=== PATIENT | male | born 1965 | race Caucasian/White ===

== ENCOUNTER 2017-02-16 05:41 | Day surgery (SDC) | payer MEDICAID ==
[2017-02-16] MEDS ORDERED: Lactated Ringers 1,000 ML IV SCH (07:00)
[2017-02-16] MEDS ORDERED: DIPRIVAN 200 MG/20 ML IV ONE (08:00)
--- NOTE | 2017-02-16 08:06 | OP ---
SURGERY DATE/TIME: 02/16/201723 PREOPERATIVE DIAGNOSIS: Rectal bleeding. POSTOPERATIVE DIAGNOSIS: Fecal impaction. PROCEDURE: Digital disimpaction under anesthesia. SURGEON: Dr. Rawls. ANESTHESIA: MAC. Medications given by anesthesia department. HISTORY: The patient is a 52 year-old white male patient with multiple medical problems. Apparently he has been having problems with rectal bleeding on evaluation prior to doing a colonoscopy which is planned. The patient is having dark stools, liquid, even after tap water enemas. DESCRIPTION OF PROCEDURE: On digital rectal examination the patient was found to be fecally impacted as far up as I could feel. We did a digital disimpaction for the patient under anesthesia. We were obviously unable to do a colonoscopy at this time. The patient would have to reprep and we will attempt to do a colonoscopy in the future at agreement of the patient and family if he should so desire.
[2017-02-16 08:27] VITALS: O2SAT 99
[2017-02-16 09:10] VITALS: BP 130/72
[2017-02-16 09:14] VITALS: PULSE 88
== END 2017-02-16 09:05 | disposition home or self-care (01) ==
LOC: SDC 05:41
PROVIDERS: ATTEND Family Medicine
PROC: 0DCP7ZZ Extirpation of Matter from Rectum, Via Natural or Artificial Opening (ICD-10-PCS; principal; 2017-02-16)
DX: K56.41 Fecal impaction (principal)
CPT/HCPCS: 00902; J1642; J2704

== ENCOUNTER 2017-02-16 09:06 | Emergency (ER) | payer MEDICAID ==
--- NOTE | 2017-02-16 09:34 | ERPHSYRPT ---
- History of Present Illness Time Seen by Provider: 02/16/17 09:27 Patient Subjective Stated Complaint: lt knee/ankle pain post incident Triage Nursing Assessment: states at 0530, pt got lt leg 'twisted while getting from wheelchair to vehicle to come in for procedure' pt was manually disimpacted under anethesia at this hopsital prior to ER visit. pt states pain to lt knee and lt ankle and increased swelling to lt lower extrem. no bruising noted. pulses present bilat. slight bilat lower extrem swelling equal to lower extrem. Physician History: Transferring from wheelchair to [employer] this AM and twisted L leg injuring L knee and ankle. States sharp pain initially to areas indicated. Pt. does not ambulate due to stroke(2013) and ALS(2015). No obvious signs of trauma to L leg /ankle area. Denies any paresthesias to area distally. Denies any other trauma or injuries. Pt. had a procedure at 6AM and went to procedure first prior to coming to ED. Method of Injury: twisted Occurred: this morning (5:30AM) Quality: intermittent Severity of Pain-Max: moderate Severity of Pain-Current: moderate Lower Extremities Pain: knee: left, ankle: left Modifying Factors: Improves With: movement (worsens) Associated Symptoms: none Allergies/Adverse Reactions: erythromycin lactobionate [From Erythrocin] Allergy (Verified 02/16/17 09:25) methocarbamol Allergy (Verified 02/16/17 09:25) Penicillins Allergy (Verified 02/16/17 09:25) egg Adverse Reaction (Verified 02/16/17 09:25) Home Medications: Docusate Sodium [Colace] 0 mg PO DAILY 05/17/16 [History] Quetiapine Fumarate [Seroquel] 300 mg PO HS 05/17/16 [History] Amlodipine Besylate 5 mg [Norvasc 5 mg] 5 mg PO DAILY 02/13/17 [History] Ferrous Sulfate 325 mg [Feosol 325 mg] 325 mg PO DAILY 02/13/17 [History] Gabapentin [Neurontin] 600 mg PO TID 02/13/17 [History] Insulin Glargine [Lantus Insulin] 30 unit SQ DAILY 02/13/17 [History] Hx Tetanus, Diphtheria Vaccination/Date Given: Yes Hx Influenza Vaccination/Date Given: No Hx Pneumococcal Vaccination/Date Given: No Immunizations Up to Date: Yes - Review of Systems Constitutional: No Fever, No Chills Eyes: No Symptoms Ears, Nose, & Throat: No Symptoms Respiratory: No Cough, No Dyspnea Cardiac: No Chest Pain, No Edema, No Syncope Abdominal/Gastrointestinal: No Abdominal Pain, No Nausea, No Vomiting, No Diarrhea Genitourinary Symptoms: No Dysuria Musculoskeletal: Injury, No Back Pain, No Neck Pain, No Joint Redness, No Joint Pain, No Joint Swelling Skin: No Rash Neurological: No Dizziness, No Focal Weakness, No Sensory Changes Psychological: No Symptoms Endocrine: No Symptoms All Other Systems: Reviewed and Negative - Past Medical History Pertinent Past Medical History: Yes Neurological History: Migraines, Stroke ENT History: Cataracts Cardiac History: Coronary Artery Disease, Hypertension Respiratory History: Pneumonia Endocrine Medical History: Diabetes Type II Musculoskeletal History: Fractures, Other GI Medical History: No Pertinent History History: No Pertinent History Psycho-Social History: Anxiety, Panic Disorder Male Reproductive Disorders: Testicular Cancer Other Medical History: testicular cancer - Past Surgical History Past Surgical History: Yes Neuro Surgical History: Other Cardiac: Cardiac Stent Respiratory: No Pertinent History Musculoskeletal: Orthopedic Surgery Male Surgical History: Testicular Surgery Other Surgical History: oral surgery,states brain surgery after stroke,rods to tibia right leg,left leg muscle repair,juanita. orchectomy - Social History Smoking Status: Never smoker Exposure to second hand smoke: No Drug Use: none Patient Lives Alone: No - Nursing Vital Signs Nursing Vital Signs: Initial Vital Signs Temperature 97.2 F Temperature Source Oral Pulse Rate 80 Respiratory Rate 16 Blood Pressure [Right Arm] 136/72 Pain Intensity 10 - Physical Exam General Appearance: alert Eyes, Ears, Nose, Throat Exam: moist mucous membranes Neck Exam: non-tender, supple Cardiovascular/Respiratory Exam: chest non-tender, normal breath sounds, regular rate/rhythm, no respiratory distress Gastrointestinal/Abdominal Exam: non-tender, guarding Back Exam: normal inspection, No vertebral tenderness Knees Exam: left knee: bone tenderness (Lat.knee/tibia area), soft tissue tenderness (same above) Ankle Exam: left ankle: soft tissue tenderness (L lat malleolar), swelling, bilateral ankle: no evidence of injury, limited range of motion Foot Exam: bilateral foot: non-tender DTR - Lower Extremities Exam: knee (R): 2+, knee (L): 2+ Neuro/Tendon Exam: normal sensation, motor deficit (Decrease strength with leg elevation 3/5, similar to baseline motor function) Mental Status Exam: alert, oriented x 3, cooperative Skin Exam: normal color, warm, dry SpO2: 100 Oxygen Delivery: Room Air - Course Nursing assessment & vital signs reviewed: Yes - Radiology Exams Left Knee X-ray Interpretation: Teleradiologist Report, No Fracture Left Ankle X-ray Interpretation: Teleradiologist Report, Negative, No Fracture Ordered Tests: Active Orders 24 hr Category Date Time Status ANKLE (3 VIEWS) Stat Exams 02/16/17 09:40 Ordered KNEE (3 VIEWS) Stat Exams 02/16/17 09:39 Ordered Medication Summary Discontinued Medications Generic Name Dose Route Start Last Admin Trade Name Freq PRN Reason Stop Dose Admin Acetaminophen/Hydrocodone Bitart 1 tab 02/16/17 09:41 02/16/17 09:44 [place] 5/325 Mg PO 02/16/17 09:42 1 tab STAT ONE Administration Acetaminophen/Hydrocodone Bitart Confirm 02/16/17 09:44 [place] 5/325 Mg Administered 02/16/17 09:45 Dose 1 tab .ROUTE .STK-MED ONE - Progress Progress: improved Progress Note: 02/16/17 10:39 Pt. given [place] with some relief. Counseled pt/family regarding: diagnosis, rad results - Departure Time of Disposition: 10:39 Departure Disposition: Home Clinical Impression: Strain of knee and leg, left Condition: Stable Critical Care Time: No Instructions: Knee Sprain Additional Instructions: Ice to any sore areas, elevate and decrease weight bearing. Motrin 800mg every 8hrs with food for pain. Return for worse pain, swelling or any problems.
[2017-02-16] MEDS ORDERED: NORCO 5/325 MG PO ONE (09:41)
[2017-02-16] MEDS ORDERED: NORCO 5/325 MG ONE (09:44)
--- NOTE | 2017-02-16 10:40 | XRAY ---
Indication: Pain and swelling following fall. Comparison: None 3 projections of the left knee demonstrates osteopenia and small nonspecific suprapatellar effusion. No other bony, articular, or soft tissue abnormalities. CT may yield further information if there remains further clinical concern.
--- NOTE | 2017-02-16 10:40 | XRAY ---
Indication: Pain following fall. Comparison: None 3 views of the left ankle demonstrates diffuse soft tissue swelling, osteopenia, and tiny well-circumscribed ossification adjacent to the tip of the medial malleolus, either degenerative versus old injury. No other bony, articular, or soft tissue abnormalities.
[2017-02-16 10:55] VITALS: BP 115/67; PULSE 78; O2SAT 97
== END 2017-02-16 10:55 | disposition home or self-care (01) ==
LOC: ED 09:06
DX: S83.92XA Sprain of unspecified site of left knee, initial encounter (principal); X50.0XXA Overexertion from strenuous movement or load, initial encounter
CPT/HCPCS: 73562; 73610; 99283; A9270-GY

== ENCOUNTER 2017-02-28 02:08 | Inpatient (IN) | payer MEDICAID ==
[2017-02-28] MEDS ORDERED: Sodium Chloride 0.9% 1000 ML 1,000 ML IV SCH (02:45)
--- NOTE | 2017-02-28 02:47 | ERPHSYRPT ---
- History of Present Illness Time Seen by Provider: 02/28/17 02:32 Source: patient Exam Limitations: no limitations Patient Subjective Stated Complaint: STATES THAT HE NOTED BLOODY DIARRHEA AT 1930 TONIGHT WITH MULTIPLE EPISODES WITH 8 DIAPER CHANGES, THAT BEGAN TO RESOLVE AT 2300 TONIGHT - STATES THAT HE HAS SOME ABD CRAMPING - ALSO REPORTS A HEADACHE AND HIGH BLOOD SUGAR THAT IS NORMAL FOR HIM Triage Nursing Assessment: LIFTED TO CART PER EMS PERSONNEL - MOVES ALL EXTREMITIES WITH EQUAL STRENGTH. ALERT/ORIENTED - PLEASANT/COOPERATIVE AFFECT. SKIN PALE/DRY - NO RASH/INJURY. RESPS EASY - NON-LABORED Physician History: This is a 52-year-old white male who is brought by medics patient states that he started having bloody diarrhea beginning at 1930 p.m. he states he had multiple episodes he states that he has had dark stools he states that he has had some lower abdominal pain he states he had some a headache he was noted to have a high blood sugar prior to arrival Medics state that the patient's blood sugar was rated as a high high high patient arrives with an elevated blood pressure as well Patient is not having any vomiting has no fevers Past medical history includes cataracts, migraines, CVA, coronary artery disease , high blood pressure, diabetes, fractures, anxiety, panic disorder, testicular cancer Past surgical history includes cardiac stent, testicular surgery, brain surgery after a stroke, bilateral orchiectomy, patient with rods to his tibia Timing/Duration: yesterday (patient states GI bleed lasted from 7:30 20 11:15 PM last night) Severity: moderate Modifying Factors: Improves With: nothing Associated Symptoms: abdominal pain, headaches, No nausea, No vomiting, No shortness of breath, No heartburn, No diaphoresis, No cough, No chills, No chest pain, No fever, No loss of appetite, No malaise, No rash, No syncope, No seizure, No weakness Allergies/Adverse Reactions: bee venom protein (honey bee) Allergy (Verified 02/28/17 02:28) erythromycin lactobionate [From Erythrocin] Allergy (Verified 02/16/17 09:25) ketorolac [From Toradol] Allergy (Verified 02/28/17 02:28) methocarbamol Allergy (Verified 02/16/17 09:25) Penicillins Allergy (Verified 02/16/17 09:25) egg Adverse Reaction (Verified 02/16/17 09:25) Home Medications: Quetiapine Fumarate [Seroquel] 300 mg PO HS 05/17/16 [History] Gabapentin [Neurontin] 600 mg PO TID 02/13/17 [History] Insulin Glargine [Lantus Insulin] 30 unit SQ DAILY 02/13/17 [History] Hx Tetanus, Diphtheria Vaccination/Date Given: Yes Hx Influenza Vaccination/Date Given: No Hx Pneumococcal Vaccination/Date Given: No Immunizations Up to Date: Yes - Review of Systems Constitutional: No Fever, No Chills Eyes: No Symptoms Ears, Nose, & Throat: No Symptoms, No Ear Pain, No Ear Discharge, No Hearing Changes, No Tinnitus, No Nose Pain, No Nose Congestion, No Nose Discharge, No Sinus Drainage, No Epistaxis, No Mouth Pain, No Mouth Swelling, No Loose Teeth, No Throat Pain, No Throat Swelling, No Hoarse, No Painful Swallowing, No Snoring , No Stridor Respiratory: No Cough, No Dyspnea Cardiac: No Chest Pain, No Edema, No Syncope Abdominal/Gastrointestinal: Abdominal Pain, Diarrhea, Hematochezia, Melena, No Nausea, No Vomiting, No Constipation, No Hematemesis, No Dysphagia, No Appetite Changes Genitourinary Symptoms: No Dysuria Musculoskeletal: No Back Pain, No Neck Pain Skin: No Rash Neurological: Headache Psychological: No Symptoms Endocrine: No Symptoms All Other Systems: Reviewed and Negative - Past Medical History Pertinent Past Medical History: Yes Neurological History: Migraines, Stroke ENT History: Cataracts Cardiac History: Coronary Artery Disease, High Cholesterol, Hypertension Respiratory History: Pneumonia Endocrine Medical History: Diabetes Type II Musculoskeletal History: Fractures, Other GI Medical History: No Pertinent History History: No Pertinent History Psycho-Social History: Anxiety, Panic Disorder Male Reproductive Disorders: Testicular Cancer Other Medical History: testicular cancer - Past Surgical History Past Surgical History: Yes Neuro Surgical History: Other Cardiac: Cardiac Catheterization, Cardiac Stent Respiratory: No Pertinent History Musculoskeletal: Orthopedic Surgery Male Surgical History: Testicular Surgery Other Surgical History: oral surgery,states brain surgery after stroke,rods to tibia right leg,left leg muscle repair,juanita. orchectomy - Social History Smoking Status: Never smoker Exposure to second hand smoke: No Drug Use: none Patient Lives Alone: Yes - Nursing Vital Signs Nursing Vital Signs: Initial Vital Signs Temperature 98.7 F Temperature Source Oral Pulse Rate 68 Respiratory Rate 20 Blood Pressure [] 147/94 Pain Intensity 8 - Physical Exam General Appearance: mild distress Eye Exam: PERRL/EOMI, eyes nml inspection Ears, Nose, Throat Exam: normal ENT inspection, TMs normal, pharynx normal, moist mucous membranes Neck Exam: normal inspection, non-tender, supple, full range of motion Respiratory Exam: normal breath sounds, lungs clear, No respiratory distress Cardiovascular Exam: regular rate/rhythm, normal heart sounds, normal peripheral pulses Gastrointestinal/Abdomen Exam: soft, normal bowel sounds, No tenderness, No mass Rectal Exam: other (rectal moderate amount of dark brown stool no obvious bleeding) Back Exam: normal inspection, normal range of motion, No CVA tenderness, No vertebral tenderness Extremity Exam: normal inspection, normal range of motion, pelvis stable Neurologic Exam: alert, oriented x 3, cooperative, normal mood/affect, nml cerebellar function, nml station & gait, sensation nml, No motor deficits Skin Exam: normal color, warm, dry, No rash Lymphatic Exam: No adenopathy SpO2 Interpretation: normal (98%) SpO2: 98 Oxygen Delivery: Room Air - Course Nursing assessment & vital signs reviewed: Yes EKG Interpreted by Me: RATE (90 bpm), Sinus Rhythm, NORMAL AXIS, Other (EKG: Sinus rhythm 90 bpm normal axis no acute ST or T wave changes, essentially normal ekg) - CT Exams Head CT Interpretation: Tele-radiologist Report (head CT: No acute intracranial process seen) Ordered Tests: Active Orders 24 hr Category Date Time Status Accucheck STAT Care 02/28/17 02:40 Active EKG-ER Only STAT Care 02/28/17 02:39 Active IV Insertion STAT Care 02/28/17 02:39 Active HEAD WITHOUT CONTRAST [CT] Stat Exams 02/28/17 02:50 Taken AMYLASE Stat Lab 02/28/17 02:40 Completed CBC W DIFF Stat Lab 02/28/17 02:40 Completed CMP Stat Lab 02/28/17 02:40 Completed Glucose,Critical Care Urgent Lab 02/28/17 02:50 Completed LIPASE Stat Lab 02/28/17 02:40 Completed Occult Blood,Stool Other Stat Lab 02/28/17 02:50 Completed PROTIME WITH INR Stat Lab 02/28/17 02:40 Completed PTT Stat Lab 02/28/17 02:40 Completed UA W/ MICROSCOPIC Stat Lab 02/28/17 02:55 Completed VENOUS BLOOD GAS Urgent Lab 02/28/17 02:50 Completed Medication Summary Generic Name Dose Route Start Last Admin Trade Name Maddie PRN Reason Stop Dose Admin Sodium Chloride 1,000 mls @ 100 mls/hr 02/28/17 02:45 02/28/17 03:27 Sodium Chloride 0.9% 1000 Ml IV 03/30/17 02:44 100 mls/hr .Q10H DIONISIO Administration Insulin Human Regular 100 101 mls @ 9.09 mls/hr 02/28/17 03:15 02/28/17 03:46 units/ Sodium Chloride IV 03/30/17 03:14 9.09 mls/hr .[id number] DIONISIO Administration 9 UNITS/HR Discontinued Medications Generic Name Dose Route Start Last Admin Trade Name Maddie PRN Reason Stop Dose Admin Sodium Chloride Confirm 02/28/17 03:34 Sodium Chloride 0.9% 100 Ml Ivpb Administered 02/28/17 03:35 Dose 100 mls @ ud IV .STK-MED ONE Insulin Human Regular 10 unit 02/28/17 02:58 02/28/17 03:07 Novolin R IV 02/28/17 02:59 Not Given STAT ONE Insulin Human Regular Confirm 02/28/17 03:34 Novolin R Administered 02/28/17 03:35 Dose 100 unit .ROUTE .STK-MED ONE Labetalol HCl 10 mg 02/28/17 03:32 02/28/17 03:46 Trandate 20 Mg/5 Ml Syringe IV 02/28/17 03:33 10 mg STAT ONE Administration Labetalol HCl Confirm 02/28/17 03:37 Trandate 20 Mg/5 Ml Syringe Administered 02/28/17 03:38 Dose 20 mg IV .STK-MED ONE Morphine Sulfate 4 mg 02/28/17 02:50 02/28/17 03:12 Morphine Sulfate 4 Mg Inj IV 02/28/17 02:51 4 mg STAT ONE Administration Morphine Sulfate Confirm 02/28/17 03:08 Morphine Sulfate 4 Mg Inj Administered 02/28/17 03:09 Dose 4 mg .ROUTE .STK-MED ONE Morphine Sulfate 4 mg 02/28/17 04:02 02/28/17 04:09 Morphine Sulfate 4 Mg Inj IV 02/28/17 04:03 4 mg STAT ONE Administration Morphine Sulfate Confirm 02/28/17 04:05 Morphine Sulfate 4 Mg Inj Administered 02/28/17 04:06 Dose 4 mg .ROUTE .STK-MED ONE Ondansetron HCl 4 mg 02/28/17 02:50 02/28/17 03:12 Zofran 4 Mg/2 Ml Vial IV 02/28/17 02:51 4 mg STAT ONE Administration Ondansetron HCl Confirm 02/28/17 03:08 Zofran 4 Mg/2 Ml Vial Administered 02/28/17 03:09 Dose 4 mg .ROUTE .STK-MED ONE Lab/Rad Data: Laboratory Result Diagrams 02/28/17 02:40 02/28/17 02:40 Laboratory Results 02/28/17 02/28/17 02/28/17 Range/Units 02:55 02:50 02:50 WBC (4.0-10.5) K/mm3 RBC (4.1-5.6) M/mm3 Hgb (12.5-18.0) gm/dl Hct (42-50) % MCV (78-100) fl MCH (26-32) pg MCHC (32-36) g/dl RDW (11.5-14.0) % Plt Count (150-450) K/mm3 MPV (6-9.5) fl Gran % (36.0-66.0) % Lymphocytes % (24.0-44.0) % Monocytes % (0.0-12.0) % Eosinophils % (0.00-5.0) % Basophils % (0.0-0.4) % Basophils # (0-0.4) INR (0.8-3.0) APTT (24.1-36.1) SECONDS VBG pH 7.36 (7.32-7.42) VBG pCO2 at Pat Temp 43 (42-55) mm/Hg VBG pO2 at Pat Temp 38 (25-40) mm/Hg VBG HCO3 24.3 (22-28) meq/L VBG O2 Sat (Mariusz) 82.8 L (95-100) VBG Base Excess -1.2 (-2.0-2.0) VBG Hemoglobin 11.1 VBG Carboxyhemoglobin 3.7 (0.0-6.9) % T HGB POC Potassium 4.8 (3.5-5.1) Sodium (136-145) mEq/L Potassium (3.5-5.1) mEq/L Chloride (98-107) mEq/L Carbon Dioxide (21-32) mEq/L Anion Gap (5-15) MEQ/L BUN (9-20) mg/dL Creatinine (0.55-1.30) mg/dl Estimated GFR ML/MIN Glucose 644 H* (70-110) MG/DL Calcium (8.5-10.1) mg/dL Total Bilirubin (0.2-1.0) mg/dL AST (15-37) U/L ALT (12-78) U/L Alkaline Phosphatase (46-116) U/L Serum Total Protein (6.4-8.2) gm/dL Albumin (3.4-5.0) g/dL Amylase (25-115) U/L Lipase (73-393) U/L Ur Collection Type CLEAN CATCH Urine Color YELLOW (YELLOW) Urine Appearance CLOUDY (CLEAR) Urine pH 5.5 (5-6) Ur Specific Jewett 1.010 (1.005-1.025) Urine Protein >=300 (Negative) Urine Glucose (UA) 500 (NEGATIVE) mg/dL Urine Ketones NEGATIVE (NEGATIVE) Urine Nitrite NEGATIVE (NEGATIVE) Urine Bilirubin NEGATIVE (NEGATIVE) Urine Urobilinogen 0.2 (0-1) mg/dL Urine WBC (Auto) NEGATIVE (NEGATIVE) Urine RBC (Auto) MODERATE (0-5) Syed/ul Urine Microscopic RBC 15-25 (0-2) /HPF Ur Epithelial Cells FEW (FEW) /HPF Urine Bacteria FEW (NEGATIVE) /HPF Urine Mucus MANY (NEGATIVE) /HPF Stool Occult Blood (Negative) Specimen Received 02/28/17:0255 ABO Group Rh Factor Antibody Screen (NEGATIVE) 02/28/17 02/28/17 02/28/17 Range/Units 02:50 02:40 02:40 WBC (4.0-10.5) K/mm3 RBC (4.1-5.6) M/mm3 Hgb (12.5-18.0) gm/dl Hct (42-50) % MCV (78-100) fl MCH (26-32) pg MCHC (32-36) g/dl RDW (11.5-14.0) % Plt Count (150-450) K/mm3 MPV (6-9.5) fl Gran % (36.0-66.0) % Lymphocytes % (24.0-44.0) % Monocytes % (0.0-12.0) % Eosinophils % (0.00-5.0) % Basophils % (0.0-0.4) % Basophils # (0-0.4) INR 0.93 (0.8-3.0) APTT 34.0 (24.1-36.1) SECONDS VBG pH (7.32-7.42) VBG pCO2 at Pat Temp (42-55) mm/Hg VBG pO2 at Pat Temp (25-40) mm/Hg VBG HCO3 (22-28) meq/L VBG O2 Sat (Mariusz) (95-100) VBG Base Excess (-2.0-2.0) VBG Hemoglobin VBG Carboxyhemoglobin (0.0-6.9) % T HGB POC Potassium (3.5-5.1) Sodium (136-145) mEq/L Potassium (3.5-5.1) mEq/L Chloride (98-107) mEq/L Carbon Dioxide (21-32) mEq/L Anion Gap (5-15) MEQ/L BUN (9-20) mg/dL Creatinine (0.55-1.30) mg/dl Estimated GFR ML/MIN Glucose (70-110) MG/DL Calcium (8.5-10.1) mg/dL Total Bilirubin (0.2-1.0) mg/dL AST (15-37) U/L ALT (12-78) U/L Alkaline Phosphatase (46-116) U/L Serum Total Protein (6.4-8.2) gm/dL Albumin (3.4-5.0) g/dL Amylase (25-115) U/L Lipase (73-393) U/L Ur Collection Type Urine Color (YELLOW) Urine Appearance (CLEAR) Urine pH (5-6) Ur Specific Jewett (1.005-1.025) Urine Protein (Negative) Urine Glucose (UA) (NEGATIVE) mg/dL Urine Ketones (NEGATIVE) Urine Nitrite (NEGATIVE) Urine Bilirubin (NEGATIVE) Urine Urobilinogen (0-1) mg/dL Urine WBC (Auto) (NEGATIVE) Urine RBC (Auto) (0-5) Syed/ul Urine Microscopic RBC (0-2) /HPF Ur Epithelial Cells (FEW) /HPF Urine Bacteria (NEGATIVE) /HPF Urine Mucus (NEGATIVE) /HPF Stool Occult Blood NEGATIVE (Negative) Specimen Received ABO Group A Rh Factor POSITIVE Antibody Screen NEGATIVE (NEGATIVE) 02/28/17 02/28/17 Range/Units 02:40 02:40 WBC 6.7 (4.0-10.5) K/mm3 RBC 3.79 L (4.1-5.6) M/mm3 Hgb 11.0 L (12.5-18.0) gm/dl Hct 33.6 L (42-50) % MCV 88.7 (78-100) fl MCH 29.0 (26-32) pg MCHC 32.7 (32-36) g/dl RDW 13.5 (11.5-14.0) % Plt Count 230 (150-450) K/mm3 MPV 11.1 H (6-9.5) fl Gran % 65.4 (36.0-66.0) % Lymphocytes % 20.8 L (24.0-44.0) % Monocytes % 5.8 (0.0-12.0) % Eosinophils % 6.4 H (0.00-5.0) % Basophils % 1.6 (0.0-0.4) % Basophils # 0.11 (0-0.4) INR (0.8-3.0) APTT (24.1-36.1) SECONDS VBG pH (7.32-7.42) VBG pCO2 at Pat Temp (42-55) mm/Hg VBG pO2 at Pat Temp (25-40) mm/Hg VBG HCO3 (22-28) meq/L VBG O2 Sat (Mariusz) (95-100) VBG Base Excess (-2.0-2.0) VBG Hemoglobin VBG Carboxyhemoglobin (0.0-6.9) % T HGB POC Potassium (3.5-5.1) Sodium 131 L (136-145) mEq/L Potassium 4.8 (3.5-5.1) mEq/L Chloride 101 (98-107) mEq/L Carbon Dioxide 24.1 (21-32) mEq/L Anion Gap 10.7 (5-15) MEQ/L BUN 30 H (9-20) mg/dL Creatinine 1.26 (0.55-1.30) mg/dl Estimated GFR > 60 ML/MIN Glucose 664 H* (70-110) MG/DL Calcium 9.4 (8.5-10.1) mg/dL Total Bilirubin 0.3 (0.2-1.0) mg/dL AST 17 (15-37) U/L ALT 13 (12-78) U/L Alkaline Phosphatase 230 H (46-116) U/L Serum Total Protein 7.2 (6.4-8.2) gm/dL Albumin 2.8 L (3.4-5.0) g/dL Amylase 28 (25-115) U/L Lipase 188 (73-393) U/L Ur Collection Type Urine Color (YELLOW) Urine Appearance (CLEAR) Urine pH (5-6) Ur Specific Jewett (1.005-1.025) Urine Protein (Negative) Urine Glucose (UA) (NEGATIVE) mg/dL Urine Ketones (NEGATIVE) Urine Nitrite (NEGATIVE) Urine Bilirubin (NEGATIVE) Urine Urobilinogen (0-1) mg/dL Urine WBC (Auto) (NEGATIVE) Urine RBC (Auto) (0-5) Syed/ul Urine Microscopic RBC (0-2) /HPF Ur Epithelial Cells (FEW) /HPF Urine Bacteria (NEGATIVE) /HPF Urine Mucus (NEGATIVE) /HPF Stool Occult Blood (Negative) Specimen Received ABO Group Rh Factor Antibody Screen (NEGATIVE) - Progress Progress: improved Progress Note: 02/28/17 04:31 This is a 52-year-old white male with history of cataracts migraines CVA coronary artery disease high blood pressure type 2 diabetes anxiety panic disorder testicular cancer He arrives with complaint of multiple loose stools which she thought were dark and thought he had a GI bleed which began at 7:30 and lasted until 11:30 On arrival of the medics patient was noted to have a markedly elevated blood pressure of 200/120 patient had a blood sugar which was not able to be reread by the medics with their Accu-Chek on arrival here the nurses had high high high blood glucose was 664 Patient did have a blood pressure on arrival to this hospital of 198/118 he stated that he had a frontal headache he was having a lower suprapubic abdominal pain. Patient was started on an insulin drip he was not given a large bolus of fluids secondary to his elevated blood pressure he was given morphine 4 mg IV 2 Zofran and given labetalol 10 mg IV. Patient's blood pressure is now 147/90 blood glucose is 550 after a short of an hour of insulin drip at 9 units per hour. Patient does have a headache however he appears to be improved and blood pressure is markedly improved. Patient's urine shows a specific gravity 1.010 pH of 5.5 urine glucose is 500 ketones are negative Patient had a head CT which shows no acute changes EKG shows sinus rhythm 90 bpm normal axis there are no acute ST or T wave changes noted Patient's chemistry shows sodium of 131 potassium 4.8 chloride 101 bicarbonate 24.1 BUN 30 creatinine 1.26 and glucose 664 Patient's occult stool is negative for blood Patient's CBC shows white count 6.7 hemoglobin 11.0 hematocrit 33.6 Patient appears to be improved condition his blood pressure is improving. Case is discussed with Dr. Bob will place patient on ICU continue IV insulin drip to continue normal saline at [address] Will place patient on telemetry will monitor his pressures for now they appear to be downtrending. . - Departure Time of Disposition: 04:35 Departure Disposition: Observation Clinical Impression: Hypertensive urgency, Hyperglycemia Headache Qualifiers: Headache type: unspecified Headache chronicity pattern: acute headache Intractability: not intractable Qualified Code(s): R51 - Headache Abdominal pain Qualifiers: Abdominal location: unspecified location Qualified Code(s): R10.9 - Unspecified abdominal pain Diarrhea Qualifiers: Diarrhea type: unspecified type Qualified Code(s): R19.7 - Diarrhea, unspecified Condition: Fair Critical Care Time: No Referrals: LISHA KRAMER [Primary Care Provider] -
[2017-02-28] MEDS ORDERED: Zofran 4 MG/2 ML VIAL IV ONE (02:50)
[2017-02-28] MEDS ORDERED: MORPHINE SULFATE 4 MG INJ IV ONE ×2 (02:50→04:02)
[2017-02-28 02:57] LABS: VBG BASE EXCESS -1.2 (-2.0-2.0); VBG CARBOXYHEMOGLOBIN 3.7 % T HGB (0.0-6.9); VBG HCO3- 24.3 meq/L (22-28); VBG HEMOGLOBIN 11.1; VBG O2 SATURATION 82.8 (95-100); VBG POTASSIUM 4.8 (3.5-5.1); VBG pH 7.36 (7.32-7.42)
[2017-02-28] MEDS ORDERED: NovoLIN R IV ONE (02:58)
[2017-02-28 03:07] LABS: BASOPHIL % 1.6 % (0.0-0.4); Eosinophil % 6.4 % (0.00-5.0); Granulocytes % 65.4 % (36.0-66.0); Lymphocytes % 20.8 % (24.0-44.0); Mean Cell Volume 88.7 fl (78-100); Mean Platelet Volume 11.1 fl (6-9.5); Monocytes % 5.8 % (0.0-12.0); Platelet Count 230 K/mm3 (150-450); Red Blood Count 3.79 M/mm3 (4.1-5.6); Red Cell Distribution Width 13.5 % (11.5-14.0); White Blood Count 6.7 K/mm3 (4.0-10.5)
[2017-02-28] MEDS ORDERED: Zofran 4 MG/2 ML VIAL ONE (03:08)
[2017-02-28] MEDS ORDERED: Sodium Chloride 0.9% 1000 ML 1,000 ML ONE (03:08)
[2017-02-28] MEDS ORDERED: MORPHINE SULFATE 4 MG INJ ONE ×2 (03:08→04:05)
[2017-02-28] MEDS ORDERED: NOVOLIN R INSULIN (FOR DRIPS)** 100 UNITS in Sodium Chloride 0.9% 100 ML IVPB 100 ML IV SCH (03:15)
[2017-02-28 03:21] LABS: COMPLETE URINE MICROSCOPIC? YES; Collection Type CLEAN CATCH; Ph 5.5 (5-6)
[2017-02-28 03:22] LABS: Bacteria FEW /HPF (NEGATIVE); Epithelial Cells FEW /HPF (FEW); Mucus MANY /HPF (NEGATIVE)
[2017-02-28 03:24] LABS: INR 0.93 (0.8-3.0); PROTIME 10.4 SECONDS (8.83-12.87)
[2017-02-28 03:28] LABS: ALBUMIN 2.8 g/dL (3.4-5.0); ALKALINE PHOSPHATASE 230 U/L (46-116); ANION GAP 10.7 MEQ/L (5-15); BILIRUBIN,TOTAL 0.3 mg/dL (0.2-1.0); BLOOD UREA NITROGEN 30 mg/dL (9-20); CHLORIDE 101 mEq/L (98-107); Carbon Dioxide 24.1 mEq/L (21-32); LIPASE 188 U/L (73-393); Potassium 4.8 mEq/L (3.5-5.1); SGOT/AST 17 U/L (15-37); SGPT/ALT 13 U/L (12-78); SODIUM 131 mEq/L (136-145); Total Protein 7.2 gm/dL (6.4-8.2)
[2017-02-28] MEDS ORDERED: TRANDATE 20 MG/5 ML SYRINGE IV ONE ×2 (03:32→03:37)
[2017-02-28] MEDS ORDERED: NovoLIN R ONE (03:34)
[2017-02-28] MEDS ORDERED: Sodium Chloride 0.9% 100 ML IVPB 100 ML IV ONE (03:34)
[2017-02-28 03:43] LABS: Glucose 664 MG/DL (70-110)
[2017-02-28] MEDS ORDERED: NOVOLIN R INSULIN (FOR DRIPS)** 100 UNITS in Sodium Chloride 0.9% 100 ML IVPB 100 ML IV PRN (05:18)
[2017-02-28] MEDS ORDERED: MORPHINE SULFATE 4 MG INJ IV PRN (05:18)
[2017-02-28] MEDS ORDERED: Zofran 4 MG/2 ML VIAL IV PRN (05:18)
[2017-02-28] MEDS ORDERED: TYLENOL EXTRA STRENGTH 500 MG PO PRN (08:30)
--- NOTE | 2017-02-28 08:32 | PCM.HP ---
History of Present Illness - Chief Complaint Chief Complaint: Headache, hyperglycemia, HTN Date: 02/28/17 History of Present Illness: is a 52 year old male. with a chronic history of noncompliance with medical treatment for his diabetes and his multiple other co morbid conditions including his chronic neurogenic bladder, presented after reportedly not taking his insulin just for yesterday due to reporting dark stools X 10 for 4 hours that then turned moore prior to presentation however at presentation the heme test of stool was negative. He [facility] living [facility] a [facility] but left voluntarily to move back in with his friend who helps take care of him who is in his 80's. He was gone when he started having the change in stools so [place] called the EMS who brought him here. On arrival he had elevated blood pressure and was also having a headache. He is still reporting a severe headache and asking if he can have fentanyl patch for it as he was on that in the [facility] in the past. He also now is having right lower quadrant abdominal pain. He has not had any vomiting or stools since arrival. He reports being hungry now. He is complaining of progressively worsening diffuse weakness bilaterally but no new weakness since the headache started. - Review of Systems Constitutional: Chills, Fatigue, Lethargy, Malaise, No Fever Eyes: No Eye Redness, No Itchy Ears, Nose, & Throat: Nose Congestion, Sinus Drainage, Hoarse, No Epistaxis, No Painful Swallowing Respiratory: Cough, No Orthopnea, No Short Of Breath Cardiac: Edema, No Chest Pain, No Palpitations Abdominal/Gastrointestinal: Abdominal Pain, Nausea, Diarrhea, No Vomiting Genitourinary Symptoms: Incontinence, No Dysuria Musculoskeletal: Arthralgias Neurological: Focal Weakness, Headache, No Seizure, No Speech Changes Medications & Allergies Home Medications: Home Medication List Quetiapine Fumarate [Seroquel] 300 mg PO HS 05/17/16 [History Confirmed 02/28/17 ] Gabapentin [Neurontin] 600 mg PO TID 02/13/17 [History Confirmed 02/28/17] Insulin Glargine [Lantus Insulin] 30 unit SQ DAILY 02/13/17 [History Confirmed 02/28/17] Allergies/Adverse Reactions: Allergies Allergy/AdvReac Type Severity Reaction Status Date / Time bee venom protein (honey bee) Allergy Verified 02/28/17 02:28 erythromycin lactobionate Allergy Verified 02/16/17 09:25 [From Erythrocin] ketorolac [From Toradol] Allergy Verified 02/28/17 02:28 methocarbamol Allergy Verified 02/16/17 09:25 Penicillins Allergy Verified 02/16/17 09:25 egg AdvReac Verified 02/16/17 09:25 - Past Medical History Past Medical History: Yes Neurological History: Migraines, Stroke ENT History: Cataracts Cardiac History: Coronary Artery Disease, High Cholesterol, Hypertension Respiratory History: Pneumonia Endocrine Medical History: Diabetes Type II Musculoskelatal History: Fractures, Other GI Medical History: No Pertinent History History: No Pertinent History Pyscho-Social History: Anxiety, Panic Disorder Male Reproductive Disorders: Testicular Cancer Comment: testicular cancer - Past Surgical History Past Surgical History: Yes Neuro Surgical History: Other Cardiac History: Cardiac Catheterization, Cardiac Stent Respiratory Surgery: No Pertinent History Musculskeletal Surgical Hx: Orthopedic Surgery Male Surgical History: Testicular Surgery Other Surgical History: oral surgery,states brain surgery after stroke,rods to tibia right leg,left leg muscle repair,juanita. orchectomy - Social History Smoking Status: Never smoker Exposure to second hand smoke: No Alcohol: None Drug Use: none - Physical Exam Vital Signs: Vital Signs - 24 hr Temp Pulse Resp BP Pulse Ox 02/28/17 08:00 97.4 F 71 12 127/71 100 02/28/17 07:52 68 02/28/17 05:40 98.4 F 70 19 145/87 100 02/28/17 04:39 98 02/28/17 04:38 70 18 152/103 100 02/28/17 04:25 68 20 147/94 99 02/28/17 04:17 69 14 170/98 99 02/28/17 04:09 68 196/106 02/28/17 04:01 70 18 200/100 99 02/28/17 03:52 70 16 187/111 99 02/28/17 03:47 68 14 182/108 98 02/28/17 02:21 98.7 F 88 18 198/118 98 General Appearance: no apparent distress Neurologic Exam: alert, oriented x 3, cooperative, depressed mood/affect, motor weakness (symmetrical bilateral chronic in lower extremities worsening 4/5 throughout bilateral upper extremities.), No confusion, No slurred speech Ears, Nose, Throat Exam: moist mucous membranes Neck Exam: normal inspection, non-tender, supple Respiratory Exam: normal breath sounds, lungs clear, No respiratory distress Cardiovascular Exam: regular rate/rhythm, normal heart sounds Gastrointestinal/Abdomen Exam: soft, tenderness (right upper and lower quadrants ), No distention, No guarding, No rebound, No hepatomegaly, No bruit Extremity Exam: pedal edema, other (cool feet with biltaral edema and a pressure ulcer on the heal) Skin Exam: warm, dry, pale Results - Labs Lab/Micro Results: Accuchecks Date 02/28/17 Date 02/28/17 Date 02/28/17 Time 08:25 Time 07:00 Time 06:05 Accucheck Value: 124 Accucheck Value: 260 Accucheck Value: 348 Accuchecks Date 02/28/17 Date 02/28/17 Date 02/28/17 Time 08:25 Time 07:00 Time 06:05 Accucheck Value: 124 Accucheck Value: 260 Accucheck Value: 348 - Radiology Impressions Radiology Exams & Impressions: Radiology Procedures Category Date Time Status ABDOMEN AND PELVIS W CONTRAST [CT] Routine Exams 02/28/17 08:29 Ordered Assessment/Plan (1) Type 1 diabetes mellitus, uncontrolled Current Visit: Yes Status: Acute Assessment & Plan: Hyperglycemia secondary to him not taking his insulin the day of presentation glucose at 100 this am stop drip start his lantus will just do sliding coverage for today in addition with his CT and abdominal pain and add on with meal dosing when po improves. Code(s): E10.65 - TYPE 1 DIABETES MELLITUS WITH HYPERGLYCEMIA (2) Hypertensive urgency Current Visit: Yes Status: Acute Assessment & Plan: he does have a remote hx of a hemorrhagic pontine stroke but previous neurology evaluation did not find deficits assocaited with that and instead was being treated for a persistent weakness following an episode of [place] in the past and was following with neurology in [place] but has been noncompliant with the follow up there. Code(s): I16.0 - HYPERTENSIVE URGENCY (3) Headache Current Visit: Yes Status: Acute Qualifiers: Headache type: unspecified Headache chronicity pattern: acute headache Intractability: not intractable Qualified Code(s): R51 - Headache Code(s): R51 - HEADACHE (4) Abdominal pain Current Visit: Yes Status: Acute Qualifiers: Abdominal location: unspecified location Qualified Code(s): R10.9 - Unspecified abdominal pain Code(s): R10.9 - UNSPECIFIED ABDOMINAL PAIN (5) GI bleed Current Visit: Yes Status: Acute Assessment & Plan: this is not confirmed based on patient history which is unreliable. first occult testing is negative will repeat X2 use protonix with abdominal pain get CT if ok will plan for outpatient endoscopy / colonoscopy f/u if stable Code(s): K92.2 - GASTROINTESTINAL HEMORRHAGE, UNSPECIFIED (6) Anemia Current Visit: Yes Status: Chronic Code(s): D64.9 - ANEMIA, UNSPECIFIED (7) Coronary artery disease Current Visit: Yes Status: Chronic Code(s): I25.10 - ATHSCL HEART DISEASE OF [place] CORONARY ARTERY W/O ANG PCTRS (8) Neurogenic bladder Current Visit: Yes Status: Chronic Code(s): N31.9 - NEUROMUSCULAR DYSFUNCTION OF [place], UNSPECIFIED (9) Depression Current Visit: Yes Status: Chronic Assessment & Plan: long history was following with [facility] for mixed mood disorder continue seroquel for now Code(s): F32.9 - MAJOR DEPRESSIVE DISORDER, SINGLE EPISODE, UNSPECIFIED (10) Diabetic neuropathy associated with type 1 diabetes mellitus Current Visit: Yes Status: Chronic Code(s): E10.40 - TYPE 1 DIABETES MELLITUS WITH DIABETIC NEUROPATHY, UNSP
[2017-02-28 08:42] LABS: Mean Platelet Volume 10.6 fl (6-9.5); Platelet Count 237 K/mm3 (150-450); Red Blood Count 3.63 M/mm3 (4.1-5.6); Red Cell Distribution Width 13.6 % (11.5-14.0); White Blood Count 7.9 K/mm3 (4.0-10.5)
[2017-02-28 08:48] LABS: Mean Corpuscular Hemoglobin 28.6 pg (26-32)
[2017-02-28 09:22] LABS: BLOOD UREA NITROGEN 28 mg/dL (9-20); CHLORIDE 107 mEq/L (98-107); Carbon Dioxide 27.4 mEq/L (21-32); Glucose 95 MG/DL (70-110); Potassium 3.4 mEq/L (3.5-5.1); SODIUM 139 mEq/L (136-145)
--- NOTE | 2017-02-28 09:35 | XRAY ---
Indication: Headache. High blood pressure. Multiple contiguous axial images obtained through the head without contrast. Comparison: September 04, 2015 Stable age-appropriate global atrophy and left occipital craniotomy with underlying encephalomalacia. Again there is tiny pontine hyperdensity/calcification unchanged favored to be benign given stability. No acute intracranial hemorrhage, hydrocephalus, or mass effect. Bony calvarium intact. Visualized paranasal sinuses and mastoid air cells are pneumatized and clear. Impression: Stable nonacute CT head without contrast exam again with chronic features as detailed. Comment: Preliminary interpretation was made by [facility]. No discrepancy. CTDI 66.12
[2017-02-28] MEDS: Lantus Insulin SQ SCH (09:46)
[2017-02-28] MEDS: PROTONIX 40 MG IV IV SCH (09:46)
[2017-02-28] MEDS ORDERED: NON-FORMULARY ITEM (Gabapentin [Neurontin] 600 MG) PO SCH (10:00)
[2017-02-28] MEDS: NEURONTIN 300 MG PO SCH ×3 (10:36→23:18)
--- NOTE | 2017-02-28 14:35 | XRAY ---
Indication: Right lower quadrant pain. Multiple contiguous axial images obtained through the abdomen and pelvis using 80 cc Isovue 370 contrast only. Comparison: Noncontrast exam May 17, 2016. Lung bases again demonstrates right base atelectasis/scarring. No infiltrate, consolidation, or effusion. Heart is not enlarged. Stomach is distended with food/fluid. Noncontrasted bowel loops appear nonobstructed. There remains moderate scattered colonic fecal debris throughout. Appendix not seen. No free fluid/air. 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 Increasing tiny gallstones in the neck of the gallbladder with now borderline gallbladder wall thickening/enhancement concerning for cholecystitis. Both kidneys enhance and excrete without suspicious renal mass, hydronephrosis, perinephric fluid, or hydroureter. Urinary bladder remains abnormally distended with circumferential wall thickening either chronic neurogenic bladder, chronic outlet obstruction, or cystitis. No suspicious bladder mass or calcification on this noncontrast exam. Remaining liver, pancreas, spleen, and adrenal glands appear unremarkable. Again minimal calcifications of the aortoiliac vessels without AAA. No pathologic retroperitoneal lymphadenopathy. Osseous structures intact with moderate degenerative changes at the lumbosacral junction. New healing nondisplaced right anterior 8th rib fracture. Impression: 1. Increasing gallstones with now borderline wall thickening and enhancement. Rule out cholecystitis. 2. Again fecal stasis without obstruction. Colonic hepatic flexure now interposed between the abdominal wall and liver as seen in Chilaiditi's syndrome. 3. Again abnormally distended urinary bladder with circumferential wall thickening either chronic neurogenic bladder versus chronic outlet obstruction versus cystitis. 4. New healing right 8th rib fracture. CTDI 21.38
[2017-02-28] MEDS: Sodium Chloride 0.9% 1000 ML 1,000 ML IV SCH (17:11)
[2017-02-28] MEDS: NovoLOG Insulin SQ PRN ×2 (17:11→23:18)
[2017-02-28] MEDS: Seroquel 100 MG PO SCH (23:19)
[2017-03-01] MEDS: Sodium Chloride 0.9% 1000 ML 1,000 ML IV SCH (02:24)
[2017-03-01 05:48] LABS: BASOPHIL % 1.3 % (0.0-0.4); Eosinophil % 7.7 % (0.00-5.0); Granulocytes % 45.8 % (36.0-66.0); Lymphocytes % 38.5 % (24.0-44.0); Mean Cell Volume 91.8 fl (78-100); Mean Corpuscular Hemoglobin 28.7 pg (26-32); Mean Platelet Volume 10.6 fl (6-9.5); Monocytes % 6.7 % (0.0-12.0); Platelet Count 168 K/mm3 (150-450); Red Blood Count 2.82 M/mm3 (4.1-5.6); Red Cell Distribution Width 14.1 % (11.5-14.0); White Blood Count 5.2 K/mm3 (4.0-10.5)
[2017-03-01 06:17] LABS: ALBUMIN 1.9 g/dL (3.4-5.0); ALKALINE PHOSPHATASE 153 U/L (46-116); ANION GAP 10.9 MEQ/L (5-15); BILIRUBIN,TOTAL 0.1 mg/dL (0.2-1.0); BLOOD UREA NITROGEN 30 mg/dL (9-20); CHLORIDE 111 mEq/L (98-107); Carbon Dioxide 24.5 mEq/L (21-32); Glucose 174 MG/DL (70-110); Potassium 4.3 mEq/L (3.5-5.1); SGOT/AST 12 U/L (15-37); SGPT/ALT 10 U/L (12-78); SODIUM 142 mEq/L (136-145)
[2017-03-01] MEDS: NEURONTIN 300 MG PO SCH ×3 (08:03→22:12)
[2017-03-01] MEDS: PROTONIX 40 MG IV IV SCH (08:04)
[2017-03-01] MEDS: NovoLOG Insulin SQ PRN (08:04)
[2017-03-01] MEDS: Lantus Insulin SQ SCH (08:06)
[2017-03-01] MEDS ORDERED: Sodium Chloride 0.9% 10 ML FLUSH Syringe IV PRN (08:06)
--- NOTE | 2017-03-01 08:07 | PCM.NOTE ---
Date and Time: 03/01/17806 Subjective Assessment: very fatigued this morning he took morphine last night after he kept complaining of different pains in his back, legs, abdomen, and head and was given tylenol but reported no help now he is sleepy and drowsy but awakens. States still having some headaches and abdomen pains and back and leg pain no vomiting he has not had any more reported stools and has order for further heme testing. no additional noted bleeding. Objective Exam General Appearance: no apparent distress, thin Neurologic Exam: motor weakness (chronic symmetrical bilateral worse in the lower extremities), No confusion Eye Exam: pale conjunctivae, No scleral icterus Ears, Nose, Throat Exam: moist mucous membranes Neck Exam: normal inspection, non-tender, supple Respiratory Exam: normal breath sounds, lungs clear Cardiovascular Exam: regular rate/rhythm, normal heart sounds, edema (trace juanita LE) Gastrointestinal/Abdomen Exam: soft, normal bowel sounds, No tenderness, No distention, No mass, No guarding Extremity Exam: normal inspection, pedal edema, No calf tenderness OBJECTIVE DATA Vital Signs: Vital Signs - 24 hr Temp Pulse Resp BP Pulse Ox 03/01/17 05:00 97.5 F 67 17 108/64 99 03/01/17 04:00 68 03/01/17 01:26 105/70 03/01/17 00:01 68 03/01/17 00:00 70 12 158/98 98 02/28/17 20:00 97.8 F 68 16 137/70 99 02/28/17 16:00 97.8 F 69 14 117/72 97 02/28/17 12:00 70 02/28/17 11:26 97.6 F 70 17 118/75 97 Pain Assessment - Last Documented Pain Intensity 10 Pain Scale Used 0-10 Pain Scale Intake and Output: Intake & Output 02/26/17 02/27/17 02/28/17 03/01/17 11:59 11:59 11:59 11:59 Intake Total 133 2889 Output Total 750 Balance 133 2139 Weight 81.828 kg Lab Results: Accuchecks Date 03/01/17 Date 02/28/17 Date 02/28/17 Date 02/28/17 Time 23:00 Time 16:30 Time 11:30 Time 08:25 Accucheck Value: 436 Accucheck Value: 402 Accucheck Value: 241 Accucheck Value: 124 Lab Results-Last 24 Hours 02/28/17 02/28/17 03/01/17 Range/Units 08:39 08:39 05:28 WBC 7.9 5.2 (4.0-10.5) K/mm3 RBC 3.63 L 2.82 L (4.1-5.6) M/mm3 Hgb 10.4 L 8.1 L (12.5-18.0) gm/dl Hct 32.3 L 25.9 L (42-50) % MCV 89.0 91.8 (78-100) fl MCH 28.6 28.7 (26-32) pg MCHC 32.2 31.3 L (32-36) g/dl RDW 13.6 14.1 H (11.5-14.0) % Plt Count 237 168 (150-450) K/mm3 MPV 10.6 H 10.6 H (6-9.5) fl Gran % 45.8 (36.0-66.0) % Lymphocytes % 38.5 (24.0-44.0) % Monocytes % 6.7 (0.0-12.0) % Eosinophils % 7.7 H (0.00-5.0) % Basophils % 1.3 (0.0-0.4) % Basophils # 0.07 (0-0.4) Sodium 139 (136-145) mEq/L Potassium 3.4 L (3.5-5.1) mEq/L Chloride 107 (98-107) mEq/L Carbon Dioxide 27.4 (21-32) mEq/L Anion Gap 8.0 (5-15) MEQ/L BUN 28 H (9-20) mg/dL Creatinine 1.05 (0.55-1.30) mg/dl Estimated GFR > 60 ML/MIN Glucose 95 (70-110) MG/DL Calcium 9.0 (8.5-10.1) mg/dL Total Bilirubin (0.2-1.0) mg/dL AST (15-37) U/L ALT (12-78) U/L Alkaline Phosphatase (46-116) U/L Serum Total Protein (6.4-8.2) gm/dL Albumin (3.4-5.0) g/dL 03/01/17 Range/Units 05:28 WBC (4.0-10.5) K/mm3 RBC (4.1-5.6) M/mm3 Hgb (12.5-18.0) gm/dl Hct (42-50) % MCV (78-100) fl MCH (26-32) pg MCHC (32-36) g/dl RDW (11.5-14.0) % Plt Count (150-450) K/mm3 MPV (6-9.5) fl Gran % (36.0-66.0) % Lymphocytes % (24.0-44.0) % Monocytes % (0.0-12.0) % Eosinophils % (0.00-5.0) % Basophils % (0.0-0.4) % Basophils # (0-0.4) Sodium 142 (136-145) mEq/L Potassium 4.3 (3.5-5.1) mEq/L Chloride 111 H (98-107) mEq/L Carbon Dioxide 24.5 (21-32) mEq/L Anion Gap 10.9 (5-15) MEQ/L BUN 30 H (9-20) mg/dL Creatinine 1.15 (0.55-1.30) mg/dl Estimated GFR > 60 ML/MIN Glucose 174 H (70-110) MG/DL Calcium 8.0 L (8.5-10.1) mg/dL Total Bilirubin 0.1 L (0.2-1.0) mg/dL AST 12 L (15-37) U/L ALT 10 L (12-78) U/L Alkaline Phosphatase 153 H (46-116) U/L Serum Total Protein 5.0 L (6.4-8.2) gm/dL Albumin 1.9 L (3.4-5.0) g/dL Radiology Exams: Radiology Procedures Category Date Time Status ABDOMEN AND PELVIS W CONTRAST [CT] Routine Exams 02/28/17 08:29 Completed Assessment/Plan (1) Type 1 diabetes mellitus, uncontrolled Current Visit: Yes Status: Acute Assessment & Plan: add novolog 5 Units ac + SSI continue lantus 30 units daily Code(s): E10.65 - TYPE 1 DIABETES MELLITUS WITH HYPERGLYCEMIA (2) Hypertensive urgency Current Visit: Yes Status: Resolved Assessment & Plan: resolved stable bp he has the headache still however his history is very vague and a very poor historian Code(s): I16.0 - HYPERTENSIVE URGENCY (3) Headache Current Visit: Yes Status: Acute Qualifiers: Headache type: unspecified Headache chronicity pattern: acute headache Intractability: not intractable Qualified Code(s): R51 - Headache Code(s): R51 - HEADACHE (4) Abdominal pain Current Visit: Yes Status: Acute Qualifiers: Abdominal location: unspecified location Qualified Code(s): R10.9 - Unspecified abdominal pain Code(s): R10.9 - UNSPECIFIED ABDOMINAL PAIN (5) GI bleed Current Visit: Yes Status: Acute Assessment & Plan: suspected upper gi bleed given 3 pt drop in hgb since admission and the increased BUN his heme test however was negative of the stool which is strange, The hgb drop and the bun increase could also be attributed to obstructive symptoms of his chronic neurogenic bladder for which he refuses a Khan as he has had one in the past for this. Dr. Guillory is consulted and patient will be prepped for likely diagnostic EGD and Colonoscopy tomorrow. Code(s): K92.2 - GASTROINTESTINAL HEMORRHAGE, UNSPECIFIED (6) Anemia Current Visit: Yes Status: Chronic Code(s): D64.9 - ANEMIA, UNSPECIFIED (7) Coronary artery disease Current Visit: Yes Status: Chronic Code(s): I25.10 - ATHSCL HEART DISEASE OF [place] CORONARY ARTERY W/O ANG PCTRS (8) Neurogenic bladder Current Visit: Yes Status: Chronic Code(s): N31.9 - NEUROMUSCULAR DYSFUNCTION OF [place], UNSPECIFIED (9) Depression Current Visit: Yes Status: Chronic Code(s): F32.9 - MAJOR DEPRESSIVE DISORDER, SINGLE EPISODE, UNSPECIFIED (10) Diabetic neuropathy associated with type 1 diabetes mellitus Current Visit: Yes Status: Chronic Code(s): E10.40 - TYPE 1 DIABETES MELLITUS WITH DIABETIC NEUROPATHY, UNSP
[2017-03-01] MEDS: NovoLOG Insulin SQ SCH ×2 (11:58→16:33)
[2017-03-01] MEDS ORDERED: Golytely Solution 4000 ML PO ONE (14:00)
[2017-03-01] MEDS: Sodium Chloride 0.9% 10 ML FLUSH Syringe IV SCH ×2 (14:27→22:41)
[2017-03-01] MEDS: MORPHINE SULFATE 2 MG INJ IV PRN ×2 (16:24→20:40)
[2017-03-01] MEDS: Seroquel 100 MG PO SCH (22:17)
[2017-03-02] MEDS: Sodium Chloride 0.9% 1000 ML 1,000 ML IV SCH (01:25)
[2017-03-02] MEDS ORDERED: Sodium Chloride 0.9% 1000 ML 1,000 ML ONE (04:13)
[2017-03-02] MEDS ORDERED: D50W 50 ml Abboject IV ONE (04:45)
[2017-03-02] MEDS ORDERED: Dextrose 5% -0.45 NaCl 1000 ML 1,000 ML IV SCH (04:45)
[2017-03-02 04:48] LABS: Mean Cell Volume 90.7 fl (78-100); Mean Platelet Volume 10.9 fl (6-9.5); Platelet Count 196 K/mm3 (150-450); Red Blood Count 3.12 M/mm3 (4.1-5.6); Red Cell Distribution Width 14.4 % (11.5-14.0); White Blood Count 4.7 K/mm3 (4.0-10.5)
[2017-03-02 04:50] LABS: Mean Corpuscular Hemoglobin 29.1 pg (26-32)
[2017-03-02 05:03] LABS: ANION GAP 11.3 MEQ/L (5-15); BLOOD UREA NITROGEN 22 mg/dL (9-20); CHLORIDE 115 mEq/L (98-107); Glucose 51 MG/DL (70-110); Potassium 3.4 mEq/L (3.5-5.1); SODIUM 149 mEq/L (136-145)
[2017-03-02] MEDS: Sodium Chloride 0.9% 10 ML FLUSH Syringe IV SCH ×3 (05:03→22:08)
[2017-03-02] MEDS: MORPHINE SULFATE 2 MG INJ IV PRN ×5 (06:30→23:28)
[2017-03-02] MEDS ORDERED: Amidate 20 MG/10 ML IV ONE (08:00)
[2017-03-02] MEDS ORDERED: Versed 2 MG/2 ML Injection IV ONE (08:00)
[2017-03-02] MEDS ORDERED: SUBLIMAZE 100 MCG/2 ML IV ONE (08:00)
--- NOTE | 2017-03-02 09:07 | OP ---
SURGERY DATE: 03/02/17 SURGERY TIME: 739 PREOPERATIVE DIAGNOSIS: 1. RECTAL BLEEDING. POSTOPERATIVE DIAGNOSIS: 1. NORMAL EGD. 2. POOR BOWEL PREP. 3. NORMAL COLON. PROCEDURE: 1. EGD. 2. Colonoscopy. SPECIMENS: None. ESTIMATED BLOOD LOSS: None. SURGEON: Dr. Jaxson Guillory. ANESTHESIA: MAC. DESCRIPTION OF PROCEDURE: After informed written consent was obtained, the patient was taken to the endoscopy suite. He underwent monitored anesthesia and a bite block was inserted. The endoscope was inserted in the posterior oropharynx and under direct visualization, the esophagus was traversed. The esophageal mucosa, gastroesophageal junction, and gastric mucosa all had a normal appearance free of any lesions or defects. The pylorus was traversed and the 1st and 2nd portions of the duodenum were within normal limits. There was no evidence of any bleeding or ulceration on any mucosal surfaces examined during the procedure. Upon withdrawal, careful mucosal inspection again was within normal limits. Showed no evidence of old or active bleeding or ulcerations. The scope was removed and then the scopes were switched. Digital rectal exam showed normal sphincter tone with liquid stool seepage present immediately. The scope was inserted in the rectum and sequentially the entire colonic mucosa was traversed. There was liquid stool throughout the entire length of the colon, but no solid stool. The presence of liquid stool throughout the entire length certainly limited the examination. The ileocecal valve was verified with direct visualization to confirm reaching the cecum. Upon withdrawal, careful mucosal inspection revealed no obvious gross focal mucosal abnormalities throughout the length of the colon. Prior to withdrawal, retroflexion was performed and showed no internal lesions. The scope was removed and the patient was transferred to the recovery room in excellent condition.
[2017-03-02] MEDS ORDERED: Sodium Chloride 0.9% 1000 ML 1,000 ML IV SCH (09:30)
[2017-03-02] MEDS: PROTONIX 40 MG IV IV SCH (10:37)
[2017-03-02] MEDS: Lantus Insulin SQ SCH (10:37)
[2017-03-02] MEDS: NEURONTIN 300 MG PO SCH ×3 (10:38→22:07)
[2017-03-02] MEDS: NovoLOG Insulin SQ SCH ×3 (10:39→16:59)
[2017-03-02] MEDS ORDERED: Valium 5 MG PO ONE (13:00)
[2017-03-02 16:11] LABS: Bacteria MODERATE /HPF (NEGATIVE); COMPLETE URINE MICROSCOPIC? YES; Collection Type CATH; WBC >100 /HPF (0-5)
[2017-03-02 16:12] LABS: ADD URINE CULTURE? YES (NO)
[2017-03-02] MEDS: NovoLOG Insulin SQ PRN (16:59)
[2017-03-02] MEDS: Seroquel 100 MG PO SCH (22:08)
[2017-03-03] MEDS: MORPHINE SULFATE 4 MG INJ IV PRN ×3 (03:42→13:29)
[2017-03-03] MEDS: Sodium Chloride 0.9% 10 ML FLUSH Syringe IV SCH (06:08)
[2017-03-03] MEDS: NovoLOG Insulin SQ SCH ×2 (07:57→11:42)
[2017-03-03] MEDS: Lantus Insulin SQ SCH (07:58)
[2017-03-03] MEDS: NEURONTIN 300 MG PO SCH (09:24)
[2017-03-03] MEDS: PROTONIX 40 MG IV IV SCH (09:24)
--- NOTE | 2017-03-03 10:55 | XRAY ---
Indication: Abdominal pain. Two-dimensional right upper quadrant abdominal sonogram performed. Comparison: None Gallbladder normally distended with tiny gallstones in the dependent portion as well as neck of the gallbladder. There is gallbladder wall thickening measuring 3.4 mm in thickness. No pericholecystic fluid. Common bile duct measures 4.7 mm. No intrahepatic biliary distention. Pancreas not well visualized due to overlying bowel gas. Remaining visualized portions of the liver and right kidney appear sonographically unremarkable. Right kidney measures 12.6 cm in length. No ascites. Impression: Gallstones with wall thickening favoring cholecystitis, probably chronic. No abnormal biliary distention or free fluid.
[2017-03-03 11:33] VITALS: BP 158/72; PULSE 73; O2SAT 94
--- NOTE | 2017-03-03 12:18 | PCM.DCORD ---
- Discharge Discharge Date: 03/03/17 Disposition: Home, Self-Care Condition: Fair Prescriptions: New Atorvastatin Calcium 20 mg PO DAILY #30 tablet Hydrocodone/Acetaminophen [Hydrocodon-Acetaminophen 5-325] 1 tab PO Q4H PRN # 18 tablet PRN Reason: Moderate To Severe Pain Continue Insulin Glargine [Lantus Insulin] 30 unit SQ DAILY Gabapentin [Neurontin] 600 mg PO TID #90 tablet Quetiapine Fumarate [Seroquel] 300 mg PO HS #30 tablet Follow up with: LISHA KRAMER [Primary Care Provider] - Forms: Patient Portal Information
--- NOTE | 2017-03-03 19:00 | PCM.DS ---
Discharge Summary Date of Admission: 03/01/17 08:55 Date of Discharge: 03/03/17 Admitting Physician: LISHA KRAMER Consults: Consults on Case 03/01/17 11:43 Consult Physician Primary Care Provider: LISHA KRAMER Allergies Allergies bee venom protein (honey bee) Allergy (Verified 02/28/17 02:28) erythromycin lactobionate [From Erythrocin] Allergy (Verified 02/16/17 09:25) ketorolac [From Toradol] Allergy (Verified 02/28/17 02:28) methocarbamol Allergy (Verified 02/16/17 09:25) Penicillins Allergy (Verified 02/16/17 09:25) egg Adverse Reaction (Verified 02/16/17 09:25) Hospital Summary - Hospital Course Hospital Course: Mr. Esparza has a very complicated past medical history with many admissions for nonspecific problems to [facility], and [facility] in the past that is further complicated by his medication noncompliance. He lives at home with a friend who is 80 years old and helps him care for himself after a stroke in 2013 that was hemorrhagic in nature as well as a previous episode of guillain barre syndrome. He was at home and did not take his insulin as he usually does in the am. He reports then starting to have abdominal pain and had more then 10 stools that he stated were dark tarry but resolved on presentation to the ED but he had developed a headache and an elevated blood pressure. Inital Heme test of stool was negative but there was a large drop in the hgb and an elevation in the BUN subsequent stools on colon prep were also negative and in retrospect this elevation in BUN and drop of hgb may have been related to his chronic obstructive renal disease as he has history of neurogenic bladder and had a suprapubic cathter for some time but due to infections of the site he had it removed and refused any Khan. He was prepped for colonoscopy which was a poor prep but no lesions identified and an EGD that was normal. For his headache a CT of the brain was done and he was given 1 dose of labetelol in ED and his bp was improved and even had low bp when he was given pain medicine but it would spike when he was agitated or in discomfort. Also after admission he was complaining of right lower quadrant pain and thus CT abd/pelvis was done, after it was done he began complaining of right upper and diffuse abdominal pains not associated with nausea or eating he has no history of abdominal pain or nausea or vomiting with eating but gallbladder thickening was seen. A Khan was placed finally to see if this helped his symptoms by removing the obstruction about 800 cc was relieved on Khan insertion, but he was complaining of worsening pain suprapubic the day after the Khan and refused to continue it on discharge. RUQ ultrasound confirmed likely chronic cholecystitis and this was discussed with him and he will be referred to general surgery for outpatient evaluation for gallbladder removal. He had labile glucose control as well after initial correction and his A1c was 8.1 which is much better then his previous readings and his presentation with sugar of 600's. He has frequent low with fast acting insulin at home in the past and despite multiple education attempts on when to use and correct diet for use he has done better on just the lantus and will d/c on this alone. WIll add statin therapy and continue short coarse of pain medication for his abdominal pain but noted he is not a candidate for long-term narcotic control of his pain. 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 - Vitals & Intake/Output Vital Signs: Vital Signs Temperature 98.1 F 03/03/17 11:32 Pulse Rate 73 03/03/17 11:32 Respiratory Rate 18 03/03/17 11:32 Blood Pressure 158/72 03/03/17 11:32 O2 Sat by Pulse Oximetry 94 L 03/03/17 11:32 Intake & Output: Intake & Output 03/01/17 03/02/17 03/03/17 03/04/17 11:59 11:59 11:59 11:59 Intake Total 100 3460 1820 Output Total 500 1900 2750 1250 Balance -400 1560 -930 -1250 Weight 81.828 kg - Lab Result Diagrams: 03/02/17 00:40 03/02/17 00:40 Lab Results-Last 24 Hrs: Accuchecks Date 03/03/17 Date 03/03/17 Time 11:30 Time 07:30 Accucheck Value: 154 Accucheck Value: 55 Accucheck Value: 182 Micro Results-Entire Visit: Microbiology 03/02/17 15:30 - Preliminary Urine, Catheterized NO GROWTH TO DATE Accuchecks Date 03/03/17 Date 03/03/17 Time 11:30 Time 07:30 Accucheck Value: 154 Accucheck Value: 55 Accucheck Value: 182 - Radiology Exams Ordered Rad Exams-Entire Visit: Radiology Procedures Category Date Time Status GALLBLADDER [US] Routine Exams 03/03/17 12:53 Completed Discharge Exam General Appearance: no apparent distress Neurologic Exam: alert, oriented x 3, cooperative Skin Exam: warm, dry, pale Eye Exam: pale conjunctivae, No scleral icterus Ears, Nose, Throat Exam: moist mucous membranes Neck Exam: non-tender, supple Respiratory Exam: normal breath sounds, lungs clear, No respiratory distress Cardiovascular Exam: regular rate/rhythm, normal heart sounds, normal peripheral pulses, edema Gastrointestinal/Abdomen Exam: soft, normal bowel sounds, tenderness (diffuse), No distention, No guarding, No ecchymosis Extremity Exam: normal inspection, pedal edema Final Diagnosis/Problem List - Final Discharge Diagnosis/Problem (1) Type 1 diabetes mellitus, uncontrolled Status: Acute (2) Chronic cholecystitis with calculus Status: Acute (3) Hypertensive urgency Status: Resolved (4) Headache Status: Acute (5) Abdominal pain Status: Acute (6) GI bleed Status: Ruled-out Assessment & Plan: GI bleed was ruled out (7) Anemia Status: Chronic (8) Coronary artery disease Status: Chronic (9) Neurogenic bladder Status: Chronic (10) Depression Status: Chronic (11) Diabetic neuropathy associated with type 1 diabetes mellitus Status: Chronic - Discharge Disposition: Home, Self-Care Condition: Fair Prescriptions: New Atorvastatin Calcium 20 mg PO DAILY #30 tablet Hydrocodone/Acetaminophen [Hydrocodon-Acetaminophen 5-325] 1 tab PO Q4H PRN # 18 tablet PRN Reason: Moderate To Severe Pain Continue Insulin Glargine [Lantus Insulin] 30 unit SQ DAILY Gabapentin [Neurontin] 600 mg PO TID #90 tablet Quetiapine Fumarate [Seroquel] 300 mg PO HS #30 tablet Instructions: Gastrointestinal Bleeding Follow up with: LISHA KRAMER [Primary Care Provider] - Forms: Patient Portal Information
--- NOTE | 2017-03-03 19:10 | PCM.NOTE ---
Date and Time: 03/02/17 1306 Subjective Assessment: late entry note was seen 03/02/2017 at 12:40 pm He has arrived back from EGD and colonoscopy still having pain in the right side of the abdomen. He is tolerating po well he has not had any vomiting. No bleeding the prep was done without much difficulty and no blood in stool and heme test negative. He has been persistently asking for the pain medicine at exact time it is due. He continues to have the headache that is diffuse with no other deficits. He urinates small amounts. Objective Exam General Appearance: no apparent distress Neurologic Exam: alert, oriented x 3, No slurred speech Skin Exam: pale Eye Exam: No scleral icterus Ears, Nose, Throat Exam: moist mucous membranes Neck Exam: non-tender, supple Respiratory Exam: normal breath sounds, lungs clear Cardiovascular Exam: regular rate/rhythm, normal heart sounds Gastrointestinal/Abdomen Exam: soft, normal bowel sounds, tenderness (diffuse to light touch everywhere), No guarding Extremity Exam: normal inspection, pedal edema, No calf tenderness OBJECTIVE DATA Vital Signs: Vital Signs - 24 hr Temp Pulse Resp BP Pulse Ox 03/03/17 11:32 98.1 F 73 18 158/72 94 L 03/03/17 07:24 98.2 F 71 18 139/82 97 03/03/17 04:05 98.6 F 75 14 111/69 94 L 03/03/17 00:00 98.3 F 85 15 188/92 94 L 03/02/17 20:00 98.4 F 84 16 170/80 95 Pain Assessment - Last Documented Pain Intensity 8 Pain Scale Used 0-10 Pain Scale Intake and Output: Intake & Output 03/01/17 03/02/17 03/03/17 03/04/17 11:59 11:59 11:59 11:59 Intake Total 100 3460 1820 Output Total 500 1900 2750 1250 Balance -400 1560 -930 -1250 Weight 81.828 kg Lab Results: Accuchecks Date 03/03/17 Date 03/03/17 Time 11:30 Time 07:30 Accucheck Value: 154 Accucheck Value: 55 Accucheck Value: 182 Radiology Exams: Radiology Procedures Category Date Time Status GALLBLADDER [US] Routine Exams 03/03/17 12:53 Completed Assessment/Plan (1) Type 1 diabetes mellitus, uncontrolled Status: Acute Assessment & Plan: with hypoglycemia this am monitor closely likely improve with better diet today had clear yesterday continue the decreased lantus Code(s): E10.65 - TYPE 1 DIABETES MELLITUS WITH HYPERGLYCEMIA (2) Chronic cholecystitis with calculus Status: Acute Assessment & Plan: gallbladder ultrasound to confirm Code(s): K80.10 - CALCULUS OF GALLBLADDER W CHRONIC CHOLECYST W/O OBSTRUCTION (3) Hypertensive urgency Status: Resolved Code(s): I16.0 - HYPERTENSIVE URGENCY (4) Headache Status: Acute Qualifiers: Headache type: unspecified Headache chronicity pattern: acute headache Intractability: not intractable Qualified Code(s): R51 - Headache Code(s): R51 - HEADACHE (5) Abdominal pain Status: Acute Qualifiers: Abdominal location: unspecified location Qualified Code(s): R10.9 - Unspecified abdominal pain Assessment & Plan: try anchor a escalante to see if this relieves pain as cause could be secondary to the bladder distension, neurogenic bladder Code(s): R10.9 - UNSPECIFIED ABDOMINAL PAIN (6) GI bleed Status: Ruled-out Code(s): K92.2 - GASTROINTESTINAL HEMORRHAGE, UNSPECIFIED (7) Anemia Status: Chronic Code(s): D64.9 - ANEMIA, UNSPECIFIED (8) Coronary artery disease Status: Chronic Code(s): I25.10 - ATHSCL HEART DISEASE OF [place] CORONARY ARTERY W/O ANG PCTRS (9) Neurogenic bladder Status: Chronic Code(s): N31.9 - NEUROMUSCULAR DYSFUNCTION OF BLADDER, UNSPECIFIED (10) Depression Status: Chronic Code(s): F32.9 - MAJOR DEPRESSIVE DISORDER, SINGLE EPISODE, UNSPECIFIED (11) Diabetic neuropathy associated with type 1 diabetes mellitus Status: Chronic Code(s): E10.40 - TYPE 1 DIABETES MELLITUS WITH DIABETIC NEUROPATHY, UNSP
== END 2017-03-03 14:47 | disposition home or self-care (01) | DRG 638 ==
LOC: ED 02:08 → ICU 05:06 → ED 03-01 02:08 → ICU 03-01 05:06 → OBSVTOIN 03-01 08:55 → INTOOBSV 03-01 09:00 → MED SURG 03-01 09:00 → ICU 03-01 09:00 → OBSVTOIN 03-01 09:00 → MED SURG 03-01 11:10
PROVIDERS: ADMIT Family Medicine; ATTEND Family Medicine
PROC: 0DJ08ZZ Inspection of Upper Intestinal Tract, Via Natural or Artificial Opening Endoscopic (ICD-10-PCS; principal; 2017-03-02)
PROC: 0DJD8ZZ Inspection of Lower Intestinal Tract, Via Natural or Artificial Opening Endoscopic (ICD-10-PCS; 2017-03-02)
DX: E10.65 Type 1 diabetes mellitus with hyperglycemia (principal); K80.10 Calculus of gallbladder with chronic cholecystitis without obstruction; K92.2 Gastrointestinal hemorrhage, unspecified; I16.0 Hypertensive urgency; R51 Headache; R10.9 Unspecified abdominal pain; D64.9 Anemia, unspecified; I25.10 Atherosclerotic heart disease of native coronary artery without angina pectoris; N31.9 Neuromuscular dysfunction of bladder, unspecified; F32.9 Major depressive disorder, single episode, unspecified; E10.40 Type 1 diabetes mellitus with diabetic neuropathy, unspecified; F41.9 Anxiety disorder, unspecified; Z86.73 Personal history of transient ischemic attack (TIA), and cerebral infarction without residual deficits; Z85.47 Personal history of malignant neoplasm of testis; I10 Essential (primary) hypertension
CPT/HCPCS: 00740; 00810; 36000; 36415; 70450; 74177; 76705; 80048; 80053; 81000; 82150; 82272; 82805; 82947; 82962; 83036; 83690; 85025; 85027; 85610; 85730; 86850; 86900; 86901; 87040; 87086; 93005; 96360; 96361; 96365; 96366; 96374; 96375; 96376; 99285; 99291; G0378; J1642; J1815; J2250; J2270; J2405; J3010; A9270-GY

== ENCOUNTER 2017-03-21 10:53 | Emergency (ER) | payer MEDICAID ==
--- NOTE | 2017-03-21 11:43 | ERPHSYRPT ---
- History of Present Illness Time Seen by Provider: 03/21/17 11:25 Source: patient Exam Limitations: no limitations Patient Subjective Stated Complaint: PT STATES HE BEGAN HAVING A NOSEBLEED LAST PM. Triage Nursing Assessment: PT PALE, COOL, DRY. NO BLEEDING AT THIS TIME. Timing/Duration: abrupt onset, yesterday Severity: mild ENT Location: nose Modifying Factors: Improves With: nothing Associated Symptoms: denies symptoms Allergies/Adverse Reactions: bee venom protein (honey bee) Allergy (Verified 03/21/17 11:07) erythromycin lactobionate [From Erythrocin] Allergy (Verified 03/21/17 11:07) ketorolac [From Toradol] Allergy (Verified 03/21/17 11:07) methocarbamol Allergy (Verified 03/21/17 11:07) Penicillins Allergy (Verified 03/21/17 11:07) egg Adverse Reaction (Verified 03/21/17 11:07) Home Medications: Insulin Glargine [Lantus Insulin] 30 unit SQ DAILY 02/13/17 [History] Hx Tetanus, Diphtheria Vaccination/Date Given: Yes (UP TO DATE) Hx Influenza Vaccination/Date Given: No Hx Pneumococcal Vaccination/Date Given: No Immunizations Up to Date: Yes - Review of Systems Constitutional: No Symptoms Eyes: No Symptoms Ears, Nose, & Throat: Epistaxis Respiratory: No Symptoms Cardiac: No Symptoms Abdominal/Gastrointestinal: No Symptoms Musculoskeletal: No Symptoms Skin: No Symptoms Neurological: No Symptoms Psychological: No Symptoms Endocrine: No Symptoms Hematologic/Lymphatic: Other (H/O testicular cancer with prior chemo) Immunological/Allergic: No Symptoms - Past Medical History Pertinent Past Medical History: Yes Neurological History: Migraines, Stroke ENT History: Cataracts Cardiac History: Coronary Artery Disease, High Cholesterol, Hypertension Respiratory History: Pneumonia Endocrine Medical History: Diabetes Type II Musculoskeletal History: Fractures, Other GI Medical History: No Pertinent History, Gallbladder Disease History: No Pertinent History Psycho-Social History: Anxiety, Panic Disorder Male Reproductive Disorders: Testicular Cancer Other Medical History: testicular cancer - Past Surgical History Past Surgical History: Yes Neuro Surgical History: Other Cardiac: Cardiac Catheterization, Cardiac Stent Respiratory: No Pertinent History Musculoskeletal: Orthopedic Surgery Male Surgical History: Testicular Surgery Other Surgical History: oral surgery,states brain surgery after stroke,rods to tibia right leg,left leg muscle repair,juanita. orchectomy - Social History Smoking Status: Never smoker Exposure to second hand smoke: No Drug Use: none Patient Lives Alone: No - Nursing Vital Signs Nursing Vital Signs: Initial Vital Signs Temperature 98.3 F Temperature Source Oral Pulse Rate 80 Respiratory Rate 18 Blood Pressure [Right Arm] 169/113 Pain Intensity 0 - Physical Exam General Appearance: mild distress Eye Exam: bilateral eye: normal inspection, PERRL, EOMI Ear Exam: bilateral ear: auricle normal, canal normal Nasal Exam: dried blood (both nares.), No active bleeding Throat Exam: normal Neck Exam: normal inspection, non-tender, supple, full range of motion Cardiovascular/Respiratory Exam: chest non-tender, normal breath sounds, heart sounds normal Abdominal Exam: non-tender, soft Neurologic Exam: alert, oriented x 3, cooperative SpO2 Interpretation: normal SpO2: 100 Oxygen Delivery: Room Air - Course Nursing assessment & vital signs reviewed: Yes Ordered Tests: Active Orders 24 hr Category Date Time Status Clean Catch Urine Specimen STAT Care 03/21/17 12:35 Active IV Insertion STAT Care 03/21/17 11:08 Active 1800 Calorie ADA Diet 03/21/17 Dinner Active ARTERIAL BLOOD GASES Stat Lab 03/21/17 12:40 Completed CBC W DIFF Stat Lab 03/21/17 11:06 Completed CMP Stat Lab 03/21/17 11:06 Completed CULTURE,URINE Stat Lab 03/21/17 12:40 Received PROTIME WITH INR Stat Lab 03/21/17 11:06 Completed PTT Stat Lab 03/21/17 11:06 Completed UA W/ MICROSCOPIC Stat Lab 03/21/17 12:40 Completed Medication Summary Discontinued Medications Generic Name Dose Route Start Last Admin Trade Name Maddie PRN Reason Stop Dose Admin Clonidine 0.1 mg 03/21/17 12:59 03/21/17 13:07 Catapres 0.1 Mg PO 03/21/17 13:00 0.1 mg STAT ONE Administration Clonidine Confirm 03/21/17 13:03 Catapres 0.1 Mg Administered 03/21/17 13:04 Dose 0.1 mg .ROUTE .STK-MED ONE Insulin Human Regular 10 unit 03/21/17 12:58 03/21/17 13:07 Novolin R SQ 03/21/17 12:59 10 unit STAT ONE Administration Insulin Human Regular Confirm 03/21/17 13:06 Novolin R Administered 03/21/17 13:07 Dose 10 unit .ROUTE .STK-MED ONE Lab/Rad Data: Laboratory Result Diagrams 03/21/17 11:06 03/21/17 11:06 Laboratory Results 03/21/17 03/21/17 03/21/17 Range/Units 12:40 12:40 11:06 WBC (4.0-10.5) K/mm3 RBC (4.1-5.6) M/mm3 Hgb (12.5-18.0) gm/dl Hct (42-50) % MCV (78-100) fl MCH (26-32) pg MCHC (32-36) g/dl RDW (11.5-14.0) % Plt Count (150-450) K/mm3 MPV (6-9.5) fl Gran % (36.0-66.0) % Lymphocytes % (24.0-44.0) % Monocytes % (0.0-12.0) % Eosinophils % (0.00-5.0) % Basophils % (0.0-0.4) % Basophils # (0-0.4) INR 0.94 (0.8-3.0) APTT 44.0 H (24.1-36.1) SECONDS Puncture Site LEFT RADIAL pCO2 48 H (35-45) mmHg pO2 78 (75-100) mmHg Base Excess 2.6 H (-2.0-2.0) O2 Saturation 96.0 (94-100) g/dF ABG pH 7.38 (7.35-7.45) ABG HCO3 28.4 H (22-28) ABG O2 Sat (Measured) 98.4 (95-100) % Stanislav Test YES A-a Gradient 12 a/A Ratio 0.87 Hemoglobin 11.3 Carboxyhemoglobin 1.9 (0.0-6.9) % THgb Methemoglobin 0.6 L (1.4-1.5) % Temperature 37.0 C POC O2 Flow Rate 21 % Sodium (136-145) mEq/L Potassium 4.6 (3.5-5.1) mEq/L Chloride (98-107) mEq/L Carbon Dioxide (21-32) mEq/L Anion Gap (5-15) MEQ/L BUN (9-20) mg/dL Creatinine (0.55-1.30) mg/dl Estimated GFR ML/MIN Glucose (70-110) MG/DL Calcium (8.5-10.1) mg/dL Total Bilirubin (0.2-1.0) mg/dL AST (15-37) U/L ALT (12-78) U/L Alkaline Phosphatase (46-116) U/L Serum Total Protein (6.4-8.2) gm/dL Albumin (3.4-5.0) g/dL Ur Collection Type VOID Urine Color YELLOW (YELLOW) Urine Appearance CLOUDY (CLEAR) Urine pH 5.5 (5-6) Ur Specific [place] 1.020 (1.005-1.025) Urine Protein >=300 (Negative) Urine Glucose (UA) 500 (NEGATIVE) mg/dL Urine Ketones NEGATIVE (NEGATIVE) Urine Nitrite NEGATIVE (NEGATIVE) Urine Bilirubin NEGATIVE (NEGATIVE) Urine Urobilinogen 0.2 (0-1) mg/dL Urine WBC (Auto) TRACE (NEGATIVE) Urine RBC (Auto) MODERATE (0-5) Syed/ul Urine Microscopic RBC 0-2 (0-2) /HPF Urine Microscopic WBC 50-100 (0-5) /HPF Urine Bacteria MANY (NEGATIVE) /HPF Specimen Received 03/21/17 1240 03/21/17 03/21/17 Range/Units 11:06 11:06 WBC 5.5 (4.0-10.5) K/mm3 RBC 3.70 L (4.1-5.6) M/mm3 Hgb 10.8 L (12.5-18.0) gm/dl Hct 33.1 L (42-50) % MCV 89.5 (78-100) fl MCH 29.1 (26-32) pg MCHC 32.6 (32-36) g/dl RDW 13.3 (11.5-14.0) % Plt Count 174 (150-450) K/mm3 MPV 12.0 H (6-9.5) fl Gran % 62.3 (36.0-66.0) % Lymphocytes % 24.1 (24.0-44.0) % Monocytes % 5.6 (0.0-12.0) % Eosinophils % 6.5 H (0.00-5.0) % Basophils % 1.5 (0.0-0.4) % Basophils # 0.08 (0-0.4) INR (0.8-3.0) APTT (24.1-36.1) SECONDS Puncture Site pCO2 (35-45) mmHg pO2 (75-100) mmHg Base Excess (-2.0-2.0) O2 Saturation (94-100) g/dF ABG pH (7.35-7.45) ABG HCO3 (22-28) ABG O2 Sat (Measured) (95-100) % Stanislav Test A-a Gradient a/A Ratio Hemoglobin Carboxyhemoglobin (0.0-6.9) % THgb Methemoglobin (1.4-1.5) % Temperature C POC O2 Flow Rate % Sodium 139 (136-145) mEq/L Potassium 4.6 (3.5-5.1) mEq/L Chloride 103 (98-107) mEq/L Carbon Dioxide 27.5 (21-32) mEq/L Anion Gap 12.6 (5-15) MEQ/L BUN 23 H (9-20) mg/dL Creatinine 1.27 (0.55-1.30) mg/dl Estimated GFR > 60 ML/MIN Glucose 550 H* (70-110) MG/DL Calcium 8.9 (8.5-10.1) mg/dL Total Bilirubin 0.20 (0.2-1.0) mg/dL AST 14 L (15-37) U/L ALT 16 (12-78) U/L Alkaline Phosphatase 177 H (46-116) U/L Serum Total Protein 6.4 (6.4-8.2) gm/dL Albumin 2.4 L (3.4-5.0) g/dL Ur Collection Type Urine Color (YELLOW) Urine Appearance (CLEAR) Urine pH (5-6) Ur Specific [place] (1.005-1.025) Urine Protein (Negative) Urine Glucose (UA) (NEGATIVE) mg/dL Urine Ketones (NEGATIVE) Urine Nitrite (NEGATIVE) Urine Bilirubin (NEGATIVE) Urine Urobilinogen (0-1) mg/dL Urine WBC (Auto) (NEGATIVE) Urine RBC (Auto) (0-5) Syed/ul Urine Microscopic RBC (0-2) /HPF Urine Microscopic WBC (0-5) /HPF Urine Bacteria (NEGATIVE) /HPF Specimen Received - Progress Progress: improved Will see patient in: office, other (PCP 1 week) Counseled pt/family regarding: lab results, diagnosis, need for follow-up, rad results - Departure Time of Disposition: 14:00 Departure Disposition: Home Clinical Impression: Hyperglycemia, Epistaxis Hypertension Qualifiers: Hypertension type: unspecified secondary hypertension Qualified Code(s): I15.9 - Secondary hypertension, unspecified; I15 - Secondary hypertension Condition: Stable Critical Care Time: No Instructions: Nosebleed Additional Instructions: Take your medicines as prescribed.
[2017-03-21 11:56] LABS: BASOPHIL % 1.5 % (0.0-0.4); Eosinophil % 6.5 % (0.00-5.0); Granulocytes % 62.3 % (36.0-66.0); INR 0.94 (0.8-3.0); Lymphocytes % 24.1 % (24.0-44.0); Mean Cell Volume 89.5 fl (78-100); Mean Corpuscular Hemoglobin 29.1 pg (26-32); Monocytes % 5.6 % (0.0-12.0); PROTIME 10.5 SECONDS (8.83-12.87); Platelet Count 174 K/mm3 (150-450); Red Cell Distribution Width 13.3 % (11.5-14.0); White Blood Count 5.5 K/mm3 (4.0-10.5)
[2017-03-21 12:04] LABS: ALBUMIN 2.4 g/dL (3.4-5.0); ALKALINE PHOSPHATASE 177 U/L (46-116); ANION GAP 12.6 MEQ/L (5-15); BLOOD UREA NITROGEN 23 mg/dL (9-20); CHLORIDE 103 mEq/L (98-107); Carbon Dioxide 27.5 mEq/L (21-32); Potassium 4.6 mEq/L (3.5-5.1); SGOT/AST 14 U/L (15-37); SGPT/ALT 16 U/L (12-78); SODIUM 139 mEq/L (136-145); Total Protein 6.4 gm/dL (6.4-8.2)
[2017-03-21 12:27] LABS: Glucose 550 MG/DL (70-110)
[2017-03-21 12:44] LABS: A-aADO2 12; ALLEN TEST OK? YES; ARTERIAL BLD GAS O2 SATURATION 98.4 % (95-100); ARTERIAL BLOOD GAS BASE EXCESS 2.6 (-2.0-2.0); ARTERIAL BLOOD GAS FIO2 21 %; ARTERIAL BLOOD GAS PO2 78 mmHg (75-100); ARTERIAL BLOOD GAS pH 7.38 (7.35-7.45)
[2017-03-21] MEDS ORDERED: NovoLIN R SQ ONE (12:58)
[2017-03-21] MEDS ORDERED: Catapres 0.1 MG PO ONE (12:59)
[2017-03-21] MEDS ORDERED: Catapres 0.1 MG ONE (13:03)
[2017-03-21] MEDS ORDERED: NovoLIN R ONE (13:06)
[2017-03-21 13:10] LABS: Collection Type VOID
[2017-03-21 13:11] LABS: Bacteria MANY /HPF (NEGATIVE); COMPLETE URINE MICROSCOPIC? YES; Ph 5.5 (5-6); WBC 50-100 /HPF (0-5)
[2017-03-21 13:12] LABS: ADD URINE CULTURE? YES (NO)
[2017-03-21 14:01] VITALS: O2SAT 100
[2017-03-21 14:14] VITALS: BP 180/90; PULSE 88
== END 2017-03-21 14:10 | disposition home or self-care (01) ==
LOC: ED 10:53
DX: I15.9 Secondary hypertension, unspecified (principal); R73.9 Hyperglycemia, unspecified; R04.0 Epistaxis; Z79.4 Long term (current) use of insulin; E11.9 Type 2 diabetes mellitus without complications; I25.10 Atherosclerotic heart disease of native coronary artery without angina pectoris; E78.00 Pure hypercholesterolemia, unspecified; I10 Essential (primary) hypertension
CPT/HCPCS: 36000; 36415; 36591; 36600; 80053; 81000; 82375; 82803; 85025; 85610; 85730; 87086; 96372; 99284; J1642; A9270-GY

== ENCOUNTER 2017-03-27 16:03 | Observation (INO) | payer MEDICAID ==
--- NOTE | 2017-03-27 16:40 | ERPHSYRPT ---
- History of Present Illness Time Seen by Provider: 03/27/17 16:39 Source: patient Exam Limitations: no limitations Patient Subjective Stated Complaint: PT COUGHING/SPITTING UP BLOOD SINCE 11AM TODAY (03/27/2017) Triage Nursing Assessment: PT ALERT X 3. RESPIRATIONS EVEN AND UNLABORED. SKIN PALE, WARM, AND DRY. NO ACTIVE BLEEDING AT THIS TIME. PT STATES THAT "I WAS HERE LAST WEEK FOR THE SAME THING. I GOT BLOOD HERE IN THE ER 2UNITS THEN DISCHARGED." Physician History: The patient is a 52-year-old male who is a poor historian complains that he has been "spitting up blood" since 11 AM. When questioned, he could not tell me if he was spitting it up, coughing it up, or having a nosebleed. He states that it was a lot of blood until about 2:00. He called his family doctor who wasn't in, he was then told by the nurse to come to the ER. He says the bleeding is now stopped. After some hesitation, he told me he was coughing it up. He also told me that his last ER visit he was anemic and was given a transfusion of 2 units of blood. I looked up his last visit and he had a nosebleed and was not transfused. His hemoglobin at the last visit was 10.8. He was seen in the ER on 02/28 stating that he was bleeding rectally. He was guaiac negative at that visit. He tells me that maybe the blood today was not blood at all but was strawberries. He has been eating strawberries today. His past medical history significant for hypertension, diabetes, and depression. Timing/Duration: today Severity: mild Modifying Factors: Improves With: nothing Associated Symptoms: cough, No nausea, No vomiting Allergies/Adverse Reactions: bee venom protein (honey bee) Allergy (Verified 03/21/17 11:07) erythromycin lactobionate [From Erythrocin] Allergy (Verified 03/21/17 11:07) ketorolac [From Toradol] Allergy (Verified 03/21/17 11:07) methocarbamol Allergy (Verified 03/21/17 11:07) Penicillins Allergy (Verified 03/21/17 11:07) egg Adverse Reaction (Verified 03/21/17 11:07) Home Medications: Insulin Glargine [Lantus Insulin] 30 unit SQ HS 02/13/17 [History] Hx Tetanus, Diphtheria Vaccination/Date Given: No Hx Influenza Vaccination/Date Given: No Hx Pneumococcal Vaccination/Date Given: No Immunizations Up to Date: Yes - Review of Systems Constitutional: No Fever, No Chills Eyes: No Symptoms Ears, Nose, & Throat: No Symptoms Respiratory: Cough, Other (hemoptisis), No Dyspnea Cardiac: No Chest Pain, No Edema, No Syncope Abdominal/Gastrointestinal: No Abdominal Pain, No Nausea, No Vomiting, No Diarrhea Genitourinary Symptoms: No Dysuria Musculoskeletal: No Back Pain, No Neck Pain Skin: No Rash Neurological: No Dizziness, No Focal Weakness, No Sensory Changes Psychological: No Symptoms Endocrine: No Symptoms Hematologic/Lymphatic: No Symptoms Immunological/Allergic: No Symptoms All Other Systems: Reviewed and Negative - Past Medical History Pertinent Past Medical History: Yes Neurological History: Migraines, Stroke ENT History: Cataracts Cardiac History: Coronary Artery Disease, High Cholesterol Respiratory History: Pneumonia Endocrine Medical History: Diabetes Type I Musculoskeletal History: Fractures, Other GI Medical History: Gallbladder Disease History: No Pertinent History Psycho-Social History: Anxiety Male Reproductive Disorders: Testicular Cancer Other Medical History: testicular cancer (1999) - Past Surgical History Past Surgical History: Yes Neuro Surgical History: Other Cardiac: Cardiac Catheterization, Cardiac Stent Respiratory: No Pertinent History Musculoskeletal: Orthopedic Surgery Male Surgical History: Testicular Surgery Other Surgical History: oral surgery,states brain surgery/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 orchectomy. PORT PLACED IN 2012. CARDIAC STENT IN 2011 - Social History Smoking Status: Never smoker Exposure to second hand smoke: No Drug Use: none Patient Lives Alone: No - Nursing Vital Signs Nursing Vital Signs: Initial Vital Signs Pulse Rate 76 Respiratory Rate 16 Blood Pressure [Left Arm] 212/111 Pain Intensity 9 - Physical Exam General Appearance: no apparent distress, alert Eye Exam: PERRL/EOMI, eyes nml inspection Ears, Nose, Throat Exam: TMs normal, pharynx normal, moist mucous membranes, other (Examination of the lips and oral cavity reveal a red stain over his lips and particularly red stain on his teeth as well. His tongue is coated with something red. The red stain and coding with flecks of red on his teeth does not look like strawberries nor does it appear as blood. It almost looks as if he had eaten red pain.) Neck Exam: normal inspection, non-tender, supple, full range of motion Respiratory Exam: normal breath sounds, lungs clear, No respiratory distress Cardiovascular Exam: regular rate/rhythm, normal heart sounds, normal peripheral pulses Gastrointestinal/Abdomen Exam: soft, normal bowel sounds, No tenderness, No mass Rectal Exam: not done Back Exam: normal inspection, normal range of motion, No CVA tenderness, No vertebral tenderness Extremity Exam: normal inspection, normal range of motion, pelvis stable Neurologic Exam: alert, oriented x 3, cooperative, normal mood/affect, nml cerebellar function, nml station & gait, sensation nml, No motor deficits Skin Exam: normal color, warm, dry, No rash Lymphatic Exam: No adenopathy SpO2 Interpretation: normal SpO2: 97 Oxygen Delivery: Room Air Ordered Tests: Active Orders 24 hr Category Date Time Status CHEST 1 VIEW (PORTABLE) Stat Exams 03/27/17 17:00 Taken ARTERIAL BLOOD GASES Urgent Lab 03/27/17 17:55 Completed CBC W DIFF Stat Lab 03/27/17 17:00 Completed CMP Stat Lab 03/27/17 17:00 Completed Lactic Acid Urgent Lab 03/27/17 17:55 Completed Medication Summary Generic Name Dose Route Start Last Admin Trade Name Freq PRN Reason Stop Dose Admin Sodium Chloride 1,000 mls @ 999 mls/hr 03/27/17 17:47 03/27/17 17:55 Sodium Chloride 0.9% 1000 Ml IV 03/27/17 18:47 999 mls/hr .Q1H1M STA Administration Discontinued Medications Generic Name Dose Route Start Last Admin Trade Name Freq PRN Reason Stop Dose Admin Sodium Chloride Confirm 03/27/17 17:53 Sodium Chloride 0.9% 1000 Ml Administered 03/27/17 17:54 Dose 1,000 mls @ ud .ROUTE .STK-MED ONE Metoprolol Tartrate 5 mg 03/27/17 18:07 03/27/17 18:11 Lopressor 5 Mg/5 Ml Injection IV 03/27/17 18:08 5 mg STAT ONE Administration Metoprolol Tartrate Confirm 03/27/17 18:10 Lopressor 5 Mg/5 Ml Injection Administered 03/27/17 18:11 Dose 5 mg IV .STK-MED ONE Lab/Rad Data: Laboratory Result Diagrams 03/27/17 17:00 03/27/17 17:00 Laboratory Results 03/27/17 03/27/17 03/27/17 Range/Units 17:55 17:00 17:00 WBC 4.6 (4.0-10.5) K/mm3 RBC 3.72 L (4.1-5.6) M/mm3 Hgb 10.8 L (12.5-18.0) gm/dl Hct 33.3 L (42-50) % MCV 89.5 (78-100) fl MCH 29.0 (26-32) pg MCHC 32.4 (32-36) g/dl RDW 13.1 (11.5-14.0) % Plt Count 173 (150-450) K/mm3 MPV 12.3 H (6-9.5) fl Gran % 62.2 (36.0-66.0) % Lymphocytes % 26.5 (24.0-44.0) % Monocytes % 5.6 (0.0-12.0) % Eosinophils % 4.6 (0.00-5.0) % Basophils % 1.1 (0.0-0.4) % Basophils # 0.05 (0-0.4) Puncture Site RIGHT RADIAL pCO2 44 (35-45) mmHg pO2 88 (75-100) mmHg Base Excess 2.8 H (-2.0-2.0) O2 Saturation 96.5 (94-100) g/dF ABG pH 7.41 (7.35-7.45) ABG HCO3 27.9 (22-28) ABG O2 Sat (Measured) 98.9 (95-100) % Stanislav Test YES A-a Gradient 7 a/A Ratio 0.93 Hemoglobin 11.3 Carboxyhemoglobin 1.5 (0.0-6.9) % THgb Methemoglobin 1.0 L (1.4-1.5) % Temperature 37.0 C POC O2 Flow Rate 21 % Sodium 136 (136-145) mEq/L Potassium 4.9 4.8 (3.5-5.1) mEq/L Chloride 102 (98-107) mEq/L Carbon Dioxide 26.9 (21-32) mEq/L Anion Gap 11.7 (5-15) MEQ/L BUN 26 H (9-20) mg/dL Creatinine 1.14 (0.55-1.30) mg/dl Estimated GFR > 60 ML/MIN Glucose 616 H* (70-110) MG/DL Lactic Acid 0.8 (0.4-2.0) Calcium 9.0 (8.5-10.1) mg/dL Total Bilirubin 0.10 L (0.2-1.0) mg/dL AST 11 L (15-37) U/L ALT 15 (12-78) U/L Alkaline Phosphatase 192 H (46-116) U/L Serum Total Protein 6.7 (6.4-8.2) gm/dL Albumin 2.4 L (3.4-5.0) g/dL - Progress Progress: improved Discussed with : Devin Will see patient in: hospital (observation) Counseled pt/family regarding: lab results, diagnosis, rad results - Departure Time of Disposition: 18:17 Departure Disposition: Observation (per Dr Beltran) Clinical Impression: Hyperglycemia without ketosis, Hypertension Condition: Stable Critical Care Time: No
[2017-03-27 17:13] LABS: BASOPHIL % 1.1 % (0.0-0.4); Eosinophil % 4.6 % (0.00-5.0); Granulocytes % 62.2 % (36.0-66.0); Lymphocytes % 26.5 % (24.0-44.0); Mean Cell Volume 89.5 fl (78-100); Mean Platelet Volume 12.3 fl (6-9.5); Monocytes % 5.6 % (0.0-12.0); Platelet Count 173 K/mm3 (150-450); Red Blood Count 3.72 M/mm3 (4.1-5.6); Red Cell Distribution Width 13.1 % (11.5-14.0); White Blood Count 4.6 K/mm3 (4.0-10.5)
[2017-03-27 17:25] LABS: ALBUMIN 2.4 g/dL (3.4-5.0); ALKALINE PHOSPHATASE 192 U/L (46-116); ANION GAP 11.7 MEQ/L (5-15); BLOOD UREA NITROGEN 26 mg/dL (9-20); CHLORIDE 102 mEq/L (98-107); Carbon Dioxide 26.9 mEq/L (21-32); Potassium 4.8 mEq/L (3.5-5.1); SGOT/AST 11 U/L (15-37); SGPT/ALT 15 U/L (12-78); SODIUM 136 mEq/L (136-145); Total Protein 6.7 gm/dL (6.4-8.2)
[2017-03-27 17:40] LABS: Glucose 616 MG/DL (70-110)
[2017-03-27] MEDS ORDERED: Sodium Chloride 0.9% 1000 ML 1,000 ML IV STA (17:47)
[2017-03-27] MEDS ORDERED: Sodium Chloride 0.9% 1000 ML 1,000 ML ONE (17:53)
[2017-03-27 17:58] LABS: A-aADO2 7; ALLEN TEST OK? YES; ARTERIAL BLD GAS O2 SATURATION 98.9 % (95-100); ARTERIAL BLOOD GAS BASE EXCESS 2.8 (-2.0-2.0); ARTERIAL BLOOD GAS FIO2 21 %; ARTERIAL BLOOD GAS PO2 88 mmHg (75-100); ARTERIAL BLOOD GAS pH 7.41 (7.35-7.45); Lactic Acid 0.8 (0.4-2.0)
[2017-03-27] MEDS ORDERED: LOPRESSOR 5 MG/5 ML INJECTION IV ONE ×2 (18:07→18:10)
[2017-03-27] MEDS ORDERED: NovoLIN R SQ ONE (18:15)
[2017-03-27] MEDS ORDERED: NovoLIN R ONE (18:21)
[2017-03-27] MEDS ORDERED: TYLENOL 325 MG PO PRN (19:00)
[2017-03-27] MEDS ORDERED: APRESOLINE 20 MG/ML INJ IV ONE (21:41)
[2017-03-27] MEDS ORDERED: MORPHINE SULFATE 10 MG/ML IV PRN (21:42)
[2017-03-27] MEDS ORDERED: Zofran 4 MG/2 ML VIAL IV PRN (21:44)
[2017-03-27 22:17] LABS: ANION GAP 7.8 MEQ/L (5-15); BLOOD UREA NITROGEN 23 mg/dL (9-20); CHLORIDE 107 mEq/L (98-107); Carbon Dioxide 28.6 mEq/L (21-32); Glucose 368 MG/DL (70-110); Potassium 4.3 mEq/L (3.5-5.1); SODIUM 139 mEq/L (136-145)
[2017-03-27] MEDS: Seroquel 100 MG PO SCH (22:36)
[2017-03-27] MEDS: NEURONTIN 300 MG PO SCH (22:37)
[2017-03-27] MEDS: Lantus Insulin SQ SCH (22:41)
[2017-03-28] MEDS: Sodium Chloride 0.9% 1000 ML 1,000 ML IV SCH ×4 (00:11→06:18)
[2017-03-28] MEDS ORDERED: Sodium Chloride 0.9% 1000 ML 1,000 ML IV STA (00:29)
[2017-03-28 00:53] LABS: Mean Cell Volume 89.6 fl (78-100); Mean Corpuscular Hemoglobin 29.4 pg (26-32); Mean Platelet Volume 11.5 fl (6-9.5); Platelet Count 144 K/mm3 (150-450); Red Blood Count 3.26 M/mm3 (4.1-5.6); Red Cell Distribution Width 13.2 % (11.5-14.0); White Blood Count 5.2 K/mm3 (4.0-10.5)
--- NOTE | 2017-03-28 01:03 | PCM.HP ---
History of Present Illness - Chief Complaint Chief Complaint: hyperglycemia History of Present Illness: is a 52 year old male pt of Dr. Efrain Meraz who came to ER [facility] and was found to have systolic BP in the 200s and blood sugar over 600. He was admitted for blood pressure and blood sugar control. He had been c/o spitting up or coughing up blood. Pt is a very poor historian and the nature of the blood was not clear; after close questioning in ER he stated the red around his mouth was from eating strawberries. Blood sugar decreased to 400s with 10 units of novolin. Pt refused another dose of novolin but received his pm lantus dose; afterward BS in 300s. After admission he started c/o 10/10 abdominal pain; he has known cholecystitis per pt and is scheduled to have cholecystectomy with Dr. Barbosa (pt has stated this multiple times). He does in fact have a CT abd/pelvis from 02/28/17 and an U/S gallbladder from 03/03/17 that show cholelithiasis and cholecystitis. He was given morphine 5mg IV. After this his BP was 130 systolic, then it was 80s systolic. The nurse noted he was not as awake as he was previously. At that point I came in to evaluate the patient. He tells me his abd pain is like what he has been having and is 5/10. He states that it radiates to the back of his head and the head pain is worse right now, 9/10. Current BP is 112 systolic. When nurse asked him how he felt just before I came to evaluate pt, he stated he felt, "like a cookie." He told me the nurse didn't chart it but he had "a touch of the bubonic plague." - Review of Systems Abdominal/Gastrointestinal: Abdominal Pain, Diarrhea Neurological: Headache All Other Systems: Reviewed and Negative Medications & Allergies Home Medications: Home Medication List Insulin Glargine [Lantus Insulin] 30 unit SQ HS 02/13/17 [History Confirmed 03/27/17] Atorvastatin Calcium 20 mg PO DAILY #30 tablet 03/03/17 [Rx Confirmed 03/27/17] Gabapentin [Neurontin] 600 mg PO TID #90 tablet 03/03/17 [Rx Confirmed 03/27/17] Quetiapine Fumarate [Seroquel] 300 mg PO HS #30 tablet 03/03/17 [Rx Confirmed ] Allergies/Adverse Reactions: Allergies Allergy/AdvReac Type Severity Reaction Status Date / Time bee venom protein (honey bee) Allergy Verified 03/21/17 11:07 erythromycin lactobionate Allergy Verified 03/21/17 11:07 [From Erythrocin] ketorolac [From Toradol] Allergy Verified 03/21/17 11:07 methocarbamol Allergy Verified 03/21/17 11:07 Penicillins Allergy Verified 03/21/17 11:07 egg AdvReac Verified 03/21/17 11:07 - Past Medical History Past Medical History: Yes Neurological History: Migraines, Stroke ENT History: Cataracts Cardiac History: Coronary Artery Disease, High Cholesterol Respiratory History: Pneumonia Endocrine Medical History: Diabetes Type I Musculoskelatal History: Fractures, Other GI Medical History: Gallbladder Disease History: No Pertinent History Pyscho-Social History: Anxiety Male Reproductive Disorders: Testicular Cancer Comment: testicular cancer (1999), trauma from accident pt states only "5 vertebrae left" - Past Surgical History Past Surgical History: Yes Neuro Surgical History: Other Cardiac History: Cardiac Catheterization, Cardiac Stent Respiratory Surgery: No Pertinent History Musculskeletal Surgical Hx: Orthopedic Surgery Male Surgical History: Testicular Surgery Other Surgical History: oral surgery,states brain surgery/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 orchectomy. PORT PLACED IN 2012. CARDIAC STENT IN 2011 - Social History Smoking Status: Never smoker Exposure to second hand smoke: No Alcohol: None Drug Use: none - Physical Exam Vital Signs: Vital Signs - 24 hr Temp Pulse Resp BP Pulse Ox 03/27/17 23:45 14 138/70 03/27/17 20:00 98.0 F 65 20 200/118 96 03/27/17 19:49 98.0 F 65 20 212/111 96 03/27/17 18:22 97 03/27/17 18:01 76 16 212/111 99 03/27/17 17:03 78 16 185/98 96 03/27/17 16:13 20 97 03/27/17 16:03 83 20 180/94 98 General Appearance: no apparent distress (lying in bed, appears comfortable. jokes and talks) Neurologic Exam: alert, oriented x 3, cooperative Eye Exam: eyes nml inspection Neck Exam: normal inspection Respiratory Exam: normal breath sounds, lungs clear, No crackles/rales, No rhonchi, No wheezing Cardiovascular Exam: regular rate/rhythm, normal heart sounds, No murmur Gastrointestinal/Abdomen Exam: soft, normal bowel sounds, tenderness (RUQ, RLQ) , No distention, No mass, No guarding, No rebound Extremity Exam: pedal edema (1+ bilat) Results - Labs Lab/Micro Results: Accuchecks Date 03/27/17 Date 03/27/17 Time 23:47 Time 19:00 Accucheck Value: 291 Accucheck Value: 476 Lab Results-Last 24 Hours 03/27/17 Range/Units 21:50 Sodium 139 (136-145) mEq/L Potassium 4.3 (3.5-5.1) mEq/L Chloride 107 (98-107) mEq/L Carbon Dioxide 28.6 (21-32) mEq/L Anion Gap 7.8 (5-15) MEQ/L BUN 23 H (9-20) mg/dL Creatinine 1.04 (0.55-1.30) mg/dl Estimated GFR > 60 ML/MIN Glucose 368 H (70-110) MG/DL Calcium 8.6 (8.5-10.1) mg/dL Accuchecks Date 03/27/17 Date 03/27/17 Time 23:47 Time 19:00 Accucheck Value: 291 Accucheck Value: 476 - Radiology Impressions Radiology Exams & Impressions: Radiology Procedures Category Date Time Status KUB Stat Exams 03/28/17 00:27 Ordered Assessment/Plan (1) Abdominal pain Current Visit: No Status: Acute Qualifiers: Abdominal location: unspecified location Qualified Code(s): R10.9 - Unspecified abdominal pain Assessment & Plan: On closer questioning appears likely to be his chronic abdominal pain; however paired with hypotension this evening, I am doing a KUB, CBC, CMP, and lactate stat. Will change IV pain meds to po if those are normal. Code(s): R10.9 - UNSPECIFIED ABDOMINAL PAIN (2) Hyperglycemia without ketosis Current Visit: Yes Status: Acute Assessment & Plan: Blood sugar decreasing well with IV fluids and one 10 unit dose of novolin; pt did get pm dose of lantus. ER doctor suspected pt may not have been taking his home diabetes medications. Code(s): R73.9 - HYPERGLYCEMIA, UNSPECIFIED (3) Hypertension Current Visit: Yes Status: Acute Assessment & Plan: He received IV labetalol and IV hydralazine for systolic BP > 200s; after IV hydralazine he received 5mg IV morphine and his BP decreased drastically. Code(s): I10 - ESSENTIAL (PRIMARY) HYPERTENSION (4) Hypotension Current Visit: Yes Status: Acute Assessment & Plan: Responding well to bolus, last BP 112 systolic. I think likely cumulative medication reaction to hydralazine with morphine. Will stop IV morphine. Code(s): I95.9 - HYPOTENSION, UNSPECIFIED (5) Coronary artery disease Current Visit: No Status: Chronic Qualifiers: Coronary Disease-Associated Artery/Lesion type: unspecified vessel or lesion type Associated angina: angina presence unspecified Assessment & Plan: Place pt on telemetry. Code(s): I25.10 - ATHSCL HEART DISEASE OF [place] CORONARY ARTERY W/O ANG PCTRS
[2017-03-28 01:09] LABS: ALKALINE PHOSPHATASE 150 U/L (46-116); ANION GAP 7.3 MEQ/L (5-15); BLOOD UREA NITROGEN 23 mg/dL (9-20); CHLORIDE 110 mEq/L (98-107); Carbon Dioxide 28.1 mEq/L (21-32); Glucose 273 MG/DL (70-110); SGOT/AST 10 U/L (15-37); SODIUM 141 mEq/L (136-145); Total Protein 5.3 gm/dL (6.4-8.2)
[2017-03-28 01:25] LABS: SGPT/ALT 11 U/L (12-78)
[2017-03-28 05:27] LABS: Mean Platelet Volume 11.5 fl (6-9.5); Platelet Count 137 K/mm3 (150-450); Red Blood Count 3.11 M/mm3 (4.1-5.6); Red Cell Distribution Width 13.3 % (11.5-14.0); White Blood Count 5.5 K/mm3 (4.0-10.5)
[2017-03-28 05:38] LABS: Mean Corpuscular Hemoglobin 29.2 pg (26-32)
[2017-03-28 06:22] LABS: ANION GAP 7.5 MEQ/L (5-15); BLOOD UREA NITROGEN 23 mg/dL (9-20); CHLORIDE 111 mEq/L (98-107); Carbon Dioxide 27.2 mEq/L (21-32); Glucose 228 MG/DL (70-110); Potassium 4.2 mEq/L (3.5-5.1); SODIUM 142 mEq/L (136-145)
[2017-03-28] MEDS: NovoLOG Insulin SQ PRN ×2 (07:42→15:58)
[2017-03-28] MEDS: NEURONTIN 300 MG PO SCH ×3 (08:15→21:13)
--- NOTE | 2017-03-28 08:46 | XRAY ---
Indication: Right flank pain. Known gallbladder disease. Comparison: None KUB demonstrates marked diffuse scattered colonic fecal debris throughout including the rectum. No free air. Solid organs and osseous structures unremarkable. A few bilateral pelvic phleboliths. Impression: Fecal stasis without obstruction. Comment: Preliminary interpretation was made by [facility]. No discrepancy.
--- NOTE | 2017-03-28 08:46 | XRAY ---
Indication: Hemoptysis. Comparison: None Portable chest demonstrates minimal bibasilar infiltrates/atelectasis without consolidation or large effusion. Upper lungs clear. Heart is not enlarged. Vascularity normal. Left sided Port-A-Cath. Bony thorax intact. Impression: Bibasilar infiltrates/atelectasis. Correlate clinically.
[2017-03-28] MEDS ORDERED: NON-FORMULARY ITEM (Atorvastatin Calcium [Atorvastatin Calcium] 20 MG) PO SCH (10:00)
[2017-03-28] MEDS ORDERED: ZOCOR 20MG PO SCH (10:00)
[2017-03-28] MEDS ORDERED: NORCO 5/325 MG PO PRN (11:32)
[2017-03-28] MEDS ORDERED: Lopressor 25MG Tab PO ONE (11:33)
[2017-03-28] MEDS ORDERED: Cyclobenzaprine 10 MG PO ONE (17:47)
[2017-03-28] MEDS ORDERED: Catapres 0.1 MG PO PRN (17:48)
[2017-03-28] MEDS: Seroquel 100 MG PO SCH (21:13)
[2017-03-28] MEDS: Lantus Insulin SQ SCH (22:24)
[2017-03-29 04:31] VITALS: O2SAT 96
[2017-03-29] MEDS: NovoLOG Insulin SQ PRN (07:59)
[2017-03-29 08:04] VITALS: BP 125/73; PULSE 52
--- NOTE | 2017-03-29 08:15 | PCM.DCORD ---
- Discharge Discharge Date: 03/29/17 Disposition: Home, Self-Care Condition: Stable Prescriptions: New Amlodipine Besylate [Norvasc] 2.5 mg PO DAILY #30 tablet Continue Insulin Glargine [Lantus Insulin] 30 unit SQ HS Atorvastatin Calcium 20 mg PO DAILY #30 tablet Gabapentin [Neurontin] 600 mg PO TID #90 tablet Quetiapine Fumarate [Seroquel] 300 mg PO HS #30 tablet Instructions: Diabetes Type 2, Hypertension Additional Instructions: [facility] WILL CALL YOU TO ARRANGE YOUR FIRST VISIT. YOU MAY REACH THEM AT ext [phone] FOR ANY NEEDS. Follow up with: LISHA KRAMER [Primary Care Provider] - Forms: Discharge Instructions
--- NOTE | 2017-04-02 07:17 | PCM.DS ---
Discharge Summary Date of Admission: 03/27/17 18:50 Date of Discharge: 03/29/17 Admitting Physician: ASA HAWTHORNE Primary Care Provider: LISHA KRAMER Allergies Allergies bee venom protein (honey bee) Allergy (Verified 03/21/17 11:07) erythromycin lactobionate [From Erythrocin] Allergy (Verified 03/21/17 11:07) ketorolac [From Toradol] Allergy (Verified 03/21/17 11:07) methocarbamol Allergy (Verified 03/21/17 11:07) Penicillins Allergy (Verified 03/21/17 11:07) egg Adverse Reaction (Verified 03/21/17 11:07) Hospital Summary - Hospital Course Hospital Course: Mr. Esparza is an uncontrolled diabetic with history of medication noncompliance who presented for hemoptysis but after further questioning revealed he may have never had hemoptysis he did have some nose bleeding earlier in the day and was eating red strawberries later making his saliva red. he had some abnormal behaviors throughout his stay describing himself as "a cookie" at one time. He denied any drug use or abuse but did at one time refer to not getting enough pain medicine that he would have someone bring it in for him. His blood pressure was very labile throughout the stay with very wide range of bp. There was concern for possible withdraw from an undescribed medication but he denied this. His bp stabilized and he remained with no hemoptysis and no new symptoms. He continues to have the neurogenic bladder that he refuses treatment for and has the symptmatic gallstones that he has scheduled upcoming general surgery for. - Vitals & Intake/Output Vital Signs: Vital Signs Temperature 98.1 F 03/29/17 07:58 Pulse Rate 52 L 03/29/17 07:58 Respiratory Rate 14 03/29/17 07:58 Blood Pressure 125/73 03/29/17 07:58 O2 Sat by Pulse Oximetry 96 03/29/17 07:58 - Lab Result Diagrams: 03/28/17 05:15 03/28/17 05:15 - Procedures and Test Procedures and Tests throughout Hospitalization: Therapy Orders & Screens 03/27/17 20:49 OT Screen per Nursing Assess Comment: Protocol Order Physician Instructions: Greater than 3 points order OT Admission Screening Reason For Exam: Triggered on Admission Diagnosis: hyperglycemia Open Wound/Cellutlitis/Pressure Ulcers: Yes Acute Fx/ORIF/Change in wt bearing status: No Severe MUSCULOSKELETAL pain: No ADL Dysfunction: Yes Acute CVA w/Hemiparesis/Hemiplegia: No Decreased Functional Mobility/Strength: Yes Sprain/Strain: No Acute Post-op Mobility Dysfunction: No Total Points: 9 PT Screen per Nursing Assess Comment: Protocol Order Physician Instructions: Greater than 3 points order PT Admission Screenin Reason For Exam: Triggered on Admission Diagnosis: hyperglycemia Open Wound/Cellutlitis/Pressure Ulcers: Yes Acute Fx/ORIF/Change in wt bearing status: No Severe MUSCULOSKELETAL pain: No ADL Dysfunction: Yes Acute CVA w/Hemiparesis/Hemiplegia: No Decreased Functional Mobility/Strength: Yes Sprain/Strain: No Acute Post-op Mobility Dysfunction: No Total Points: 9 Discharge Exam General Appearance: no apparent distress, alert Neurologic Exam: alert, oriented x 3, cooperative, normal mood/affect, nml cerebellar function Skin Exam: normal color, warm, dry, pale Eye Exam: PERRL, EOMI, eyes nml inspection, pale conjunctivae Ears, Nose, Throat Exam: normal ENT inspection, pharynx normal, moist mucous membranes Neck Exam: normal inspection, non-tender, supple, full range of motion Respiratory Exam: normal breath sounds, lungs clear, No respiratory distress Cardiovascular Exam: regular rate/rhythm, normal heart sounds Gastrointestinal/Abdomen Exam: soft, tenderness, No mass, No guarding, No rebound Extremity Exam: normal inspection, normal range of motion, pedal edema Back Exam: normal inspection, normal range of motion, No CVA tenderness, No vertebral tenderness Male Genitalia Exam: deferred Rectal Exam: deferred Final Diagnosis/Problem List - Final Discharge Diagnosis/Problem (1) Type 1 diabetes mellitus, uncontrolled Status: Acute (2) Hypertensive urgency Status: Resolved (3) Abdominal pain Status: Acute (4) Chronic cholecystitis with calculus Status: Acute (5) Anemia Status: Chronic - Discharge Disposition: [facility] @ [facility] Condition: Stable Prescriptions: New Amlodipine Besylate [Norvasc] 2.5 mg PO DAILY #30 tablet Continue Insulin Glargine [Lantus Insulin] 30 unit SQ HS Atorvastatin Calcium 20 mg PO DAILY #30 tablet Gabapentin [Neurontin] 600 mg PO TID #90 tablet Quetiapine Fumarate [Seroquel] 300 mg PO HS #30 tablet Instructions: Diabetes Type 2, Hypertension Additional Instructions: [facility] WILL CALL YOU TO ARRANGE YOUR FIRST VISIT. YOU MAY REACH THEM AT ext [phone] FOR ANY NEEDS. Follow up with: LISHA KRAMER [Primary Care Provider] - 04/05/17 1:15 pm Forms: Discharge Instructions
== END 2017-03-29 09:40 | disposition home health service (06) ==
LOC: ED 16:03 → MED SURG 18:50
PROVIDERS: ADMIT Family Medicine; ATTEND Family Medicine
DX: E10.65 Type 1 diabetes mellitus with hyperglycemia (principal); Z79.4 Long term (current) use of insulin; I16.0 Hypertensive urgency; R10.9 Unspecified abdominal pain; K80.10 Calculus of gallbladder with chronic cholecystitis without obstruction; D64.9 Anemia, unspecified; I25.10 Atherosclerotic heart disease of native coronary artery without angina pectoris; F41.9 Anxiety disorder, unspecified; I95.9 Hypotension, unspecified; Z86.73 Personal history of transient ischemic attack (TIA), and cerebral infarction without residual deficits; Z85.47 Personal history of malignant neoplasm of testis
CPT/HCPCS: 36415; 36600; 71010; 74000; 80048; 80053; 82375; 82803; 82962; 83605; 84134; 85025; 85027; 96360; 96372; 96374; 96375; 99285; G0378; J0360; J2270; J2405; A9270-GY

== ENCOUNTER 2017-04-06 07:53 | Observation (INO) | payer MEDICAID ==
[2017-04-06] MEDS ORDERED: BABY ASPIRIN 81 MG CHEW PO ONE (08:07)
[2017-04-06] MEDS ORDERED: MORPHINE SULFATE 4 MG INJ IV ONE ×2 (08:39→10:29)
[2017-04-06] MEDS ORDERED: Sodium Chloride 0.9% 1000 ML 1,000 ML IV STA ×3 (08:39→23:22)
[2017-04-06] MEDS ORDERED: Zofran 4 MG/2 ML VIAL IV ONE (08:39)
--- NOTE | 2017-04-06 08:51 | ERPHSYRPT ---
- History of Present Illness Time Seen by Provider: 04/06/17 08:28 Source: patient Exam Limitations: no limitations Patient Subjective Stated Complaint: pt states last 6 hours headache rated at 10 , vomitx6 and loose stoolsx5. also complains of sore throat and sneezing. pt has multiple scabs from what he says is bites on the lower right leg. Triage Nursing Assessment: alert and oriented. pink warm and dry. afebrile. mucos membranes dry. headache loacated right behind eyes and into the neck. no vision problems. 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 abdomen is soft however very tender right quad pain but is scheduled to have gall bladder out in april for low ejection fraction. scabs with some open wounds in the right lower leg. able to transfer from wheel chair to bed with mild weakness. Physician History: 52-year-old white male with history of migraines, stroke, cataracts, coronary artery disease, hyperlipidemia, pneumonia, diabetes, fractures, gallbladder disease, anxiety, Patient arrives with complaint of 6 hours of diarrhea of persistent vomiting 5 headache Patient denies any fevers denies chest pain denies shortness of breath states she has pain in the right upper quadrant. Denies melena denies hematochezia. Patient is not having any problems moving extremities or speaking he has no focal deficits He does state that he has a scratchy throat. Past medical history includes migraines, stroke, cataracts, coronary artery disease, hyperlipidemia, pneumonia, diabetes, fractures, gallbladder disease, anxiety, personality disorder, testicular cancer area with trauma from an accident Past surgical history includes cardiac catheter, cardiac stent,, testicular surgery, orthopedic surgery, brain surgery of his resection of cerebral cortex secondary stroke right leg surgery bilateral orchiectomy, port, left leg muscle surgery Timing/Duration: today (symptoms for 6 hours) Severity: moderate Modifying Factors: Improves With: nothing Associated Symptoms: nausea, vomiting, abdominal pain (right upper quadrant abdominal pain), headaches, malaise, other (diarrhea), No shortness of breath, No heartburn, No diaphoresis, No cough, No chills, No chest pain, No fever, No loss of appetite, No rash, No syncope, No seizure, No weakness Allergies/Adverse Reactions: bee venom protein (honey bee) Allergy (Verified 04/06/17 08:18) erythromycin lactobionate [From Erythrocin] Allergy (Verified 04/06/17 08:18) ketorolac [From Toradol] Allergy (Verified 04/06/17 08:18) methocarbamol Allergy (Verified 04/06/17 08:18) Penicillins Allergy (Verified 04/06/17 08:18) egg Adverse Reaction (Verified 04/06/17 08:18) Home Medications: Insulin Glargine [Lantus Insulin] 30 unit SQ HS 02/13/17 [History] Hx Tetanus, Diphtheria Vaccination/Date Given: Yes Hx Influenza Vaccination/Date Given: No Hx Pneumococcal Vaccination/Date Given: No Immunizations Up to Date: Yes - Review of Systems Constitutional: Malaise, No Fever, No Chills, No Fatigue, No Lethargy, No Night Sweats, No Weakness, No Weight Loss Eyes: No Symptoms Ears, Nose, & Throat: No Symptoms, Throat Pain (throat scratchy), No Ear Pain, No Ear Discharge, No Hearing Changes, No Tinnitus, No Nose Pain, No Nose Congestion, No Nose Discharge, No Sinus Drainage, No Epistaxis, No Mouth Pain, No Mouth Swelling, No Loose Teeth, No Throat Swelling, No Hoarse, No Painful Swallowing, No Snoring, No Stridor Respiratory: No Cough, No Dyspnea Cardiac: No Chest Pain, No Edema, No Syncope Abdominal/Gastrointestinal: Abdominal Pain (right upper quadrant abdominal pain) , Nausea, Vomiting, Diarrhea, No Constipation, No Hematemesis, No Hematochezia, No Melena, No Dysphagia, No Appetite Changes Genitourinary Symptoms: No Dysuria Musculoskeletal: No Back Pain, No Neck Pain Skin: No Rash Neurological: Headache, No Dizziness, No Focal Weakness, No Gait Changes, No Irritability, No Lethargy, No Paralysis, No Parasthesia, No Seizure, No Sensory Changes, No Speech Changes, No Tics, No Tremors, No Vertigo Psychological: No Symptoms Endocrine: No Symptoms All Other Systems: Reviewed and Negative - Past Medical History Pertinent Past Medical History: Yes Neurological History: Migraines, Stroke ENT History: Cataracts Cardiac History: Coronary Artery Disease, High Cholesterol Respiratory History: Pneumonia Endocrine Medical History: Diabetes Type I Musculoskeletal History: Fractures, Other GI Medical History: Gallbladder Disease History: No Pertinent History Psycho-Social History: Anxiety Male Reproductive Disorders: Testicular Cancer Other Medical History: testicular cancer (1999), trauma from accident pt states only "5 vertebrae left" - Past Surgical History Past Surgical History: Yes Neuro Surgical History: Other Cardiac: Cardiac Catheterization, Cardiac Stent Respiratory: No Pertinent History Musculoskeletal: Orthopedic Surgery Male Surgical History: Testicular Surgery Other Surgical History: oral surgery,states brain surgery/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 orchectomy. PORT PLACED IN 2013. CARDIAC STENT IN 2011 - Social History Smoking Status: Never smoker Exposure to second hand smoke: No Drug Use: none Patient Lives Alone: Yes - Nursing Vital Signs Nursing Vital Signs: Initial Vital Signs Temperature 99.1 F Temperature Source Oral Pulse Rate 79 Respiratory Rate 18 Blood Pressure [] 197/110 Pain Intensity 10 - Physical Exam General Appearance: mild distress, other (well-developed well-nourished [place] pale in appearance) Eye Exam: PERRL/EOMI, eyes nml inspection Ears, Nose, Throat Exam: normal ENT inspection, TMs normal, pharynx normal, moist mucous membranes Neck Exam: normal inspection, non-tender, supple, full range of motion Respiratory Exam: normal breath sounds, lungs clear, No respiratory distress Cardiovascular Exam: regular rate/rhythm, normal heart sounds, normal peripheral pulses Gastrointestinal/Abdomen Exam: soft, normal bowel sounds, tenderness (right upper quadrant tenderness), No distention, No mass, No guarding, No ecchymosis, No pulsatile mass, No rebound, No hernia, No hepatomegaly, No organomegaly, No splenomegaly, No bruit Back Exam: normal inspection, normal range of motion, No CVA tenderness, No vertebral tenderness Extremity Exam: normal inspection, normal range of motion, pelvis stable Neurologic Exam: alert, oriented x 3, cooperative, normal mood/affect, nml cerebellar function, nml station & gait, sensation nml, other (patient is alert , oriented 3, cranial nerves II through XI< DTRs symmetrical 2 over 4 fountain pen turner are equal and symmetrical 5 /5, finger to nose within normal limits, no pronator drift, speech normal, sensation intact to all extremities,no facial droop. No deviation of the tongue), No motor deficits Skin Exam: warm, dry, pale, No rash Lymphatic Exam: No adenopathy SpO2 Interpretation: normal (97%) SpO2: 97 Oxygen Delivery: Room Air - Course Nursing assessment & vital signs reviewed: Yes - Radiology Exams Chest X-ray Interpretation: Discussed w/ radiologist, Other (chest x-ray: Impression: 1. Thin transverse linear strand of plate atelectasis at lateral right lung base. Otherwise, though lung appears clear. No acute cardiopulmonary process is seen. 2. Left sided portacatheter is seen in unchanged position.) - CT Exams Head CT Interpretation: Discussed w/radiologist (head CT without contrast: Impression : 1. No acute intracranial bleed or other acute intracranial process is seen. To the remainder of the findings appear stable consisting of mild diffuse cortical atrophy, evidence of prior left occipital craniotomy with stable focal encephalomalacia. 3. Abundant cerumenis seen within both external auditory canals), Tele-radiologist Report Ordered Tests: Active Orders 24 hr Category Date Time Status ACCUCHECK [Accucheck] STAT Care 04/06/17 09:05 Active Accucheck STAT Care 04/06/17 10:11 Active EKG-ER Only STAT Care 04/06/17 08:07 Inactive EKG-ER Only STAT Care 04/06/17 08:39 Active IV Insertion STAT Care 04/06/17 08:07 Inactive IV Insertion STAT Care 04/06/17 08:39 Active Pulse Oximetry (ED) STAT Care 04/06/17 08:07 Inactive CHEST 1 VIEW (PORTABLE) Stat Exams 04/06/17 08:41 Completed HEAD WITHOUT CONTRAST [CT] Stat Exams 04/06/17 08:43 Completed AMYLASE Stat Lab 04/06/17 09:04 Completed BLOOD CULTURE Stat Lab 04/06/17 09:40 Received CBC W DIFF Stat Lab 04/06/17 09:04 Completed CMP Stat Lab 04/06/17 09:04 Completed CULTURE,URINE Stat Lab 04/06/17 10:20 Received LIPASE Stat Lab 04/06/17 09:04 Completed Lactic Acid Stat Lab 04/06/17 08:58 Completed Lactic Acid Stat Lab 04/06/17 09:00 Stop Req Occult Blood,Stool Other Stat Lab 04/06/17 09:04 Completed STREP SCREEN-BETA A Stat Lab 04/06/17 09:04 Completed TROPONIN Stat Lab 04/06/17 09:04 Completed UA W/ MICROSCOPIC Stat Lab 04/06/17 10:20 Completed VENOUS BLOOD GAS Urgent Lab 04/06/17 08:42 Completed Medication Summary Generic Name Dose Route Start Last Admin Trade Name Freq PRN Reason Stop Dose Admin Amlodipine Besylate 2.5 mg 04/07/17 10:00 Norvasc 5 Mg PO 04/07/17 10:01 STAT ONE Sodium Chloride 1,000 mls @ 999 mls/hr 04/06/17 09:51 04/06/17 10:15 Sodium Chloride 0.9% 1000 Ml IV 04/06/17 10:51 999 mls/hr .Q1H1M STA Administration Discontinued Medications Generic Name Dose Route Start Last Admin Trade Name Maddie PRN Reason Stop Dose Admin Aspirin 243 mg 04/06/17 08:07 04/06/17 08:11 Baby Aspirin 81 Mg Chew PO 04/06/17 08:08 Not Given STAT ONE Sodium Chloride 1,000 mls @ 999 mls/hr 04/06/17 08:39 04/06/17 09:17 Sodium Chloride 0.9% 1000 Ml IV 04/06/17 09:39 999 mls/hr .Q1H1M STA Administration Sodium Chloride Confirm 04/06/17 09:08 Sodium Chloride 0.9% 1000 Ml Administered 04/06/17 09:09 Dose 1,000 mls @ ud .ROUTE .STK-MED ONE Ceftriaxone Sodium/Dextrose 1 g in 50 mls @ 100 mls/hr 04/06/17 10:00 10:17 Rocephin 1 Gm-D5w 50 Ml Bag IV 04/06/17 10:29 100 mls/hr STAT STA Administration Sodium Chloride Confirm 04/06/17 10:00 Sodium Chloride 0.9% 1000 Ml Administered 04/06/17 10:01 Dose 1,000 mls @ ud .ROUTE .STK-MED ONE Ceftriaxone Sodium/Dextrose Confirm 04/06/17 10:01 Rocephin 1 Gm-D5w 50 Ml Bag Administered 04/06/17 10:02 Dose 1 g in 50 mls @ ud IV .STK-MED ONE Insulin Aspart 7 unit 04/06/17 10:16 04/06/17 10:25 Novolog Insulin SQ 04/06/17 10:17 7 unit STAT ONE Administration Insulin Aspart Confirm 04/06/17 10:24 Novolog Insulin Administered 04/06/17 10:25 Dose 7 unit .ROUTE .STK-MED ONE Morphine Sulfate 4 mg 04/06/17 08:39 04/06/17 09:17 Morphine Sulfate 4 Mg Inj IV 04/06/17 08:40 4 mg STAT ONE Administration Morphine Sulfate Confirm 04/06/17 09:08 Morphine Sulfate 4 Mg Inj Administered 04/06/17 09:09 Dose 4 mg .ROUTE .STK-MED ONE Morphine Sulfate 4 mg 04/06/17 10:29 04/06/17 10:36 Morphine Sulfate 4 Mg Inj IV 04/06/17 10:30 4 mg STAT ONE Administration Morphine Sulfate Confirm 04/06/17 10:34 Morphine Sulfate 4 Mg Inj Administered 04/06/17 10:35 Dose 4 mg .ROUTE .STK-MED ONE Ondansetron HCl 4 mg 04/06/17 08:39 04/06/17 09:18 Zofran 4 Mg/2 Ml Vial IV 04/06/17 08:40 4 mg STAT ONE Administration Ondansetron HCl Confirm 04/06/17 09:08 Zofran 4 Mg/2 Ml Vial Administered 04/06/17 09:09 Dose 4 mg .ROUTE .STK-MED ONE Lab/Rad Data: Laboratory Result Diagrams 04/06/17 09:04 04/06/17 09:04 Laboratory Results 04/06/17 04/06/17 04/06/17 Range/Units 10:20 09:04 09:04 WBC (4.0-10.5) K/mm3 RBC (4.1-5.6) M/mm3 Hgb (12.5-18.0) gm/dl Hct (42-50) % MCV (78-100) fl MCH (26-32) pg MCHC (32-36) g/dl RDW (11.5-14.0) % Plt Count (150-450) K/mm3 MPV (6-9.5) fl Gran % (36.0-66.0) % Lymphocytes % (24.0-44.0) % Monocytes % (0.0-12.0) % Eosinophils % (0.00-5.0) % Basophils % (0.0-0.4) % Basophils # (0-0.4) VBG pH (7.32-7.42) VBG pCO2 at Pat Temp (42-55) mm/Hg VBG pO2 at Pat Temp (25-40) mm/Hg VBG HCO3 (22-28) meq/L VBG O2 Sat (Mariusz) (95-100) VBG Base Excess (-2.0-2.0) VBG Hemoglobin VBG Carboxyhemoglobin (0.0-6.9) % T HGB POC Potassium (3.5-5.1) Sodium 139 (136-145) mEq/L Potassium 4.2 (3.5-5.1) mEq/L Chloride 105 (98-107) mEq/L Carbon Dioxide 25.5 (21-32) mEq/L Anion Gap 12.7 (5-15) MEQ/L BUN 18 (9-20) mg/dL Creatinine 1.02 (0.55-1.30) mg/dl Estimated GFR > 60 ML/MIN Glucose 467 H (70-110) MG/DL Lactic Acid (0.4-2.0) Calcium 8.7 (8.5-10.1) mg/dL Total Bilirubin 0.40 (0.2-1.0) mg/dL AST 15 (15-37) U/L ALT 12 (12-78) U/L Alkaline Phosphatase 168 H (46-116) U/L Troponin I < 0.017 (0.000-0.056) ng/ml Serum Total Protein 6.4 (6.4-8.2) gm/dL Albumin 2.4 L (3.4-5.0) g/dL Amylase 53 (25-115) U/L Lipase 357 (73-393) U/L Ur Collection Type VOID Urine Color YELLOW (YELLOW) Urine Appearance CLOUDY (CLEAR) Urine pH 5.0 (5-6) Ur Specific Kirk 1.015 (1.005-1.025) Urine Protein 3+ (Negative) Urine Ketones NEGATIVE (NEGATIVE) Urine Blood 250 (0-5) Syed/ul Urine Nitrite NEGATIVE (NEGATIVE) Urine Bilirubin NEGATIVE (NEGATIVE) Urine Urobilinogen NORMAL (0-1) mg/dL Ur Leukocyte Esterase 1+ (NEGATIVE) Urine Microscopic RBC 0-2 (0-2) /HPF Urine Microscopic WBC 25-50 (0-5) /HPF Ur Epithelial Cells FEW (FEW) /HPF Urine Bacteria MANY (NEGATIVE) /HPF Urine Glucose 100 (NEGATIVE) mg/dL Stool Occult Blood NEGATIVE (Negative) Influenza Type A Ag (NEGATIVE) Influenza Type B Ag (NEGATIVE) RSV (PCR) (Negative) Streptococcus Screen POSITIVE (Negative) Specimen Received 04/06/17 1020 04/06/17 04/06/17 04/06/17 Range/Units 09:04 08:58 08:45 WBC 6.3 (4.0-10.5) K/mm3 RBC 3.82 L (4.1-5.6) M/mm3 Hgb 11.1 L (12.5-18.0) gm/dl Hct 33.4 L (42-50) % MCV 87.4 (78-100) fl MCH 29.0 (26-32) pg MCHC 33.2 (32-36) g/dl RDW 12.8 (11.5-14.0) % Plt Count 190 (150-450) K/mm3 MPV 11.3 H (6-9.5) fl Gran % 66.8 H (36.0-66.0) % Lymphocytes % 23.3 L (24.0-44.0) % Monocytes % 5.1 (0.0-12.0) % Eosinophils % 3.2 (0.00-5.0) % Basophils % 1.6 (0.0-0.4) % Basophils # 0.10 (0-0.4) VBG pH (7.32-7.42) VBG pCO2 at Pat Temp (42-55) mm/Hg VBG pO2 at Pat Temp (25-40) mm/Hg VBG HCO3 (22-28) meq/L VBG O2 Sat (Mariusz) (95-100) VBG Base Excess (-2.0-2.0) VBG Hemoglobin VBG Carboxyhemoglobin (0.0-6.9) % T HGB POC Potassium (3.5-5.1) Sodium (136-145) mEq/L Potassium (3.5-5.1) mEq/L Chloride (98-107) mEq/L Carbon Dioxide (21-32) mEq/L Anion Gap (5-15) MEQ/L BUN (9-20) mg/dL Creatinine (0.55-1.30) mg/dl Estimated GFR ML/MIN Glucose (70-110) MG/DL Lactic Acid 1.2 (0.4-2.0) Calcium (8.5-10.1) mg/dL Total Bilirubin (0.2-1.0) mg/dL AST (15-37) U/L ALT (12-78) U/L Alkaline Phosphatase (46-116) U/L Troponin I (0.000-0.056) ng/ml Serum Total Protein (6.4-8.2) gm/dL Albumin (3.4-5.0) g/dL Amylase (25-115) U/L Lipase (73-393) U/L Ur Collection Type Urine Color (YELLOW) Urine Appearance (CLEAR) Urine pH (5-6) Ur Specific Kirk (1.005-1.025) Urine Protein (Negative) Urine Ketones (NEGATIVE) Urine Blood (0-5) Syed/ul Urine Nitrite (NEGATIVE) Urine Bilirubin (NEGATIVE) Urine Urobilinogen (0-1) mg/dL Ur Leukocyte Esterase (NEGATIVE) Urine Microscopic RBC (0-2) /HPF Urine Microscopic WBC (0-5) /HPF Ur Epithelial Cells (FEW) /HPF Urine Bacteria (NEGATIVE) /HPF Urine Glucose (NEGATIVE) mg/dL Stool Occult Blood (Negative) Influenza Type A Ag NEGATIVE (NEGATIVE) Influenza Type B Ag NEGATIVE (NEGATIVE) RSV (PCR) NEGATIVE (Negative) Streptococcus Screen (Negative) Specimen Received 04/06/17 Range/Units 08:42 WBC (4.0-10.5) K/mm3 RBC (4.1-5.6) M/mm3 Hgb (12.5-18.0) gm/dl Hct (42-50) % MCV (78-100) fl MCH (26-32) pg MCHC (32-36) g/dl RDW (11.5-14.0) % Plt Count (150-450) K/mm3 MPV (6-9.5) fl Gran % (36.0-66.0) % Lymphocytes % (24.0-44.0) % Monocytes % (0.0-12.0) % Eosinophils % (0.00-5.0) % Basophils % (0.0-0.4) % Basophils # (0-0.4) VBG pH 7.37 (7.32-7.42) VBG pCO2 at Pat Temp 51 (42-55) mm/Hg VBG pO2 at Pat Temp 32 (25-40) mm/Hg VBG HCO3 29.5 H* (22-28) meq/L VBG O2 Sat (Mariusz) 73.8 L (95-100) VBG Base Excess 3.4 H (-2.0-2.0) VBG Hemoglobin 11.2 VBG Carboxyhemoglobin 3.2 (0.0-6.9) % T HGB POC Potassium 4.2 (3.5-5.1) Sodium (136-145) mEq/L Potassium (3.5-5.1) mEq/L Chloride (98-107) mEq/L Carbon Dioxide (21-32) mEq/L Anion Gap (5-15) MEQ/L BUN (9-20) mg/dL Creatinine (0.55-1.30) mg/dl Estimated GFR ML/MIN Glucose (70-110) MG/DL Lactic Acid (0.4-2.0) Calcium (8.5-10.1) mg/dL Total Bilirubin (0.2-1.0) mg/dL AST (15-37) U/L ALT (12-78) U/L Alkaline Phosphatase (46-116) U/L Troponin I (0.000-0.056) ng/ml Serum Total Protein (6.4-8.2) gm/dL Albumin (3.4-5.0) g/dL Amylase (25-115) U/L Lipase (73-393) U/L Ur Collection Type Urine Color (YELLOW) Urine Appearance (CLEAR) Urine pH (5-6) Ur Specific Kirk (1.005-1.025) Urine Protein (Negative) Urine Ketones (NEGATIVE) Urine Blood (0-5) Syed/ul Urine Nitrite (NEGATIVE) Urine Bilirubin (NEGATIVE) Urine Urobilinogen (0-1) mg/dL Ur Leukocyte Esterase (NEGATIVE) Urine Microscopic RBC (0-2) /HPF Urine Microscopic WBC (0-5) /HPF Ur Epithelial Cells (FEW) /HPF Urine Bacteria (NEGATIVE) /HPF Urine Glucose (NEGATIVE) mg/dL Stool Occult Blood (Negative) Influenza Type A Ag (NEGATIVE) Influenza Type B Ag (NEGATIVE) RSV (PCR) (Negative) Streptococcus Screen (Negative) Specimen Received - Progress Progress: improved Progress Note: 04/06/17 08:55 Is a 52-year-old white male with history of migraines, strokes, cataracts, coronary artery disease, hyperlipidemia, pneumonia, diabetes , He arrives with complaint of altered full loose stools vomiting multiple times headache, scratchy throat symptoms since 6 hours. He arrives he is pale in appearance. He has a normal neurologic examinat He does have an elevated Accu-Chek of over 400. He asked to use the bedside commode on arrival there is no obvious blood in his stools stools are formed. He does have some right upper quadrant tenderness. Will go ahead and begin IV normal saline obtain head CT EKG chest x-ray CBC amylase lipase urinalysis blood cultures strep test influenza test. patient will be given morphine and Zofran 04/06/17 08:57 04/06/17 10:[address] no acute changes. Patient's Accu-Chek to 369 after 1 L of fluids given NovoLog 7 units subcutaneously. Patient's blood pressure has been creeping up. I've discussed this with Dr. Afshin Costa will give patient Norvasc 2.5 mg orally. Patient does have a urinary tract infection as well as strep he has received Rocephin 1 g IV cultures are pending. Will place patient on observation. Diagnoses headache. Vomiting. Strep pharyngitis. UTI. Have discussed patient's condition with Dr. Costa. - Departure Time of Disposition: 10:41 Departure Disposition: Observation Clinical Impression: Strep pharyngitis Headache Qualifiers: Headache type: unspecified Headache chronicity pattern: acute headache Intractability: not intractable Qualified Code(s): R51 - Headache Vomiting Qualifiers: Vomiting type: unspecified Vomiting Intractability: non-intractable Nausea presence: with nausea Qualified Code(s): R11.2 - Nausea with vomiting, unspecified UTI (urinary tract infection) Qualifiers: Urinary tract infection type: site unspecified Hematuria presence: without hematuria Qualified Code(s): N39.0 - Urinary tract infection, site not specified Condition: Fair Critical Care Time: No Referrals: LISHA KRAMER [Primary Care Provider] -
[2017-04-06 08:56] LABS: VBG BASE EXCESS 3.4 (-2.0-2.0); VBG CARBOXYHEMOGLOBIN 3.2 % T HGB (0.0-6.9); VBG HCO3- 29.5 meq/L (22-28); VBG HEMOGLOBIN 11.2; VBG O2 SATURATION 73.8 (95-100); VBG POTASSIUM 4.2 (3.5-5.1); VBG pH 7.37 (7.32-7.42)
[2017-04-06] MEDS ORDERED: Sodium Chloride 0.9% 1000 ML 1,000 ML ONE ×2 (09:08→10:00)
[2017-04-06] MEDS ORDERED: MORPHINE SULFATE 4 MG INJ ONE ×2 (09:08→10:34)
[2017-04-06] MEDS ORDERED: Zofran 4 MG/2 ML VIAL ONE (09:08)
[2017-04-06 09:12] LABS: BASOPHIL % 1.6 % (0.0-0.4); Eosinophil % 3.2 % (0.00-5.0); Granulocytes % 66.8 % (36.0-66.0); Lymphocytes % 23.3 % (24.0-44.0); Mean Cell Volume 87.4 fl (78-100); Mean Platelet Volume 11.3 fl (6-9.5); Monocytes % 5.1 % (0.0-12.0); Platelet Count 190 K/mm3 (150-450); Red Blood Count 3.82 M/mm3 (4.1-5.6); Red Cell Distribution Width 12.8 % (11.5-14.0); White Blood Count 6.3 K/mm3 (4.0-10.5)
--- NOTE | 2017-04-06 09:36 | XRAY ---
Exam: CT of the head without IV contrast from 04/06/2017. CTDI: 69.52 Comparison: CT of the head without IV contrast from 02/28/2017. Indication: Headache, history of prior craniotomy, history of stroke 2 years ago. Technique: Non-IV contrast axial images were obtained through the brain. Reconstructed coronal and sagittal images were created and reviewed. Findings: I again see evidence of posterior left occipital craniotomy with some underlying focal encephalomalacia. This is stable. The ventricles are mildly prominent representing no change. There is some mild asymmetric enlargement of the atrium of the left lateral ventricle due to the underlying encephalomalacia in the left occipital region. This also is stable. No new focal mass effect or midline shift is seen. No acute intracranial bleed or abnormal extra-axial fluid collection is seen. No new low attenuation stroke is seen. The gabriel matter-white matter interfaces appear unremarkable. Incidentally, I again see a punctate high attenuation density within the central corazon which remains unchanged and may relate to a calcification or other benign entity. There is mild prominence of the cortical sulci in a diffuse manner representing no change. Other than the evidence of prior left occipital craniotomy with some fastener devices, the calvarium of the skull appears unremarkable. The visualized paranasal sinuses are clear. The mastoid air cells are well aerated and appear normal. Cerumen is seen within both external auditory canals, left greater than right. The middle ear bones and cavities appear unremarkable. There is some mild atherosclerotic vascular calcification within the carotid siphons. Impression: 1. No acute intracranial bleed or other acute intracranial process is seen. 2. The remainder the findings appear stable consisting of mild diffuse cortical atrophy, evidence of prior left occipital craniotomy with underlying stable focal encephalomalacia. 3. Abundant cerumen is seen within both external auditory canals.
--- NOTE | 2017-04-06 09:42 | XRAY ---
Exam: AP portable chest film from 0911 hours on 04/06/2017. Comparison: AP upright portable chest film from 03/27/2017. Indication: Posterior headache 7 hours, history of stroke 2 years ago. Findings: The transverse heart size appears normal. I again see a left-sided yun catheter with the tip pointing inferiorly near the caval-atrial junction. No pulmonary vascular congestion is seen. Lung volumes appear slightly decreased representing no change. The remainder of the dax and mediastinal structures is remarkable only for mild ectasia of the thoracic aorta. A thin transverse strand of plate atelectasis is seen at the lateral right lung base. Otherwise, the peripheral lungs appear clear. No pneumothorax or pleural fluid is seen. No acute osseous process is seen. Impression: 1. Thin transverse linear strand of plate atelectasis at lateral right lung base. Otherwise, the lung jain appear clear. No acute cardiopulmonary process is seen. 2. Left-sided yun catheter is seen in unchanged position.
[2017-04-06] MEDS ORDERED: ROCEPHIN 1 Gm-D5w 50 ml Bag** 1 G/50 ML IVPB IV STA (10:00)
[2017-04-06] MEDS ORDERED: ROCEPHIN 1 Gm-D5w 50 ml Bag** 1 G/50 ML IVPB IV ONE (10:01)
[2017-04-06 10:02] LABS: ALBUMIN 2.4 g/dL (3.4-5.0); ALKALINE PHOSPHATASE 168 U/L (46-116); ANION GAP 12.7 MEQ/L (5-15); BLOOD UREA NITROGEN 18 mg/dL (9-20); CHLORIDE 105 mEq/L (98-107); Carbon Dioxide 25.5 mEq/L (21-32); Glucose 467 MG/DL (70-110); LIPASE 357 U/L (73-393); Potassium 4.2 mEq/L (3.5-5.1); SGOT/AST 15 U/L (15-37); SGPT/ALT 12 U/L (12-78); SODIUM 139 mEq/L (136-145); TROPONIN < 0.017 ng/ml (0.000-0.056); Total Protein 6.4 gm/dL (6.4-8.2)
[2017-04-06] MEDS ORDERED: NovoLOG Insulin SQ ONE (10:16)
[2017-04-06] MEDS ORDERED: NovoLOG Insulin ONE (10:24)
[2017-04-06 10:30] LABS: Collection Type VOID; Glucose 100 mg/dL (NEGATIVE); Leukocyte Esterase 1+ (NEGATIVE)
[2017-04-06 10:31] LABS: ADD URINE CULTURE? YES (NO); Bacteria MANY /HPF (NEGATIVE); Bilirubin NEGATIVE (NEGATIVE); Blood 250 Ery/ul (0-5); COMPLETE URINE MICROSCOPIC? YES; Epithelial Cells FEW /HPF (FEW); WBC 25-50 /HPF (0-5)
[2017-04-06] MEDS ORDERED: NORVASC 5 MG PO ONE (10:48)
[2017-04-06] MEDS ORDERED: NORVASC 5 MG ONE (10:50)
[2017-04-06] MEDS ORDERED: Sodium Chloride 0.9% 1000 ML 1,000 ML IV SCH (11:13)
[2017-04-06] MEDS ORDERED: Catapres 0.1 MG PO ONE (11:28)
[2017-04-06] MEDS: NovoLIN R SQ PRN (11:40)
[2017-04-06] MEDS ORDERED: Phenergan 25 MG INJ IV PRN (12:11)
--- NOTE | 2017-04-06 12:17 | PCM.HP ---
History of Present Illness - Chief Complaint Chief Complaint: headache Date: 04/06/17 History of Present Illness: is a 52 year old male. who was discharged last week after he had concern of hemoptysis however turned out not to be blood. He was having labile blood pressure and started on norvasc but did not take it at home. He has not been taking his insulin on a regular basis. His roommate has been sick and their friend sick with sore throat and nausea and he developed last night with sore throat headache nausea and vomiting with loose stools. He came to ED found to have elevated blood pressure and sugar and positive for strep throat. His bp continued to increase and with the headache was admitted for observation. He was given a fluid bolus and does have the neurogenic bladder chronically that does not drain and he refuses treatment wtih Khan or Suprapubic that he has had in the past with this. He often spikes bp when he gets fluid bolus for a few days. - Review of Systems Constitutional: Chills, Fatigue, Lethargy, No Fever Eyes: No Symptoms Ears, Nose, & Throat: No Symptoms Respiratory: No Cough, No Short Of Breath Cardiac: Edema, No Chest Pain, No Syncope Abdominal/Gastrointestinal: Abdominal Pain, Nausea, Vomiting, No Diarrhea Genitourinary Symptoms: Incontinence, Urinary Retention, No Dysuria Musculoskeletal: Arthralgias, Back Pain, No Neck Pain Skin: No Rash Neurological: No Dizziness, No Focal Weakness, No Sensory Changes Psychological: No Symptoms Endocrine: No Symptoms Hematologic/Lymphatic: No Symptoms Immunological/Allergic: No Symptoms Medications & Allergies Home Medications: Home Medication List Insulin Glargine [Lantus Insulin] 30 unit SQ HS 02/13/17 [History Confirmed 04/06/17] Gabapentin [Neurontin] 600 mg PO TID #90 tablet 03/03/17 [Rx Confirmed 04/06/17] Quetiapine Fumarate [Seroquel] 300 mg PO HS #30 tablet 03/03/17 [Rx Confirmed ] Amlodipine Besylate 5 mg [Norvasc 5 mg] 2.5 mg PO DAILY 04/06/17 [History Confirmed 04/06/17] Atorvastatin Calcium 20 mg PO DAILY 04/06/17 [History Confirmed 04/06/17] Ferrous Sulfate 325 mg [Feosol 325 mg] 325 mg PO DAILY 04/06/17 [History Confirmed 04/06/17] Tamsulosin HCl 0.4 mg [Flomax 0.4 MG] 0.4 mg PO HS 04/06/17 [History Confirmed 04/06/17] Allergies/Adverse Reactions: Allergies Allergy/AdvReac Type Severity Reaction Status Date / Time bee venom protein (honey bee) Allergy Verified 04/06/17 08:18 erythromycin lactobionate Allergy Verified 04/06/17 08:18 [From Erythrocin] ketorolac [From Toradol] Allergy Verified 04/06/17 08:18 methocarbamol Allergy Verified 04/06/17 08:18 Penicillins Allergy Verified 04/06/17 08:18 egg AdvReac Verified 04/06/17 08:18 - Past Medical History Past Medical History: Yes Neurological History: Migraines, Stroke ENT History: Cataracts Cardiac History: Coronary Artery Disease, High Cholesterol Respiratory History: Pneumonia Endocrine Medical History: Diabetes Type I Musculoskelatal History: Fractures, Other GI Medical History: Gallbladder Disease History: No Pertinent History Pyscho-Social History: Anxiety Male Reproductive Disorders: Testicular Cancer Comment: testicular cancer (1999), trauma from accident pt states only "5 vertebrae left" - Past Surgical History Past Surgical History: Yes Neuro Surgical History: Other Cardiac History: Cardiac Catheterization, Cardiac Stent Respiratory Surgery: No Pertinent History Musculskeletal Surgical Hx: Orthopedic Surgery Male Surgical History: Testicular Surgery Other Surgical History: oral surgery,states brain surgery/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 orchectomy. PORT PLACED IN 2012. 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, nml cerebellar function, sensation nml, motor deficits (chronic bilateral lower extremitye weakness symmetrical unchanged), depressed mood/affect, No facial droop Eye Exam: PERRL/EOMI, eyes nml inspection, pale conjunctivae, No scleral icterus Ears, Nose, Throat Exam: moist mucous membranes, pharyngeal erythema, No TMs normal (cerumen impaction bilateral) Neck Exam: normal inspection, non-tender, supple, full range of motion Respiratory Exam: normal breath sounds, lungs clear, No respiratory distress Cardiovascular Exam: regular rate/rhythm, normal heart sounds, normal peripheral pulses, edema (1+ juanita LE) Gastrointestinal/Abdomen Exam: soft, normal bowel sounds, No tenderness, No mass Back Exam: normal inspection, normal range of motion, No CVA tenderness, No vertebral tenderness Extremity Exam: normal inspection, normal range of motion, pelvis stable Skin Exam: normal color, warm, dry, rash (excoriated lesions on lower legs and forarms bilateral consistent with possible insect bites) Lymphatic Exam: No adenopathy Results - Labs Lab/Micro Results: Accuchecks Date 04/06/17 Time 11:37 Accucheck Value: 315 Accuchecks Date 04/06/17 Time 11:37 Accucheck Value: 315 Assessment/Plan (1) Hypertensive urgency Current Visit: Yes Status: Acute Assessment & Plan: with the hypertension and headache was admitted for observation and titration of bp meds. he has often labile pressures and last visit when he slept the pressure was down to the 80's after bp medications. He is very sensitive to iv hydration with his neurogenic bladder d/c iv fluids spiked bp after his bolus start amlodpine low dose titrate as tolerated use clonidine as needed bp >180/110 control pain while inpatient however has history of misuse of narcotic medications in the past and had neighbors taking his medications in the past as well. treat the strep pharyngitis with the vomiting will continue rocephin until it improves. restart his insulin as has not taken in several days he had referral for home health last week but he states only came for a few minutes once. Asked again about going back to [facility] at discharge as he was doing well at [facility] but he refuses after he left there AMA. he has cholecystectomy scheduled for 04/16 Code(s): I16.0 - HYPERTENSIVE URGENCY (2) Strep pharyngitis Current Visit: Yes Status: Acute Code(s): J02.0 - STREPTOCOCCAL PHARYNGITIS (3) Headache Current Visit: Yes Status: Acute Code(s): R51 - HEADACHE (4) Type 1 diabetes mellitus, uncontrolled Current Visit: Yes Status: Acute Code(s): E10.65 - TYPE 1 DIABETES MELLITUS WITH HYPERGLYCEMIA (5) Anemia Current Visit: Yes Status: Chronic Code(s): D64.9 - ANEMIA, UNSPECIFIED (6) Coronary artery disease Current Visit: Yes Status: Chronic Qualifiers: Coronary Disease-Associated Artery/Lesion type: unspecified vessel or lesion type Associated angina: angina presence unspecified Code(s): I25.10 - ATHSCL HEART DISEASE OF [place] CORONARY ARTERY W/O ANG PCTRS (7) Neurogenic bladder Current Visit: Yes Status: Chronic Code(s): N31.9 - NEUROMUSCULAR DYSFUNCTION OF BLADDER, UNSPECIFIED (8) Depression Current Visit: Yes Status: Chronic Code(s): F32.9 - MAJOR DEPRESSIVE DISORDER, SINGLE EPISODE, UNSPECIFIED (9) Chronic cholecystitis with calculus Current Visit: No Status: Acute Code(s): K80.10 - CALCULUS OF GALLBLADDER W CHRONIC CHOLECYST W/O OBSTRUCTION
[2017-04-06] MEDS: Zofran 4 MG/2 ML VIAL IV PRN ×2 (13:04→17:29)
[2017-04-06] MEDS: FEOSOL 325 MG PO SCH (13:05)
[2017-04-06] MEDS: ZOCOR 20MG PO SCH (13:05)
[2017-04-06] MEDS: NEURONTIN 300 MG PO SCH ×2 (13:05→21:54)
[2017-04-06] MEDS: MORPHINE SULFATE 4 MG INJ IV PRN ×3 (14:28→22:48)
[2017-04-06] MEDS ORDERED: NON-FORMULARY ITEM (Gabapentin [Neurontin] 600 MG) PO SCH (15:00)
[2017-04-06] MEDS ORDERED: Zofran 4 MG/2 ML VIAL IV PRN (17:30)
[2017-04-06] MEDS: Seroquel 100 MG PO SCH (21:54)
[2017-04-06] MEDS: Flomax 0.4 MG PO SCH (21:56)
[2017-04-06] MEDS: Lantus Insulin SQ SCH (21:57)
[2017-04-07 05:27] LABS: Mean Cell Volume 91.2 fl (78-100); Mean Platelet Volume 11.2 fl (6-9.5); Platelet Count 152 K/mm3 (150-450); Red Blood Count 2.94 M/mm3 (4.1-5.6); Red Cell Distribution Width 13.3 % (11.5-14.0); White Blood Count 4.6 K/mm3 (4.0-10.5)
[2017-04-07 05:40] LABS: Mean Corpuscular Hemoglobin 29.2 pg (26-32)
[2017-04-07 07:10] LABS: ALKALINE PHOSPHATASE 115 U/L (46-116); ANION GAP 12.1 MEQ/L (5-15); BLOOD UREA NITROGEN 19 mg/dL (9-20); CHLORIDE 109 mEq/L (98-107); Carbon Dioxide 23.4 mEq/L (21-32); Glucose 162 MG/DL (70-110); Potassium 4.2 mEq/L (3.5-5.1); SGOT/AST 14 U/L (15-37); SGPT/ALT 9 U/L (12-78); SODIUM 140 mEq/L (136-145); Total Protein 5.2 gm/dL (6.4-8.2)
[2017-04-07] MEDS: ROCEPHIN 1 Gm-D5w 50 ml Bag** 1 G/50 ML IVPB IV SCH (09:24)
[2017-04-07] MEDS: FEOSOL 325 MG PO SCH ×2 (09:24→09:26)
[2017-04-07] MEDS: NORVASC 5 MG PO SCH (09:25)
[2017-04-07] MEDS: NEURONTIN 300 MG PO SCH ×3 (09:25→21:39)
[2017-04-07] MEDS: ZOCOR 20MG PO SCH (09:25)
--- NOTE | 2017-04-07 09:46 | PCM.NOTE ---
Date and Time: 04/07/17 0941 Subjective Assessment: patient admitted for hypertensive urgency but has been hypotensive overnight and required a fluid bolus. IV morphine has been discontinued and amlodipine is on hold Objective Exam General Appearance: no apparent distress Neurologic Exam: alert Skin Exam: pale Respiratory Exam: normal breath sounds, lungs clear, No respiratory distress Cardiovascular Exam: regular rate/rhythm, normal heart sounds Gastrointestinal/Abdomen Exam: soft, No tenderness, No mass OBJECTIVE DATA Vital Signs: Vital Signs - 24 hr Temp Pulse Resp BP BP Pulse Ox 04/07/17 07:26 97.7 F 64 20 97/52 96 04/07/17 04:00 97.8 F 52 L 14 81/47 96 04/07/17 00:00 82/46 04/06/17 23:46 97.4 F 56 L 16 75/42 95 04/06/17 23:24 70/35 04/06/17 20:08 97.6 F 58 L 15 144/79 96 04/06/17 16:00 97.7 F 56 L 17 116/64 98 04/06/17 11:52 98.5 F 78 19 220/110 98 04/06/17 10:44 97 04/06/17 10:26 79 18 197/110 100 Pain Assessment - Last Documented Pain Intensity 9 [facility] Intake and Output: Intake & Output 04/04/17 04/05/17 04/06/17 04/07/17 11:59 11:59 11:59 11:59 Intake Total 2323 Output Total 300 Balance 2022 Weight 84.958 kg 85.275 kg Lab Results: Accuchecks Date 04/06/1704/06/17 Date 04/06/17 Time 22:02 Time 16:48 Time 11:37 Accucheck Value: 94 Accucheck Value: 148 Accucheck Value: 315 Lab Results-Last 24 Hours 04/07/17 04/07/17 Range/Units 05:07 05:07 WBC 4.6 (4.0-10.5) K/mm3 RBC 2.94 L (4.1-5.6) M/mm3 Hgb 8.6 L (12.5-18.0) gm/dl Hct 26.8 L (42-50) % MCV 91.2 (78-100) fl MCH 29.2 (26-32) pg MCHC 32.1 (32-36) g/dl RDW 13.3 (11.5-14.0) % Plt Count 152 (150-450) K/mm3 MPV 11.2 H (6-9.5) fl Sodium 140 (136-145) mEq/L Potassium 4.2 (3.5-5.1) mEq/L Chloride 109 H (98-107) mEq/L Carbon Dioxide 23.4 (21-32) mEq/L Anion Gap 12.1 (5-15) MEQ/L BUN 19 (9-20) mg/dL Creatinine 1.07 (0.55-1.30) mg/dl Estimated GFR > 60 ML/MIN Glucose 162 H (70-110) MG/DL Calcium 7.9 L (8.5-10.1) mg/dL Total Bilirubin 0.10 L (0.2-1.0) mg/dL AST 14 L (15-37) U/L ALT 9 L (12-78) U/L Alkaline Phosphatase 115 (46-116) U/L Serum Total Protein 5.2 L (6.4-8.2) gm/dL Albumin 2.0 L (3.4-5.0) g/dL Assessment/Plan (1) Hypertensive urgency Current Visit: Yes Status: Acute Assessment & Plan: will hold bp med and IV narcotics at this time Code(s): I16.0 - HYPERTENSIVE URGENCY (2) Strep pharyngitis Current Visit: Yes Status: Acute Assessment & Plan: adequately treated with rocephin Code(s): J02.0 - STREPTOCOCCAL PHARYNGITIS (3) Type 1 diabetes mellitus, uncontrolled Current Visit: Yes Status: Acute Code(s): E10.65 - TYPE 1 DIABETES MELLITUS WITH HYPERGLYCEMIA (4) UTI (urinary tract infection) Current Visit: Yes Status: Acute Qualifiers: Urinary tract infection type: site unspecified Hematuria presence: without hematuria Qualified Code(s): N39.0 - Urinary tract infection, site not specified Assessment & Plan: urine culture pending, blood culture from port showing gram pos eugene, patient will be monitored closely. currently no fever Code(s): N39.0 - URINARY TRACT INFECTION, SITE NOT SPECIFIED (5) Anemia Current Visit: Yes Status: Chronic Assessment & Plan: had neg OB in stool on arrival, will repeat screen due to drop in hgb. he has received IV fluids but drop is more than I anticipate with hydration Code(s): D64.9 - ANEMIA, UNSPECIFIED
[2017-04-07] MEDS ORDERED: NORVASC 5 MG PO ONE (10:00)
[2017-04-07] MEDS ORDERED: NON-FORMULARY ITEM (Atorvastatin Calcium [Atorvastatin Calcium] 20 MG) PO SCH (10:00)
[2017-04-07] MEDS: PROTONIX 40 MG IV IV SCH (10:09)
[2017-04-07] MEDS: SODIUM CHLORIDE 0.45% W/ 20 mEq KCL 1,000 ML IV SCH (10:09)
[2017-04-07] MEDS ORDERED: ULTRAM 50 MG PO PRN (16:08)
[2017-04-07] MEDS: Flomax 0.4 MG PO SCH (21:39)
[2017-04-07] MEDS: Seroquel 100 MG PO SCH (21:39)
[2017-04-07] MEDS: Lantus Insulin SQ SCH (21:40)
[2017-04-08] MEDS: SODIUM CHLORIDE 0.45% W/ 20 mEq KCL 1,000 ML IV SCH (06:08)
--- NOTE | 2017-04-08 08:22 | PCM.NOTE ---
Date and Time: 04/08/17 0820 Subjective Assessment: patient has been fairly normotensive, has not been receiving his amlodipine due to hypotension yesterday. no obvious signs/symptoms of bleeding etc. Objective Exam General Appearance: no apparent distress Skin Exam: pale Respiratory Exam: normal breath sounds, lungs clear, No respiratory distress Cardiovascular Exam: regular rate/rhythm, normal heart sounds Gastrointestinal/Abdomen Exam: soft, No tenderness, No mass OBJECTIVE DATA Vital Signs: Vital Signs - 24 hr Temp Pulse Resp BP Pulse Ox 04/08/17 07:06 97.6 F 68 20 134/70 95 04/08/17 04:00 97.8 F 63 20 106/56 98 04/07/17 23:36 97.7 F 82 17 157/77 97 04/07/17 19:50 97.8 F 68 16 133/79 100 04/07/17 15:54 97.7 F 74 18 141/70 95 04/07/17 12:26 97.8 F 70 20 90/54 94 L Pain Assessment - Last Documented Pain Intensity 5 Pain Scale Used 0-10 Pain Scale Intake and Output: Intake & Output 04/05/17 04/06/17 04/07/17 04/08/17 11:59 11:59 11:59 11:59 Intake Total 2323 2798 Output Total 300 525 Balance 2022 2272 Weight 84.958 kg 85.275 kg 84.912 kg Lab Results: Accuchecks Date 04/08/17 Date 04/07/17 Date 04/07/17 Time 07:30 Time 16:30 Time 10:52 Accucheck Value: 120 Accucheck Value: 193 Accucheck Value: 190 Accucheck Value: 178 Assessment/Plan (1) Hypertensive urgency Current Visit: Yes Status: Acute Code(s): I16.0 - HYPERTENSIVE URGENCY (2) Strep pharyngitis Current Visit: Yes Status: Acute Assessment & Plan: continue rocephin Code(s): J02.0 - STREPTOCOCCAL PHARYNGITIS (3) Type 1 diabetes mellitus, uncontrolled Current Visit: Yes Status: Acute Code(s): E10.65 - TYPE 1 DIABETES MELLITUS WITH HYPERGLYCEMIA (4) UTI (urinary tract infection) Current Visit: Yes Status: Acute Qualifiers: Urinary tract infection type: site unspecified Hematuria presence: without hematuria Qualified Code(s): N39.0 - Urinary tract infection, site not specified Assessment & Plan: continue rocephin, c and s pending Code(s): N39.0 - URINARY TRACT INFECTION, SITE NOT SPECIFIED (5) Anemia Current Visit: Yes Status: Chronic Assessment & Plan: check stools for occult blood, will monitor h/h Code(s): D64.9 - ANEMIA, UNSPECIFIED
[2017-04-08 08:24] LABS: Mean Cell Volume 90.8 fl (78-100); Mean Platelet Volume 10.7 fl (6-9.5); Platelet Count 127 K/mm3 (150-450); Red Blood Count 2.82 M/mm3 (4.1-5.6); Red Cell Distribution Width 13.5 % (11.5-14.0); White Blood Count 4.3 K/mm3 (4.0-10.5)
[2017-04-08] MEDS: NORVASC 5 MG PO SCH (10:02)
[2017-04-08] MEDS: NEURONTIN 300 MG PO SCH ×3 (10:03→22:19)
[2017-04-08] MEDS: PROTONIX 40 MG IV IV SCH (10:04)
[2017-04-08] MEDS: ROCEPHIN 1 Gm-D5w 50 ml Bag** 1 G/50 ML IVPB IV SCH (10:08)
[2017-04-08] MEDS: ZOCOR 20MG PO SCH (10:11)
[2017-04-08] MEDS: FEOSOL 325 MG PO SCH (10:13)
[2017-04-08] MEDS: Cyclobenzaprine 10 MG PO PRN ×2 (15:06→23:36)
[2017-04-08] MEDS: Catapres 0.1 MG PO PRN (16:36)
[2017-04-08] MEDS: Seroquel 100 MG PO SCH (22:18)
[2017-04-08] MEDS: Flomax 0.4 MG PO SCH (22:18)
[2017-04-08] MEDS: Lantus Insulin SQ SCH (22:19)
[2017-04-08] MEDS: NovoLIN R SQ PRN (22:19)
[2017-04-09] MEDS: Catapres 0.1 MG PO PRN (00:11)
[2017-04-09 04:57] VITALS: O2SAT 96
[2017-04-09 06:00] LABS: BASOPHIL % 0.8 % (0.0-0.4); Eosinophil % 3.4 % (0.00-5.0); Granulocytes % 50.2 % (36.0-66.0); Lymphocytes % 39.2 % (24.0-44.0); Mean Cell Volume 93.2 fl (78-100); Mean Platelet Volume 11.6 fl (6-9.5); Monocytes % 6.4 % (0.0-12.0); Platelet Count 131 K/mm3 (150-450); Red Cell Distribution Width 13.7 % (11.5-14.0); White Blood Count 3.9 K/mm3 (4.0-10.5)
[2017-04-09 06:05] LABS: Mean Corpuscular Hemoglobin 29.2 pg (26-32)
[2017-04-09 06:23] LABS: ALBUMIN 1.7 g/dL (3.4-5.0); ALKALINE PHOSPHATASE 105 U/L (46-116); BLOOD UREA NITROGEN 20 mg/dL (9-20); CHLORIDE 116 mEq/L (98-107); Carbon Dioxide 25.7 mEq/L (21-32); Glucose 125 MG/DL (70-110); SGOT/AST 18 U/L (15-37); SGPT/ALT 11 U/L (12-78); SODIUM 148 mEq/L (136-145); Total Protein 4.9 gm/dL (6.4-8.2)
[2017-04-09 07:09] VITALS: BP 132/65; PULSE 80
[2017-04-09] MEDS: NORVASC 5 MG PO SCH (08:22)
[2017-04-09] MEDS: NEURONTIN 300 MG PO SCH (08:22)
[2017-04-09] MEDS: ZOCOR 20MG PO SCH (08:23)
[2017-04-09] MEDS: FEOSOL 325 MG PO SCH (08:23)
[2017-04-09] MEDS: PROTONIX 40 MG IV IV SCH (08:23)
--- NOTE | 2017-04-09 08:44 | PCM.DCORD ---
- Discharge Discharge Date: 04/09/17 Disposition: Home, Self-Care Condition: Fair Prescriptions: New Cephalexin Mh 500 mg [Keflex 500 mg] 500 mg PO TID #18 capsule Continue Insulin Glargine [Lantus Insulin] 30 unit SQ HS Gabapentin [Neurontin] 600 mg PO TID #90 tablet Quetiapine Fumarate [Seroquel] 300 mg PO HS #30 tablet Atorvastatin Calcium 20 mg PO DAILY Tamsulosin HCl 0.4 mg [Flomax 0.4 MG] 0.4 mg PO HS Ferrous Sulfate 325 mg [Feosol 325 mg] 325 mg PO DAILY Amlodipine Besylate 5 mg [Norvasc 5 mg] 2.5 mg PO DAILY Follow up with: LISHA KRAMER [Primary Care Provider] -
[2017-04-09] MEDS: Cyclobenzaprine 10 MG PO PRN (09:04)
[2017-04-09] MEDS: ROCEPHIN 1 Gm-D5w 50 ml Bag** 1 G/50 ML IVPB IV SCH (09:40)
--- NOTE | 2017-04-09 18:34 | PCM.DS ---
Discharge Summary Date of Admission: 04/06/17 11:10 Date of Discharge: 04/09/17 Admitting Physician: LISHA KRAMER Primary Care Provider: LISHA KRAMER Allergies Allergies bee venom protein (honey bee) Allergy (Verified 04/06/17 08:18) erythromycin lactobionate [From Erythrocin] Allergy (Verified 04/06/17 08:18) ketorolac [From Toradol] Allergy (Verified 04/06/17 08:18) methocarbamol Allergy (Verified 04/06/17 08:18) Penicillins Allergy (Verified 04/06/17 08:18) egg Adverse Reaction (Verified 04/06/17 08:18) Hospital Summary - Hospital Course Hospital Course: He was admitted with 1 day of sore throat and vomiting and headache. He had worsening hypertension in ED and hyperglycemia from not taking his insulin. He initially said he was not taking blood pressure medicine then later said he was taking his blood pressure medications. He said no one came to his home for home health then he said a lady came and asked 3 questions then just left. He reports 2 sick contacts with similar symptoms. He continues to have the neck and head pain chronically. His bp dropped very low after the morphine and clonidine on the initial day and no further antihypertensives were given. 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 He had dilutional anemia again as he did with previous fluid bolus at last hospitalization his glucose was well controlled when his home lantus was restarted. he states he has the insulin and the needles and knows how to give the medicine and changes his story often between why he doesn't take it on a regular basis. He is very sensitive to light touch everywhere. he was positive for strep he was treated with Rocephin to cover potential UTI as well culture returned with mixed radha only and he was placed on keflex to finish treatment for strep at time of discharge he had forgotten he initially had a sore throat and he has not had any vomiting since presentation. - Vitals & Intake/Output Vital Signs: Vital Signs Temperature 97.8 F 04/09/17 07:08 Pulse Rate 80 04/09/17 07:08 Respiratory Rate 18 04/09/17 07:08 Blood Pressure 132/65 04/09/17 07:08 O2 Sat by Pulse Oximetry 96 04/09/17 07:08 Intake & Output: Intake & Output 04/07/17 04/08/17 04/09/17 04/10/17 11:59 11:59 11:59 11:59 Intake Total 2321 3218 2080 Output Total 300 775 670 Balance 2022 2443 1410 Weight 85.275 kg 84.912 kg 85.139 kg - Lab Result Diagrams: 04/09/17 05:20 04/09/17 05:20 Lab Results-Last 24 Hrs: Accuchecks Date 04/09/17 Time 07:30 Accucheck Value: 89 Accucheck Value: 277 Lab Results-Last 24 Hours 04/09/17 04/09/17 Range/Units 05:20 05:20 WBC 3.9 L (4.0-10.5) K/mm3 RBC 2.80 L (4.1-5.6) M/mm3 Hgb 8.2 L (12.5-18.0) gm/dl Hct 26.1 L (42-50) % MCV 93.2 (78-100) fl MCH 29.2 (26-32) pg MCHC 31.4 L (32-36) g/dl RDW 13.7 (11.5-14.0) % Plt Count 131 L (150-450) K/mm3 MPV 11.6 H (6-9.5) fl Gran % 50.2 (36.0-66.0) % Lymphocytes % 39.2 (24.0-44.0) % Monocytes % 6.4 (0.0-12.0) % Eosinophils % 3.4 (0.00-5.0) % Basophils % 0.8 (0.0-0.4) % Basophils # 0.03 (0-0.4) Sodium 148 H (136-145) mEq/L Potassium 4.0 (3.5-5.1) mEq/L Chloride 116 H (98-107) mEq/L Carbon Dioxide 25.7 (21-32) mEq/L Anion Gap 10.0 (5-15) MEQ/L BUN 20 (9-20) mg/dL Creatinine 1.16 (0.55-1.30) mg/dl Estimated GFR > 60 ML/MIN Glucose 125 H (70-110) MG/DL Calcium 8.0 L (8.5-10.1) mg/dL Total Bilirubin 0.10 L (0.2-1.0) mg/dL AST 18 (15-37) U/L ALT 11 L (12-78) U/L Alkaline Phosphatase 105 (46-116) U/L Serum Total Protein 4.9 L (6.4-8.2) gm/dL Albumin 1.7 L (3.4-5.0) g/dL Micro Results-Entire Visit: Accuchecks Date 04/09/17 Time 07:30 Accucheck Value: 89 Accucheck Value: 277 Discharge Exam General Appearance: no apparent distress, anxiety, other (light touch anywhere causes him to screem violently) Neurologic Exam: alert, oriented x 3 Skin Exam: warm, dry, pale Eye Exam: pale conjunctivae Ears, Nose, Throat Exam: moist mucous membranes Neck Exam: non-tender, supple Respiratory Exam: No crackles/rales Cardiovascular Exam: regular rate/rhythm, normal heart sounds, edema (1+ juanita LE) Gastrointestinal/Abdomen Exam: soft, normal bowel sounds, No tenderness Extremity Exam: normal inspection, pedal edema, No calf tenderness Final Diagnosis/Problem List - Final Discharge Diagnosis/Problem (1) Hypertensive urgency Status: Acute (2) Strep pharyngitis Status: Acute (3) Headache Status: Acute (4) Type 1 diabetes mellitus, uncontrolled Status: Acute (5) Anemia Status: Chronic (6) Coronary artery disease Status: Chronic (7) Neurogenic bladder Status: Chronic (8) Depression Status: Chronic (9) Chronic cholecystitis with calculus Status: Acute - Discharge Discharge Date: 04/09/17 Disposition: Home, Self-Care Condition: Fair Prescriptions: New Cephalexin Mh 500 mg [Keflex 500 mg] 500 mg PO TID #18 capsule Continue Insulin Glargine [Lantus Insulin] 30 unit SQ HS Gabapentin [Neurontin] 600 mg PO TID #90 tablet Quetiapine Fumarate [Seroquel] 300 mg PO HS #30 tablet Atorvastatin Calcium 20 mg PO DAILY Tamsulosin HCl 0.4 mg [Flomax 0.4 MG] 0.4 mg PO HS Ferrous Sulfate 325 mg [Feosol 325 mg] 325 mg PO DAILY Amlodipine Besylate 5 mg [Norvasc 5 mg] 2.5 mg PO DAILY Instructions: Urinary Tract Infection (UTI) Follow up with: LISHA KRAMER [Primary Care Provider] - 04/16/17 10:15 am Forms: Discharge Instructions
== END 2017-04-09 10:15 | disposition home or self-care (01) ==
LOC: ED 07:53 → MED SURG 11:10
PROVIDERS: ADMIT Family Medicine; ATTEND Family Medicine
DX: I16.0 Hypertensive urgency (principal); J02.0 Streptococcal pharyngitis; R51 Headache; E10.65 Type 1 diabetes mellitus with hyperglycemia; D64.9 Anemia, unspecified; I25.10 Atherosclerotic heart disease of native coronary artery without angina pectoris; N31.9 Neuromuscular dysfunction of bladder, unspecified; F32.9 Major depressive disorder, single episode, unspecified; K80.10 Calculus of gallbladder with chronic cholecystitis without obstruction; N39.0 Urinary tract infection, site not specified; Z79.899 Other long term (current) drug therapy
CPT/HCPCS: 36000; 36415; 36591; 70450; 71010; 80053; 81000; 82150; 82272; 82805; 82962; 83605; 83690; 84484; 85025; 85027; 87040; 87077; 87086; 87430; 87631; 93005; 93268; 96360; 96361; 96365; 96372; 96374; 96375; 96376; 99285; G0378; J0696; J1642; J2270; J2405; A9270-GY

== ENCOUNTER 2017-04-19 16:38 | Observation (INO) | payer MEDICAID ==
[2017-04-19] MEDS ORDERED: Phenergan 25 MG INJ IV ONE (17:33)
[2017-04-19] MEDS ORDERED: Hydromorphone 1 mg/ml Ampule IV ONE (17:33)
[2017-04-19] MEDS ORDERED: TRANDATE 20 MG/5 ML SYRINGE IV ONE (17:35)
[2017-04-19] MEDS ORDERED: TRANDATE 100 MG/20 ML MDV FOR DRIP*** 200 MG in Sodium Chloride 0.9% 150 ML 150 ML IV PRN (17:41)
[2017-04-19] MEDS ORDERED: Phenergan 25 MG INJ ONE (17:42)
[2017-04-19] MEDS ORDERED: TRANDATE 100 MG/20 ML MDV FOR DRIP IV ONE (17:43)
[2017-04-19] MEDS ORDERED: Hydromorphone 1 mg/ml Ampule ONE ×2 (17:43→18:57)
[2017-04-19] MEDS ORDERED: Sodium Chloride 0.9% 1000 ML 1,000 ML ONE (17:43)
[2017-04-19] MEDS ORDERED: Sodium Chloride 0.9% 1000 ML 1,000 ML IV SCH (17:45)
[2017-04-19 17:46] LABS: BASOPHIL % 1.1 % (0.0-0.4); Eosinophil % 5.1 % (0.00-5.0); Granulocytes % 63.5 % (36.0-66.0); Lymphocytes % 25.4 % (24.0-44.0); Mean Cell Volume 91.4 fl (78-100); Mean Platelet Volume 11.5 fl (6-9.5); Monocytes % 4.9 % (0.0-12.0); Platelet Count 151 K/mm3 (150-450); Red Blood Count 3.36 M/mm3 (4.1-5.6); Red Cell Distribution Width 12.9 % (11.5-14.0); White Blood Count 4.7 K/mm3 (4.0-10.5)
[2017-04-19 17:49] LABS: Mean Corpuscular Hemoglobin 29.4 pg (26-32)
[2017-04-19 17:58] LABS: ALBUMIN 2.1 g/dL (3.4-5.0); ALKALINE PHOSPHATASE 160 U/L (46-116); ANION GAP 11.2 MEQ/L (5-15); BLOOD UREA NITROGEN 16 mg/dL (9-20); CHLORIDE 105 mEq/L (98-107); Carbon Dioxide 26.4 mEq/L (21-32); LIPASE 481 U/L (73-393); Potassium 4.2 mEq/L (3.5-5.1); SGOT/AST 14 U/L (15-37); SGPT/ALT 13 U/L (12-78); SODIUM 138 mEq/L (136-145); Total Protein 5.8 gm/dL (6.4-8.2)
[2017-04-19 18:10] LABS: Glucose 599 MG/DL (70-110)
[2017-04-19] MEDS ORDERED: NovoLIN R SQ ONE (18:17)
[2017-04-19] MEDS ORDERED: NovoLIN R ONE (18:20)
--- NOTE | 2017-04-19 18:25 | ERPHSYRPT ---
- History of Present Illness Time Seen by Provider: 04/19/17 16:54 Historian: patient, old records Exam Limitations: no limitations Patient Subjective Stated Complaint: pt here for nausea and vomiting, pt has gallbadder disease and waiting on date for surgey, pt is able to eat a drink some, urinating freguently, co headache Triage Nursing Assessment: pt alert, resp easy, arrived via w[place], pt weak but states is normal for him ,skin w/d chest clear, abd soft with bs, edema to lower legs Physician History: patient presents with hx of bad GB with; N&V for 2-3 days and some diarrhea today- not bloody; also some abdominal pain and a retrobulbar EMYER; no trauma; no fever; ran out of [facility] meds 2 weeks ago; no travel; no exposures Timing/Duration: today (HAHA and diarrhea), yesterday (abd pain with N&V), gradual onset, worse Activities at Onset: rest Quality: cramping (abdomen pain), pressure (MEYER) Abdominal Pain Onset Location: generalized abdomen Pain Radiation: no radiation Severity of Pain-Max: moderate Severity of Pain-Current: mild Modifying Factors: Improves With: eating (aggravate) Associated Symptoms: diarrhea, headache, loss of appetite, nausea, vomiting Previous symptoms: same symptoms as today Allergies/Adverse Reactions: bee venom protein (honey bee) Allergy (Verified 04/19/17 17:03) erythromycin lactobionate [From Erythrocin] Allergy (Verified 04/19/17 17:03) ketorolac [From Toradol] Allergy (Verified 04/19/17 17:03) methocarbamol Allergy (Verified 04/19/17 17:03) Penicillins Allergy (Verified 04/19/17 17:03) egg Adverse Reaction (Verified 04/19/17 17:03) morphine Adverse Reaction (Verified 04/19/17 17:03) Home Medications: Insulin Glargine [Lantus Insulin] 30 unit SQ HS 02/13/17 [History] Amlodipine Besylate 5 mg [Norvasc 5 mg] 2.5 mg PO DAILY 04/06/17 [History] Atorvastatin Calcium 20 mg PO DAILY 04/06/17 [History] Tamsulosin HCl 0.4 mg [Flomax 0.4 MG] 0.4 mg PO HS 04/06/17 [History] Hx Tetanus, Diphtheria Vaccination/Date Given: Yes Hx Influenza Vaccination/Date Given: No Hx Pneumococcal Vaccination/Date Given: Yes Immunizations Up to Date: Yes - Review of Systems Constitutional: No Symptoms Eyes: No Symptoms, No Photophobia Ears, Nose, & Throat: No Symptoms Respiratory: No Cough, No Dyspnea, No Wheezing Cardiac: No Chest Pain, No Palpitations, No Syncope Abdominal/Gastrointestinal: Abdominal Pain, Nausea, Vomiting, Diarrhea, No Constipation, No Hematemesis, No Hematochezia, No Melena Genitourinary Symptoms: No Symptoms Musculoskeletal: No Symptoms Skin: No Symptoms Neurological: Headache, No Dizziness, No Paralysis, No Seizure, No Speech Changes, No Vertigo Psychological: No Symptoms Endocrine: Polyuria, Polydipsia Hematologic/Lymphatic: No Symptoms Immunological/Allergic: No Symptoms - Past Medical History Pertinent Past Medical History: Yes Neurological History: Migraines, Stroke ENT History: Cataracts Cardiac History: Coronary Artery Disease, High Cholesterol Respiratory History: Pneumonia Endocrine Medical History: Diabetes Type I Musculoskeletal History: Fractures, Other GI Medical History: Gallbladder Disease History: No Pertinent History Psycho-Social History: Anxiety Male Reproductive Disorders: Testicular Cancer Other Medical History: testicular cancer (1999), trauma from accident pt states only "5 vertebrae left" - Past Surgical History Past Surgical History: Yes Neuro Surgical History: Other Cardiac: Cardiac Catheterization, Cardiac Stent Respiratory: No Pertinent History Musculoskeletal: Orthopedic Surgery Male Surgical History: Testicular Surgery Other Surgical History: oral surgery,states brain surgery/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 orchectomy. PORT PLACED IN 2012. CARDIAC STENT IN 2011 - Social History Smoking Status: Never smoker Exposure to second hand smoke: No Alcohol Use: None Drug Use: none Patient Lives Alone: No - Nursing Vital Signs Nursing Vital Signs: Initial Vital Signs Temperature 98.1 F Temperature Source Oral Pulse Rate 65 Respiratory Rate 16 Blood Pressure [Right Arm] 230/87 Pain Intensity 10 - Physical Exam General Appearance: moderate distress, alert, thin Eye Exam: PERRL/EOMI, eyes nml inspection, other (fundi benign; no papiledema), No photophobia Ears, Nose, Throat Exam: normal ENT inspection, TMs normal, pharynx normal, dry mucous membranes Neck Exam: normal inspection, non-tender, supple, full range of motion, No meningismus, No Brudzinski, No Kernig's, No carotid bruit, No JVD Respiratory Exam: normal breath sounds, lungs clear, airway intact, No chest tenderness, No respiratory distress Cardiovascular Exam: regular rate/rhythm, normal heart sounds, normal peripheral pulses, capillary refill <2 sec, No murmur Gastrointestinal/Abdomen Exam: soft, normal bowel sounds, tenderness (mild RUQ) , No distention, No guarding, No rebound, No organomegaly Rectal Exam: deferred Back Exam: normal inspection, normal range of motion, No CVA tenderness, No vertebral tenderness, No rash Extremity Exam: normal inspection, normal range of motion, No demetria's sign, No pedal edema Neurologic Exam: alert, oriented x 3, cooperative, spotlight operator II-XII nml as tested, normal mood/affect, nml cerebellar function, nml station & gait Skin Exam: normal color, warm, dry, No rash, No petechiae, No jaundice SpO2 Interpretation: normal SpO2: 98 Oxygen Delivery: Room Air - Course Nursing assessment & vital signs reviewed: Yes Ordered Tests: Active Orders 24 hr Category Date Time Status Bedrest with BRP/BSC ROUTINE Activity 04/19/17 19:20 Ordered Accucheck ACHS Care 04/19/17 19:18 Ordered Admission/Status Order ROUTINE Care 04/19/17 19:18 Ordered Code Status Order ROUTINE Care 04/19/17 19:18 Ordered IV Care Q6H Care 04/19/17 19:18 Ordered IV Insertion STAT Care 04/19/17 17:33 Active Re-Check Vital Signs STAT Care 04/19/17 17:33 Completed Elvin Cheatham ROUTINE Care 04/19/17 19:18 Ordered Weight,Daily 0600 Care 04/19/17 19:18 Ordered 1800 Calorie ADA Diet 04/19/17 Dinner Ordered AMYLASE Stat Lab 04/19/17 17:42 Completed CBC W DIFF Stat Lab 04/19/17 17:42 Completed CMP Stat Lab 04/19/17 17:42 Completed LIPASE Stat Lab 04/19/17 17:42 Completed Transfer Order Routine Transfer 04/19/17 19:15 Ordered Medication Summary Generic Name Dose Route Start Last Admin Trade Name Freq PRN Reason Stop Dose Admin Sodium Chloride 1,000 mls @ 50 mls/hr 04/19/17 17:45 04/19/17 17:46 Sodium Chloride 0.9% 1000 Ml IV 05/19/17 17:44 50 mls/hr .Q20H DIONISIO Administration Labetalol HCl 200 mg/ Sodium 190 mls @ 28.5 mls/hr 04/19/17 17:41 Chloride IV 05/19/17 17:40 .Q6H40M PRN hypertension 30 MG/HR Discontinued Medications Generic Name Dose Route Start Last Admin Trade Name Maddie PRN Reason Stop Dose Admin Amlodipine Besylate 5 mg 04/19/17 18:50 04/19/17 18:58 Norvasc 5 Mg PO 04/19/17 18:51 5 mg STAT ONE Administration Amlodipine Besylate Confirm 04/19/17 18:57 Norvasc 5 Mg Administered 04/19/17 18:58 Dose 5 mg .ROUTE .STK-MED ONE Hydromorphone HCl 0.5 mg 04/19/17 17:33 04/19/17 17:46 Hydromorphone 1 Mg/Ml Ampule IV 04/19/17 17:34 0.5 mg STAT ONE Administration Hydromorphone HCl Confirm 04/19/17 17:43 Hydromorphone 1 Mg/Ml Ampule Administered 04/19/17 17:44 Dose 1 mg .ROUTE .STK-MED ONE Hydromorphone HCl 0.5 mg 04/19/17 18:49 04/19/17 18:58 Dilaudid 2 Mg Injection IV 04/19/17 18:50 0.5 mg STAT ONE Administration Hydromorphone HCl Confirm 04/19/17 18:57 Hydromorphone 1 Mg/Ml Ampule Administered 04/19/17 18:58 Dose 1 mg .ROUTE .STK-MED ONE Insulin Human Regular 10 unit 04/19/17 18:17 04/19/17 18:24 Novolin R SQ 04/19/17 18:18 10 unit STAT ONE Administration Insulin Human Regular Confirm 04/19/17 18:20 Novolin R Administered 04/19/17 18:21 Dose 10 unit .ROUTE .STK-MED ONE Labetalol HCl 20 mg 04/19/17 17:35 04/19/17 17:47 Trandate 20 Mg/5 Ml Syringe IV 04/19/17 17:36 20 mg STAT ONE Administration Labetalol HCl Confirm 04/19/17 17:43 Trandate 100 Mg/20 Ml Mdv For Drip Administered 04/19/17 17:44 Dose 100 mg IV .STK-MED ONE Promethazine HCl 12.5 mg 04/19/17 17:33 04/19/17 17:46 Phenergan 25 Mg Inj IV 04/19/17 17:34 12.5 mg STAT ONE Administration Promethazine HCl Confirm 04/19/17 17:42 Phenergan 25 Mg Inj Administered 04/19/17 17:43 Dose 25 mg .ROUTE .STK-MED ONE Lab/Rad Data: Laboratory Result Diagrams 04/19/17 17:42 04/19/17 17:42 Laboratory Results 04/19/17 04/19/17 Range/Units 17:42 17:42 WBC 4.7 (4.0-10.5) K/mm3 RBC 3.36 L (4.1-5.6) M/mm3 Hgb 9.9 L (12.5-18.0) gm/dl Hct 30.7 L (42-50) % MCV 91.4 (78-100) fl MCH 29.4 (26-32) pg MCHC 32.2 (32-36) g/dl RDW 12.9 (11.5-14.0) % Plt Count 151 (150-450) K/mm3 MPV 11.5 H (6-9.5) fl Gran % 63.5 (36.0-66.0) % Lymphocytes % 25.4 (24.0-44.0) % Monocytes % 4.9 (0.0-12.0) % Eosinophils % 5.1 H (0.00-5.0) % Basophils % 1.1 (0.0-0.4) % Basophils # 0.05 (0-0.4) Sodium 138 (136-145) mEq/L Potassium 4.2 (3.5-5.1) mEq/L Chloride 105 (98-107) mEq/L Carbon Dioxide 26.4 (21-32) mEq/L Anion Gap 11.2 (5-15) MEQ/L BUN 16 (9-20) mg/dL Creatinine 1.11 (0.55-1.30) mg/dl Estimated GFR > 60 ML/MIN Glucose 599 H* (70-110) MG/DL Calcium 8.6 (8.5-10.1) mg/dL Total Bilirubin 0.20 (0.2-1.0) mg/dL AST 14 L (15-37) U/L ALT 13 (12-78) U/L Alkaline Phosphatase 160 H (46-116) U/L Serum Total Protein 5.8 L (6.4-8.2) gm/dL Albumin 2.1 L (3.4-5.0) g/dL Amylase 37 (25-115) U/L Lipase 481 H (73-393) U/L reviewed - Progress Progress: improved, re-examined (after meds) Progress Note: 04/19/17 18:26 IV started; fluids given; will medicate for pain and N&V; will start on Labatalol for hi BP and monitor and recheck; BS elevated >500; will give IV fluids and insulin and recheck accucheck; good releif of abd pain, N&V with meds ; BP still elevated adn still with MEYER; will continue with Labatalol and recheck 04/19/17 18:50 recheck and BP improving; still has MEYER; has had 500 cc fluids; rechecking BS now ; 04/19/17 19:14 Dr Caitlin Kramer consulted and will admit to obs Discussed with Dr.: Aliza (consulted and will admit to obs) Will see patient in: hospital (observation) Counseled pt/family regarding: lab results, diagnosis, need for follow-up, rad results - Departure Time of Disposition: 19:14 Departure Disposition: Observation Clinical Impression: Headache, Neurogenic bladder, Diabetic neuropathy associated with type 1 diabetes mellitus, Hyperglycemia, Hypertension, Abdominal pain, Type 1 diabetes mellitus, uncontrolled Condition: Fair Critical Care Time: Yes Critical Care Time(excluding separately billable procedures): 30-74 minutes Referrals: LISHA KRAMER [Primary Care Provider] -
[2017-04-19] MEDS ORDERED: DILAUDID 2 MG INJECTION IV ONE (18:49)
[2017-04-19] MEDS ORDERED: NORVASC 5 MG PO ONE (18:50)
[2017-04-19] MEDS ORDERED: NORVASC 5 MG ONE (18:57)
[2017-04-19] MEDS ORDERED: ZOCOR 20MG PO SCH (22:00)
[2017-04-19] MEDS ORDERED: Lantus Insulin SQ SCH (22:00)
[2017-04-19] MEDS ORDERED: Seroquel 100 MG PO ONE (22:00)
[2017-04-19] MEDS ORDERED: Flomax 0.4 MG PO SCH (22:00)
[2017-04-19] MEDS ORDERED: Lantus Insulin SQ ONE (22:00)
[2017-04-19] MEDS ORDERED: Seroquel 100 MG ONE (22:18)
[2017-04-19] MEDS: Seroquel 100 MG PO SCH ×2 (22:33→22:53)
[2017-04-19] MEDS: NovoLOG Insulin SQ PRN (22:38)
[2017-04-19] MEDS: NEURONTIN 300 MG PO SCH (22:49)
[2017-04-19] MEDS ORDERED: Catapres 0.1 MG PO PRN (23:36)
[2017-04-20] MEDS: Cyclobenzaprine 10 MG PO SCH ×3 (06:03→08:09)
[2017-04-20] MEDS: NovoLOG Insulin SQ PRN ×2 (08:00→11:55)
[2017-04-20] MEDS ORDERED: TYLENOL EXTRA STRENGTH 500 MG PO PRN (08:02)
--- NOTE | 2017-04-20 08:05 | PCM.HP ---
History of Present Illness - Chief Complaint Chief Complaint: diabetes poor control Date: 04/20/17 History of Present Illness: is a 52 year old male. He is unsure what happened to his blood pressure medication that was started states his 80 year old roommate takes care of his medicine. He has not been taking his insulin and is unsure of when the last time he took it was. He states he has the insulin, needles and testing supplies at home. He says the home health only came once and asked questions but never came back. He said he fell a few days prior to coming to the hospital and was having a headache so was told to go to the ER by a nurse on the phone. He presented with a headache sugar of 599 and elevated blood pressure. He was restarted on his home medications last night and given sliding scale insulin and one dose of clonidine 0.1 mg and his blood pressure is improved this am and is actually low and his blood sugar is improving as well. he had no DKA. He had mild elevated lipase that his improved. He still has headache now states it is in the back again around his neck where it is chronically he has pain suprapubic area from his distended bladder but refuses catheter now. He was complaining of diarrhea and vomiting for several days prior to presentation but has not had any vomiting or any bowel movement since arrival and has tolerated food. - Review of Systems Constitutional: Fatigue, Lethargy, No Fever, No Chills Eyes: No Symptoms, Vision Changes Ears, Nose, & Throat: No Symptoms, Nose Congestion Respiratory: Cough, No Short Of Breath Cardiac: No Chest Pain, No Edema, No Syncope Abdominal/Gastrointestinal: Abdominal Pain, Nausea, Vomiting, Diarrhea, Constipation Genitourinary Symptoms: Frequency, Hesitancy, Incontinence, Urgency, Urinary Retention, No Dysuria Musculoskeletal: Back Pain, Neck Pain, Fall, Joint Pain Skin: Pruritis, Dryness, No Rash Neurological: Dizziness, Gait Changes, Headache, Irritability, Parasthesia, No Focal Weakness Psychological: Depression, Emotional Lability Endocrine: Polydipsia Hematologic/Lymphatic: Anemia, Easy Bleeding, Easy Bruising Immunological/Allergic: No Symptoms Medications & Allergies Home Medications: Home Medication List Insulin Glargine [Lantus Insulin] 30 unit SQ BREAKFAST 02/13/17 [History Confirmed 04/19/17] Gabapentin [Neurontin] 600 mg PO TID #90 tablet 03/03/17 [Rx Confirmed 04/19/17] Quetiapine Fumarate [Seroquel] 300 mg PO HS #30 tablet 03/03/17 [Rx Confirmed ] Amlodipine Besylate 5 mg [Norvasc 5 mg] 2.5 mg PO HS 04/06/17 [History Confirmed 04/19/17] Atorvastatin Calcium 20 mg PO HS 04/06/17 [History Confirmed 04/19/17] Tamsulosin HCl 0.4 mg [Flomax 0.4 MG] 0.4 mg PO HS 04/06/17 [History Confirmed 04/19/17] Allergies/Adverse Reactions: Allergies Allergy/AdvReac Type Severity Reaction Status Date / Time bee venom protein (honey bee) Allergy Verified 04/19/17 17:03 erythromycin lactobionate Allergy Verified 04/19/17 17:03 [From Erythrocin] ketorolac [From Toradol] Allergy Verified 04/19/17 17:03 methocarbamol Allergy Verified 04/19/17 17:03 Penicillins Allergy Verified 04/19/17 17:03 egg AdvReac Verified 04/19/17 17:03 morphine AdvReac Verified 04/19/17 17:03 - Past Medical History Past Medical History: Yes Neurological History: Stroke ENT History: Cataracts Cardiac History: High Cholesterol, Hypertension Respiratory History: No Pertinent History Endocrine Medical History: Diabetes Type I Musculoskelatal History: Fractures, Other GI Medical History: No Pertinent History History: No Pertinent History Pyscho-Social History: Anxiety Male Reproductive Disorders: Testicular Cancer Comment: testicular cancer (1999), trauma from accident pt states only "5 vertebrae left" - Past Surgical History Past Surgical History: Yes Neuro Surgical History: Other Cardiac History: Cardiac Catheterization, Cardiac Stent Respiratory Surgery: No Pertinent History GI Surgical History: No Pertinent History Genitourinary Surgical Hx: No Pertinent History Musculskeletal Surgical Hx: Orthopedic Surgery Male Surgical History: Testicular Surgery Other Surgical History: oral surgery,states brain surgery/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 orchectomy. PORT PLACED IN 2012. CARDIAC STENT IN 2011 - Social History Smoking Status: Never smoker Exposure to second hand smoke: No Alcohol: None Drug Use: none - Physical Exam Vital Signs: Vital Signs - 24 hr Temp Pulse Resp BP BP Pulse Ox 04/20/17 07:18 97.7 F 58 L 20 103/57 98 04/20/17 03:52 98.0 F 58 L 16 100/56 97 04/20/17 01:00 118/68 04/20/17 00:04 97.9 F 74 17 215/109 98 04/19/17 23:53 97.9 F 74 17 215/109 98 04/19/17 23:10 208/120 04/19/17 21:00 210/138 04/19/17 20:14 97.8 F 68 18 210/138 04/19/17 20:04 97.8 F 68 18 240/132 241/127 97 04/19/17 19:22 98 04/19/17 18:20 65 16 230/87 96 04/19/17 18:10 69 16 240/105 96 04/19/17 17:53 78 14 234/116 78 L 04/19/17 16:56 98.1 F 81 16 226/109 98 General Appearance: no apparent distress, alert Neurologic Exam: alert, oriented x 3, cooperative, normal mood/affect, nml cerebellar function Eye Exam: PERRL/EOMI, pale conjunctivae Ears, Nose, Throat Exam: pharynx normal, moist mucous membranes Neck Exam: normal inspection, non-tender, supple, full range of motion Respiratory Exam: normal breath sounds, lungs clear, No respiratory distress Cardiovascular Exam: regular rate/rhythm, normal heart sounds, normal peripheral pulses Gastrointestinal/Abdomen Exam: soft, normal bowel sounds, tenderness (distended bladder tender), No mass Back Exam: normal inspection, normal range of motion, No CVA tenderness, No vertebral tenderness Extremity Exam: normal inspection, normal range of motion, pelvis stable Skin Exam: normal color, warm, dry, No rash Lymphatic Exam: No adenopathy Results - Labs Lab/Micro Results: Accuchecks Date 04/20/17 Date 04/20/17 Date 04/19/17 Date 04/19/17 Time 07:00 Time 00:45 Time 22:00 Time 20:50 Accucheck Value: 287 Accucheck Value: 369 Accucheck Value: 309 Accucheck Value: 511 Accuchecks Date 04/20/17 Date 04/20/17 Date 04/19/1704/19/17 Time 07:00 Time 00:45 Time 22:00 Time 20:50 Accucheck Value: 287 Accucheck Value: 369 Accucheck Value: 309 Accucheck Value: 511 Assessment/Plan (1) Headache Status: Acute Qualifiers: Code(s): R51 - HEADACHE (2) Type 1 diabetes mellitus, uncontrolled Status: Acute Assessment & Plan: He continues to be noncompliant with his home insulin in the hospital it is well controlled on the doses we give him he states he has the supplies we set up home health but that does not appear to be working will consult [facility] to see if [facility] can help with compliance and prevention of the readmissions discussed with [place] if he isn't taking the medications the headaches will not improved and he will also not be able to get the surgery for the gallbladder if he continues to not take his medications. he expressed understanding. He improved back on home meds and will discharge back to home. Code(s): E10.65 - TYPE 1 DIABETES MELLITUS WITH HYPERGLYCEMIA (3) Hypertension Status: Acute Assessment & Plan: improved back to normal after his home meds were restarted and he went to sleep. He is not taking his meds at home. He also has the neurogenic bladder and refuses catheter and is sensitive to fluids Code(s): I10 - ESSENTIAL (PRIMARY) HYPERTENSION (4) Anemia Status: Chronic Code(s): D64.9 - ANEMIA, UNSPECIFIED (5) Coronary artery disease Status: Chronic Qualifiers: Coronary Disease-Associated Artery/Lesion type: unspecified vessel or lesion type Associated angina: angina presence unspecified Code(s): I25.10 - ATHSCL HEART DISEASE OF [place] CORONARY ARTERY W/O ANG PCTRS (6) Depression Status: Chronic Code(s): F32.9 - MAJOR DEPRESSIVE DISORDER, SINGLE EPISODE, UNSPECIFIED (7) Diabetic neuropathy associated with type 1 diabetes mellitus Status: Chronic Code(s): E10.40 - TYPE 1 DIABETES MELLITUS WITH DIABETIC NEUROPATHY, UNSP (8) Neurogenic bladder Status: Chronic Code(s): N31.9 - NEUROMUSCULAR DYSFUNCTION OF BLADDER, UNSPECIFIED (9) Chronic cholecystitis with calculus Status: Acute Code(s): K80.10 - CALCULUS OF GALLBLADDER W CHRONIC CHOLECYST W/ O OBSTRUCTION (10) Noncompliance with medication regimen Status: Acute Code(s): Z91.14 - PATIENT'S OTHER NONCOMPLIANCE WITH MEDICATION REGIMEN
[2017-04-20 09:49] LABS: ALBUMIN 1.8 g/dL (3.4-5.0); ANION GAP 9.9 MEQ/L (5-15); BILIRUBIN,TOTAL 0.2 mg/dL (0.2-1.0); Carbon Dioxide 27.6 mEq/L (21-32); Total Protein 4.9 gm/dL (6.4-8.2)
[2017-04-20] MEDS: NEURONTIN 300 MG PO SCH (09:55)
[2017-04-20] MEDS ORDERED: NORVASC 5 MG PO SCH (10:00)
[2017-04-20 11:47] VITALS: BP 102/57; PULSE 60; O2SAT 97
--- NOTE | 2017-04-20 12:06 | PCM.DCORD ---
- Discharge Discharge Date: 04/20/17 Disposition: Home, Self-Care Condition: Fair Prescriptions: Continue Insulin Glargine [Lantus Insulin] 30 unit SQ BREAKFAST Gabapentin [Neurontin] 600 mg PO TID #90 tablet Quetiapine Fumarate [Seroquel] 300 mg PO HS #30 tablet Atorvastatin Calcium 20 mg PO HS Tamsulosin HCl 0.4 mg [Flomax 0.4 MG] 0.4 mg PO HS Amlodipine Besylate 5 mg [Norvasc 5 mg] 2.5 mg PO HS Additional Instructions: resume home health orders from previous discharge I consulted [facility]ozia Morrison for healthcare analyst as well to work on improving medication compliance Follow up with: LISHA KRAMER [Primary Care Provider] -
[2017-04-20] MEDS ORDERED: Lantus Insulin SQ SCH (22:00)
== END 2017-04-20 14:00 | disposition home or self-care (01) ==
LOC: ED 16:38 → MED SURG 19:57
PROVIDERS: ADMIT Family Medicine; ATTEND Family Medicine
DX: R51 Headache (principal); I10 Essential (primary) hypertension; D64.9 Anemia, unspecified; I25.10 Atherosclerotic heart disease of native coronary artery without angina pectoris; E10.40 Type 1 diabetes mellitus with diabetic neuropathy, unspecified; N31.9 Neuromuscular dysfunction of bladder, unspecified; K80.10 Calculus of gallbladder with chronic cholecystitis without obstruction; Z91.14 Patient's other noncompliance with medication regimen
CPT/HCPCS: 36000; 36415; 80053; 82150; 82962; 83690; 85025; 96360; 99285; G0378; J1170; J1642; J2550; A9270-GY

== ENCOUNTER 2017-04-24 18:04 | Emergency (ER) | payer MEDICAID ==
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
[2017-04-24] MEDS ORDERED: APRESOLINE 20 MG/ML INJ IV ONE (18:30)
[2017-04-24] MEDS ORDERED: APRESOLINE 20 MG/ML INJ ONE (18:39)
[2017-04-24 18:53] LABS: BASOPHIL % 1.8 % (0.0-0.4); Eosinophil % 5.1 % (0.00-5.0); Granulocytes % 58.1 % (36.0-66.0); Lymphocytes % 29.9 % (24.0-44.0); Mean Cell Volume 90.7 fl (78-100); Mean Platelet Volume 11.1 fl (6-9.5); Monocytes % 5.1 % (0.0-12.0); Platelet Count 156 K/mm3 (150-450); Red Blood Count 3.44 M/mm3 (4.1-5.6); Red Cell Distribution Width 12.9 % (11.5-14.0)
[2017-04-24 18:54] LABS: Mean Corpuscular Hemoglobin 29.3 pg (26-32)
[2017-04-24 19:11] LABS: Bilirubin NEGATIVE (NEGATIVE); Blood 250 Ery/ul (0-5); COMPLETE URINE MICROSCOPIC? YES; Collection Type CCMS; Glucose 1000 mg/dL (NEGATIVE); Leukocyte Esterase 1+ (NEGATIVE); WBC >100 /HPF (0-5)
[2017-04-24 19:11] LABS: INR 0.87 (0.8-3.0); PROTIME 9.8 SECONDS (8.83-12.87)
[2017-04-24 19:12] LABS: ADD URINE CULTURE? YES (NO); Bacteria FEW /HPF (NEGATIVE)
[2017-04-24] MEDS ORDERED: TRANDATE 20 MG/5 ML SYRINGE IV ONE (19:15)
[2017-04-24 19:27] LABS: ALBUMIN 2.1 g/dL (3.4-5.0); ALKALINE PHOSPHATASE 154 U/L (46-116); ANION GAP 11.9 MEQ/L (5-15); BLOOD UREA NITROGEN 19 mg/dL (9-20); CHLORIDE 106 mEq/L (98-107); Carbon Dioxide 24.8 mEq/L (21-32); Glucose 452 MG/DL (70-110); Potassium 4.5 mEq/L (3.5-5.1); SGOT/AST 15 U/L (15-37); SODIUM 138 mEq/L (136-145); Total Protein 5.5 gm/dL (6.4-8.2)
[2017-04-24] MEDS ORDERED: TRANDATE 100 MG/20 ML MDV FOR DRIP IV ONE (19:33)
[2017-04-24] MEDS ORDERED: TRANDATE 100MG/20 ML MDV IV ONE (19:35)
[2017-04-24 19:36] LABS: SGPT/ALT 13 U/L (12-78)
[2017-04-24 19:38] LABS: TROPONIN < 0.017 ng/ml (0.000-0.056)
[2017-04-24] MEDS ORDERED: Ativan 2 MG/1 ML VIAL IV ONE (20:01)
[2017-04-24] MEDS ORDERED: Ativan 2 MG/1 ML VIAL ONE (20:04)
[2017-04-24 20:33] VITALS: O2SAT 99
[2017-04-24 21:01] VITALS: BP 201/98; PULSE 85
== END 2017-04-24 21:01 | disposition short-term general hospital (02) ==
LOC: ED 18:04
DX: I10 Essential (primary) hypertension (principal); N39.0 Urinary tract infection, site not specified; E11.9 Type 2 diabetes mellitus without complications; I25.10 Atherosclerotic heart disease of native coronary artery without angina pectoris; R51 Headache; Z79.4 Long term (current) use of insulin; E78.00 Pure hypercholesterolemia, unspecified; Z86.73 Personal history of transient ischemic attack (TIA), and cerebral infarction without residual deficits; E10.9 Type 1 diabetes mellitus without complications
CPT/HCPCS: 36000; 36415; 80053; 80307; 81000; 84484; 85025; 85610; 87086; 96374; 96375; 96376; 99285; J0360; J2060

== ENCOUNTER 2017-05-02 16:55 | Emergency (ER) | payer OTHER, MEDICAID ==
[2017-05-02] MEDS ORDERED: Zofran 4 MG/2 ML VIAL IV ONE (17:13)
[2017-05-02] MEDS ORDERED: Sodium Chloride 0.9% 1000 ML 1,000 ML IV SCH (17:15)
[2017-05-02] MEDS ORDERED: Zofran 4 MG/2 ML VIAL ONE (17:18)
[2017-05-02] MEDS ORDERED: Sodium Chloride 0.9% 1000 ML 1,000 ML ONE (17:18)
[2017-05-02 17:33] LABS: BASOPHIL % 1.5 % (0.0-0.4); Eosinophil % 5.1 % (0.00-5.0); Granulocytes % 63.5 % (36.0-66.0); Mean Corpuscular Hemoglobin 29.2 pg (26-32); Mean Platelet Volume 9.9 fl (6-9.5); Monocytes % 5.9 % (0.0-12.0); Platelet Count 226 K/mm3 (150-450); Red Blood Count 3.66 M/mm3 (4.1-5.6); Red Cell Distribution Width 12.9 % (11.5-14.0); White Blood Count 5.3 K/mm3 (4.0-10.5)
[2017-05-02 17:34] VITALS: O2SAT 96
[2017-05-02 18:05] LABS: ALBUMIN 2.1 g/dL (3.4-5.0); ALKALINE PHOSPHATASE 141 U/L (46-116); ANION GAP 13.7 MEQ/L (5-15); BLOOD UREA NITROGEN 15 mg/dL (9-20); CHLORIDE 108 mEq/L (98-107); Carbon Dioxide 24.2 mEq/L (21-32); Glucose 284 MG/DL (70-110); LIPASE 65 U/L (73-393); Potassium 4.2 mEq/L (3.5-5.1); SGOT/AST 20 U/L (15-37); SGPT/ALT 16 U/L (12-78); SODIUM 142 mEq/L (136-145); Total Protein 6.1 gm/dL (6.4-8.2)
[2017-05-02 18:13] VITALS: PULSE 88
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
[2017-05-02 18:53] VITALS: BP 222/118
--- NOTE | 2017-05-03 08:35 | XRAY ---
Indication: Malaise. Nausea and vomiting. Comparison: [facility] March 28, 2017 and chest x-ray April 06, 2017. 2 views of the abdomen again demonstrates mild/moderate diffuse scattered colonic fecal debris. No focal bowel dilatation, objection, or free air. New right upper quadrant surgical clips presumed cholecystectomy. Remaining solid organs and osseous structures unremarkable. Single PA chest underinflated crowding both lung bases. Remaining lungs clear. Heart is not enlarged. Stable left-sided Port-A-Cath. Bony thorax intact. Impression: 1. Again fecal stasis without obstruction with new right upper quadrant surgical clips. 2. Nonacute underinflated chest.
== END 2017-05-02 18:55 | disposition home or self-care (01) ==
LOC: ED 16:55
DX: R51 Headache (principal); D64.9 Anemia, unspecified; F32.9 Major depressive disorder, single episode, unspecified; I10 Essential (primary) hypertension; R10.9 Unspecified abdominal pain; R11.2 Nausea with vomiting, unspecified; Z98.890 Other specified postprocedural states; S00.93XA Contusion of unspecified part of head, initial encounter; Y04.0XXA Assault by unarmed brawl or fight, initial encounter
CPT/HCPCS: 36415; 74022; 80053; 82150; 83690; 85025; 96360; 96361; 96374; 96375; 99284; J1642; J2405

== ENCOUNTER 2017-05-16 22:23 | Observation (INO) | payer MEDICAID, OTHER ==
--- NOTE | 2017-05-16 22:55 | ERPHSYRPT ---
- History of Present Illness Time Seen by Provider: 05/16/17 22:40 Source: patient Exam Limitations: clinical condition Patient Subjective Stated Complaint: pt c/o rash to groin. c/o throbbing pain. Triage Nursing Assessment: pt awake and alert, answers questions approp. pt transfer from wheelchair to stretcher with assist of 2, unsteady. respirations nonlabored with lungs cta. pt wearing wet depend on arrival to er. urine cloudy with strong foul smell. red rash with white bumps and open areas to inner thighs around scrotal area noted Physician History: PATIENT WITH A HISTORY OF TYPE 2 DIABETES, BRAIN SURGERY, RECENT LAPAROSCOPIC CHOLECYSTECTOMY COMPLAINS OF RASH OVER HIS GENITALIA FOR WEEKS. STATES HE HAS NO RELIEF AFTER USING NYSTATIN POWDER. Timing/Duration: week(s), worse Quality: itchy Severity: moderate Location: genitalia Possible Causes: no cause identified Modifying Factors: Improves With: other Associated Symptoms: change in skin texture Allergies/Adverse Reactions: bee venom protein (honey bee) Allergy (Verified 05/16/17 22:50) erythromycin lactobionate [From Erythrocin] Allergy (Verified 05/16/17 22:50) ketorolac [From Toradol] Allergy (Verified 05/16/17 22:50) methocarbamol Allergy (Verified 05/16/17 22:50) Penicillins Allergy (Verified 05/16/17 22:50) egg Adverse Reaction (Verified 05/16/17 22:50) morphine Adverse Reaction (Verified 05/16/17 22:50) Home Medications: Insulin Glargine [Lantus Insulin] 30 unit SQ HS 02/13/17 [History] Atorvastatin Calcium 20 mg PO HS 04/06/17 [History] Tamsulosin HCl 0.4 mg [Flomax 0.4 MG] 0.4 mg PO HS 04/06/17 [History] Quetiapine Fumarate [Seroquel] 200 mg PO BID 05/16/17 [History] Hx Tetanus, Diphtheria Vaccination/Date Given: Yes Hx Influenza Vaccination/Date Given: No Hx Pneumococcal Vaccination/Date Given: Yes Immunizations Up to Date: Yes - Review of Systems Constitutional: No Fever, No Chills Eyes: No Symptoms Ears, Nose, & Throat: No Symptoms Respiratory: No Symptoms, No Cough, No Dyspnea Cardiac: No Symptoms, No Chest Pain, No Edema (LOWER EXTREMITIES), No Syncope Abdominal/Gastrointestinal: No Abdominal Pain, No Nausea, No Vomiting, No Diarrhea Genitourinary Symptoms: Other (GENITAL RASH), No Dysuria Musculoskeletal: No Back Pain, No Neck Pain Skin: No Rash Neurological: No Dizziness, No Focal Weakness, No Sensory Changes Psychological: No Symptoms Endocrine: No Symptoms All Other Systems: Reviewed and Negative - Past Medical History Pertinent Past Medical History: Yes Neurological History: Stroke ENT History: Cataracts Cardiac History: High Cholesterol, Hypertension Respiratory History: No Pertinent History Endocrine Medical History: Diabetes Type I Musculoskeletal History: Fractures, Other GI Medical History: No Pertinent History History: No Pertinent History Psycho-Social History: Anxiety Male Reproductive Disorders: Testicular Cancer Other Medical History: testicular cancer (1999), trauma from accident pt states only "5 vertebrae left" - Past Surgical History Past Surgical History: Yes Neuro Surgical History: Other Cardiac: Cardiac Catheterization, Cardiac Stent Respiratory: No Pertinent History Gastrointestinal: No Pertinent History, Cholecystectomy Genitourinary: No Pertinent History Musculoskeletal: Orthopedic Surgery Male Surgical History: Testicular Surgery Other Surgical History: oral surgery,states brain surgery/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 orchectomy. PORT PLACED IN 2012. CARDIAC STENT IN 2011; gallbladder - Social History Smoking Status: Never smoker Exposure to second hand smoke: No Alcohol Use: None Drug Use: none Patient Lives Alone: No Significant Family History: no pertinent family hx - Nursing Vital Signs Nursing Vital Signs: Initial Vital Signs Temperature 98.2 F 05/16/17 22:38 Pulse Rate 90 05/16/17 22:38 Respiratory Rate 18 05/16/17 22:38 Blood Pressure 153/73 05/16/17 22:38 O2 Sat by Pulse Oximetry 96 05/16/17 22:38 Pain Scale Pain Intensity 9 - Physical Exam General Appearance: no apparent distress, alert Eye Exam: PERRL/EOMI, eyes nml inspection Ears, Nose, Throat Exam: normal ENT inspection, pharynx normal, moist mucous membranes Neck Exam: normal inspection, non-tender, supple, full range of motion Respiratory Exam: normal breath sounds, lungs clear, No respiratory distress Cardiovascular Exam: regular rate/rhythm, normal heart sounds Gastrointestinal/Abdomen Exam: soft, mass, No tenderness Back Exam: normal inspection, normal range of motion, No CVA tenderness, No vertebral tenderness Extremity Exam: normal inspection, normal range of motion Neurologic Exam: alert, oriented x 3, cooperative, normal mood/affect, sensation nml, No motor deficits Skin Exam: normal color, warm, dry SpO2: 100 Oxygen Delivery: Room Air - Course EKG Interpreted by Me: RATE, Sinus Rhythm, NORMAL AXIS Ordered Tests: Active Orders 24 hr Category Date Time Status Up With Assistance ROUTINE Activity 05/17/17 01:23 Ordered Accucheck ACHS Care 05/17/17 01:23 Ordered Admission/Status Order ROUTINE Care 05/17/17 01:23 Ordered Call Admit Doctor for Orders ON ADMISSION Care 05/17/17 01:25 Ordered Clean Catch Urine Specimen STAT Care 05/16/17 22:42 Active Code Status Order ROUTINE Care 05/17/17 01:23 Ordered EKG-ER Only STAT Care 05/17/17 01:16 Active IV Care Q6H Care 05/17/17 01:23 Ordered IV Insertion STAT Care 05/16/17 23:38 Active Telemetry ROUTINE Care 05/17/17 01:23 Ordered Vital Signs Q4H Care 05/17/17 01:23 Ordered 1800 Calorie ADA Diet 05/17/17 Breakfast Ordered BMP Stat Lab 05/16/17 23:54 Completed CBC W DIFF Stat Lab 05/16/17 23:54 Completed CULTURE,URINE Stat Lab 05/16/17 22:45 Received MAGNESIUM Stat Lab 05/17/17 00:00 Completed UA W/ MICROSCOPIC Stat Lab 05/16/17 22:45 Completed Oxygen NASAL CANNULA 2 lpm RT 05/17/17 01:23 Ordered Transfer Order Routine Transfer 05/17/17 01:23 Ordered Medication Summary Generic Name Dose Route Start Last Admin Trade Name Freq PRN Reason Stop Dose Admin Acetaminophen 650 mg 05/17/17 01:23 Tylenol 325 Mg PO 06/16/17 01:22 Q4H PRN PRN PAIN AND/OR FEVER Amlodipine Besylate 5 mg 05/17/17 10:00 Norvasc 5 Mg PO 06/16/17 09:59 QAM DIONISIO Sodium Chloride 1,000 mls @ 200 mls/hr 05/17/17 00:45 05/17/17 01:05 Sodium Chloride 0.9% 1000 Ml IV 06/16/17 00:44 200 mls/hr .Q5H DIONISIO Administration Levofloxacin/Dextrose 500 mg in 100 mls @ 100 mls/hr 05/17/17 10:00 Levofloxacin 500mg/100ml D5w IV 06/16/17 09:59 Q24H10 DIONISIO Sodium Chloride 1,000 mls @ 20 mls/hr 05/17/17 01:30 Sodium Chloride 0.9% 1000 Ml IV 06/16/17 01:29 .Q24H DIONISIO Insulin Aspart 0 unit 05/17/17 01:23 Novolog Insulin SQ 06/16/17 01:22 UD PRN HYPERGLYCEMIA Insulin Glargine 30 unit 05/17/17 22:00 Lantus Insulin SQ 06/16/17 21:59 HS DIONISIO Discontinued Medications Generic Name Dose Route Start Last Admin Trade Name Freq PRN Reason Stop Dose Admin Clonidine 0.1 mg 05/17/17 00:23 05/17/17 00:28 Catapres 0.1 Mg PO 05/17/17 00:24 0.1 mg STAT ONE Administration Clonidine Confirm 05/17/17 00:25 Catapres 0.1 Mg Administered 05/17/17 00:26 Dose 0.1 mg .ROUTE .STK-MED ONE Levofloxacin/Dextrose 500 mg in 100 mls @ 100 mls/hr 05/16/17 23:38 05/16/17 23:55 Levofloxacin 500mg/100ml D5w IV 05/17/17 00:37 100 mls/hr STAT STA Administration Levofloxacin/Dextrose Confirm 05/16/17 23:47 Levofloxacin 500mg/100ml D5w Administered 05/16/17 23:48 Dose 500 mg in 100 mls @ ud IV .STK-MED ONE Insulin Human Regular 8 unit 05/17/17 00:45 05/17/17 01:05 Novolin R IV 05/17/17 00:46 8 unit STAT ONE Administration Insulin Human Regular Confirm 05/17/17 01:02 Novolin R Administered 05/17/17 01:03 Dose 8 unit .ROUTE .STK-MED ONE Labetalol HCl 20 mg 05/17/17 00:04 05/17/17 00:49 Trandate 20 Mg/5 Ml Syringe IV 05/17/17 00:05 20 mg STAT ONE Administration Labetalol HCl Confirm 05/17/17 00:48 Trandate 100 Mg/20 Ml Mdv For Drip Administered 05/17/17 00:49 Dose 100 mg IV .STK-MED ONE Lab/Rad Data: Laboratory Result Diagrams 05/16/17 23:54 05/16/17 23:54 Laboratory Results 05/17/17 05/16/17 05/16/17 Range/Units 00:00 23:54 23:54 WBC 5.8 (4.0-10.5) K/mm3 RBC 3.59 L (4.1-5.6) M/mm3 Hgb 10.4 L (12.5-18.0) gm/dl Hct 32.4 L (42-50) % MCV 90.3 (78-100) fl MCH 28.9 (26-32) pg MCHC 32.1 (32-36) g/dl RDW 12.5 (11.5-14.0) % Plt Count 207 (150-450) K/mm3 MPV 11.5 H (6-9.5) fl Gran % 67.2 H (36.0-66.0) % Lymphocytes % 19.2 L (24.0-44.0) % Monocytes % 8.3 (0.0-12.0) % Eosinophils % 4.3 (0.00-5.0) % Basophils % 1.0 (0.0-0.4) % Basophils # 0.06 (0-0.4) Sodium 134 L (136-145) mEq/L Potassium 5.3 H (3.5-5.1) mEq/L Chloride 100 (98-107) mEq/L Carbon Dioxide 27.1 (21-32) mEq/L Anion Gap 12.3 (5-15) MEQ/L BUN 23 H (9-20) mg/dL Creatinine 1.57 H (0.55-1.30) mg/dl Estimated GFR 49 ML/MIN Glucose 709 H* (70-110) MG/DL Calcium 8.7 (8.5-10.1) mg/dL Magnesium 2.1 (1.8-2.4) mg/dL Ur Collection Type Urine Color (YELLOW) Urine Appearance (CLEAR) Urine pH (5-6) Ur Specific [place] (1.005-1.025) Urine Protein (Negative) Urine Ketones (NEGATIVE) Urine Blood (0-5) Syed/ul Urine Nitrite (NEGATIVE) Urine Bilirubin (NEGATIVE) Urine Urobilinogen (0-1) mg/dL Ur Leukocyte Esterase (NEGATIVE) Urine Microscopic RBC (0-2) /HPF Urine Microscopic WBC (0-5) /HPF Ur Epithelial Cells (FEW) /HPF Urine Bacteria (NEGATIVE) /HPF Urine Glucose (NEGATIVE) mg/dL Specimen Received 05/16/17 Range/Units 22:45 WBC (4.0-10.5) K/mm3 RBC (4.1-5.6) M/mm3 Hgb (12.5-18.0) gm/dl Hct (42-50) % MCV (78-100) fl MCH (26-32) pg MCHC (32-36) g/dl RDW (11.5-14.0) % Plt Count (150-450) K/mm3 MPV (6-9.5) fl Gran % (36.0-66.0) % Lymphocytes % (24.0-44.0) % Monocytes % (0.0-12.0) % Eosinophils % (0.00-5.0) % Basophils % (0.0-0.4) % Basophils # (0-0.4) Sodium (136-145) mEq/L Potassium (3.5-5.1) mEq/L Chloride (98-107) mEq/L Carbon Dioxide (21-32) mEq/L Anion Gap (5-15) MEQ/L BUN (9-20) mg/dL Creatinine (0.55-1.30) mg/dl Estimated GFR ML/MIN Glucose (70-110) MG/DL Calcium (8.5-10.1) mg/dL Magnesium (1.8-2.4) mg/dL Ur Collection Type CLEAN CATCH Urine Color LT.YELLOW (YELLOW) Urine Appearance CLOUDY (CLEAR) Urine pH 7.0 (5-6) Ur Specific [place] 1.010 (1.005-1.025) Urine Protein 100 (Negative) Urine Ketones NEGATIVE (NEGATIVE) Urine Blood 50 (0-5) Syed/ul Urine Nitrite NEGATIVE (NEGATIVE) Urine Bilirubin NEGATIVE (NEGATIVE) Urine Urobilinogen NORMAL (0-1) mg/dL Ur Leukocyte Esterase 2+ (NEGATIVE) Urine Microscopic RBC 5-10 (0-2) /HPF Urine Microscopic WBC >100 (0-5) /HPF Ur Epithelial Cells RARE (FEW) /HPF Urine Bacteria MODERATE (NEGATIVE) /HPF Urine Glucose 1000 (NEGATIVE) mg/dL Specimen Received 05/16/17 2245 - Progress Progress Note: 05/17/17 01:18 PATIENT GIVEN IV NORMAL SALINE 100ML/HR, LEVAQUIN 500MG IVPB, LABETOLOL 20MG FOR BP 200/108, HUMULIN INSULIN 8 UNITS IV FOR GLUCOSE-[address]Je: Aliza (DISCUSSED WITH DR KRAMER AT 0110 FOR ADMISSION) - Departure Time of Disposition: 01:35 Departure Disposition: In-patient Admission Clinical Impression: HYPEROSMOLAR HYPERGLYCEMIA, HYPERTENSION, URINARY TRACT INFECTION Condition: Stable Critical Care Time: No Referrals: LISHA KRAMER [Primary Care Provider] -
[2017-05-16 23:25] LABS: Collection Type CLEAN CATCH
[2017-05-16 23:26] LABS: Bilirubin NEGATIVE (NEGATIVE); Blood 50 Ery/ul (0-5); COMPLETE URINE MICROSCOPIC? YES; Glucose 1000 mg/dL (NEGATIVE); Leukocyte Esterase 2+ (NEGATIVE); WBC >100 /HPF (0-5)
[2017-05-16 23:27] LABS: ADD URINE CULTURE? YES (NO); Bacteria MODERATE /HPF (NEGATIVE); Epithelial Cells RARE /HPF (FEW)
[2017-05-16] MEDS ORDERED: Levofloxacin 500MG/100ML D5W 500 MG/100 ML BAG IV STA (23:38)
[2017-05-16] MEDS ORDERED: Levofloxacin 500MG/100ML D5W 500 MG/100 ML BAG IV ONE (23:47)
[2017-05-17] LABS: Eosinophil % 4.3 % (0.00-5.0); Granulocytes % 67.2 % (36.0-66.0); Lymphocytes % 19.2 % (24.0-44.0); Mean Cell Volume 90.3 fl (78-100); Mean Corpuscular Hemoglobin 28.9 pg (26-32); Mean Platelet Volume 11.5 fl (6-9.5); Monocytes % 8.3 % (0.0-12.0); Platelet Count 207 K/mm3 (150-450); Red Blood Count 3.59 M/mm3 (4.1-5.6); Red Cell Distribution Width 12.5 % (11.5-14.0); White Blood Count 5.8 K/mm3 (4.0-10.5)
[2017-05-17] MEDS ORDERED: TRANDATE 20 MG/5 ML SYRINGE IV ONE (00:04)
[2017-05-17 00:18] LABS: ANION GAP 12.3 MEQ/L (5-15); Carbon Dioxide 27.1 mEq/L (21-32); Potassium 5.3 mEq/L (3.5-5.1)
[2017-05-17] MEDS ORDERED: Catapres 0.1 MG PO ONE (00:23)
[2017-05-17] MEDS ORDERED: Catapres 0.1 MG ONE (00:25)
[2017-05-17] MEDS ORDERED: NovoLIN R IV ONE (00:45)
[2017-05-17] MEDS ORDERED: Sodium Chloride 0.9% 1000 ML 1,000 ML IV SCH ×2 (00:45→01:30)
[2017-05-17] MEDS ORDERED: TRANDATE 100 MG/20 ML MDV FOR DRIP IV ONE (00:48)
[2017-05-17] MEDS ORDERED: NovoLIN R ONE (01:02)
[2017-05-17] MEDS ORDERED: TYLENOL 325 MG PO PRN (01:23)
[2017-05-17] MEDS: NovoLOG Insulin SQ PRN ×3 (05:08→21:53)
--- NOTE | 2017-05-17 08:39 | PCM.HP ---
History of Present Illness - Chief Complaint Chief Complaint: hyperosmolar hyperglycemia Date: 05/17/17 History of Present Illness: is a 52 year old male. He presents with pain and rash in the scrotum has not been taking his insulin the last several nights he has swelling in his legs he thinks he went to the hospital for but can't remember which no severe pain from his cervical radiculopathy as well he is having difficulty urinating and leaking urine - Review of Systems Constitutional: No Fever, No Chills Eyes: No Symptoms Ears, Nose, & Throat: No Symptoms Respiratory: No Cough, No Short Of Breath Cardiac: Edema, No Chest Pain, No Syncope Abdominal/Gastrointestinal: No Abdominal Pain, No Nausea, No Vomiting, No Diarrhea Genitourinary Symptoms: No Dysuria Musculoskeletal: Back Pain, Neck Pain Skin: No Rash Neurological: No Dizziness, No Focal Weakness, No Sensory Changes Psychological: No Symptoms Endocrine: No Symptoms Hematologic/Lymphatic: No Symptoms Immunological/Allergic: No Symptoms Medications & Allergies Home Medications: Home Medication List Insulin Glargine [Lantus Insulin] 30 unit SQ HS 02/13/17 [History Confirmed 05/16/17] Gabapentin [Neurontin] 600 mg PO TID #90 tablet 03/03/17 [Rx Confirmed 05/16/17] Atorvastatin Calcium 20 mg PO HS 04/06/17 [History Confirmed 05/16/17] Tamsulosin HCl 0.4 mg [Flomax 0.4 MG] 0.4 mg PO HS 04/06/17 [History Confirmed 05/16/17] Ondansetron [Zofran Odt] 4 mg PO Q8HPRN PRN #10 tab.rapdis 05/02/17 [Rx Confirmed 05/16/17] Quetiapine Fumarate [Seroquel] 200 mg PO BID 05/16/17 [History Confirmed ] Allergies/Adverse Reactions: Allergies Allergy/AdvReac Type Severity Reaction Status Date / Time bee venom protein (honey bee) Allergy Verified 05/16/17 22:50 erythromycin lactobionate Allergy Verified 05/16/17 22:50 [From Erythrocin] ketorolac [From Toradol] Allergy Verified 05/16/17 22:50 methocarbamol Allergy Verified 05/16/17 22:50 Penicillins Allergy Verified 05/16/17 22:50 egg AdvReac Verified 05/16/17 22:50 morphine AdvReac Verified 05/16/17 22:50 - Past Medical History Past Medical History: Yes Neurological History: Stroke ENT History: Cataracts Cardiac History: High Cholesterol, Hypertension Respiratory History: No Pertinent History Endocrine Medical History: Diabetes Type I Musculoskelatal History: Fractures, Other GI Medical History: No Pertinent History History: No Pertinent History Pyscho-Social History: Anxiety Male Reproductive Disorders: Testicular Cancer Comment: testicular cancer (1999), trauma from accident pt states only "5 vertebrae left" - Past Surgical History Past Surgical History: Yes Neuro Surgical History: Other Cardiac History: Cardiac Catheterization, Cardiac Stent Respiratory Surgery: No Pertinent History GI Surgical History: No Pertinent History, Cholecystectomy Genitourinary Surgical Hx: No Pertinent History Musculskeletal Surgical Hx: Orthopedic Surgery Male Surgical History: Testicular Surgery Other Surgical History: oral surgery,states brain surgery/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 orchectomy. PORT PLACED IN 2012. CARDIAC STENT IN 2011; gallbladder - Social History Smoking Status: Never smoker Exposure to second hand smoke: No Alcohol: None Drug Use: none Significant Family History: no pertinent family hx - Physical Exam Vital Signs: Vital Signs - 24 hr Temp Pulse Resp BP Pulse Ox 05/17/17 08:21 76 18 97 05/17/17 07:22 98.5 F 80 18 136/70 97 05/17/17 03:14 97 05/17/17 03:09 98.3 F 79 22 170/79 100 05/17/17 01:32 100 05/17/17 01:10 76 18 154/89 95 05/17/17 00:51 80 18 158/106 97 05/17/17 00:29 92 H 16 198/118 96 05/16/17 23:55 96 H 16 228/102 98 05/16/17 22:38 98.2 F 90 18 153/73 100 General Appearance: no apparent distress, alert Neurologic Exam: alert, oriented x 3, cooperative, normal mood/affect, nml cerebellar function, nml station & gait, sensation nml, No motor deficits Eye Exam: PERRL/EOMI, eyes nml inspection Ears, Nose, Throat Exam: normal ENT inspection, pharynx normal, moist mucous membranes Neck Exam: normal inspection, non-tender, supple, full range of motion Respiratory Exam: normal breath sounds, lungs clear, No respiratory distress Cardiovascular Exam: regular rate/rhythm, normal heart sounds, normal peripheral pulses, edema Gastrointestinal/Abdomen Exam: soft, normal bowel sounds, No tenderness, No mass Male Genitalia Exam: other (rash erythema satellite lesions penis scrotum and groin) Back Exam: normal inspection, normal range of motion, No CVA tenderness, No vertebral tenderness Extremity Exam: pedal edema Skin Exam: normal color, warm, dry, No rash Lymphatic Exam: No adenopathy Results - Labs Lab/Micro Results: Accuchecks Date 05/17/17 Time 07:30 Accucheck Value: 450 Accuchecks Date 05/17/17 Time 07:30 Accucheck Value: 450 - Other Procedures and Tests Respiratory Therapy 05/17/17 01:23 Oxygen NASAL CANNULA 2 lpm Assessment/Plan (1) Obstructive uropathy Current Visit: Yes Status: Acute Assessment & Plan: with acute kidney injury and perineal lesions with candidiasis of the groin severe will anchor escalante fentanyl for the pain currently iv continue levoquin pending urine culture restart home insulin and bp medication monitor renal function and I/O with the edema in the lower extremities worsened Code(s): N13.9 - OBSTRUCTIVE AND REFLUX UROPATHY, UNSPECIFIED (2) Acute kidney injury Current Visit: Yes Status: Acute Code(s): N17.9 - ACUTE KIDNEY FAILURE, UNSPECIFIED (3) Uncontrolled diabetes mellitus Current Visit: Yes Status: Acute Code(s): E11.65 - TYPE 2 DIABETES MELLITUS WITH HYPERGLYCEMIA (4) Uncontrolled hypertension Current Visit: Yes Status: Acute Code(s): I10 - ESSENTIAL (PRIMARY) HYPERTENSION (5) Type 1 diabetes mellitus, uncontrolled Current Visit: No Status: Acute Code(s): E10.65 - TYPE 1 DIABETES MELLITUS WITH HYPERGLYCEMIA (6) Anemia Current Visit: No Status: Chronic Code(s): D64.9 - ANEMIA, UNSPECIFIED (7) Coronary artery disease Current Visit: No Status: Chronic Code(s): I25.10 - ATHSCL HEART DISEASE OF [place] CORONARY ARTERY W/O ANG PCTRS (8) Depression Current Visit: No Status: Chronic Code(s): F32.9 - MAJOR DEPRESSIVE DISORDER , SINGLE EPISODE, UNSPECIFIED (9) Diabetic neuropathy associated with type 1 diabetes mellitus Current Visit: No Status: Chronic Code(s): E10.40 - TYPE 1 DIABETES MELLITUS WITH DIABETIC NEUROPATHY, UNSP (10) Noncompliance with medication regimen Current Visit: No Status: Acute Code(s): Z91.14 - PATIENT'S OTHER NONCOMPLIANCE WITH MEDICATION REGIMEN (11) UTI (urinary tract infection) Current Visit: No Status: Acute Code(s): N39.0 - URINARY TRACT INFECTION, SITE NOT SPECIFIED
[2017-05-17] MEDS ORDERED: Lantus Insulin SQ SCH ×2 (09:00→22:00)
[2017-05-17] MEDS: NORVASC 5 MG PO SCH (09:05)
[2017-05-17] MEDS: LOTRIMIN CREAM 30 GM TP SCH ×2 (09:05→21:53)
[2017-05-17] MEDS: SUBLIMAZE 100 MCG/2 ML IV PRN ×3 (09:52→23:54)
[2017-05-17] MEDS ORDERED: ZOFRAN ODT 4 MG PO PRN (10:18)
[2017-05-17] MEDS: Seroquel 100 MG PO SCH ×2 (10:33→21:53)
[2017-05-17] MEDS: NEURONTIN 300 MG PO SCH ×3 (10:33→21:52)
[2017-05-17] MEDS ORDERED: NON-FORMULARY ITEM (Gabapentin [Neurontin] 600 MG) PO SCH (15:00)
[2017-05-17 15:09] LABS: ADD URINE CULTURE? YES (NO); Bilirubin NEGATIVE (NEGATIVE); COMPLETE URINE MICROSCOPIC? YES; Collection Type CATH; Glucose 1000 mg/dL (NEGATIVE); Leukocyte Esterase 2+ (NEGATIVE)
[2017-05-17 15:10] LABS: Blood 50 Ery/ul (0-5)
[2017-05-17] MEDS: Levofloxacin 500MG/100ML D5W 500 MG/100 ML BAG IV SCH (21:52)
[2017-05-17] MEDS: ZOCOR 20MG PO SCH (21:53)
[2017-05-17] MEDS: Flomax 0.4 MG PO SCH (21:53)
[2017-05-17] MEDS ORDERED: NON-FORMULARY ITEM (Atorvastatin Calcium [Atorvastatin Calcium] 20 MG) PO SCH (22:00)
[2017-05-18 06:11] LABS: ANION GAP 10.5 MEQ/L (5-15); Carbon Dioxide 25.3 mEq/L (21-32); Potassium 4.3 mEq/L (3.5-5.1)
[2017-05-18] MEDS: Lantus Insulin SQ SCH (08:01)
[2017-05-18] MEDS: SUBLIMAZE 100 MCG/2 ML IV PRN ×4 (08:04→22:12)
[2017-05-18] MEDS ORDERED: Lasix 20 MG/2 ML IV ONE (08:25)
--- NOTE | 2017-05-18 08:25 | PCM.NOTE ---
Date and Time: 05/18/17824 Subjective Assessment: he is having pain in his shoulders today again and complaining of pain from the catheter placement and swelling in the legs He is very fatigued and weak. he still has the rash but less painful Objective Exam General Appearance: no apparent distress, alert Neurologic Exam: alert, oriented x 3, cooperative Skin Exam: pale Eye Exam: PERRL, pale conjunctivae Ears, Nose, Throat Exam: pharynx normal, moist mucous membranes Neck Exam: normal inspection, non-tender, supple, full range of motion Respiratory Exam: normal breath sounds, lungs clear, No respiratory distress Cardiovascular Exam: regular rate/rhythm, normal heart sounds Gastrointestinal/Abdomen Exam: soft, No tenderness, No mass Extremity Exam: normal inspection, normal range of motion Back Exam: normal inspection, normal range of motion, No CVA tenderness, No vertebral tenderness Male Genitalia Exam: deferred, other (scrotal and penile swelling and erythema with redness in the inguinal crease bilateral) Rectal Exam: deferred OBJECTIVE DATA Vital Signs: Vital Signs - 24 hr Temp Pulse Resp BP Pulse Ox 05/18/17 07:38 95 05/18/17 07:25 98 F 69 18 125/62 97 05/18/17 03:51 99.6 F 67 18 114/66 96 05/18/17 00:00 98.0 F 72 16 100/59 96 05/17/17 20:00 97.9 F 71 18 112/56 97 05/17/17 18:56 69 18 97 05/17/17 16:07 97.8 F 64 20 95/54 96 05/17/17 12:19 98 F 74 18 132/80 96 Pain Assessment - Last Documented Pain Intensity 8 Pain Scale Used 0-10 Pain Scale Intake and Output: Intake & Output 05/15/17 05/16/17 05/17/17 05/18/17 11:59 11:59 11:59 11:59 Intake Total 1320 1166 Output Total 800 1450 Balance 520 -284 Weight 86.908 kg Lab Results: Accuchecks Date 05/18/17 Date 05/17/17 Date 05/17/17 Date 05/17/17 Time 07:31 Time 20:30 Time 16:02 Time 10:58 Accucheck Value: 89 Accucheck Value: 257 Accucheck Value: 112 Accucheck Value: 270 Lab Results-Last 24 Hours 05/17/17 05/18/17 Range/Units 14:50 05:30 Sodium 144 (136-145) mEq/L Potassium 4.3 (3.5-5.1) mEq/L Chloride 112 H (98-107) mEq/L Carbon Dioxide 25.3 (21-32) mEq/L Anion Gap 10.5 (5-15) MEQ/L BUN 24 H (9-20) mg/dL Creatinine 1.56 H (0.55-1.30) mg/dl Estimated GFR 50 ML/MIN Glucose 89 (70-110) MG/DL Calcium 7.9 L (8.5-10.1) mg/dL Ur Collection Type CATH Urine Color YELLOW (YELLOW) Urine Appearance HAZY (CLEAR) Urine pH 7.0 (5-6) Ur Specific [place] 1.010 (1.005-1.025) Urine Protein 3+ (Negative) Urine Ketones NEGATIVE (NEGATIVE) Urine Blood 50 (0-5) Syed/ul Urine Nitrite NEGATIVE (NEGATIVE) Urine Bilirubin NEGATIVE (NEGATIVE) Urine Urobilinogen NORMAL (0-1) mg/dL Ur Leukocyte Esterase 2+ (NEGATIVE) Urine Glucose 1000 (NEGATIVE) mg/dL Specimen Received 05/17/17 1450 Assessment/Plan (1) Obstructive uropathy Current Visit: Yes Status: Acute Assessment & Plan: catheter in place now had about 600 mL residual on placement yesterday per nursing with pus like material draining and sent for culture Catheter remains in place now but he wants removed. he continues to have the edema in the lower extremities urine color imporved to dark yellow now. blood sugar improved overnight with 89 this am and asymptomatic his bp remained controlled throughout the day yesterday as well. will work on trying to improve renal function and functional status of patient bp and blood sugar control await urine culture hopeful for home tomorrow. Code(s): N13.9 - OBSTRUCTIVE AND REFLUX UROPATHY, UNSPECIFIED (2) Acute kidney injury Current Visit: Yes Status: Acute Code(s): N17.9 - ACUTE KIDNEY FAILURE, UNSPECIFIED (3) Uncontrolled diabetes mellitus Current Visit: Yes Status: Acute Code(s): E11.65 - TYPE 2 DIABETES MELLITUS WITH HYPERGLYCEMIA (4) Uncontrolled hypertension Current Visit: Yes Status: Acute Code(s): I10 - ESSENTIAL (PRIMARY) HYPERTENSION (5) Type 1 diabetes mellitus, uncontrolled Current Visit: No Status: Resolved Code(s): E10.65 - TYPE 1 DIABETES MELLITUS WITH HYPERGLYCEMIA (6) Anemia Current Visit: No Status: Chronic Code(s): D64.9 - ANEMIA, UNSPECIFIED (7) Coronary artery disease Current Visit: No Status: Chronic Code(s): I25.10 - ATHSCL HEART DISEASE OF [place] CORONARY ARTERY W/O ANG PCTRS (8) Depression Current Visit: No Status: Chronic Code(s): F32.9 - MAJOR DEPRESSIVE DISORDER , SINGLE EPISODE, UNSPECIFIED (9) Diabetic neuropathy associated with type 1 diabetes mellitus Current Visit: No Status: Chronic Code(s): E10.40 - TYPE 1 DIABETES MELLITUS WITH DIABETIC NEUROPATHY, UNSP (10) Noncompliance with medication regimen Current Visit: No Status: Resolved Code(s): Z91.14 - PATIENT'S OTHER NONCOMPLIANCE WITH MEDICATION REGIMEN (11) UTI (urinary tract infection) Current Visit: No Status: Resolved Code(s): N39.0 - URINARY TRACT INFECTION , SITE NOT SPECIFIED
[2017-05-18] MEDS: LOTRIMIN CREAM 30 GM TP SCH ×2 (10:06→22:12)
[2017-05-18] MEDS: NORVASC 5 MG PO SCH (10:06)
[2017-05-18] MEDS: Seroquel 100 MG PO SCH ×2 (10:06→22:11)
[2017-05-18] MEDS: NEURONTIN 300 MG PO SCH ×3 (10:06→22:11)
[2017-05-18] MEDS: NovoLOG Insulin SQ PRN ×2 (18:06→22:13)
[2017-05-18] MEDS: ZOCOR 20MG PO SCH (22:11)
[2017-05-18] MEDS: Flomax 0.4 MG PO SCH (22:11)
[2017-05-18] MEDS: Levofloxacin 500MG/100ML D5W 500 MG/100 ML BAG IV SCH (22:14)
[2017-05-19] MEDS: SUBLIMAZE 100 MCG/2 ML IV PRN ×6 (01:05→21:49)
[2017-05-19 05:59] LABS: Mean Cell Volume 93.3 fl (78-100); Mean Corpuscular Hemoglobin 28.7 pg (26-32); Mean Platelet Volume 11.7 fl (6-9.5); Platelet Count 179 K/mm3 (150-450); Red Blood Count 2.82 M/mm3 (4.1-5.6); Red Cell Distribution Width 12.8 % (11.5-14.0); White Blood Count 5.8 K/mm3 (4.0-10.5)
[2017-05-19] MEDS: Lantus Insulin SQ SCH (07:54)
[2017-05-19 09:01] LABS: ANION GAP 10.7 MEQ/L (5-15); Carbon Dioxide 23.9 mEq/L (21-32); Potassium 4.5 mEq/L (3.5-5.1)
[2017-05-19] MEDS ORDERED: DIFLUCAN PO ONE (09:44)
[2017-05-19] MEDS: NEURONTIN 300 MG PO SCH ×3 (10:21→21:47)
[2017-05-19] MEDS: Seroquel 100 MG PO SCH ×2 (10:21→21:47)
[2017-05-19] MEDS: NORVASC 5 MG PO SCH (10:21)
[2017-05-19] MEDS: LOTRIMIN CREAM 30 GM TP SCH ×2 (10:22→21:48)
--- NOTE | 2017-05-19 11:02 | PCM.NOTE ---
Date and Time: 05/19/17 1057 Subjective Assessment: he is still having the cervical radiculopathy pain no obvious bleeding noted he is having more pain in the groin and the rash is worse today compared to yesterday with excoriated skin and new satellite lesions. he states he is very weak and in pain and does not feel he can clean the area on his own at home. Objective Exam General Appearance: no apparent distress, alert Neurologic Exam: alert, oriented x 3, cooperative Skin Exam: pale Eye Exam: PERRL, EOMI, eyes nml inspection, pale conjunctivae, No scleral icterus Ears, Nose, Throat Exam: normal ENT inspection, pharynx normal, moist mucous membranes Neck Exam: normal inspection, non-tender, supple, full range of motion Respiratory Exam: normal breath sounds, lungs clear, No respiratory distress Cardiovascular Exam: regular rate/rhythm, normal heart sounds Gastrointestinal/Abdomen Exam: soft, No tenderness, No mass Extremity Exam: normal inspection, No pedal edema Back Exam: normal inspection, normal range of motion, No CVA tenderness, No vertebral tenderness Male Genitalia Exam: other (Khan in place there sloughing of skin in inguinal folds and erythema of scrotum with significant erythema and satellite blisters the swelling of the penis and scrotum have improved.) Rectal Exam: deferred OBJECTIVE DATA Vital Signs: Vital Signs - 24 hr Temp Pulse Resp BP Pulse Ox 05/19/17 07:48 99.3 F 73 18 108/59 92 L 05/19/17 04:00 98.3 F 93 H 16 117/70 97 05/18/17 23:31 98.6 F 77 18 184/83 97 05/18/17 20:01 98.8 F 79 18 174/80 96 05/18/17 15:56 98.4 F 66 12 188/65 20 L 05/18/17 12:00 98.6 F 72 139/70 20 L Pain Assessment - Last Documented Pain Intensity 8 Pain Scale Used 0-10 Pain Scale Intake and Output: Intake & Output 05/16/17 05/17/17 05/18/17 05/19/17 11:59 11:59 11:59 11:59 Intake Total 1320 1166 960 Output Total 800 6860 2550 Balance 520 284 -1590 Weight 86.908 kg 86.908 kg Lab Results: Accuchecks Date 05/19/17 Date 05/18/17 Date 05/18/17 Time 22:30 Accucheck Value: 162 Accucheck Value: 286 Accucheck Value: 165 Accucheck Value: 195 Lab Results-Last 24 Hours 05/19/17 05/19/17 Range/Units 05:03 05:03 WBC 5.8 (4.0-10.5) K/mm3 RBC 2.82 L (4.1-5.6) M/mm3 Hgb 8.1 L (12.5-18.0) gm/dl Hct 26.3 L (42-50) % MCV 93.3 (78-100) fl MCH 28.7 (26-32) pg MCHC 30.8 L (32-36) g/dl RDW 12.8 (11.5-14.0) % Plt Count 179 (150-450) K/mm3 MPV 11.7 H (6-9.5) fl Sodium 141 (136-145) mEq/L Potassium 4.5 (3.5-5.1) mEq/L Chloride 111 H (98-107) mEq/L Carbon Dioxide 23.9 (21-32) mEq/L Anion Gap 10.7 (5-15) MEQ/L BUN 26 H (9-20) mg/dL Creatinine 1.49 H (0.55-1.30) mg/dl Estimated GFR 52 ML/MIN Glucose 167 H (70-110) MG/DL Calcium 7.9 L (8.5-10.1) mg/dL Assessment/Plan (1) Obstructive uropathy Current Visit: Yes Status: Acute Assessment & Plan: continue Khan to gravity urine output is improved Code(s): N13.9 - OBSTRUCTIVE AND REFLUX UROPATHY, UNSPECIFIED (2) Acute kidney injury Current Visit: Yes Status: Acute Assessment & Plan: stable currently encourage po intake currently Code(s): N17.9 - ACUTE KIDNEY FAILURE, UNSPECIFIED (3) Uncontrolled diabetes mellitus Current Visit: Yes Status: Acute Assessment & Plan: improved on the lantus 25 units and sliding scale coverage now Code(s): E11.65 - TYPE 2 DIABETES MELLITUS WITH HYPERGLYCEMIA (4) Uncontrolled hypertension Current Visit: Yes Status: Acute Assessment & Plan: improving on amlodipine Code(s): I10 - ESSENTIAL (PRIMARY) HYPERTENSION (5) Type 1 diabetes mellitus, uncontrolled Current Visit: No Status: Resolved Code(s): E10.65 - TYPE 1 DIABETES MELLITUS WITH HYPERGLYCEMIA (6) Anemia Current Visit: Yes Status: Acute Assessment & Plan: acutely worsened with 2 pt drop in hgb unclear origin had recent upper and lower endoscopy for the same problem with no bleeding found no bleeding in stool check iron studies, folate and b12 repeat cbc in am Code(s): D64.9 - ANEMIA, UNSPECIFIED (7) Coronary artery disease Current Visit: Yes Status: Chronic Code(s): I25.10 - ATHSCL HEART DISEASE OF [place] CORONARY ARTERY W/O ANG PCTRS (8) Depression Current Visit: Yes Status: Chronic Code(s): F32.9 - MAJOR DEPRESSIVE DISORDER, SINGLE EPISODE, UNSPECIFIED (9) Diabetic neuropathy associated with type 1 diabetes mellitus Current Visit: No Status: Chronic Code(s): E10.40 - TYPE 1 DIABETES MELLITUS WITH DIABETIC NEUROPATHY, UNSP (10) Noncompliance with medication regimen Current Visit: No Status: Resolved Code(s): Z91.14 - PATIENT'S OTHER NONCOMPLIANCE WITH MEDICATION REGIMEN (11) UTI (urinary tract infection) Current Visit: No Status: Resolved Code(s): N39.0 - URINARY TRACT INFECTION , SITE NOT SPECIFIED
[2017-05-19] MEDS: NovoLOG Insulin SQ PRN (11:09)
[2017-05-19] MEDS: FOLATE 1 MG PO SCH (12:24)
[2017-05-19] MEDS: Flomax 0.4 MG PO SCH (21:47)
[2017-05-19] MEDS: ZOCOR 20MG PO SCH (21:48)
[2017-05-19] MEDS: Levofloxacin 500MG/100ML D5W 500 MG/100 ML BAG IV SCH (21:49)
[2017-05-20] MEDS: SUBLIMAZE 100 MCG/2 ML IV PRN ×3 (02:21→10:59)
[2017-05-20 04:37] VITALS: PULSE 76; O2SAT 96
[2017-05-20 05:42] LABS: Mean Cell Volume 92.3 fl (78-100); Mean Platelet Volume 10.9 fl (6-9.5); Platelet Count 189 K/mm3 (150-450); Red Blood Count 2.84 M/mm3 (4.1-5.6); Red Cell Distribution Width 12.6 % (11.5-14.0); White Blood Count 5.4 K/mm3 (4.0-10.5)
[2017-05-20 05:46] LABS: Mean Corpuscular Hemoglobin 28.8 pg (26-32)
[2017-05-20 06:31] LABS: ALBUMIN 1.5 g/dL (3.4-5.0); ALKALINE PHOSPHATASE 107 U/L (46-116); ANION GAP 9.6 MEQ/L (5-15); BLOOD UREA NITROGEN 27 mg/dL (9-20); CHLORIDE 112 mEq/L (98-107); Carbon Dioxide 26.2 mEq/L (21-32); Glucose 160 MG/DL (70-110); LDH-LACTATE DEHYDROGENASE 183 U/L (85-227); Potassium 4.3 mEq/L (3.5-5.1); SGOT/AST 13 U/L (15-37); SGPT/ALT 7 U/L (12-78); SODIUM 144 mEq/L (136-145); Total Protein 4.8 gm/dL (6.4-8.2)
[2017-05-20 06:50] LABS: BILIRUBIN,TOTAL < 0.10 mg/dL (0.2-1.0)
[2017-05-20 07:40] VITALS: BP 175/82
[2017-05-20] MEDS: Lantus Insulin SQ SCH (08:16)
[2017-05-20] MEDS: FOLATE 1 MG PO SCH (09:30)
[2017-05-20] MEDS: Seroquel 100 MG PO SCH (09:30)
[2017-05-20] MEDS: LOTRIMIN CREAM 30 GM TP SCH (09:30)
[2017-05-20] MEDS: NORVASC 5 MG PO SCH (09:30)
[2017-05-20] MEDS: NEURONTIN 300 MG PO SCH (09:30)
--- NOTE | 2017-05-20 09:42 | PCM.DCORD ---
- Discharge Discharge Date: 05/20/17 Disposition: HOME HEALTH SERVICE Condition: Stable Prescriptions: New Clotrimazole/Betamet Diprop [Lotrisone Cream] 1 applic TP DAILY #45 g Amlodipine Besylate 5 mg [Norvasc 5 mg] 5 mg PO QAM #0 tablet Continue Insulin Glargine [Lantus Insulin] 30 unit SQ HS Gabapentin [Neurontin] 600 mg PO TID #90 tablet Atorvastatin Calcium 20 mg PO HS Tamsulosin HCl 0.4 mg [Flomax 0.4 MG] 0.4 mg PO HS Ondansetron [Zofran Odt] 4 mg PO Q8HPRN PRN #10 tab.rapdis PRN Reason: Nausea Quetiapine Fumarate [Seroquel] 200 mg PO BID Additional Instructions: Ensure High Protein 8 ounces daily Rx sent electronically to [facility] as well as Rx for test strips and lancets to the pharmacy Home health aid and RN scheduled to start tomorrow. Follow up with: LISHA KRAMER [Primary Care Provider] - Forms: Patient Portal Information
--- NOTE | 2017-05-20 11:32 | PCM.DS ---
Discharge Summary Date of Admission: 05/17/17 02:06 Date of Discharge: 05/20/17 Admitting Physician: LISHA KRAMER Primary Care Provider: LISHA KRAMER Allergies Allergies bee venom protein (honey bee) Allergy (Verified 05/16/17 22:50) erythromycin lactobionate [From Erythrocin] Allergy (Verified 05/16/17 22:50) ketorolac [From Toradol] Allergy (Verified 05/16/17 22:50) methocarbamol Allergy (Verified 05/16/17 22:50) Penicillins Allergy (Verified 05/16/17 22:50) egg Adverse Reaction (Verified 05/16/17 22:50) morphine Adverse Reaction (Verified 05/16/17 22:50) Hospital Summary - Hospital Course Hospital Course: patient presented with rash to groin and pain found to have sugar reading over 700 and bp in the 200's systolic and very weak and pale. He was found to have acute kidney injury and his chronic obstructive uropathy and this improved with catheter placement and restarting his home medications. He was restarted on home insulin with sliding scale with good control of his sugar and restarted on home amlodipine with good control of his bp. His anemia appeared to worsen significantly again but stabilized at hgb of 8.1 and he does have evidence of low on folate and iron studies consistent with chronic disease. He had recent upper and lower scopes for this problem that were negative. his albumin and protein levels are very low and discussed his diet and likely not getting adequate nutrition in his current home situation. We discussed foods with high protein and to increase protein intake and recommend supplement with an ensure daily. His rash continues to be severe but is less painful. He has a home health aid that will be coming daily starting tomorrow. Discussed with his chronic worsening debilitated state he may require higher level detention care but he declined this at this time. It appears with his multiple re- admissions and functional decline he needs significant extra help and I recommended detention care but he wants to stay at home and try the home nursing aid daily with home nurse three times per week. His depressed mood seems somewhat better on the 400 mg of the seroquel. - Vitals & Intake/Output Vital Signs: Vital Signs Temperature 98.7 F 05/20/17 07:40 Pulse Rate 76 05/20/17 07:40 Respiratory Rate 18 05/20/17 07:40 Blood Pressure 175/82 05/20/17 07:40 O2 Sat by Pulse Oximetry 96 05/20/17 07:40 Intake & Output: Intake & Output 05/17/17 05/18/17 05/19/17 05/20/17 11:59 11:59 11:59 11:59 Intake Total 1320 1166 960 580 Output Total 800 1450 2650 2150 Balance 861 -465 -9162 -6316 Weight 86.908 kg 86.908 kg - Lab Result Diagrams: 05/20/17 05:34 05/20/17 05:34 Lab Results-Last 24 Hrs: Accuchecks Date 05/20/17 Date 05/19/17 Date 05/19/17 Date 05/19/17 Time 07:40 Time 21:00 Accucheck Value: 127 Accucheck Value: 146 Accucheck Value: 150 Accucheck Value: 220 Lab Results-Last 24 Hours 05/20/17 05/20/17 Range/Units 05:34 05:34 WBC 5.4 (4.0-10.5) K/mm3 RBC 2.84 L (4.1-5.6) M/mm3 Hgb 8.2 L (12.5-18.0) gm/dl Hct 26.2 L (42-50) % MCV 92.3 (78-100) fl MCH 28.8 (26-32) pg MCHC 31.3 L (32-36) g/dl RDW 12.6 (11.5-14.0) % Plt Count 189 (150-450) K/mm3 MPV 10.9 H (6-9.5) fl Sodium 144 (136-145) mEq/L Potassium 4.3 (3.5-5.1) mEq/L Chloride 112 H (98-107) mEq/L Carbon Dioxide 26.2 (21-32) mEq/L Anion Gap 9.6 (5-15) MEQ/L BUN 27 H (9-20) mg/dL Creatinine 1.34 H (0.55-1.30) mg/dl Estimated GFR 59 ML/MIN Glucose 160 H (70-110) MG/DL Calcium 8.2 L (8.5-10.1) mg/dL Total Bilirubin < 0.10 L (0.2-1.0) mg/dL AST 13 L (15-37) U/L ALT 7 L (12-78) U/L Alkaline Phosphatase 107 (46-116) U/L Lactate Dehydrogenase 183 (85-227) U/L Serum Total Protein 4.8 L (6.4-8.2) gm/dL Albumin 1.5 L (3.4-5.0) g/dL Micro Results-Entire Visit: Microbiology 05/17/17 10:00 Urine Culture - Final Urine, Indwelling Catheter NO GROWTH Accuchecks Date 05/20/17 Date 05/19/17 Date 05/19/17 Date 05/19/17 Time 07:40 Time 21:00 Accucheck Value: 127 Accucheck Value: 146 Accucheck Value: 150 Accucheck Value: 220 - Procedures and Test Procedures and Tests throughout Hospitalization: Therapy Orders & Screens 05/17/17 01:23 Oxygen NASAL CANNULA 2 lpm Comment: Discharge Exam General Appearance: no apparent distress, alert Neurologic Exam: alert, oriented x 3, cooperative, depressed mood/affect Skin Exam: warm, dry, rash, pale Eye Exam: PERRL, EOMI, eyes nml inspection Ears, Nose, Throat Exam: normal ENT inspection, pharynx normal, moist mucous membranes Neck Exam: normal inspection, non-tender, supple, full range of motion Respiratory Exam: normal breath sounds, lungs clear, No respiratory distress Cardiovascular Exam: regular rate/rhythm, normal heart sounds Gastrointestinal/Abdomen Exam: soft, No tenderness, No mass Extremity Exam: normal inspection, normal range of motion Back Exam: normal inspection, normal range of motion, No CVA tenderness, No vertebral tenderness Male Genitalia Exam: other (macerted erythematous inguinal folds with satellite lesions Khan in place with clear yellow urine) Rectal Exam: deferred Final Diagnosis/Problem List - Final Discharge Diagnosis/Problem (1) Obstructive uropathy Current Visit: Yes Status: Acute (2) Acute kidney injury Current Visit: Yes Status: Acute (3) Uncontrolled diabetes mellitus Current Visit: Yes Status: Acute (4) Uncontrolled hypertension Current Visit: Yes Status: Acute (5) Type 1 diabetes mellitus, uncontrolled Current Visit: No Status: Resolved (6) Anemia Current Visit: Yes Status: Acute (7) Coronary artery disease Current Visit: Yes Status: Chronic (8) Depression Current Visit: Yes Status: Chronic (9) Diabetic neuropathy associated with type 1 diabetes mellitus Current Visit: No Status: Chronic (10) Noncompliance with medication regimen Current Visit: No Status: Resolved (11) UTI (urinary tract infection) Current Visit: No Status: Resolved - Discharge Disposition: HOME HEALTH SERVICE Condition: Stable Prescriptions: New Clotrimazole/Betamet Diprop [Lotrisone Cream] 1 applic TP DAILY #45 g Amlodipine Besylate 5 mg [Norvasc 5 mg] 5 mg PO QAM #0 tablet Continue Insulin Glargine [Lantus Insulin] 30 unit SQ HS Gabapentin [Neurontin] 600 mg PO TID #90 tablet Atorvastatin Calcium 20 mg PO HS Tamsulosin HCl 0.4 mg [Flomax 0.4 MG] 0.4 mg PO HS Ondansetron [Zofran Odt] 4 mg PO Q8HPRN PRN #10 tab.rapdis PRN Reason: Nausea Quetiapine Fumarate [Seroquel] 200 mg PO BID Instructions: Hyperglycemia -- Adult Additional Instructions: Ensure High Protein 8 ounces daily Rx sent electronically to [facility] as well as Rx for test strips and lancets to the pharmacy Home health aid and RN scheduled to start tomorrow. Follow up with: LISHA KRAMER [Primary Care Provider] - Forms: Patient Portal Information
== END 2017-05-20 11:15 | disposition home health service (06) ==
LOC: ED 22:23 → MED SURG 05-17 02:06 → INTOOBSV 05-17 02:06
PROVIDERS: ADMIT Family Medicine; ATTEND Family Medicine
DX: N13.9 Obstructive and reflux uropathy, unspecified (principal); N17.9 Acute kidney failure, unspecified; E10.65 Type 1 diabetes mellitus with hyperglycemia; E10.40 Type 1 diabetes mellitus with diabetic neuropathy, unspecified; I10 Essential (primary) hypertension; D64.9 Anemia, unspecified; M54.12 Radiculopathy, cervical region; I25.10 Atherosclerotic heart disease of native coronary artery without angina pectoris; F32.9 Major depressive disorder, single episode, unspecified; Z91.14 Patient's other noncompliance with medication regimen; N39.0 Urinary tract infection, site not specified; Z86.73 Personal history of transient ischemic attack (TIA), and cerebral infarction without residual deficits; Z85.47 Personal history of malignant neoplasm of testis
CPT/HCPCS: 36000; 36415; 51702; 80048; 80053; 81000; 81002; 82607; 82728; 82746; 82962; 83036; 83540; 83550; 83615; 83735; 85025; 85027; 85045; 87086; 93005; 93268; 94760; 96360; 96365; 96374; 96375; 99285; G0378; J1642; J1940; J1956; J3010; A9270-GY

== ENCOUNTER 2017-05-20 19:38 | Emergency (ER) | payer OTHER ==
[2017-05-20] MEDS ORDERED: Nitrostat 0.4 MG (ED) SL ONE ×2 (19:47→20:02)
[2017-05-20] MEDS ORDERED: Sodium Chloride 0.9% 1000 ML 1,000 ML IV SCH (20:00)
[2017-05-20 20:01] LABS: Mean Cell Volume 92.2 fl (78-100); Mean Corpuscular Hemoglobin 28.8 pg (26-32); Mean Platelet Volume 10.9 fl (6-9.5); Platelet Count 198 K/mm3 (150-450); Red Blood Count 3.09 M/mm3 (4.1-5.6); Red Cell Distribution Width 12.6 % (11.5-14.0); White Blood Count 7.9 K/mm3 (4.0-10.5)
[2017-05-20] MEDS ORDERED: Sodium Chloride 0.9% 1000 ML 1,000 ML ONE (20:02)
--- NOTE | 2017-05-20 20:10 | ERPHSYRPT ---
- History of Present Illness Time Seen by Provider: 05/20/17 19:39 Source: patient, EMS Exam Limitations: no limitations Patient Subjective Stated Complaint: pt was just released from the hospital this after noon to home with help -this john he was being helped from his wheel chair to the bed when he slumped to the floor - according to ems he was lifted to the cot by rescue no co of pain no obvious injuries -enroute he would not respond to ems but on arr here he is awake and alert and talking Triage Nursing Assessment: pt is awake and aelrt and able to answer questions - his mouth is dry and his color is pale and skin is dry Physician History: ABOUT 2 HOURS AGO AT HOME PT WAS BEING TRANSFERRED TO HIS BED FROM HIS WHEELCHAIR AND PT SLOWLY FELL TO THE FLOOR AND BECAME UNRESPONSIVE. PT C/O LEFT ANTERIOR CHEST PAIN WITH PAIN RADIATING DOWN HIS LEFT ARM; DENIES ANY OTHER PAIN , COUGH, FEVER, NAUSEA, VOMITING. PT STATES HE HAD A HEMORRHAGIC STROKE IN DECEMBER 2013. PT STATES HE CANNOT WALK DUE TO INABILITY TO MOVE HIS LEGS. Allergies/Adverse Reactions: bee venom protein (honey bee) Allergy (Verified 05/16/17 22:50) erythromycin lactobionate [From Erythrocin] Allergy (Verified 05/16/17 22:50) ketorolac [From Toradol] Allergy (Verified 05/16/17 22:50) methocarbamol Allergy (Verified 05/16/17 22:50) Penicillins Allergy (Verified 05/16/17 22:50) egg Adverse Reaction (Verified 05/16/17 22:50) morphine Adverse Reaction (Verified 05/16/17 22:50) Home Medications: Insulin Glargine [Lantus Insulin] 30 unit SQ HS 02/13/17 [History] Atorvastatin Calcium 20 mg PO HS 04/06/17 [History] Tamsulosin HCl 0.4 mg [Flomax 0.4 MG] 0.4 mg PO HS 04/06/17 [History] Quetiapine Fumarate [Seroquel] 200 mg PO BID 05/16/17 [History] Hx Tetanus, Diphtheria Vaccination/Date Given: Yes Hx Influenza Vaccination/Date Given: No Hx Pneumococcal Vaccination/Date Given: Yes - Review of Systems Constitutional: No Fever Respiratory: No Cough, No Dyspnea Cardiac: Chest Pain (LEFT ANTERIOR CHEST PAIN WITH PAIN RADIATING DOWN LEFT ARM. ) Abdominal/Gastrointestinal: No Abdominal Pain, No Nausea, No Vomiting Neurological: Focal Weakness (BOTH LEGS(ONGOING)), Other (UNRESPONSIVENESS TODAY ) All Other Systems: Reviewed and Negative - Past Medical History Pertinent Past Medical History: Yes Neurological History: Stroke ENT History: Cataracts Cardiac History: High Cholesterol, Hypertension Respiratory History: No Pertinent History Endocrine Medical History: Diabetes Type I Musculoskeletal History: Fractures, Other GI Medical History: No Pertinent History History: No Pertinent History Psycho-Social History: Anxiety Male Reproductive Disorders: Testicular Cancer Other Medical History: testicular cancer (1999), trauma from accident pt states only "5 vertebrae left" - Past Surgical History Past Surgical History: Yes Neuro Surgical History: Other Cardiac: Cardiac Catheterization, Cardiac Stent Respiratory: No Pertinent History Gastrointestinal: No Pertinent History, Cholecystectomy Genitourinary: No Pertinent History Musculoskeletal: Orthopedic Surgery Male Surgical History: Testicular Surgery Other Surgical History: oral surgery,states brain surgery/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 orchectomy. PORT PLACED IN 2012. CARDIAC STENT IN 2011; gallbladder - Social History Smoking Status: Never smoker Exposure to second hand smoke: No Alcohol Use: None Drug Use: none Patient Lives Alone: No Significant Family History: no pertinent family hx - Nursing Vital Signs Nursing Vital Signs: Initial Vital Signs Temperature 98 F 05/20/17 19:55 Pulse Rate 80 05/20/17 19:55 Respiratory Rate 20 05/20/17 19:55 Blood Pressure 140/80 05/20/17 19:55 O2 Sat by Pulse Oximetry 96 05/20/17 19:55 Pain Scale Pain Intensity 0 - Physical Exam General Appearance: alert Eye Exam: other (PERRL) Ears, Nose, Throat Exam: dry mucous membranes Neck Exam: normal inspection Respiratory Exam: normal breath sounds, lungs clear Cardiovascular Exam: normal heart sounds Gastrointestinal/Abdomen Exam: soft, normal bowel sounds Back Exam: normal inspection, No vertebral tenderness Extremity Exam: other (NO ROM OF LEGS BUT LEFT LARGE TOE HAS ROM.) Neurologic Exam: alert, cooperative Skin Exam: warm, dry SpO2 Interpretation: normal SpO2: 96 Oxygen Delivery: Room Air - Course Nursing assessment & vital signs reviewed: Yes EKG Interpreted by Me: RATE (79), Sinus Rhythm, NORMAL AXIS, NORMAL INTERVALS - Radiology Exams Chest X-ray Interpretation: Interpreted by me, No Pneumonia - CT Exams Head CT Interpretation: Tele-radiologist Report (ACUTE NON-HEMORRHAGIC INFARCT LEFT BASAL GANGLIA AND SUBINSULAR WHITE MATTER MEASURING 2.5 X 1.5 CM. ATROPHY AND PRIOR LEFT OCCIPITAL INFARCT AND CHRONIC MICROANGIOPATHIC CHANGE IN SUPRATENTORIAL WHITE MATTER.) Ordered Tests: Active Orders 24 hr Category Date Time Status ACCUCHECK [Accucheck] STAT Care 05/20/17 20:35 Active Catheter-Eddy Khan STAT Care 05/20/17 19:47 Active EKG-ER Only STAT Care 05/20/17 19:47 Active IV Insertion STAT Care 05/20/17 19:47 Active Oxygen-ED Only NASAL CANNULA 2 lpm Care 05/20/17 19:47 Active Pulse Oximetry (ED) STAT Care 05/20/17 19:47 Active CHEST 1 VIEW (PORTABLE) Stat Exams 05/20/17 19:50 Taken HEAD WITHOUT CONTRAST [CT] Stat Exams 05/20/17 19:52 Taken AMYLASE Stat Lab 05/20/17 19:55 Completed CBC W DIFF Stat Lab 05/20/17 19:55 Completed CMP Stat Lab 05/20/17 19:55 Completed LIPASE Stat Lab 05/20/17 19:55 Completed MAGNESIUM Stat Lab 05/20/17 19:55 Completed Manual Differential NC Stat Lab 05/20/17 19:55 Completed NT PRO BNP Stat Lab 05/20/17 19:55 Completed PROTIME WITH INR Stat Lab 05/20/17 19:55 Completed PTT Stat Lab 05/20/17 19:55 Completed TROPONIN Q3H Lab 05/20/17 19:55 Completed TROPONIN Q3H Lab 05/20/17 23:00 Ordered TROPONIN Q3H Lab 05/21/17 02:00 Ordered TROPONIN Q3H Lab 05/21/17 05:00 Ordered TROPONIN Q3H Lab 05/21/17 08:00 Ordered UA W/RFX UR CULTURE Stat Lab 05/20/17 19:49 Ordered Medication Summary Generic Name Dose Route Start Last Admin Trade Name Freq PRN Reason Stop Dose Admin Sodium Chloride 1,000 mls @ 250 mls/hr 05/20/17 20:00 05/20/17 20:10 Sodium Chloride 0.9% 1000 Ml IV 06/19/17 19:59 250 mls/hr .Q4H DIONISIO Administration Discontinued Medications Generic Name Dose Route Start Last Admin Trade Name Freq PRN Reason Stop Dose Admin Nitroglycerin 0.4 mg 05/20/17 19:47 05/20/17 20:10 Nitrostat 0.4 Mg (Ed) SL 05/20/17 19:48 0.4 mg STAT ONE Administration Nitroglycerin Confirm 05/20/17 20:02 Nitrostat 0.4 Mg (Ed) Administered 05/20/17 20:03 Dose 0.4 mg SL .STK-MED ONE Lab/Rad Data: Laboratory Result Diagrams 05/20/17 19:55 05/20/17 19:55 Laboratory Results 05/20/17 05/20/17 05/20/17 Range/Units 19:55 19:55 19:55 WBC (4.0-10.5) K/mm3 RBC (4.1-5.6) M/mm3 Hgb (12.5-18.0) gm/dl Hct (42-50) % MCV (78-100) fl MCH (26-32) pg MCHC (32-36) g/dl RDW (11.5-14.0) % Plt Count (150-450) K/mm3 MPV (6-9.5) fl INR 0.88 (0.8-3.0) APTT 24.1 (24.1-36.1) SECONDS Sodium 141 (136-145) mEq/L Potassium 4.3 (3.5-5.1) mEq/L Chloride 110 H (98-107) mEq/L Carbon Dioxide 23.6 (21-32) mEq/L Anion Gap 11.7 (5-15) MEQ/L BUN 26 H (9-20) mg/dL Creatinine 1.46 H (0.55-1.30) mg/dl Estimated GFR 53 ML/MIN Glucose 220 H (70-110) MG/DL Calcium 8.3 L (8.5-10.1) mg/dL Magnesium 1.7 L (1.8-2.4) mg/dL Total Bilirubin < 0.10 L (0.2-1.0) mg/dL AST 15 (15-37) U/L ALT 8 L (12-78) U/L Alkaline Phosphatase 123 H (46-116) U/L Troponin I < 0.017 (0.000-0.056) ng/ml NT-Pro-B Natriuret Pep 458 H (0-125) pg/ml Serum Total Protein 5.4 L (6.4-8.2) gm/dL Albumin 1.8 L (3.4-5.0) g/dL Amylase 31 (25-115) U/L Lipase 127 (73-393) U/L 05/20/17 Range/Units 19:55 WBC 7.9 (4.0-10.5) K/mm3 RBC 3.09 L (4.1-5.6) M/mm3 Hgb 8.9 L (12.5-18.0) gm/dl Hct 28.5 L (42-50) % MCV 92.2 (78-100) fl MCH 28.8 (26-32) pg MCHC 31.2 L (32-36) g/dl RDW 12.6 (11.5-14.0) % Plt Count 198 (150-450) K/mm3 MPV 10.9 H (6-9.5) fl INR (0.8-3.0) APTT (24.1-36.1) SECONDS Sodium (136-145) mEq/L Potassium (3.5-5.1) mEq/L Chloride (98-107) mEq/L Carbon Dioxide (21-32) mEq/L Anion Gap (5-15) MEQ/L BUN (9-20) mg/dL Creatinine (0.55-1.30) mg/dl Estimated GFR ML/MIN Glucose (70-110) MG/DL Calcium (8.5-10.1) mg/dL Magnesium (1.8-2.4) mg/dL Total Bilirubin (0.2-1.0) mg/dL AST (15-37) U/L ALT (12-78) U/L Alkaline Phosphatase (46-116) U/L Troponin I (0.000-0.056) ng/ml NT-Pro-B Natriuret Pep (0-125) pg/ml Serum Total Protein (6.4-8.2) gm/dL Albumin (3.4-5.0) g/dL Amylase (25-115) U/L Lipase (73-393) U/L - Progress Discussed with DrJe: Other (SPOKE WITH DR GALAN([id number]) WHO ACCEPTED PT FOR TRANSFER TO [facility] A DIRECT ADMISSION.) - Departure Time of Disposition: 22:08 Departure Disposition: Transfer ([facility] [place]) Clinical Impression: CVA, CHEST PAIN, ANEMIA, HX HEMORRHAGIC STROKE Condition: Stable Critical Care Time: No Referrals: LISHA KRAMER [Primary Care Provider] -
[2017-05-20 20:38] LABS: ALBUMIN 1.8 g/dL (3.4-5.0); ALKALINE PHOSPHATASE 123 U/L (46-116); ANION GAP 11.7 MEQ/L (5-15); BLOOD UREA NITROGEN 26 mg/dL (9-20); CHLORIDE 110 mEq/L (98-107); Carbon Dioxide 23.6 mEq/L (21-32); Glucose 220 MG/DL (70-110); LIPASE 127 U/L (73-393); MAGNESIUM 1.7 mg/dL (1.8-2.4); Potassium 4.3 mEq/L (3.5-5.1); SGOT/AST 15 U/L (15-37); SGPT/ALT 8 U/L (12-78); SODIUM 141 mEq/L (136-145); Total Protein 5.4 gm/dL (6.4-8.2)
[2017-05-20 20:46] LABS: INR 0.88 (0.8-3.0); PROTIME 9.9 SECONDS (8.83-12.87)
[2017-05-20 20:48] LABS: PTT 24.1 SECONDS (24.1-36.1)
[2017-05-20 20:59] LABS: BILIRUBIN,TOTAL < 0.10 mg/dL (0.2-1.0)
[2017-05-20] MEDS ORDERED: SUBLIMAZE 100 MCG/2 ML IV ONE (23:07)
[2017-05-20] MEDS ORDERED: Phenergan 25 MG INJ IV ONE (23:07)
[2017-05-20] MEDS ORDERED: SUBLIMAZE 100 MCG/2 ML ONE (23:12)
[2017-05-20] MEDS ORDERED: Phenergan 25 MG INJ ONE (23:12)
[2017-05-20 23:36] LABS: ANISOCYTOSIS 1+; Eosinophil 4 % (0.00-3.0); Platelet Estimate NORMAL (NORMAL); Total Cells Counted 100
[2017-05-20 23:53] VITALS: BP 130/70; PULSE 70; O2SAT 100
[2017-05-21] MEDS ORDERED: SUBLIMAZE 100 MCG/2 ML IV ONE (00:27)
[2017-05-21] MEDS ORDERED: SUBLIMAZE 100 MCG/2 ML ONE (00:29)
--- NOTE | 2017-05-21 08:42 | XRAY ---
Indication: Pain. Comparison: May 02, 2017. Portable chest again slightly underinflated with now right base infiltrate versus atelectasis. Left lung clear. Heart is not enlarged with stable left Port-A-Cath. Comment: Right lung finding not reported by the interpreting ER clinician. I gave telephone report to Dr. Diaz in the ER at 0838 hrs. on May 21, 2017.
--- NOTE | 2017-05-21 08:48 | XRAY ---
Indication: Syncopal episode. Multiple contiguous axial images obtained through the head without contrast. Comparison: April 06, 2017. Study is slightly degraded by motion artifact. Stable age-appropriate global atrophy, mild periventricular degenerative micro-ischemia, and left occipital craniotomy with underlying encephalomalacia. New 1.5 x 2.5 cm hypodensity in the left basal ganglia minimally effacing the left lateral ventricle favoring cytotoxic edema consistent with acute ischemia. No acute intracranial hemorrhage or midline shifting. Fourth ventricle is midline without hydrocephalus. Stable corazon calcification. Bony calvarium intact. Visualized paranasal sinuses are clear. Impression: 1. Motion artifact. 2. New left basal ganglia nonhemorrhagic acute ischemia as detailed. 3. Stable atrophy, degenerative micro-ischemia, and left occipital craniotomy. Comment: Preliminary interpretation was made by [facility]. No discrepancy. CT DI 66.81
== END 2017-05-21 00:45 | disposition short-term general hospital (02) ==
LOC: ED 19:38
DX: I63.9 Cerebral infarction, unspecified (principal); R07.89 Other chest pain; D64.9 Anemia, unspecified; Z86.73 Personal history of transient ischemic attack (TIA), and cerebral infarction without residual deficits; Z79.899 Other long term (current) drug therapy; Z79.4 Long term (current) use of insulin; E78.00 Pure hypercholesterolemia, unspecified; I10 Essential (primary) hypertension; E10.9 Type 1 diabetes mellitus without complications; Z98.61 Coronary angioplasty status
CPT/HCPCS: 36000; 36415; 70450; 71010; 80053; 82150; 82962; 83690; 83735; 83880; 84484; 85025; 85610; 85730; 93005; 93041; 96360; 96361; 96374; 96375; 99285; J2550; J3010; A9270-GY

== ENCOUNTER 2017-06-02 18:55 | Emergency (ER) | payer OTHER, MEDICAID ==
--- NOTE | 2017-06-02 19:10 | ERPHSYRPT ---
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 and a left side weakness from recent admit to [facility] which he thinks was a new CVA but has not changed - he is hypothermic on initial temp and placed on azucena hugger in ER; ; no recent trauma Timing/Duration: today Severity: moderate Character of Deficits: LLE, LUE, RLE, RUE Deficits: off balance, decrease ability to stand, decrease ability to walk Baseline/Normal Cognition: alert oriented x 3 Current Cognition: alert oriented x 3 Associated Symptoms: fatigue, paresthesia, slurred speech Allergies/Adverse Reactions: bee venom protein (honey bee) Allergy (Verified 06/02/17 19:08) erythromycin lactobionate [From Erythrocin] Allergy (Verified 06/02/17 19:08) ketorolac [From Toradol] Allergy (Verified 06/02/17 19:08) methocarbamol Allergy (Verified 06/02/17 19:08) egg Adverse Reaction (Verified 06/02/17 19:08) morphine Adverse Reaction (Verified 06/02/17 19:08) Home Medications: Insulin Glargine [Lantus Insulin] 30 unit SQ HS 02/13/17 [History] Atorvastatin Calcium 20 mg PO HS 04/06/17 [History] Tamsulosin HCl 0.4 mg [Flomax 0.4 MG] 0.4 mg PO HS 04/06/17 [History] Quetiapine Fumarate [Seroquel] 200 mg PO BID 05/16/17 [History] Aspirin [Aspirin EC] 81 mg PO 06/02/17 [History] Ferrous Sulfate 325 mg PO 06/02/17 [History] Hydralazine HCl 25 mg PO 06/02/17 [History] Levofloxacin [Levofloxacin 500 MG Tablet] 500 mg PO DAILY 06/02/17 [ History] Hx Tetanus, Diphtheria Vaccination/Date Given: Yes Hx Influenza Vaccination/Date Given: No Hx Pneumococcal Vaccination/Date Given: Yes - Review of Systems Constitutional: No Fever, No Chills Eyes: No Symptoms Ears, Nose, & Throat: No Symptoms Respiratory: No Cough, No Dyspnea Cardiac: No Chest Pain, No Edema, No Syncope Abdominal/Gastrointestinal: No Abdominal Pain, No Nausea, No Vomiting, No Diarrhea Genitourinary Symptoms: No Dysuria Musculoskeletal: No Back Pain, No Neck Pain Skin: No Rash Neurological: Parasthesia, Other (stable deficits by history, but pt feels speech more slurred, RNs report this is nominal for pt; ), No Dizziness, No Sensory Changes Psychological: No Symptoms Endocrine: No Symptoms Hematologic/Lymphatic: No Symptoms Immunological/Allergic: No Symptoms All Other Systems: Reviewed and Negative - Past Medical History Pertinent Past Medical History: Yes Neurological History: Stroke ENT History: Cataracts Cardiac History: High Cholesterol, Hypertension Respiratory History: No Pertinent History Endocrine Medical History: Diabetes Type I Musculoskeletal History: Fractures, Other GI Medical History: No Pertinent History History: No Pertinent History Psycho-Social History: Anxiety Male Reproductive Disorders: Testicular Cancer Other Medical History: testicular cancer (1999), trauma from accident pt states only "5 vertebrae left" - Past Surgical History Past Surgical History: Yes Neuro Surgical History: Other Cardiac: Cardiac Catheterization, Cardiac Stent Respiratory: No Pertinent History Gastrointestinal: No Pertinent History, Cholecystectomy Genitourinary: No Pertinent History Musculoskeletal: Orthopedic Surgery Male Surgical History: Testicular Surgery Other Surgical History: oral surgery,states brain surgery/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 orchectomy. PORT PLACED IN 2012. CARDIAC STENT IN 2011; gallbladder - Social History Smoking Status: Never smoker Exposure to second hand smoke: No Alcohol Use: None Drug Use: none Patient Lives Alone: No Significant Family History: no pertinent family hx - Nursing Vital Signs Nursing Vital Signs: Initial Vital Signs Temperature 93.9 F 06/02/17 18:57 Pulse Rate 78 06/02/17 18:57 Respiratory Rate 14 06/02/17 18:57 Blood Pressure 134/77 06/02/17 18:57 O2 Sat by Pulse Oximetry 100 06/02/17 18:57 Pain Scale Pain Intensity 9 - [place] Coma Scale Best Eye Response (Mouna): (4) open spontaneously Best Verbal Response ([place]): (5) oriented Best Motor Response ([place]): (6) obeys commands [place] Total: 15 - Physical Exam General Appearance: no apparent distress, alert Eye Exam: bilateral eye: PERRL, EOMI Ears, Nose, Throat Exam: normal ENT inspection, moist mucous membranes Neck Exam: normal inspection, non-tender, supple Respiratory: normal breath sounds, lungs clear, airway intact, No respiratory distress Cardiovascular: regular rate/rhythm, No edema Gastrointestinal: soft, No tenderness, No distention Rectal Exam: deferred Back Exam: normal inspection Extremity Exam: normal inspection, normal range of motion, No pedal edema Peripheral Pulses: carotid (R): 2+, carotid (L): 2+, femoral (R): 2+, femoral (L ): 2+, dorsalis-pedis (R): 2+, dorsalis-pedis (L): 2+ 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, 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 hearing, PERRL, tongue midline Motor/Sensory: weak motor strength RUE (stable old), weak motor strength LUE ( stable per pt , from last admit at [facility]), weak motor strength RLE (stable old ) DTR: bicep (R): 2+, bicep (L): 2+, tricep (R): 2+, tricep (L): 2+, knee (R): 2+ , knee (L): 2+, ankle (R): 2+, ankle (L): 2+ Skin Exam: normal color, warm, dry, No rash Oxygen Delivery: Room Air - Course Nursing assessment & vital signs reviewed: Yes EKG Interpreted by Me: Sinus Rhythm, NORMAL AXIS, Non-specific ST Changes Ordered Tests: Active Orders 24 hr Category Date Time Status Agricultural Technician STAT Care 06/02/17 19:11 Active Clean Catch Urine Specimen STAT Care 06/02/17 19:10 Active EKG-ER Only STAT Care 06/02/17 19:10 Active IV Insertion STAT Care 06/02/17 19:10 Active Pulse Oximetry (ED) STAT Care 06/02/17 19:10 Active HEAD WITHOUT CONTRAST [CT] Stat Exams 06/02/17 19:10 Taken CBC W DIFF Stat Lab 06/02/17 20:00 Completed CMP Stat Lab 06/02/17 20:00 Completed Lactic Acid Stat Lab 06/02/17 20:13 Completed T4 Stat Lab 06/02/17 20:00 Completed TROPONIN Q3H Lab 06/02/17 20:00 Completed TROPONIN Q3H Lab 06/02/17 22:15 Ordered TROPONIN Q3H Lab 06/03/17 01:15 Ordered TROPONIN Q3H Lab 06/03/17 04:15 Ordered TROPONIN Q3H Lab 06/03/17 07:15 Ordered TSH [TSH, 3RD Generation] Stat Lab 06/02/17 20:00 Completed UA W/RFX UR CULTURE Stat Lab 06/02/17 19:10 Ordered Medication Summary Generic Name Dose Route Start Last Admin Trade Name Freq PRN Reason Stop Dose Admin Sodium Chloride 1,000 mls @ 100 mls/hr 06/02/17 19:15 06/02/17 20:08 Sodium Chloride 0.9% 1000 Ml IV 07/02/17 19:14 100 mls/hr .Q10H DIONISIO Administration Lab/Rad Data: Laboratory Result Diagrams 06/02/17 20:00 06/02/17 20:00 Laboratory Results 06/02/17 06/02/17 06/02/17 Range/Units 20:13 20:00 20:00 WBC (4.0-10.5) K/mm3 RBC (4.1-5.6) M/mm3 Hgb (12.5-18.0) gm/dl Hct (42-50) % MCV (78-100) fl MCH (26-32) pg MCHC (32-36) g/dl RDW (11.5-14.0) % Plt Count (150-450) K/mm3 MPV (6-9.5) fl Gran % (36.0-66.0) % Lymphocytes % (24.0-44.0) % Monocytes % (0.0-12.0) % Eosinophils % (0.00-5.0) % Basophils % (0.0-0.4) % Basophils # (0-0.4) Sodium (136-145) mEq/L Potassium (3.5-5.1) mEq/L Chloride (98-107) mEq/L Carbon Dioxide (21-32) mEq/L Anion Gap (5-15) MEQ/L BUN (9-20) mg/dL Creatinine (0.55-1.30) mg/dl Estimated GFR ML/MIN Glucose (70-110) MG/DL Lactic Acid 0.8 (0.4-2.0) Calcium (8.5-10.1) mg/dL Total Bilirubin (0.2-1.0) mg/dL AST (15-37) U/L ALT (12-78) U/L Alkaline Phosphatase (46-116) U/L Troponin I (0.000-0.056) ng/ml Serum Total Protein (6.4-8.2) gm/dL Albumin (3.4-5.0) g/dL Thyroxine (T4) 3.3 (4.7-13.3) UG/DL TSH 3rd Generation 1.084 (0.358-3.740) mIU/L 06/02/17 06/02/17 06/02/17 Range/Units 20:00 20:00 20:00 WBC 5.3 (4.0-10.5) K/mm3 RBC 3.29 L (4.1-5.6) M/mm3 Hgb 9.6 L (12.5-18.0) gm/dl Hct 30.8 L (42-50) % MCV 93.6 (78-100) fl MCH 29.1 (26-32) pg MCHC 31.2 L (32-36) g/dl RDW 13.9 (11.5-14.0) % Plt Count 227 (150-450) K/mm3 MPV 10.8 H (6-9.5) fl Gran % 67.5 H (36.0-66.0) % Lymphocytes % 22.0 L (24.0-44.0) % Monocytes % 4.5 (0.0-12.0) % Eosinophils % 4.9 (0.00-5.0) % Basophils % 1.1 (0.0-0.4) % Basophils # 0.06 (0-0.4) Sodium 143 (136-145) mEq/L Potassium 5.6 H (3.5-5.1) mEq/L Chloride 111 H (98-107) mEq/L Carbon Dioxide 24.6 (21-32) mEq/L Anion Gap 13.2 (5-15) MEQ/L BUN 71 H (9-20) mg/dL Creatinine 1.83 H (0.55-1.30) mg/dl Estimated GFR 41 ML/MIN Glucose 301 H (70-110) MG/DL Lactic Acid (0.4-2.0) Calcium 8.9 (8.5-10.1) mg/dL Total Bilirubin 0.10 L (0.2-1.0) mg/dL AST 33 (15-37) U/L ALT 30 (12-78) U/L Alkaline Phosphatase 112 (46-116) U/L Troponin I < 0.017 (0.000-0.056) ng/ml Serum Total Protein 6.6 (6.4-8.2) gm/dL Albumin 2.5 L (3.4-5.0) g/dL Thyroxine (T4) (4.7-13.3) UG/DL TSH 3rd Generation (0.358-3.740) mIU/L - Progress Progress: improved, re-examined Progress Note: 06/02/17 20:12 pt is noted to be improving with less slurred speech while warming up; 06/02/17 20:16 pt noted to have had original reported onset at 3 hours prior to coming to ER , but Hx of prior hemorrhagic stroke by Hx as contraindication for TPA- but pt also improving . 06/02/17 21:25 discussed with Hospitalist Karyn Briseno at [facility] for Dr. Mina and they accept in transfer; Will see patient in: hospital (full admit) Counseled pt/family regarding: lab results, diagnosis, need for follow-up, rad results - Departure Time of Disposition: 21:26 Departure Disposition: Transfer Clinical Impression: Acute kidney injury, Uncontrolled diabetes mellitus, Hypothermia, Altered mental status, Ischemic changes on head CT Condition: Good Critical Care Time: No Referrals: LISHA KRAMER [Primary Care Provider] - Additional Inst[facility]: [facility]
[2017-06-02] MEDS ORDERED: Sodium Chloride 0.9% 1000 ML 1,000 ML IV SCH (19:15)
[2017-06-02] MEDS ORDERED: Sodium Chloride 0.9% 1000 ML 1,000 ML ONE (19:18)
[2017-06-02 20:09] LABS: BASOPHIL % 1.1 % (0.0-0.4); Eosinophil % 4.9 % (0.00-5.0); Granulocytes % 67.5 % (36.0-66.0); Mean Cell Volume 93.6 fl (78-100); Mean Platelet Volume 10.8 fl (6-9.5); Monocytes % 4.5 % (0.0-12.0); Platelet Count 227 K/mm3 (150-450); Red Blood Count 3.29 M/mm3 (4.1-5.6); Red Cell Distribution Width 13.9 % (11.5-14.0); White Blood Count 5.3 K/mm3 (4.0-10.5)
[2017-06-02 20:14] LABS: Mean Corpuscular Hemoglobin 29.1 pg (26-32)
[2017-06-02 20:20] VITALS: O2SAT 98
[2017-06-02 20:28] LABS: ALBUMIN 2.5 g/dL (3.4-5.0); ANION GAP 13.2 MEQ/L (5-15); Carbon Dioxide 24.6 mEq/L (21-32); Potassium 5.6 mEq/L (3.5-5.1); Total Protein 6.6 gm/dL (6.4-8.2)
[2017-06-02 20:38] LABS: BILIRUBIN,TOTAL 0.1 mg/dL (0.2-1.0)
[2017-06-02 21:22] VITALS: BP 120/78; PULSE 72
--- NOTE | 2017-06-02 21:47 | XRAY ---
Indication: Right-sided headache. Left-sided weakness. Multiple contiguous axial images obtained through the head without contrast. Comparison: May 20, 2017. Study is again degraded by motion artifact. Stable age-appropriate global atrophy, mild periventricular degenerative micro-ischemia, and left occipital craniotomy with underlying encephalomalacia. There is again hypodensity in the left basal ganglia consistent with subacute ischemia. No acute intracranial hemorrhage or midline shifting. Fourth ventricle is midline without hydrocephalus. Stable corazon calcification. Bony calvarium intact. Visualized paranasal sinuses are clear. Impression: 1. Motion artifact. 2. Again left basal ganglia nonhemorrhagic subacute ischemia as detailed. 3. Stable atrophy, degenerative micro-ischemia, and left occipital craniotomy. Comment: Preliminary interpretation was made by [facility]. No discrepancy. CTDI 67.99
[2017-06-02 22:16] LABS: Collection Type CLEAN CATCH; Leukocyte Esterase 2+ (NEGATIVE)
[2017-06-02 22:17] LABS: ADD URINE CULTURE? YES (NO); Bacteria FEW /HPF (NEGATIVE); Bilirubin NEGATIVE (NEGATIVE); Blood 250 Ery/ul (0-5); COMPLETE URINE MICROSCOPIC? YES; Epithelial Cells RARE /HPF (FEW); Glucose 250 mg/dL (NEGATIVE); Mucus MANY /HPF (NEGATIVE); WBC >100 /HPF (0-5)
== END 2017-06-02 22:35 | disposition short-term general hospital (02) ==
LOC: ED 18:55
DX: N17.9 Acute kidney failure, unspecified (principal); E11.65 Type 2 diabetes mellitus with hyperglycemia; T68.XXXA Hypothermia, initial encounter; R41.82 Altered mental status, unspecified; Z00.01 Encounter for general adult medical examination with abnormal findings
CPT/HCPCS: 36000; 36415; 70450; 80053; 81000; 83605; 84436; 84443; 84484; 85025; 87086; 93005; 93041; 96360; 96361; 99285

== ENCOUNTER 2017-06-15 13:42 | Emergency (ER) | payer OTHER ==
[2017-06-15 14:18] LABS: BASOPHIL % 0.7 % (0.0-0.4); Eosinophil % 6.4 % (0.00-5.0); Granulocytes % 67.1 % (36.0-66.0); Lymphocytes % 20.1 % (24.0-44.0); Mean Cell Volume 92.7 fl (78-100); Mean Corpuscular Hemoglobin 28.9 pg (26-32); Mean Platelet Volume 10.3 fl (6-9.5); Monocytes % 5.7 % (0.0-12.0); Platelet Count 166 K/mm3 (150-450); Red Blood Count 2.87 M/mm3 (4.1-5.6); Red Cell Distribution Width 14.2 % (11.5-14.0)
[2017-06-15 14:27] VITALS: O2SAT 98
--- NOTE | 2017-06-15 14:28 | ERPHSYRPT ---
- History of Present Illness Time Seen by Provider: 06/15/17 13:43 Source: patient, EMS, other ([facility] nurse) Patient Subjective Stated Complaint: PT BROUGHT TO ED PER EMS DUE TO HOME HEALTH NURSE REPORTED THAT PT FELL FROM CHAIR-DENIES HITTING HEAD-PT DENIES PAIN -PT HAS PREVIOUS STROKE WITH RIGHT SIDED DEFICITS-NO INCREASE IN DEFICITS Triage Nursing Assessment: PT PALE WARME T [id number] TO ANSWER QUESTIONS- NO ABRASIONS NOTED-RESP EASY ET NONLABORED Physician History: CC: fall Hx: 52 y/o patient was released from [facility] yesterday where he was treated for stroke. He lives at home and has [facility]. [facility] nurse called and stated he apparently fell this AM, no known injury. They wanted him evaluated. Maybe confused? Pt without complaints. EMS noted no complaints. Pt is in poor health. No fever or chills. No vomiting. Uses diaper depends. Timing/Duration: today Severity: mild Allergies/Adverse Reactions: Penicillins Allergy (Severe, Verified 06/15/17 17:14) Shortness of Breath staes anaphylactic shock bee venom protein (honey bee) Allergy (Verified 06/15/17 14:11) erythromycin lactobionate [From Erythrocin] Allergy (Verified 06/15/17 14:11) ketorolac [From Toradol] Allergy (Verified 06/15/17 14:11) methocarbamol Allergy (Verified 06/15/17 14:11) egg Adverse Reaction (Verified 06/15/17 14:11) morphine Adverse Reaction (Verified 06/15/17 14:11) Home Medications: Insulin Glargine [Lantus Insulin] 30 unit SQ HS 02/13/17 [History] Atorvastatin Calcium 20 mg PO HS 04/06/17 [History] Tamsulosin HCl 0.4 mg [Flomax 0.4 MG] 0.4 mg PO HS 04/06/17 [History] Quetiapine Fumarate [Seroquel] 200 mg PO BID 05/16/17 [History] Aspirin [Aspirin EC] 81 mg PO DAILY 06/02/17 [History] Ferrous Sulfate 325 mg PO DAILY 06/02/17 [History] Hydrocodone Bit/Acetaminophen [Hydrocodon-Acetaminophen 5-325] 1 each PO UD 10/31 [History] Insulin Aspart [NovoLOG Insulin] 7 unit SQ TID 06/15/17 [History] Hx Tetanus, Diphtheria Vaccination/Date Given: Yes Hx Influenza Vaccination/Date Given: No Hx Pneumococcal Vaccination/Date Given: Yes Immunizations Up to Date: Yes - Review of Systems Constitutional: Fatigue, Malaise, Weakness, No Fever, No Chills Eyes: No Symptoms Ears, Nose, & Throat: No Symptoms Respiratory: No Cough, No Dyspnea Cardiac: No Chest Pain Abdominal/Gastrointestinal: No Abdominal Pain Skin: No Rash Neurological: Focal Weakness (right leg- old and chronic), No Headache All Other Systems: Reviewed and Negative (pt partially confused) - Past Medical History Pertinent Past Medical History: Yes Neurological History: Stroke ENT History: Cataracts Cardiac History: High Cholesterol, Hypertension Respiratory History: No Pertinent History Endocrine Medical History: Diabetes Type I Musculoskeletal History: Fractures, Other GI Medical History: No Pertinent History History: No Pertinent History Psycho-Social History: Anxiety Male Reproductive Disorders: Testicular Cancer Other Medical History: testicular cancer (1999), trauma from accident pt states only "5 vertebrae left" - Past Surgical History Past Surgical History: Yes Neuro Surgical History: Other Cardiac: Cardiac Catheterization, Cardiac Stent Respiratory: No Pertinent History Gastrointestinal: No Pertinent History, Cholecystectomy Genitourinary: No Pertinent History Musculoskeletal: Orthopedic Surgery Male Surgical History: Testicular Surgery Other Surgical History: oral surgery,states brain surgery/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 orchectomy. PORT PLACED IN 2012. CARDIAC STENT IN 2011; gallbladder - Social History Smoking Status: Never smoker Exposure to second hand smoke: No Alcohol Use: None Drug Use: none Patient Lives Alone: No (lives at home with a roommate) Significant Family History: no pertinent family hx - Nursing Vital Signs Nursing Vital Signs: Initial Vital Signs Temperature 95.3 F 06/15/17 14:25 - Physical Exam General Appearance: alert Eye Exam: PERRL/EOMI Ears, Nose, Throat Exam: dry mucous membranes Neck Exam: supple Respiratory Exam: normal breath sounds Cardiovascular Exam: regular rate/rhythm Gastrointestinal/Abdomen Exam: soft, No tenderness, No distention, No guarding Extremity Exam: pedal edema Neurologic Exam: alert, oriented x 3, cooperative, motor deficits (right leg weak) Skin Exam: warm, dry, pale - Course Nursing assessment & vital signs reviewed: Yes EKG Interpreted by Me: RATE (84), Sinus Rhythm, NORMAL AXIS, NORMAL INTERVALS ( QTc 471), NORMAL QRS, NORMAL ST-T, Other (unchanged from prior) - Radiology Exams cxr X-ray Interpretation: Teleradiologist Report (negative) - CT Exams head CT Interpretation: Tele-radiologist Report (stable with left basal ganglia nonhemorrhagic subacute ischemia, atrophy, degenerative microischemia, and left occipital craniotomy.) Ordered Tests: Active Orders 24 hr Category Date Time Status Accucheck STAT Care 06/15/17 16:55 Active EKG-ER Only STAT Care 06/15/17 13:45 Active IV Insertion STAT Care 06/15/17 13:45 Active Rectal Temperature STAT Care 06/15/17 13:53 Active 1800 Calorie ADA Diet 06/16/17 Breakfast Active CHEST 1 VIEW (PORTABLE) Stat Exams 06/15/17 13:46 Completed HEAD WITHOUT CONTRAST [CT] Stat Exams 06/15/17 13:47 Completed CBC W DIFF Stat Lab 06/15/17 13:45 Completed CMP Stat Lab 06/15/17 14:10 Completed CULTURE,URINE Stat Lab 06/15/17 15:40 Received Lactic Acid Stat Lab 06/15/17 14:00 Completed UA W/ MICROSCOPIC Stat Lab 06/15/17 15:40 Completed Medication Summary Discontinued Medications Generic Name Dose Route Start Last Admin Trade Name Maddie PRN Reason Stop Dose Admin Amoxicillin/Clavulanate Potassium 875 mg 06/15/17 16:54 06/15/17 17:11 Augmentin 875-125 Tablet PO 06/15/17 16:55 Not Given STAT ONE Amoxicillin/Clavulanate Potassium Confirm 06/15/17 17:00 Augmentin 875-125 Tablet Administered 06/15/17 17:01 Dose 875 mg .ROUTE .STK-MED ONE Fluconazole 100 mg 06/15/17 16:53 06/15/17 17:08 Diflucan PO 06/15/17 16:54 100 mg STAT ONE Administration Insulin Aspart 5 unit 06/15/17 16:55 06/15/17 17:08 Novolog Insulin SQ 06/15/17 16:56 5 unit STAT ONE Administration Insulin Aspart Confirm 06/15/17 17:06 Novolog Insulin Administered 06/15/17 17:07 Dose 5 unit .ROUTE .STK-MED ONE Levofloxacin 500 mg 06/15/17 17:11 06/15/17 17:16 Levofloxacin 500 Mg Tablet PO 06/15/17 17:12 500 mg STAT ONE Administration Levofloxacin Confirm 06/15/17 17:15 Levofloxacin 500 Mg Tablet Administered 06/15/17 17:16 Dose 500 mg .ROUTE .[facility] ONE Lab/Rad Data: Laboratory Result Diagrams 06/15/17 13:45 06/15/17 14:10 Laboratory Results 06/15/17 06/15/17 06/15/17 Range/Units 15:40 14:10 14:00 WBC (4.0-10.5) K/mm3 RBC (4.1-5.6) M/mm3 Hgb (12.5-18.0) gm/dl Hct (42-50) % MCV (78-100) fl MCH (26-32) pg MCHC (32-36) g/dl RDW (11.5-14.0) % Plt Count (150-450) K/mm3 MPV (6-9.5) fl Gran % (36.0-66.0) % Lymphocytes % (24.0-44.0) % Monocytes % (0.0-12.0) % Eosinophils % (0.00-5.0) % Basophils % (0.0-0.4) % Basophils # (0-0.4) Sodium 143 (136-145) mEq/L Potassium 4.5 (3.5-5.1) mEq/L Chloride 112 H (98-107) mEq/L Carbon Dioxide 18.3 L (21-32) mEq/L Anion Gap 17.0 H (5-15) MEQ/L BUN 52 H (9-20) mg/dL Creatinine 1.70 H (0.55-1.30) mg/dl Estimated GFR 45 ML/MIN Glucose 188 H (70-110) MG/DL Lactic Acid 0.4 (0.4-2.0) Calcium 8.8 (8.5-10.1) mg/dL Total Bilirubin 0.10 L (0.2-1.0) mg/dL AST 24 (15-37) U/L ALT 33 (12-78) U/L Alkaline Phosphatase 119 H (46-116) U/L Serum Total Protein 6.0 L (6.4-8.2) gm/dL Albumin 2.4 L (3.4-5.0) g/dL Ur Collection Type CCMS Urine Color LT.YELLOW (YELLOW) Urine Appearance CLOUDY (CLEAR) Urine pH 5.0 (5-6) Ur Specific [place] 1.015 (1.005-1.025) Urine Protein 100 (Negative) Urine Ketones NEGATIVE (NEGATIVE) Urine Blood MODERATE (0-5) Syed/ul Urine Nitrite NEGATIVE (NEGATIVE) Urine Bilirubin NEGATIVE (NEGATIVE) Urine Urobilinogen NORMAL (0-1) mg/dL Ur Leukocyte Esterase LARGE (NEGATIVE) Urine Microscopic RBC 2-5 (0-2) /HPF Urine Microscopic WBC >100 (0-5) /HPF Ur Epithelial Cells FEW (FEW) /HPF Urine Bacteria MODERATE (NEGATIVE) /HPF Urine Yeast MANY (NEGATIVE) /HPF Urine Glucose 100 (NEGATIVE) mg/dL Specimen Received 06/15/17 1640 06/15/17 Range/Units 13:45 WBC 6.0 (4.0-10.5) K/mm3 RBC 2.87 L (4.1-5.6) M/mm3 Hgb 8.3 L (12.5-18.0) gm/dl Hct 26.6 L (42-50) % MCV 92.7 (78-100) fl MCH 28.9 (26-32) pg MCHC 31.2 L (32-36) g/dl RDW 14.2 H (11.5-14.0) % Plt Count 166 (150-450) K/mm3 MPV 10.3 H (6-9.5) fl Gran % 67.1 H (36.0-66.0) % Lymphocytes % 20.1 L (24.0-44.0) % Monocytes % 5.7 (0.0-12.0) % Eosinophils % 6.4 H (0.00-5.0) % Basophils % 0.7 (0.0-0.4) % Basophils # 0.04 (0-0.4) Sodium (136-145) mEq/L Potassium (3.5-5.1) mEq/L Chloride (98-107) mEq/L Carbon Dioxide (21-32) mEq/L Anion Gap (5-15) MEQ/L BUN (9-20) mg/dL Creatinine (0.55-1.30) mg/dl Estimated GFR ML/MIN Glucose (70-110) MG/DL Lactic Acid (0.4-2.0) Calcium (8.5-10.1) mg/dL Total Bilirubin (0.2-1.0) mg/dL AST (15-37) U/L ALT (12-78) U/L Alkaline Phosphatase (46-116) U/L Serum Total Protein (6.4-8.2) gm/dL Albumin (3.4-5.0) g/dL Ur Collection Type Urine Color (YELLOW) Urine Appearance (CLEAR) Urine pH (5-6) Ur Specific [place] (1.005-1.025) Urine Protein (Negative) Urine Ketones (NEGATIVE) Urine Blood (0-5) Syed/ul Urine Nitrite (NEGATIVE) Urine Bilirubin (NEGATIVE) Urine Urobilinogen (0-1) mg/dL Ur Leukocyte Esterase (NEGATIVE) Urine Microscopic RBC (0-2) /HPF Urine Microscopic WBC (0-5) /HPF Ur Epithelial Cells (FEW) /HPF Urine Bacteria (NEGATIVE) /HPF Urine Yeast (NEGATIVE) /HPF Urine Glucose (NEGATIVE) mg/dL Specimen Received - Progress Progress Note: 06/15/17 15:46 D/C Summ from Meth reviewed. Consulted social group worker. 06/15/17 16:19 Tests appears stable. No new focal neuro deficits but it would be difficult to detect extension of stroke. He passed swallow eval. manager technical services attempting placement at rehab. 06/15/17 17:25 Pt and partner want to go home. He triggers level 2 assessment. Social workers will continue to help. Rx diflucan and levaquin. Counseled pt/family regarding: lab results, diagnosis, need for follow-up - Departure Time of Disposition: 17:25 Departure Disposition: Home Clinical Impression: UTI (urinary tract infection), general debililty, History of stroke Condition: Fair Critical Care Time: No Referrals: LISHA KRAMER [Primary Care Provider] - Instructions: Prevent Falls, Urinary Tract Infection (UTI) Additional Instructions: Rx levaquin. Rx diflucan. Follow up with Dr Kramer and social group worker. Prescriptions: Fluconazole 100 mg [Diflucan 100 MG] 100 mg PO DAILY #6 tablet Levofloxacin [Levaquin] 500 mg PO DAILY #6 tablet
[2017-06-15 14:46] LABS: ALBUMIN 2.4 g/dL (3.4-5.0); BILIRUBIN,TOTAL 0.1 mg/dL (0.2-1.0); Carbon Dioxide 18.3 mEq/L (21-32); Potassium 4.5 mEq/L (3.5-5.1)
--- NOTE | 2017-06-15 15:25 | XRAY ---
Indication: Confusion. History of stroke. Multiple contiguous axial images obtained through the head without contrast. Comparison: June 02, 2017. Stable age-appropriate global atrophy, mild periventricular degenerative micro-ischemia, and left occipital craniotomy with underlying encephalomalacia. Interval maturing left basal ganglia subacute ischemia. Stable benign corazon calcification. No acute intracranial hemorrhage or midline shifting. Fourth ventricle is midline without hydrocephalus. Remaining bony calvarium intact. Visualized paranasal sinuses are clear. Impression: Stable CT head without contrast again demonstrating left basal ganglia nonhemorrhagic subacute ischemia, atrophy, degenerative micro-ischemia, and left occipital craniotomy with encephalomalacia. No new/acute findings. CTDI 61.67
--- NOTE | 2017-06-15 15:28 | XRAY ---
Indication: Confusion. Comparison: May 20, 2017. Portable chest demonstrates mild clearing of previous right base infiltrate/atelectasis and new right-sided Port-A-Cath without complications. Remaining left lung and heart normal.
[2017-06-15 16:46] LABS: Bilirubin NEGATIVE (NEGATIVE); Collection Type CCMS; Glucose 100 mg/dL (NEGATIVE); Leukocyte Esterase LARGE (NEGATIVE)
[2017-06-15 16:47] LABS: Blood MODERATE Ery/ul (0-5); COMPLETE URINE MICROSCOPIC? YES
[2017-06-15 16:50] LABS: ADD URINE CULTURE? YES (NO); Bacteria MODERATE /HPF (NEGATIVE); Epithelial Cells FEW /HPF (FEW); WBC >100 /HPF (0-5); Yeast MANY /HPF (NEGATIVE)
[2017-06-15] MEDS ORDERED: DIFLUCAN PO ONE (16:53)
[2017-06-15] MEDS ORDERED: NovoLOG Insulin SQ ONE (16:55)
[2017-06-15] MEDS ORDERED: Augmentin 875-125 Tablet ONE (17:00)
[2017-06-15] MEDS ORDERED: NovoLOG Insulin ONE (17:06)
[2017-06-15] MEDS: Augmentin 875-125 Tablet PO ONE ×2 (17:07→17:11)
[2017-06-15] MEDS ORDERED: Levofloxacin 500 MG Tablet PO ONE (17:11)
[2017-06-15] MEDS ORDERED: Levofloxacin 500 MG Tablet ONE (17:15)
[2017-06-15 17:30] VITALS: PULSE 88
[2017-06-15 18:32] VITALS: BP 147/97
== END 2017-06-15 18:32 | disposition home or self-care (01) ==
LOC: ED 13:42
DX: N39.0 Urinary tract infection, site not specified (principal); R53.81 Other malaise; Z86.73 Personal history of transient ischemic attack (TIA), and cerebral infarction without residual deficits; E78.00 Pure hypercholesterolemia, unspecified; I10 Essential (primary) hypertension; W19.XXXA Unspecified fall, initial encounter
CPT/HCPCS: 36000; 36415; 36591; 70450; 71010; 80053; 81000; 82962; 83605; 85025; 87077; 87086; 87186; 93005; 99285; J1642; A9270-GY

== ENCOUNTER 2017-06-20 15:23 | Observation (INO) | payer OTHER, MEDICAID ==
--- NOTE | 2017-06-20 16:06 | ERPHSYRPT ---
- History of Present Illness Time Seen by Provider: 06/20/17 15:58 Source: patient Exam Limitations: clinical condition Patient Subjective Stated Complaint: per ems - home health RN requested tx to hospital for increased confusion and weakness noted during today's visit approx 1100. 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 pt has hx of r side cva, skin is pale, warm and dry, resps are easy and non labored, radial pulses are strong and equal. port present in right chest. pt has poor overall hygiene, appearance unkempt, stains on clothing, and insects present on his person. Physician History: Pt. with recent hx. of CVA and was admitted at [facility] for "stroke." Pt. was d/c on 06/13/17 and was seen in [facility] on 06/15/17 for falling and confusion. Pt. found to have UTI and head CT, which showed no new changes. Pt. have also been evaluated at his PCP and office is trying to get him placement at assisted living/alf to continue with his care. Today pt. was brought in by EMS for "confusion and not acting right" per his room mate. Pt. c/o of intermittent occipital dull headache, that is intermittent and localizes. States headache started today but denies and dizziness, weakness , tingling or extremities. Pt. denies any recent fever, chill, N/V/D, dizziness. Pt. states he has chronic weakness. Timing/Duration: today Severity: mild Character of Deficits: general (difuse) Deficits: no difficulties, decrease ability to stand Baseline/Normal Cognition: alert/disoriented to time Current Cognition: alert/disoriented to time Associated Symptoms: confusion, weakness, No fever, No chills, No loss of consciousness, No nausea, No vomiting, No numbness/tingling in legs/feet, No ringing in ears, No seizures, No vision changes, No chest pain Allergies/Adverse Reactions: Penicillins Allergy (Severe, Verified 06/20/17 15:56) Shortness of Breath staes anaphylactic shock bee venom protein (honey bee) Allergy (Verified 06/20/17 15:56) erythromycin lactobionate [From Erythrocin] Allergy (Verified 06/20/17 15:56) ketorolac [From Toradol] Allergy (Verified 06/20/17 15:56) methocarbamol Allergy (Verified 06/20/17 15:56) egg Adverse Reaction (Verified 06/20/17 15:56) morphine Adverse Reaction (Verified 06/20/17 15:56) Home Medications: Insulin Glargine [Lantus Insulin] 30 unit SQ HS 02/13/17 [History] Atorvastatin Calcium 20 mg PO HS 04/06/17 [History] Tamsulosin HCl 0.4 mg [Flomax 0.4 MG] 0.4 mg PO HS 04/06/17 [History] Quetiapine Fumarate [Seroquel] 200 mg PO BID 05/16/17 [History] Aspirin [Aspirin EC] 81 mg PO DAILY 06/02/17 [History] Ferrous Sulfate 325 mg PO DAILY 06/02/17 [History] Hydrocodone Bit/Acetaminophen [Hydrocodon-Acetaminophen 5-325] 1 each PO UD 10/31 [History] Insulin Aspart [NovoLOG Insulin] 7 unit SQ TID 06/15/17 [History] Cefdinir [Omnicef] 300 mg PO TID 06/20/17 [History] Hx Tetanus, Diphtheria Vaccination/Date Given: Yes Hx Influenza Vaccination/Date Given: No Hx Pneumococcal Vaccination/Date Given: No Immunizations Up to Date: Yes - Review of Systems Constitutional: No Fever, No Chills Eyes: No Symptoms Ears, Nose, & Throat: No Symptoms Respiratory: No Symptoms, No Cough, No Dyspnea Cardiac: No Symptoms, No Chest Pain, No Edema, No Syncope Abdominal/Gastrointestinal: No Symptoms, No Abdominal Pain, No Nausea, No Vomiting, No Diarrhea Genitourinary Symptoms: No Dysuria Musculoskeletal: No Back Pain, No Neck Pain Skin: No Rash Neurological: Headache, Speech Changes (slow speech), No Dizziness, No Focal Weakness, No Sensory Changes Psychological: No Symptoms Endocrine: No Symptoms Hematologic/Lymphatic: No Symptoms Immunological/Allergic: No Symptoms All Other Systems: Reviewed and Negative - Past Medical History Pertinent Past Medical History: Yes Neurological History: Stroke ENT History: Cataracts Cardiac History: High Cholesterol, Hypertension Respiratory History: No Pertinent History Endocrine Medical History: Diabetes Type I Musculoskeletal History: Fractures, Other GI Medical History: No Pertinent History History: No Pertinent History Psycho-Social History: Anxiety Male Reproductive Disorders: Testicular Cancer Other Medical History: testicular cancer (1999), trauma from accident pt states only "5 vertebrae left" - Past Surgical History Past Surgical History: Yes Neuro Surgical History: Other Cardiac: Cardiac Catheterization, Cardiac Stent Respiratory: No Pertinent History Gastrointestinal: No Pertinent History, Cholecystectomy Genitourinary: No Pertinent History Musculoskeletal: Orthopedic Surgery Male Surgical History: Testicular Surgery Other Surgical History: oral surgery,states brain surgery/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 orchectomy. PORT PLACED IN 2012. CARDIAC STENT IN 2011; gallbladder - Social History Smoking Status: Never smoker Exposure to second hand smoke: No Alcohol Use: None Drug Use: none Patient Lives Alone: No (lives at home with a roommate) Significant Family History: no pertinent family hx - Nursing Vital Signs Nursing Vital Signs: Initial Vital Signs Temperature 97.6 F 06/20/17 15:26 Pulse Rate 91 H 06/20/17 15:26 Respiratory Rate 20 06/20/17 15:26 Blood Pressure 162/95 06/20/17 15:26 O2 Sat by Pulse Oximetry 99 06/20/17 15:26 Pain Scale Pain Intensity 4 - Mouna Coma Scale Best Eye Response (Mouna): (4) open spontaneously Best Verbal Response ([place]): (4) confused conversation (Pt. 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 3 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 admin Exam: tongue midline Coordination/Gait: normal finger to nose, normal gait Skin Exam: normal color, warm, dry, No rash SpO2: 99 Oxygen Delivery: Room Air - Course Nursing assessment & vital signs reviewed: Yes EKG Interpreted by Me: RATE (88), Sinus Rhythm, NORMAL AXIS, NORMAL INTERVALS, Other (LAFB, NSSTT changes) - CT Exams Head CT Interpretation: Tele-radiologist Report, Other (stable with no acute changes) Ordered Tests: Active Orders 24 hr Category Date Time Status Cath for Specimen-Straight STAT Care 06/20/17 18:55 Active EKG-ER Only STAT Care 06/20/17 16:14 Active HEAD WITHOUT CONTRAST [CT] Stat Exams 06/20/17 16:15 Taken BMP Stat Lab 06/20/17 16:55 Completed Blood Sugar [Glucose] Stat Lab 06/20/17 18:53 Ordered CBC W DIFF Stat Lab 06/20/17 16:55 Completed CULTURE,URINE Stat Lab 06/20/17 16:45 Received UA W/ MICROSCOPIC Stat Lab 06/20/17 16:45 Completed Urine Triage Profile Stat Lab 06/20/17 Uncollected Medication Summary Discontinued Medications Generic Name Dose Route Start Last Admin Trade Name Ramanaq PRN Reason Stop Dose Admin Acetaminophen 975 mg 06/20/17 16:16 06/20/17 16:24 Tylenol 325 Mg PO 06/20/17 16:17 975 mg STAT STA Administration Acetaminophen Confirm 06/20/17 16:21 Tylenol 325 Mg Administered 06/20/17 16:22 Dose 975 mg .ROUTE .STK-MED ONE Ceftriaxone Sodium 1,000 mg 06/20/17 18:14 06/20/17 18:25 Rocephin 1000 Mg Inj IM 06/20/17 18:15 1,000 mg STAT ONE Administration Ceftriaxone Sodium Confirm 06/20/17 18:22 Rocephin 1000 Mg Inj Administered 06/20/17 18:23 Dose 1,000 mg .ROUTE .STK-MED ONE Clonidine Confirm 06/20/17 18:01 Catapres 0.1 Mg Administered 06/20/17 18:02 Dose 0.2 mg .ROUTE .STK-MED ONE Clonidine 0.2 mg 06/20/17 18:03 06/20/17 18:06 Catapres 0.1 Mg PO 06/20/17 18:04 0.2 mg STAT ONE Administration Lidocaine HCl Confirm 06/20/17 18:23 Xylocaine 1% Hcl 20 Ml Mdv Administered 06/20/17 18:24 Dose 3 ml .ROUTE .STK-MED ONE Lab/Rad Data: Laboratory Result Diagrams 06/20/17 16:55 06/20/17 16:55 Laboratory Results 06/20/17 06/20/17 06/20/17 Range/Units 16:55 16:55 16:45 WBC 5.4 (4.0-10.5) K/mm3 RBC 3.37 L (4.1-5.6) M/mm3 Hgb 9.7 L (12.5-18.0) gm/dl Hct 30.5 L (42-50) % MCV 90.5 (78-100) fl MCH 28.7 (26-32) pg MCHC 31.8 L (32-36) g/dl RDW 14.5 H (11.5-14.0) % Plt Count 186 (150-450) K/mm3 MPV 10.5 H (6-9.5) fl Gran % 63.3 (36.0-66.0) % Lymphocytes % 21.6 L (24.0-44.0) % Monocytes % 6.7 (0.0-12.0) % Eosinophils % 6.5 H (0.00-5.0) % Basophils % 1.9 (0.0-0.4) % Basophils # 0.10 (0-0.4) Sodium 145 (136-145) mEq/L Potassium 4.3 (3.5-5.1) mEq/L Chloride 114 H (98-107) mEq/L Carbon Dioxide 20.1 L (21-32) mEq/L Anion Gap 15.5 H (5-15) MEQ/L BUN 30 H (9-20) mg/dL Creatinine 1.78 H (0.55-1.30) mg/dl Estimated GFR 43 ML/MIN Glucose 279 H (70-110) MG/DL Calcium 9.0 (8.5-10.1) mg/dL Ur Collection Type CATH Urine Color LT.YELLOW (YELLOW) Urine Appearance HAZY (CLEAR) Urine pH 6.0 (5-6) Ur Specific [place] 1.010 (1.005-1.025) Urine Protein 300 (Negative) Urine Ketones NEGATIVE (NEGATIVE) Urine Blood 50 (0-5) Syed/ul Urine Nitrite NEGATIVE (NEGATIVE) Urine Bilirubin NEGATIVE (NEGATIVE) Urine Urobilinogen NORMAL (0-1) mg/dL Ur Leukocyte Esterase 2+ (NEGATIVE) Urine Microscopic WBC 50-100 (0-5) /HPF Ur Epithelial Cells RARE (FEW) /HPF Urine Bacteria FEW (NEGATIVE) /HPF Urine Glucose 250 (NEGATIVE) mg/dL Specimen Received 06/20/17 1645 - Progress Progress: unchanged Progress Note: 06/20/17 18:57 Pt. given Rocephin for UTI, Pt. also given Clonidine 0.2mg for elevated BP. BP still elevated 220/100. Will admit pt. for further care Discussed with : Aliza (Notified and will admit) Will see patient in: hospital (observation) Counseled pt/family regarding: lab results, diagnosis, rad results - Departure Time of Disposition: 19:00 Departure Disposition: Observation Clinical Impression: UTI (urinary tract infection), Hypertensive urgency Condition: Stable Critical Care Time: No Referrals: LISHA KRAMER [Primary Care Provider] -
[2017-06-20] MEDS ORDERED: TYLENOL 325 MG PO STA (16:16)
[2017-06-20] MEDS ORDERED: TYLENOL 325 MG ONE (16:21)
[2017-06-20 17:11] LABS: BASOPHIL % 1.9 % (0.0-0.4); Eosinophil % 6.5 % (0.00-5.0); Granulocytes % 63.3 % (36.0-66.0); Lymphocytes % 21.6 % (24.0-44.0); Mean Cell Volume 90.5 fl (78-100); Mean Platelet Volume 10.5 fl (6-9.5); Monocytes % 6.7 % (0.0-12.0); Platelet Count 186 K/mm3 (150-450); Red Blood Count 3.37 M/mm3 (4.1-5.6); Red Cell Distribution Width 14.5 % (11.5-14.0); White Blood Count 5.4 K/mm3 (4.0-10.5)
[2017-06-20 17:29] LABS: ANION GAP 15.5 MEQ/L (5-15); Carbon Dioxide 20.1 mEq/L (21-32); Potassium 4.3 mEq/L (3.5-5.1)
[2017-06-20 17:34] LABS: Mean Corpuscular Hemoglobin 28.7 pg (26-32)
[2017-06-20 17:46] LABS: Bilirubin NEGATIVE (NEGATIVE); Blood 50 Ery/ul (0-5); Collection Type CATH; Glucose 250 mg/dL (NEGATIVE); Leukocyte Esterase 2+ (NEGATIVE)
[2017-06-20 17:47] LABS: COMPLETE URINE MICROSCOPIC? YES
[2017-06-20 17:49] LABS: WBC 50-100 /HPF (0-5)
[2017-06-20 17:50] LABS: ADD URINE CULTURE? YES (NO); Bacteria FEW /HPF (NEGATIVE); Epithelial Cells RARE /HPF (FEW)
[2017-06-20] MEDS ORDERED: Catapres 0.1 MG ONE (18:01)
[2017-06-20] MEDS ORDERED: Catapres 0.1 MG PO ONE (18:03)
[2017-06-20] MEDS ORDERED: Rocephin 1000 MG INJ IM ONE (18:14)
[2017-06-20] MEDS ORDERED: Rocephin 1000 MG INJ ONE (18:22)
[2017-06-20] MEDS ORDERED: XYLOCAINE 1% HCL 20 ML MDV ONE (18:23)
[2017-06-20] MEDS ORDERED: [UNRECOGNIZED DRUG - OTHER] PO PRN (21:48)
[2017-06-20] MEDS ORDERED: Seroquel 100 MG PO ONE (22:00)
[2017-06-20] MEDS ORDERED: APRESOLINE 20 MG/ML INJ IV ONE (22:00)
[2017-06-20] MEDS ORDERED: KEPPRA 500 MG PO ONE (22:00)
[2017-06-20] MEDS ORDERED: Lantus Insulin SQ ONE (22:00)
[2017-06-20] MEDS ORDERED: Flomax 0.4 MG PO ONE (22:00)
[2017-06-20] MEDS ORDERED: NEURONTIN 300 MG PO ONE (22:00)
[2017-06-20] MEDS ORDERED: LIPITOR 40MG PO ONE (22:00)
[2017-06-20] MEDS ORDERED: ZOCOR 20MG ONE (22:11)
[2017-06-20] MEDS ORDERED: NORCO 5/325 MG ONE (22:11)
--- NOTE | 2017-06-21 08:24 | PCM.HP ---
History of Present Illness - Chief Complaint Chief Complaint: UTI, hypertension Date: 06/21/17 History of Present Illness: is a 52 year old male. who has been having increasing complications after his stroke that resulted in increasing weakness in the lower extremities worse on the right side and also slowed speech and worsening memory he has been treated for this at twice and discharged to home but is unable to adequately care for himself there despite home nursing and therapy. 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 He was being evaluated by therapy yesterday in his home and was somnolent and incoherent and falling out of his chair. He was thus brought to the ED. He states he has been taking his medications as prescribed. He has the persistent headache since the stroke and thinks it is feeling a little better this am. He denies any other complaints other then the weakness and posterior headache at this time. He has been referred to multiple nursing facilities but is awaiting a level 2 placement. he was found to have UTI last sunday and reports taking the antibiotics as prescribed - Review of Systems Constitutional: No Fever, No Chills Eyes: No Symptoms Ears, Nose, & Throat: No Symptoms Respiratory: No Cough, No Short Of Breath Cardiac: Edema, No Chest Pain, No Syncope Abdominal/Gastrointestinal: No Abdominal Pain, No Nausea, No Vomiting, No Diarrhea Genitourinary Symptoms: Incontinence, Urinary Retention, No Dysuria Musculoskeletal: Neck Pain, No Back Pain Skin: No Rash Neurological: Focal Weakness, Gait Changes, Headache, Lethargy, No Dizziness, No Sensory Changes Psychological: No Symptoms Endocrine: No Symptoms Hematologic/Lymphatic: No Symptoms Immunological/Allergic: No Symptoms Medications & Allergies Home Medications: Home Medication List Insulin Glargine [Lantus Insulin] 30 unit SQ HS 02/13/17 [History Confirmed 06/20/17] Gabapentin [Neurontin] 600 mg PO TID #90 tablet 03/03/17 [Rx Confirmed 06/20/17] Atorvastatin Calcium 20 mg PO HS 04/06/17 [History Confirmed 06/20/17] Tamsulosin HCl 0.4 mg [Flomax 0.4 MG] 0.4 mg PO HS 04/06/17 [History Confirmed 06/20/17] Quetiapine Fumarate [Seroquel] 200 mg PO BID 05/16/17 [History Confirmed ] Amlodipine Besylate 5 mg [Norvasc 5 mg] 5 mg PO QAM #0 tablet 05/20/17 [ Rx Confirmed 06/20/17] Hydrocodone Bit/Acetaminophen [Hydrocodon-Acetaminophen 5-325] 1 each PO Q6H PRN PRN 06/15/17 [History Confirmed 06/20/17] Insulin Aspart [NovoLOG Insulin] 7 unit SQ TID 06/15/17 [History Confirmed 06/20/17] Cefdinir [Omnicef] 300 mg PO TID 06/20/17 [History Confirmed 06/20/17] Levetiracetam [Keppra 500 mg ] 500 mg PO TID 06/20/17 [History Confirmed 06/20/17] Allergies/Adverse Reactions: Allergies Allergy/AdvReac Type Severity Reaction Status Date / Time Penicillins Allergy Severe Shortness Verified 06/20/17 15:56 of Breath bee venom protein (honey bee) Allergy Verified 06/20/17 15:56 erythromycin lactobionate Allergy Verified 06/20/17 15:56 [From Erythrocin] ketorolac [From Toradol] Allergy Verified 06/20/17 15:56 methocarbamol Allergy Verified 06/20/17 15:56 egg AdvReac Verified 06/20/17 15:56 - Past Medical History Past Medical History: Yes Neurological History: Seizures, Stroke ENT History: No Pertinent History Cardiac History: High Cholesterol, Hypertension Respiratory History: No Pertinent History Endocrine Medical History: Diabetes Type II Musculoskelatal History: Fractures GI Medical History: No Pertinent History History: No Pertinent History Pyscho-Social History: Anxiety Male Reproductive Disorders: Prostate Problems, Testicular Cancer Comment: testicular cancer (1999), trauma from accident pt states only "5 vertebrae left" - Past Surgical History Past Surgical History: Yes Neuro Surgical History: Other Cardiac History: Cardiac Catheterization, Cardiac Stent Respiratory Surgery: No Pertinent History GI Surgical History: No Pertinent History, Cholecystectomy Genitourinary Surgical Hx: No Pertinent History Musculskeletal Surgical Hx: Orthopedic Surgery Male Surgical History: Testicular Surgery Other Surgical History: oral surgery,states brain surgery/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 orchectomy. PORT PLACED IN 2013. CARDIAC STENT IN 2012; gallbladder - Social History Smoking Status: Never smoker Exposure to second hand smoke: No Alcohol: None Drug Use: none Significant Family History: no pertinent family hx - Physical Exam Vital Signs: Vital Signs - 24 hr Temp Pulse Resp BP Pulse Ox 06/21/17 06:58 97.9 F 66 18 189/91 98 06/21/17 04:09 97.8 F 63 17 168/79 97 06/21/17 00:00 98.1 F 82 17 214/97 97 06/20/17 20:25 97.5 F 79 16 213/123 99 06/20/17 20:13 231/123 06/20/17 19:37 80 18 187/123 100 06/20/17 19:01 82 20 148/62 99 06/20/17 19:00 99 06/20/17 18:50 84 16 220/114 97 06/20/17 17:59 87 16 192/106 99 06/20/17 16:33 88 20 110/53 100 06/20/17 15:26 97.6 F 91 H 20 162/95 99 General Appearance: no apparent distress, other (appeaers weak diffuse slow movements) Neurologic Exam: cooperative, motor deficits, slurred speech Eye Exam: PERRL/EOMI, eyes nml inspection, pale conjunctivae, No scleral icterus Ears, Nose, Throat Exam: moist mucous membranes Neck Exam: normal inspection, non-tender, supple, full range of motion Respiratory Exam: normal breath sounds, lungs clear, No respiratory distress Cardiovascular Exam: regular rate/rhythm, normal heart sounds, normal peripheral pulses Gastrointestinal/Abdomen Exam: soft, normal bowel sounds, No tenderness, No mass Back Exam: normal inspection, normal range of motion, No CVA tenderness, No vertebral tenderness Extremity Exam: normal inspection, normal range of motion, pelvis stable, pedal edema, No calf tenderness Skin Exam: normal color, warm, dry, pale, No rash Lymphatic Exam: No adenopathy Assessment/Plan (1) Uncontrolled hypertension Current Visit: Yes Status: Acute Assessment & Plan: will titrate medications today continue amlodipine he has hx of labile htn with massive swings from high to low often associated with fluid shifts and worsened with his urinary retention add hydralazine 25 po tid today and monitor closely repeat renal function in am Code(s): I10 - ESSENTIAL (PRIMARY) HYPERTENSION (2) Stroke Current Visit: Yes Status: Chronic Assessment & Plan: subacute with residual deficits resulting in multiple ED visits as he is unable to adequately care for himself at home he is on keppra from [facility] for seizure ppx Code(s): I63.9 - CEREBRAL INFARCTION, UNSPECIFIED (3) Depression Current Visit: Yes Status: Chronic Assessment & Plan: his mood has been much improved on the seroquel there was report of history of bipolar his seroquel may however be resulting in his increased drowsiness and confusion during the day following his stroke Code(s): F32.9 - MAJOR DEPRESSIVE DISORDER, SINGLE EPISODE, UNSPECIFIED (4) Anemia Current Visit: Yes Status: Chronic Code(s): D64.9 - ANEMIA, UNSPECIFIED (5) Coronary artery disease Current Visit: Yes Status: Chronic Code(s): I25.10 - ATHSCL HEART DISEASE OF [place] CORONARY ARTERY W/O ANG PCTRS (6) Neurogenic bladder Current Visit: Yes Status: Chronic Assessment & Plan: removed a previous suprapubic catheter was following with urology in [place] has refused catheterization on multiple occassions despite discussed risk of kidney failure from obstruction and hydronephrosis Code(s): N31.9 - NEUROMUSCULAR DYSFUNCTION OF [place], UNSPECIFIED (7) Diabetic neuropathy associated with type 1 diabetes mellitus Current Visit: Yes Status: Chronic Code(s): E10.40 - TYPE 1 DIABETES MELLITUS WITH DIABETIC NEUROPATHY, UNSP (8) UTI (urinary tract infection) Current Visit: Yes Status: Acute Assessment & Plan: sensitive to ceftriaxone continue Code(s): N39.0 - URINARY TRACT INFECTION, SITE NOT SPECIFIED
[2017-06-21] MEDS: NovoLOG Insulin SQ PRN ×3 (08:30→22:20)
[2017-06-21] MEDS: ROCEPHIN 1 Gm-D5w 50 ml Bag** 1 G/50 ML IVPB IV SCH (08:30)
--- NOTE | 2017-06-21 08:37 | XRAY ---
Indication: Confusion. Headache. History of stroke. Multiple contiguous axial images obtained through the head without contrast. Comparison: June 15, 2017. Stable global atrophy, periventricular degenerative micro-ischemia, left occipital craniotomy with underlying encephalomalacia, left basal ganglia subacute ischemia, and benign corazon calcification. No acute intracranial hemorrhage or midline shifting. Fourth ventricle is midline without hydrocephalus. Remaining bony calvarium intact. Visualized paranasal sinuses are clear. Impression: Stable CT head without contrast again demonstrating left basal ganglia nonhemorrhagic subacute ischemia, atrophy, degenerative micro-ischemia, and left occipital craniotomy with encephalomalacia. No new/acute findings. MRI brain with contrast may yield further information if there remains further clinical concern. CTDI 69.25
[2017-06-21] MEDS: Apresoline 25 MG TABLET PO SCH ×3 (08:43→21:57)
[2017-06-21] MEDS: KEPPRA 500 MG PO SCH ×3 (08:51→21:57)
[2017-06-21] MEDS: NEURONTIN 300 MG PO SCH ×3 (08:51→21:58)
[2017-06-21] MEDS: Seroquel 100 MG PO SCH ×2 (08:52→21:58)
[2017-06-21] MEDS ORDERED: NON-FORMULARY ITEM (Gabapentin [Neurontin] 600 MG) PO SCH (10:00)
[2017-06-21] MEDS ORDERED: NORVASC 5 MG PO SCH (10:00)
[2017-06-21] MEDS: NORCO 5/325 MG PO PRN (20:19)
[2017-06-21] MEDS ORDERED: ZOCOR 20MG PO ONE (22:00)
[2017-06-21] MEDS ORDERED: Lantus Insulin SQ SCH (22:00)
[2017-06-21] MEDS ORDERED: ZOCOR 20MG PO SCH (22:00)
[2017-06-21] MEDS ORDERED: NON-FORMULARY ITEM (Atorvastatin Calcium [Atorvastatin Calcium] 20 MG) PO SCH (22:00)
[2017-06-21] MEDS ORDERED: Flomax 0.4 MG PO SCH (22:00)
[2017-06-22] MEDS: NORCO 5/325 MG PO PRN (03:58)
[2017-06-22 05:27] LABS: Mean Cell Volume 91.4 fl (78-100); Mean Platelet Volume 10.5 fl (6-9.5); Platelet Count 151 K/mm3 (150-450); Red Blood Count 2.92 M/mm3 (4.1-5.6); Red Cell Distribution Width 14.3 % (11.5-14.0)
[2017-06-22 05:28] LABS: Mean Corpuscular Hemoglobin 28.7 pg (26-32)
[2017-06-22 05:50] LABS: ALBUMIN 1.9 g/dL (3.4-5.0); ALKALINE PHOSPHATASE 124 U/L (46-116); ANION GAP 14.1 MEQ/L (5-15); BLOOD UREA NITROGEN 24 mg/dL (9-20); CHLORIDE 113 mEq/L (98-107); Carbon Dioxide 21.7 mEq/L (21-32); Glucose 223 MG/DL (70-110); SGOT/AST 22 U/L (15-37); SGPT/ALT 18 U/L (12-78); SODIUM 145 mEq/L (136-145); Total Protein 5.5 gm/dL (6.4-8.2)
[2017-06-22 05:55] LABS: BILIRUBIN,TOTAL < 0.10 mg/dL (0.2-1.0)
[2017-06-22] MEDS: NovoLOG Insulin SQ PRN (07:46)
[2017-06-22] MEDS: ROCEPHIN 1 Gm-D5w 50 ml Bag** 1 G/50 ML IVPB IV SCH (08:18)
[2017-06-22] MEDS: Apresoline 25 MG TABLET PO SCH (08:18)
[2017-06-22] MEDS: KEPPRA 500 MG PO SCH (08:19)
[2017-06-22] MEDS: NEURONTIN 300 MG PO SCH (08:19)
[2017-06-22] MEDS: Seroquel 100 MG PO SCH (08:20)
--- NOTE | 2017-06-22 08:32 | PCM.DCORD ---
- Discharge Discharge Date: 06/22/17 Disposition: XFER OTHER Condition: Stable Prescriptions: New HydrALAzine HCL 25 MG TAB [Apresoline 25 MG TABLET] 25 mg PO TID #90 tablet Amlodipine Besylate 10 mg [Norvasc 10 MG] 10 mg PO DAILY #30 tablet Continue Insulin Glargine [Lantus Insulin] 30 unit SQ HS Gabapentin [Neurontin] 600 mg PO TID #90 tablet Atorvastatin Calcium 20 mg PO HS Tamsulosin HCl 0.4 mg [Flomax 0.4 MG] 0.4 mg PO HS Quetiapine Fumarate [Seroquel] 200 mg PO BID Cefdinir [Omnicef] 300 mg PO TID Levetiracetam [Keppra 500 mg ] 500 mg PO TID Changed Insulin Aspart [NovoLOG Insulin] 4 unit SQ TID #0 Discontinued Amlodipine Besylate 5 mg [Norvasc 5 mg] 5 mg PO QAM #0 tablet Hydrocodone Bit/Acetaminophen [Hydrocodon-Acetaminophen 5-325] 1 each PO Q6H PRN PRN PRN Reason: Pain Follow up with: LISHA KRAMER [Primary Care Provider] - 06/27/17 11:15 am
[2017-06-22] MEDS ORDERED: NORVASC 5 MG PO SCH (10:00)
[2017-06-22 10:39] VITALS: BP 117/64; PULSE 80; O2SAT 97
--- NOTE | 2017-06-23 13:15 | PCM.DS ---
Discharge Summary Date of Admission: 06/20/17 20:03 Date of Discharge: 06/22/17 Admitting Physician: LISHA KRAMER Consults: Consults on Case 06/21/17 19:30 Consult Physician ROUTINE Primary Care Provider: LISHA KRAMER Allergies Allergies Penicillins Allergy (Severe, Verified 06/20/17 15:56) Shortness of Breath staes anaphylactic shock bee venom protein (honey bee) Allergy (Verified 06/20/17 15:56) erythromycin lactobionate [From Erythrocin] Allergy (Verified 06/20/17 15:56) ketorolac [From Toradol] Allergy (Verified 06/20/17 15:56) methocarbamol Allergy (Verified 06/20/17 15:56) egg Adverse Reaction (Verified 06/20/17 15:56) Hospital Summary - Hospital Course Hospital Course: he presented again with altered mental status to the ED after his home physical therapist presented to his home and he was unable to keep his eyes open and [place]'s caregiver had strapped him to his chair to keep him from falling out of it. He was confused and had slurred speech so EMS was called and he was brought to ED where no acute findings were found however his bp continued to spike and become very elevated to systolic over 200 and he was thus admitted for observation. He improved in his mental status greatly back to his baseline his bp medications were titrated with slow decrease in his blood pressure and actually just prior to discharge he had a reading in the normal range. He continues to complain of the posterior headache but less severe as previous and not as frequent now. He has weakness since the stroke making it very difficult for him to care for himself. We have recommended correction assisted care for him and he is open to the idea but refuses to sell his home which is a requirement for his insurance to be changed to traditional medicaid that would cover assisted care. Without this he has no insurance to cover and no way to pay for assisted care and thus no accepting facility. He understands we recommend he sell his home and go to [facility] but he refuses and he has good understanding of the consequences. He has spent several weeks in the past month at [facility] and they have had the same difficulty with his placement and have arranged the home care services that are available to help with him at home and do have home equipment to help with transfers for him as well. He states [facility] told him he was only going to worsen from this stroke and that he was not going to live much longer and he should contact hospice services. With his progressive functional decline and uncontrolled htn and DM and recurrent strokes this is a reasonable expectation following his stroke and hospice services were consulted at patients request and have agreed to admission to their service. His bp meds and insulin were also titrated during admission. - Vitals & Intake/Output Vital Signs: Vital Signs Temperature 97.1 F 06/22/17 10:37 Pulse Rate 80 06/22/17 10:37 Respiratory Rate 20 06/22/17 10:37 Blood Pressure 117/64 06/22/17 10:37 O2 Sat by Pulse Oximetry 97 06/22/17 10:37 Intake & Output: Intake & Output 06/21/17 06/22/17 06/23/17 06/24/17 11:59 11:59 11:59 11:59 Intake Total 840 1360 Output Total 400 Balance 840 960 Weight 86.183 kg - Lab Result Diagrams: 06/22/17 05:05 06/22/17 05:05 - Procedures and Test Procedures and Tests throughout Hospitalization: Therapy Orders & Screens 06/20/17 21:04 OT Screen per Nursing Assess Comment: Protocol Order Physician Instructions: Greater than 3 points order OT Admission Screening Reason For Exam: Triggered on Admission Diagnosis: UTI, hypertension Open Wound/Cellutlitis/Pressure Ulcers: No Acute Fx/ORIF/Change in wt bearing status: No Severe MUSCULOSKELETAL pain: No ADL Dysfunction: Yes Acute CVA w/Hemiparesis/Hemiplegia: No Decreased Functional Mobility/Strength: Yes Sprain/Strain: No Acute Post-op Mobility Dysfunction: No Total Points: 4 PT Screen per Nursing Assess ONCE Comment: Protocol Order Physician Instructions: Greater than 3 points order PT Admission Screenin Reason For Exam: Triggered on Admission Diagnosis: UTI, hypertension Open Wound/Cellutlitis/Pressure Ulcers: No Acute Fx/ORIF/Change in wt bearing status: No Severe MUSCULOSKELETAL pain: No ADL Dysfunction: Yes Acute CVA w/Hemiparesis/Hemiplegia: No Decreased Functional Mobility/Strength: Yes Sprain/Strain: No Acute Post-op Mobility Dysfunction: No Total Points: 4 Discharge Exam General Appearance: no apparent distress Neurologic Exam: alert, oriented x 3, cooperative Skin Exam: warm, pale Eye Exam: EOMI, pale conjunctivae, No scleral icterus Ears, Nose, Throat Exam: dry mucous membranes Neck Exam: non-tender, supple Respiratory Exam: normal breath sounds, lungs clear Cardiovascular Exam: regular rate/rhythm, murmur Gastrointestinal/Abdomen Exam: soft, normal bowel sounds, No tenderness, No distention Extremity Exam: No calf tenderness Back Exam: normal inspection Final Diagnosis/Problem List - Final Discharge Diagnosis/Problem (1) Uncontrolled hypertension Status: Acute (2) Stroke Status: Chronic (3) Depression Status: Chronic (4) Anemia Status: Chronic (5) Coronary artery disease Status: Chronic (6) Neurogenic bladder Status: Chronic (7) Diabetic neuropathy associated with type 1 diabetes mellitus Status: Chronic (8) UTI (urinary tract infection) Status: Acute - Discharge Discharge Date: 06/22/17 Disposition: Hospice @ [place] Condition: Stable Prescriptions: New HydrALAzine HCL 25 MG TAB [Apresoline 25 MG TABLET] 25 mg PO TID #90 tablet Amlodipine Besylate 10 mg [Norvasc 10 MG] 10 mg PO DAILY #30 tablet Continue Insulin Glargine [Lantus Insulin] 30 unit SQ HS Gabapentin [Neurontin] 600 mg PO TID #90 tablet Atorvastatin Calcium 20 mg PO HS Tamsulosin HCl 0.4 mg [Flomax 0.4 MG] 0.4 mg PO HS Quetiapine Fumarate [Seroquel] 200 mg PO BID Cefdinir [Omnicef] 300 mg PO TID Levetiracetam [Keppra 500 mg ] 500 mg PO TID Changed Insulin Aspart [NovoLOG Insulin] 4 unit SQ TID #0 Discontinued Amlodipine Besylate 5 mg [Norvasc 5 mg] 5 mg PO QAM #0 tablet Hydrocodone Bit/Acetaminophen [Hydrocodon-Acetaminophen 5-325] 1 each PO Q6H PRN PRN PRN Reason: Pain Instructions: Urinary Tract Infection (UTI), Hypertension Additional Instructions: [facility] WILL FOLLOW YOU AT HOME FOR ADDITIONAL SUPPORT. YOU MAY REACH THEM AT . PLEASE CALL YOUR HOSPICE NURSE FIRST FOR ANY NEEDS. Forms: Discharge Instructions
== END 2017-06-22 10:25 | disposition hospice, home (50) ==
LOC: ED 15:23 → MED SURG 20:03
PROVIDERS: ADMIT Family Medicine; ATTEND Family Medicine
DX: I10 Essential (primary) hypertension (principal); I63.9 Cerebral infarction, unspecified; F32.9 Major depressive disorder, single episode, unspecified; D64.9 Anemia, unspecified; I25.10 Atherosclerotic heart disease of native coronary artery without angina pectoris; N31.9 Neuromuscular dysfunction of bladder, unspecified; E10.40 Type 1 diabetes mellitus with diabetic neuropathy, unspecified; N39.0 Urinary tract infection, site not specified; Z79.4 Long term (current) use of insulin; E11.9 Type 2 diabetes mellitus without complications; F41.9 Anxiety disorder, unspecified; G40.909 Epilepsy, unspecified, not intractable, without status epilepticus; Z79.899 Other long term (current) drug therapy
CPT/HCPCS: 36000; 36415; 70450; 80048; 80053; 80307; 81000; 82962; 85025; 85027; 87086; 93005; 93268; 99285; G0378; J0360; J0696; J1642; P9612; A9270-GY

== ENCOUNTER 2017-08-07 15:04 | Observation (INO) | payer MEDICAID, OTHER ==
[2017-08-07 16:12] LABS: BASOPHIL % 1.5 % (0.0-0.4); Eosinophil % 5.1 % (0.00-5.0); Granulocytes % 68.9 % (36.0-66.0); Lymphocytes % 19.6 % (24.0-44.0); Mean Cell Volume 88.1 fl (78-100); Mean Platelet Volume 10.6 fl (6-9.5); Monocytes % 4.9 % (0.0-12.0); Platelet Count 189 K/mm3 (150-450); Red Blood Count 3.36 M/mm3 (4.1-5.6); Red Cell Distribution Width 13.3 % (11.5-14.0); White Blood Count 5.5 K/mm3 (4.0-10.5)
--- NOTE | 2017-08-07 16:32 | ERPHSYRPT ---
- History of Present Illness Time Seen by Provider: 08/07/17 15:30 Source: patient Patient Subjective Stated Complaint: pt states he has bilateral lower extremity swelling for the past 4 days. Triage Nursing Assessment: pt pale, warm, dry. 3plus pitting edema noted to bilateral feet. pt affebrile. no redness noted to extremities. Physician History: CC: edema Hx: 52 y/o male patient with 4 days increased bilateral lower extremity edema. Stable urination. No fever or chills. No injury. He has prior hx of stroke and has minimal care at home but refuses admission to assisted. Timing/Duration: day(s) (4) Severity: moderate Allergies/Adverse Reactions: Penicillins Allergy (Severe, Verified 08/07/17 15:24) Shortness of Breath staes anaphylactic shock bee venom protein (honey bee) Allergy (Verified 08/07/17 15:24) erythromycin lactobionate [From Erythrocin] Allergy (Verified 08/07/17 15:24) ketorolac [From Toradol] Allergy (Verified 08/07/17 15:24) methocarbamol Allergy (Verified 08/07/17 15:24) egg Adverse Reaction (Verified 08/07/17 15:24) Home Medications: Insulin Glargine [Lantus Insulin] 30 unit SQ HS 02/13/17 [History] Atorvastatin Calcium 20 mg PO HS 04/06/17 [History] Quetiapine Fumarate [Seroquel] 200 mg PO HS 05/16/17 [History] Levetiracetam [Keppra 500 mg ] 500 mg PO TID 06/20/17 [History] Hx Tetanus, Diphtheria Vaccination/Date Given: Yes (up to date) Hx Influenza Vaccination/Date Given: No Hx Pneumococcal Vaccination/Date Given: No Immunizations Up to Date: Yes - Review of Systems Constitutional: Malaise, No Fever, No Chills Eyes: No Symptoms Ears, Nose, & Throat: No Symptoms Respiratory: No Cough, No Dyspnea Cardiac: Edema, No Chest Pain Abdominal/Gastrointestinal: Nausea, Vomiting, Diarrhea, No Abdominal Pain Genitourinary Symptoms: No Dysuria Musculoskeletal: No Back Pain Skin: No Rash Neurological: No Focal Weakness, No Headache, No Parasthesia All Other Systems: Reviewed and Negative - Past Medical History Pertinent Past Medical History: Yes Neurological History: Seizures, Stroke ENT History: No Pertinent History Cardiac History: High Cholesterol, Hypertension Respiratory History: No Pertinent History Endocrine Medical History: Diabetes Type II Musculoskeletal History: Fractures GI Medical History: No Pertinent History History: No Pertinent History Psycho-Social History: Anxiety Male Reproductive Disorders: Prostate Problems, Testicular Cancer - Past Surgical History Past Surgical History: Yes Neuro Surgical History: Other Cardiac: Cardiac Catheterization, Cardiac Stent Respiratory: No Pertinent History Gastrointestinal: No Pertinent History, Cholecystectomy Genitourinary: No Pertinent History Musculoskeletal: Orthopedic Surgery Male Surgical History: Testicular Surgery Other Surgical History: oral surgery,states brain surgery/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 orchectomy. PORT PLACED IN 2012. CARDIAC STENT IN 2011; gallbladder - Social History Smoking Status: Never smoker Exposure to second hand smoke: No Alcohol Use: None Drug Use: none Patient Lives Alone: No Significant Family History: no pertinent family hx - Nursing Vital Signs Nursing Vital Signs: Initial Vital Signs Temperature 98.0 F 08/07/17 15:18 Pulse Rate 76 08/07/17 15:18 Respiratory Rate 18 08/07/17 15:18 Blood Pressure 205/110 08/07/17 15:18 O2 Sat by Pulse Oximetry 97 08/07/17 15:18 Pain Scale Pain Intensity 8 - Physical Exam General Appearance: alert, other (frail, pale, elderly man) Eye Exam: PERRL/EOMI, pale conjunctivae Ears, Nose, Throat Exam: dry mucous membranes Neck Exam: normal inspection, supple Respiratory Exam: diminished breath sounds Cardiovascular Exam: regular rate/rhythm Gastrointestinal/Abdomen Exam: soft, No tenderness, No distention Extremity Exam: pedal edema (2-3 + bilateral legs, no calf tenderness) Neurologic Exam: alert, oriented x 3, cooperative, sensation nml, No motor deficits Skin Exam: warm, dry SpO2 Interpretation: normal SpO2: 98 Oxygen Delivery: Room Air - Course Nursing assessment & vital signs reviewed: Yes EKG Interpreted by Me: RATE (74), Sinus Rhythm, NORMAL AXIS, NORMAL INTERVALS ( [id number]), Other (LVH) - Radiology Exams AAS X-ray Interpretation: Interpreted by me (low lung volumes, right base atelectasis, no free air, no obstr) Ordered Tests: Active Orders 24 hr Category Date Time Status Clean Catch Urine Specimen STAT Care 08/07/17 15:44 Active EKG-ER Only STAT Care 08/07/17 15:43 Active IV Insertion STAT Care 08/07/17 15:43 Active Pulse Oximetry (ED) STAT Care 08/07/17 15:43 Active OBSTR/ACUTE ABDOMEN SERIES Stat Exams 08/07/17 15:44 Taken BLOOD CULTURE Stat Lab 08/07/17 17:34 Ordered CBC W DIFF Stat Lab 08/07/17 16:00 Completed CMP Stat Lab 08/07/17 16:00 Completed CULTURE,URINE Stat Lab 08/07/17 16:40 Received Lactic Acid Stat Lab 08/07/17 Ordered NT PRO BNP Stat Lab 08/07/17 16:00 Completed TROPONIN Q3H Lab 08/07/17 16:00 Completed TROPONIN Q3H Lab 08/07/17 18:45 Ordered TROPONIN Q3H Lab 08/07/17 21:45 Ordered TROPONIN Q3H Lab 08/08/17 00:45 Ordered TROPONIN Q3H Lab 08/08/17 03:45 Ordered UA W/ MICROSCOPIC Stat Lab 08/07/17 16:40 Completed Lab/Rad Data: Laboratory Result Diagrams 08/07/17 16:00 08/07/17 16:00 Laboratory Results 08/07/17 08/07/17 08/07/17 Range/Units 16:40 16:00 16:00 WBC (4.0-10.5) K/mm3 RBC (4.1-5.6) M/mm3 Hgb (12.5-18.0) gm/dl Hct (42-50) % MCV (78-100) fl MCH (26-32) pg MCHC (32-36) g/dl RDW (11.5-14.0) % Plt Count (150-450) K/mm3 MPV (6-9.5) fl Gran % (36.0-66.0) % Lymphocytes % (24.0-44.0) % Monocytes % (0.0-12.0) % Eosinophils % (0.00-5.0) % Basophils % (0.0-0.4) % Basophils # (0-0.4) Sodium 143 (136-145) mEq/L Potassium 4.2 (3.5-5.1) mEq/L Chloride 111 H (98-107) mEq/L Carbon Dioxide 22.2 (21-32) mEq/L Anion Gap 13.6 (5-15) MEQ/L BUN 28 H (9-20) mg/dL Creatinine 1.59 H (0.55-1.30) mg/dl Estimated GFR 48 ML/MIN Glucose 338 H (70-110) MG/DL Calcium 8.2 L (8.5-10.1) mg/dL Total Bilirubin 0.30 (0.2-1.0) mg/dL AST 17 (15-37) U/L ALT 16 (12-78) U/L Alkaline Phosphatase 160 H (46-116) U/L Troponin I < 0.017 (0.000-0.056) ng/ml NT-Pro-B Natriuret Pep 3440 H (0-125) pg/ml Serum Total Protein 5.9 L (6.4-8.2) gm/dL Albumin 2.0 L (3.4-5.0) g/dL Ur Collection Type CLEAN CATCH Urine Color YELLOW (YELLOW) Urine Appearance SLIGHTLY CLOUDY (CLEAR) Urine pH 6.5 (5-6) Ur Specific [place] 1.010 (1.005-1.025) Urine Protein 300 (Negative) Urine Ketones NEGATIVE (NEGATIVE) Urine Blood 250 (0-5) Syed/ul Urine Nitrite NEGATIVE (NEGATIVE) Urine Bilirubin NEGATIVE (NEGATIVE) Urine Urobilinogen NORMAL (0-1) mg/dL Ur Leukocyte Esterase 1+ (NEGATIVE) Urine Microscopic RBC 10-15 (0-2) /HPF Urine Microscopic WBC 50-100 (0-5) /HPF Urine Bacteria FEW (NEGATIVE) /HPF Hyaline Casts 0-2 (0-2) /LPF Urine Culture Reflexed YES (NO) Urine Glucose 1000 (NEGATIVE) mg/dL Specimen Received 08/07/17 1640 08/07/17 Range/Units 16:00 WBC 5.5 (4.0-10.5) K/mm3 RBC 3.36 L (4.1-5.6) M/mm3 Hgb 9.6 L (12.5-18.0) gm/dl Hct 29.6 L (42-50) % MCV 88.1 (78-100) fl MCH 28.5 (26-32) pg MCHC 32.4 (32-36) g/dl RDW 13.3 (11.5-14.0) % Plt Count 189 (150-450) K/mm3 MPV 10.6 H (6-9.5) fl Gran % 68.9 H (36.0-66.0) % Lymphocytes % 19.6 L (24.0-44.0) % Monocytes % 4.9 (0.0-12.0) % Eosinophils % 5.1 H (0.00-5.0) % Basophils % 1.5 (0.0-0.4) % Basophils # 0.08 (0-0.4) Sodium (136-145) mEq/L Potassium (3.5-5.1) mEq/L Chloride (98-107) mEq/L Carbon Dioxide (21-32) mEq/L Anion Gap (5-15) MEQ/L BUN (9-20) mg/dL Creatinine (0.55-1.30) mg/dl Estimated GFR ML/MIN Glucose (70-110) MG/DL Calcium (8.5-10.1) mg/dL Total Bilirubin (0.2-1.0) mg/dL AST (15-37) U/L ALT (12-78) U/L Alkaline Phosphatase (46-116) U/L Troponin I (0.000-0.056) ng/ml NT-Pro-B Natriuret Pep (0-125) pg/ml Serum Total Protein (6.4-8.2) gm/dL Albumin (3.4-5.0) g/dL Ur Collection Type Urine Color (YELLOW) Urine Appearance (CLEAR) Urine pH (5-6) Ur Specific [place] (1.005-1.025) Urine Protein (Negative) Urine Ketones (NEGATIVE) Urine Blood (0-5) Syed/ul Urine Nitrite (NEGATIVE) Urine Bilirubin (NEGATIVE) Urine Urobilinogen (0-1) mg/dL Ur Leukocyte Esterase (NEGATIVE) Urine Microscopic RBC (0-2) /HPF Urine Microscopic WBC (0-5) /HPF Urine Bacteria (NEGATIVE) /HPF Hyaline Casts (0-2) /LPF Urine Culture Reflexed (NO) Urine Glucose (NEGATIVE) mg/dL Specimen Received - Progress Progress Note: 08/07/17 17:35 Pt too weak to go home. He has UTI. Uncontrolled sugar. Called Dr Beltran for Dr Kramer and will place in obs. Counseled pt/family regarding: lab results, diagnosis, need for follow-up, rad results - Departure Time of Disposition: 17:37 Departure Disposition: Home Clinical Impression: UTI (urinary tract infection), Uncontrolled diabetes mellitus, Bilateral lower extremity edema Condition: Stable Critical Care Time: No Referrals: LISHA KRAMER [Primary Care Provider] -
[2017-08-07 16:39] LABS: Mean Corpuscular Hemoglobin 28.5 pg (26-32)
[2017-08-07 16:54] LABS: ANION GAP 13.6 MEQ/L (5-15); BILIRUBIN,TOTAL 0.3 mg/dL (0.2-1.0); Carbon Dioxide 22.2 mEq/L (21-32); Potassium 4.2 mEq/L (3.5-5.1); Total Protein 5.9 gm/dL (6.4-8.2)
[2017-08-07 17:06] LABS: Bilirubin NEGATIVE (NEGATIVE); Blood 250 Ery/ul (0-5); COMPLETE URINE MICROSCOPIC? YES; Collection Type CLEAN CATCH; Glucose 1000 mg/dL (NEGATIVE); Leukocyte Esterase 1+ (NEGATIVE)
[2017-08-07 17:07] LABS: WBC 50-100 /HPF (0-5)
[2017-08-07 17:08] LABS: ADD URINE CULTURE? YES (NO); Bacteria FEW /HPF (NEGATIVE); Hyaline Casts 0-2 /LPF (0-2)
[2017-08-07] MEDS ORDERED: Levofloxacin 500MG/100ML D5W 500 MG/100 ML BAG IV STA (17:35)
[2017-08-07] MEDS ORDERED: NovoLOG Insulin SQ ONE (17:38)
[2017-08-07] MEDS ORDERED: NovoLOG Insulin ONE (17:56)
[2017-08-07] MEDS ORDERED: Levofloxacin 500MG/100ML D5W 500 MG/100 ML BAG IV ONE (17:57)
[2017-08-07] MEDS ORDERED: APRESOLINE 20 MG/ML INJ IV ONE (18:43)
[2017-08-07] MEDS ORDERED: Zofran 4 MG/2 ML VIAL IV PRN (19:13)
[2017-08-07] MEDS ORDERED: NovoLOG Insulin SQ PRN (19:16)
[2017-08-07] MEDS ORDERED: NORVASC 5 MG ONE (19:49)
[2017-08-07] MEDS: NORVASC 5 MG PO SCH ×3 (19:50→19:57)
[2017-08-07] MEDS: KEPPRA 500 MG PO SCH (21:34)
[2017-08-07] MEDS: TYLENOL 325 MG PO PRN (21:34)
[2017-08-07] MEDS: ZOCOR 20MG PO SCH (21:36)
[2017-08-07] MEDS: NEURONTIN 300 MG PO SCH (21:37)
[2017-08-07] MEDS: Seroquel 100 MG PO SCH (21:38)
[2017-08-07] MEDS: Lantus Insulin SQ SCH (21:38)
[2017-08-07] MEDS ORDERED: LIPITOR 40MG PO SCH (22:00)
--- NOTE | 2017-08-07 22:20 | XRAY ---
Indication: Chest/abdomen pain, nausea, and vomiting. Comparison: Chest June 15, 2017. 2 views of the abdomen limited due to patient body habitus. Nonspecific nonobstructed bowel gas pattern with right upper quadrant surgical clips and pelvic phleboliths. Osseous structures intact with mild osteopenia and degenerative changes. Single frontal chest unchanged again demonstrating minimal right base infiltrate/atelectasis and right-sided Port-A-Cath. Heart is not enlarged for AP projection. No new cardiopulmonary abnormalities. Impression: 1. Nonacute nonobstructed abdomen. 2. Chest demonstrates stable right base infiltrate/atelectasis.
[2017-08-08] MEDS ORDERED: Sodium Chloride 0.9% 250 ML 250 ML IV SCH (00:45)
[2017-08-08] MEDS: Apresoline 25 MG TABLET PO SCH ×4 (01:23→21:02)
[2017-08-08 01:33] LABS: A-aADO2 15; ARTERIAL BLD GAS O2 SATURATION 98.8 % (95-100); ARTERIAL BLOOD GAS BASE EXCESS -3.5 (-2.0-2.0); ARTERIAL BLOOD GAS FIO2 21 %; ARTERIAL BLOOD GAS PO2 88 mmHg (75-100); ARTERIAL BLOOD GAS pH 7.37 (7.35-7.45)
[2017-08-08 04:27] LABS: Mean Cell Volume 88.8 fl (78-100); Mean Platelet Volume 10.8 fl (6-9.5); Platelet Count 159 K/mm3 (150-450); Red Blood Count 2.59 M/mm3 (4.1-5.6); Red Cell Distribution Width 13.4 % (11.5-14.0); White Blood Count 4.6 K/mm3 (4.0-10.5)
[2017-08-08 04:31] LABS: Mean Corpuscular Hemoglobin 28.9 pg (26-32)
[2017-08-08 04:34] LABS: ANION GAP 11.3 MEQ/L (5-15); Carbon Dioxide 22.1 mEq/L (21-32); Potassium 3.6 mEq/L (3.5-5.1)
[2017-08-08] MEDS ORDERED: Sodium Chloride 0.9% 500 ML 500 ML IV SCH (07:30)
[2017-08-08] MEDS: NovoLOG Insulin SQ SCH ×3 (07:46→17:46)
--- NOTE | 2017-08-08 07:55 | PCM.HP ---
History of Present Illness - Chief Complaint Chief Complaint: uti Date: 08/08/17 History of Present Illness: is a 52 year old male. who has been feeling weak with diarrhea and some abdominal pains for the last 5 days with swelling in he legs as well presented from home to ED> he was admitted for further observation and treatment and bp spiked. Dr. Beltran ordered IV hydralazine and it dropped he was briefly unresponsive moved to icu had head ct and cxr and bolus of fluids and the episode resolved no seizure like activity seen but hgb dropped 2 points so she has 2 Units PRBC ordered to be given now. He has no evidence of ongoing bleeding. He denies vomiting and is tired and hungry. No chest pain or shortness of breath. - Review of Systems Constitutional: Fatigue, No Fever, No Chills Eyes: No Symptoms Ears, Nose, & Throat: No Symptoms Respiratory: No Cough, No Short Of Breath Cardiac: No Chest Pain, No Edema, No Syncope Abdominal/Gastrointestinal: Abdominal Pain, Nausea, Diarrhea, No Vomiting Genitourinary Symptoms: Frequency, No Dysuria Musculoskeletal: No Back Pain, No Neck Pain Skin: No Rash Neurological: No Dizziness, No Focal Weakness, No Sensory Changes Psychological: No Symptoms Endocrine: No Symptoms Hematologic/Lymphatic: No Symptoms Immunological/Allergic: No Symptoms Medications & Allergies Home Medications: Home Medication List Insulin Glargine [Lantus Insulin] 30 unit SQ HS 02/13/17 [History Confirmed 08/07/17] Gabapentin [Neurontin] 600 mg PO TID #90 tablet 03/03/17 [Rx Confirmed 08/07/17] Atorvastatin Calcium 20 mg PO HS 04/06/17 [History Confirmed 08/07/17] Quetiapine Fumarate [Seroquel] 200 mg PO HS 05/16/17 [History Confirmed 08/07/17 ] Levetiracetam [Keppra 500 mg ] 500 mg PO TID 06/20/17 [History Confirmed 08/07/17] Amlodipine Besylate 10 mg [Norvasc 10 MG] 10 mg PO DAILY #30 tablet 06/22/17 [ Rx Confirmed 08/07/17] HydrALAzine HCL 25 MG TAB [Apresoline 25 MG TABLET] 25 mg PO TID #90 tablet 06/22/17 [Rx Confirmed 08/07/17] Insulin Aspart [NovoLOG Insulin] 4 unit SQ TID #0 06/22/17 [Rx Confirmed ] Allergies/Adverse Reactions: Allergies Allergy/AdvReac Type Severity Reaction Status Date / Time Penicillins Allergy Severe Shortness Verified 08/07/17 18:32 of Breath bee venom protein (honey bee) Allergy Verified 08/07/17 18:32 erythromycin lactobionate Allergy Verified 08/07/17 18:32 [From Erythrocin] ketorolac [From Toradol] Allergy Verified 08/07/17 18:32 methocarbamol Allergy Verified 08/07/17 18:32 egg AdvReac Verified 08/07/17 18:32 - Past Medical History Past Medical History: Yes Neurological History: Seizures, Stroke ENT History: No Pertinent History Cardiac History: High Cholesterol, Hypertension Respiratory History: No Pertinent History Endocrine Medical History: Diabetes Type II Musculoskelatal History: Fractures GI Medical History: No Pertinent History History: No Pertinent History Pyscho-Social History: Anxiety Male Reproductive Disorders: Prostate Problems, Testicular Cancer - Past Surgical History Past Surgical History: Yes Neuro Surgical History: Other Cardiac History: Cardiac Catheterization, Cardiac Stent Respiratory Surgery: No Pertinent History GI Surgical History: No Pertinent History, Cholecystectomy Genitourinary Surgical Hx: No Pertinent History Musculskeletal Surgical Hx: Orthopedic Surgery Male Surgical History: Testicular Surgery Other Surgical History: oral surgery,states brain surgery/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 orchectomy. PORT PLACED IN 2012. CARDIAC STENT IN 2011; gallbladder - Social History Smoking Status: Never smoker Exposure to second hand smoke: No Alcohol: None Drug Use: none Significant Family History: no pertinent family hx - Physical Exam Vital Signs: Vital Signs - 24 hr Temp Pulse Resp BP Pulse Ox 08/08/17 06:22 14 08/08/17 03:35 98.0 F 61 14 127/75 96 08/08/17 03:31 61 08/08/17 00:00 98.0 F 69 14 94/50 96 08/07/17 20:00 98.0 F 66 17 120/53 97 08/07/17 19:16 170/88 08/07/17 18:39 98.7 F 76 20 233/114 98 08/07/17 18:04 80 18 198/102 08/07/17 17:37 98 08/07/17 16:20 78 20 211/108 08/07/17 16:10 98 08/07/17 15:18 98.0 F 76 18 205/110 97 General Appearance: no apparent distress, alert, other (poor hygiene) Neurologic Exam: alert, oriented x 3, cooperative, depressed mood/affect Eye Exam: pale conjunctivae Ears, Nose, Throat Exam: pharynx normal, moist mucous membranes Neck Exam: normal inspection, non-tender, supple, full range of motion Respiratory Exam: normal breath sounds, lungs clear, No respiratory distress Cardiovascular Exam: regular rate/rhythm, normal heart sounds, normal peripheral pulses Gastrointestinal/Abdomen Exam: soft, normal bowel sounds, tenderness (minimal diffuse), No distention, No mass, No guarding, No rebound Back Exam: normal inspection, normal range of motion, No CVA tenderness, No vertebral tenderness Extremity Exam: pelvis stable, pedal edema, No calf tenderness Skin Exam: warm, dry, pale, No rash Lymphatic Exam: No adenopathy Results - Labs Lab/Micro Results: Accuchecks Date 08/08/17 Date 08/08/17 Time 05:00 Time 22:00 Accucheck Value: 168 Lab Results-Last 24 Hours 08/07/17 08/07/17 08/08/17 Range/Units 19:00 22:04 00:56 WBC (4.0-10.5) K/mm3 RBC (4.1-5.6) M/mm3 Hgb (12.5-18.0) gm/dl Hct (42-50) % MCV (78-100) fl MCH (26-32) pg MCHC (32-36) g/dl RDW (11.5-14.0) % Plt Count (150-450) K/mm3 MPV (6-9.5) fl Puncture Site pCO2 (35-45) mmHg pO2 (75-100) mmHg Base Excess (-2.0-2.0) O2 Saturation (94-100) g/dF ABG pH (7.35-7.45) ABG HCO3 (22-28) ABG O2 Sat (Measured) (95-100) % Stanislav Test A-a Gradient a/A Ratio Hemoglobin Carboxyhemoglobin (0.0-6.9) % THgb Methemoglobin (1.4-1.5) % Potassium (3.5-5.1) Temperature C POC O2 Flow Rate % Sodium (136-145) mEq/L Chloride (98-107) mEq/L Carbon Dioxide (21-32) mEq/L Anion Gap (5-15) MEQ/L BUN (9-20) mg/dL Creatinine (0.55-1.30) mg/dl Estimated GFR ML/MIN Glucose (70-110) MG/DL Calcium (8.5-10.1) mg/dL Troponin I < 0.017 < 0.017 0.022 (0.000-0.056) ng/ml Prealbumin (18.0-35.7) mg/dL ABO Group Rh Factor Antibody Screen (NEGATIVE) Crossmatch (COMPATIBLE) 08/08/17 08/08/17 08/08/17 Range/Units 01:25 04:08 04:08 WBC 4.6 (4.0-10.5) K/mm3 RBC 2.59 L (4.1-5.6) M/mm3 Hgb 7.5 L (12.5-18.0) gm/dl Hct 23.0 L (42-50) % MCV 88.8 (78-100) fl MCH 28.9 (26-32) pg MCHC 32.6 (32-36) g/dl RDW 13.4 (11.5-14.0) % Plt Count 159 (150-450) K/mm3 MPV 10.8 H (6-9.5) fl Puncture Site RIGHT BRACHIAL pCO2 37 (35-45) mmHg pO2 88 (75-100) mmHg Base Excess -3.5 L (-2.0-2.0) O2 Saturation 95.9 (94-100) g/dF ABG pH 7.37 (7.35-7.45) ABG HCO3 21.4 L (22-28) ABG O2 Sat (Measured) 98.8 (95-100) % Stanislav Test NOT APPLICABLE A-a Gradient 15 a/A Ratio 0.85 Hemoglobin 8.8 Carboxyhemoglobin 2.0 (0.0-6.9) % THgb Methemoglobin 0.9 L (1.4-1.5) % Potassium 3.8 3.6 (3.5-5.1) Temperature 37.0 C POC O2 Flow Rate 21 % Sodium 146 H (136-145) mEq/L Chloride 116 H (98-107) mEq/L Carbon Dioxide 22.1 (21-32) mEq/L Anion Gap 11.3 (5-15) MEQ/L BUN 30 H (9-20) mg/dL Creatinine 1.55 H (0.55-1.30) mg/dl Estimated GFR 50 ML/MIN Glucose 148 H (70-110) MG/DL Calcium 7.8 L (8.5-10.1) mg/dL Troponin I (0.000-0.056) ng/ml Prealbumin 15.7 L (18.0-35.7) mg/dL ABO Group Rh Factor Antibody Screen (NEGATIVE) Crossmatch (COMPATIBLE) 08/08/17 08/08/17 08/08/17 Range/Units 04:08 05:10 05:10 WBC (4.0-10.5) K/mm3 RBC (4.1-5.6) M/mm3 Hgb (12.5-18.0) gm/dl Hct (42-50) % MCV (78-100) fl MCH (26-32) pg MCHC (32-36) g/dl RDW (11.5-14.0) % Plt Count (150-450) K/mm3 MPV (6-9.5) fl Puncture Site pCO2 (35-45) mmHg pO2 (75-100) mmHg Base Excess (-2.0-2.0) O2 Saturation (94-100) g/dF ABG pH (7.35-7.45) ABG HCO3 (22-28) ABG O2 Sat (Measured) (95-100) % Stanislav Test A-a Gradient a/A Ratio Hemoglobin Carboxyhemoglobin (0.0-6.9) % THgb Methemoglobin (1.4-1.5) % Potassium (3.5-5.1) Temperature C POC O2 Flow Rate % Sodium (136-145) mEq/L Chloride (98-107) mEq/L Carbon Dioxide (21-32) mEq/L Anion Gap (5-15) MEQ/L BUN (9-20) mg/dL Creatinine (0.55-1.30) mg/dl Estimated GFR ML/MIN Glucose (70-110) MG/DL Calcium (8.5-10.1) mg/dL Troponin I 0.039 (0.000-0.056) ng/ml Prealbumin (18.0-35.7) mg/dL ABO Group A Rh Factor POSITIVE Antibody Screen NEGATIVE (NEGATIVE) Crossmatch COMPATIBLE (COMPATIBLE) Accuchecks Date 08/08/17 Date 08/08/17 Time 05:00 Time 22:00 Accucheck Value: 168 - Radiology Impressions Radiology Exams & Impressions: Radiology Procedures Category Date Time Status HEAD WITHOUT CONTRAST [CT] Stat Exams 08/08/17 00:36 Stop Req HEAD WITHOUT CONTRAST [CT] Stat Exams 08/08/17 01:25 Ordered Portable Chest [CHEST 1 VIEW (PORTABLE)] Stat Exams 08/08/17 00:39 Stop Req Portable Chest [CHEST 1 VIEW (PORTABLE)] Stat Exams 08/08/17 01:25 Ordered Assessment/Plan (1) UTI (urinary tract infection) Current Visit: Yes Status: Acute Assessment & Plan: on levoquin has chronic uti reports diarrhea at home none here with the episode of unresponsiveness with the iv hydralazine yesterday and drop in bp no seizure activity he is back to baseline today he has been ordered 2 U PRBC and these are being transfused with lasix after each unit monitor for response on home bp meds now monitor bp and adjust as necessary he is very sensitive to fluid changes. Code(s): N39.0 - URINARY TRACT INFECTION, SITE NOT SPECIFIED (2) Uncontrolled hypertension Current Visit: Yes Status: Acute Code(s): I10 - ESSENTIAL (PRIMARY) HYPERTENSION (3) Anemia Current Visit: Yes Status: Acute Code(s): D64.9 - ANEMIA, UNSPECIFIED (4) Altered mental status Current Visit: Yes Status: Acute Code(s): R41.82 - ALTERED MENTAL STATUS, UNSPECIFIED (5) Bilateral lower extremity edema Current Visit: Yes Status: Acute Code(s): R60.0 - LOCALIZED EDEMA (6) Coronary artery disease Current Visit: Yes Status: Chronic Code(s): I25.10 - ATHSCL HEART DISEASE OF [place] CORONARY ARTERY W/O ANG PCTRS (7) Neurogenic bladder Current Visit: Yes Status: Chronic Code(s): N31.9 - NEUROMUSCULAR DYSFUNCTION OF [place], UNSPECIFIED (8) Diabetic neuropathy associated with type 1 diabetes mellitus Current Visit: Yes Status: Chronic Code(s): E10.40 - TYPE 1 DIABETES MELLITUS WITH DIABETIC NEUROPATHY, UNSP (9) History of stroke Current Visit: Yes Status: Chronic Code(s): Z86.73 - PRSNL HX OF TIA (TIA), AND CEREB INFRC W/O RESID DEFICITS
[2017-08-08] MEDS: TYLENOL 325 MG PO PRN (08:42)
--- NOTE | 2017-08-08 08:42 | XRAY ---
Exam: CT of the head without IV contrast from 08/08/2017. CTDI: 68.51 Comparison: CT of the head without IV contrast 06/20/2017. Indication: Change in patient's alertness during nursing assessment, history of craniotomy and stroke. Technique: Axial non-IV contrast images were obtained through the brain. Reconstructed coronal and sagittal images were created and reviewed. Findings: I again see mild stable global atrophy with evidence of prior left occipital craniotomy and stable underlying encephalomalacia, gliosis, and adjacent dilation of the occipital horn of the left lateral ventricle. Minimal deep periventricular chronic microvascular ischemic changes are seen. I note an old focal infarct within the lentiform nucleus of the basal ganglia on the left which has aged as compared to the subacute infarct at this site on the prior exam of 06/20/2017. No new infarct, focal mass effect, or midline shift is seen. There is no acute intracranial parenchymal hemorrhage, subarachnoid hemorrhage, or subdural or epidural hematoma. There is benign stable calcification within the corazon. I again note prominence of the cortical sulci and basilar cisterns. There is mild vascular calcification within the carotid siphons representing no change. The visualized paranasal sinuses are essentially clear except for some minor mucosal thickening at the anterior left ethmoid sinus which appears to be new. No air-fluid levels are seen. There may be some minimal mucosal thickening at the posterior margin of the sphenoid sinus as well on axial image #15. The mastoid air cells are clear without effusion. The middle ear cavities reveal no abnormal soft tissue density or fluid. There is extensive cerumen within the external auditory canals. Aside from the postsurgical changes of the left occipital craniotomy, the calvarium of the skull appears intact. Impression: 1. Aging focal infarct within the left lentiform nucleus of the left basal ganglia as compared to 06/20/2017 (when it was subacute). 2. No acute intracranial bleed or new infarct is seen. No other acute brain changes are seen. 3. I note chronic global atrophy, evidence of prior left occipital craniotomy with underlying gliosis, encephalomalacia, and some enlargement of the occipital horn of the left lateral ventricle. These findings are also stable. 4. Minimal mucosal thickening seen within the anterior left ethmoid sinus and perhaps posterior margin of sphenoid sinus. This is relatively nonspecific. No other paranasal sinus disease or air-fluid levels are seen.
[2017-08-08] MEDS: NEURONTIN 300 MG PO SCH ×3 (08:43→21:02)
--- NOTE | 2017-08-08 08:53 | XRAY ---
Exam: AP 30 semierect upright portable chest film from 0113 hours on 08/08/2017. Comparison: AP upright chest film from acute abdominal series on 08/07/2017. Indication: Change in patient's status. Findings: Lung volumes are low representing no change. This is unchanged. Right-sided portacatheter is seen with the tip at or just inferior to the cavoatrial junction on the right. The cardiac size is slightly accentuated, probably due to the poor level of inspiration and AP portable technique. I don't believe this represents a significant change from 06/15/2017 or 08/07/2017. No central vascular congestion or pleural effusions are seen. I again note some mild linear subsegmental atelectasis at the right lung base. In addition, there is a new focal curvilinear strand of subsegmental atelectasis at the lateral left lung base. No air space infiltrates or pneumothorax is seen. No acute osseous process is noted. I again note multiple surgical clips within the right upper quadrant abdomen as well as apparent interposition of the hepatic flexure of the colon with the liver in the right upper quadrant. Impression: 1. Low lung volumes with mild bibasilar linear atelectasis, right greater than left. The tiny curvilinear strand of atelectasis at the lateral left lung base is new from 08/07/2017. 2. I see no definite air space infiltrates or other acute cardiopulmonary disease.
[2017-08-08] MEDS: Levofloxacin 500MG/100ML D5W 500 MG/100 ML BAG IV SCH (10:11)
[2017-08-08] MEDS: KEPPRA 500 MG PO SCH ×3 (10:11→21:02)
[2017-08-08] MEDS: Lasix 20 MG/2 ML IV SCH ×2 (10:11→13:09)
[2017-08-08] MEDS: Lantus Insulin SQ SCH (21:02)
[2017-08-08] MEDS: ZOCOR 20MG PO SCH (21:02)
[2017-08-08] MEDS: Seroquel 100 MG PO SCH (21:02)
[2017-08-09] MEDS: NovoLOG Insulin SQ SCH ×3 (08:05→17:34)
--- NOTE | 2017-08-09 08:25 | PCM.NOTE ---
Date and Time: 08/09/17814 Subjective Assessment: States he feels "like warmed over" he is worried about his freind Don's health. He says he did not sleep well and not eating well. He denies chest pain shortness of breath or abdominal pain says he is urinating well he still has the swelling in the legs. Objective Exam General Appearance: no apparent distress, alert, obese Neurologic Exam: alert, oriented x 3, cooperative, depressed mood/affect Skin Exam: warm, dry, rash (lower legs with suspected bug bites), pale Eye Exam: PERRL, EOMI, eyes nml inspection, pale conjunctivae, No scleral icterus Ears, Nose, Throat Exam: pharynx normal, moist mucous membranes Neck Exam: normal inspection, non-tender, supple, full range of motion Respiratory Exam: normal breath sounds, lungs clear, No respiratory distress Cardiovascular Exam: regular rate/rhythm, normal heart sounds Gastrointestinal/Abdomen Exam: soft, No tenderness, No mass Extremity Exam: normal inspection, normal range of motion Back Exam: normal inspection, normal range of motion, No CVA tenderness, No vertebral tenderness Male Genitalia Exam: deferred Rectal Exam: deferred OBJECTIVE DATA Vital Signs: Vital Signs - 24 hr Temp Pulse Resp BP Pulse Ox 08/09/17 07:27 98.1 F 62 16 170/82 96 08/09/17 05:51 16 08/09/17 04:00 98.0 F 58 L 16 160/80 95 08/09/17 01:50 16 08/08/17 23:58 98.6 F 67 16 178/93 95 08/08/17 22:00 18 08/08/17 20:12 98.2 F 67 18 176/86 95 08/08/17 18:00 18 08/08/17 16:22 98.5 F 67 18 185/86 97 08/08/17 14:00 14 08/08/17 13:00 98.2 F 61 14 142/87 97 08/08/17 11:55 97.8 F 65 12 156/96 98 08/08/17 11:35 97.7 F 65 12 161/89 96 08/08/17 11:22 67 08/08/17 10:22 12 08/08/17 08:50 98.2 F 73 16 169/97 08/08/17 08:25 97.5 F 72 20 171/98 97 Pain Assessment - Last Documented Pain Intensity 7 Pain Scale Used [facility] Intake and Output: Intake & Output 08/06/17 08/07/17 08/08/17 08/09/17 11:59 11:59 11:59 11:59 Intake Total 1676 1540 Output Total 425 1300 Balance 1251 240 Weight 89.1 kg 89.403 kg Lab Results: Accuchecks Date 08/08/17 Date 08/08/17 Date 08/08/17 Time 21:00 Time 16:30 Time 11:20 Accucheck Value: 162 Accucheck Value: 123 Accucheck Value: 166 Lab Results-Last 24 Hours 08/08/17 08/08/17 08/08/17 Range/Units 05:10 15:08 15:08 Hgb 11.8 L (12.5-18.0) gm/dl Hct 35.5 L (42-50) % Hemoglobin A1c 8.3 H (4.5-6.2) Crossmatch COMPATIBLE (COMPATIBLE) Radiology Exams: Radiology Procedures Category Date Time Status HEAD WITHOUT CONTRAST [CT] Stat Exams 08/08/17 00:36 Completed Portable Chest [CHEST 1 VIEW (PORTABLE)] Stat Exams 08/08/17 00:39 Completed Multi-Disciplinary Progress Notes: Multi-Disciplinary Progress Notes 08/08/17 15:57 Case Management Note by Carlee Walker CALL TO [facility] TO REPORT PT IS HERE AND UPDATE ON STATUS. . LEFT MESSAGE ON [employer]MAIL. Initialized on 08/08/17 15:57 - END OF NOTE 08/08/17 15:55 Case Management Note by Carlee Walker FOLLOWUP PHONE CALL TO [facility], STAFF REPORTS THAT JOEL HAS GONE FOR THE DAY. WILL RETURN BETWEEN [phone] TOMORROW. STAFF IS UNSURE ON STATUS OF REFERRAL, WILL CALL BACK TOMORROW MORNING. Initialized on 08/08/17 15:55 - END OF NOTE 08/08/17 09:05 (created 08/08/17 15:05) Case Management Note by Carlee Walker REVIEWED DISCHARGE PLAN WITH PT. PT REPORTS THAT HE HAS BEEN UNABLE TO CARE FOR HIMSELF. REPORTS THAT HE NEEDS TO GO BACK TO THE [facility]. PT HAS LONG HISTORY WITH BEING VERY HARD TO PLACE. HAS BEEN IN [facility] FACILITY SEVERAL TIMES, BUT ALWAYS SIGNS HIMSELF OUT. PT IS UNREALISTIC IN IDEA THAT HE CAN MANAGE INDEPENDENTLY WHEN HE LEAVES THIS FACILITY. PT REQUIRES ASSIST FOR SHOWERS, TOILETING, DRESSING, AND TRANSFERS. ALSO, HAS HISTORY WITH NUMEROUS [facility] AND HOSPICE AGENCIES - WHO ARE ALL UNWILLING TO ADMIT HIM BACK TO SERVICE. PT IS UNSAFE AT HOME, CAN NOT CARE FOR SELF INDEPENDENTLY. HAS FRIEND THAT LIVES WITH HIM, WHO IS ALSO IN VERY POOR HEALTH. HAS HAD NUMEROUS REFERRALS WITH [address] - ALSO, UNWILLING TO TAKE PT BACK ON SERVICE. REQUESTS REFERRAL TO [facility] IN [place] - SPOKE WITH JOEL, REPORTS THAT SHE IS UNSURE THAT THEY WILL TAKE PT BACK, HE HAD THREATENED TO BREAK DOOR DOWN WITH MOTORIZED CART IF THEY DID NOT CALL CAB FOR HIM TO GO HOME A FEW WEEKS AGO. REPORTS THAT SHE WILL TAKE IT TO ADMISSIONS COMMITTEE. REQUESTS THAT REFERRAL BE FAXED TO [phone]. Initialized on 08/08/17 15:05 - END OF NOTE Assessment/Plan (1) History of stroke Current Visit: Yes Status: Chronic Assessment & Plan: He is unable to care for himself at home he requires assit for showers, toileting, dressing and transfers and his only help at home is a friend who is in his 80's and is suffering from some increased health ailments as well. Trying to find a safe discharge plan for him. He states he liked it at [facility] but was told he was there for a respite stay while his caregiver was in in the hospital and he had been home for 3 days and kept telling them they didn't have the paperwork to let him go so that is why he says he was upset when he was trying to leave, but he otherwise liked it there. He is medically stable for discharge if he has assistance with his adl's arranged at discharge. Code(s): Z86.73 - PRSNL HX OF TIA (TIA), AND CEREB INFRC W/O RESID DEFICITS (2) UTI (urinary tract infection) Current Visit: Yes Status: Acute Code(s): N39.0 - URINARY TRACT INFECTION, SITE NOT SPECIFIED (3) Uncontrolled hypertension Current Visit: Yes Status: Acute Assessment & Plan: more stable yesterday increase the hydralazine to 50 tid continue amlodipine Code(s): I10 - ESSENTIAL (PRIMARY) HYPERTENSION (4) Anemia Current Visit: Yes Status: Acute Code(s): D64.9 - ANEMIA, UNSPECIFIED (5) Altered mental status Current Visit: Yes Status: Resolved Code(s): R41.82 - ALTERED MENTAL STATUS , UNSPECIFIED (6) Bilateral lower extremity edema Current Visit: Yes Status: Acute Code(s): R60.0 - LOCALIZED EDEMA (7) Coronary artery disease Current Visit: Yes Status: Chronic Code(s): I25.10 - ATHSCL HEART DISEASE OF [place] CORONARY ARTERY W/O ANG PCTRS (8) Neurogenic bladder Current Visit: Yes Status: Chronic Code(s): N31.9 - NEUROMUSCULAR DYSFUNCTION OF BLADDER, UNSPECIFIED (9) Diabetic neuropathy associated with type 1 diabetes mellitus Current Visit: Yes Status: Chronic Code(s): E10.40 - TYPE 1 DIABETES MELLITUS WITH DIABETIC NEUROPATHY, UNSP
[2017-08-09] MEDS: Apresoline 25 MG TABLET PO SCH ×3 (09:18→22:02)
[2017-08-09] MEDS: NEURONTIN 300 MG PO SCH ×3 (09:19→22:03)
[2017-08-09] MEDS: KEPPRA 500 MG PO SCH ×3 (09:19→22:02)
[2017-08-09] MEDS: Levofloxacin 500MG/100ML D5W 500 MG/100 ML BAG IV SCH (09:19)
[2017-08-09] MEDS: NORVASC 5 MG PO SCH (09:19)
[2017-08-09] MEDS: MORPHINE SULFATE 2 MG INJ IV PRN ×2 (16:38→22:04)
[2017-08-09] MEDS: Lantus Insulin SQ SCH (22:03)
[2017-08-09] MEDS: Seroquel 100 MG PO SCH (22:03)
[2017-08-09] MEDS: ZOCOR 20MG PO SCH (22:04)
[2017-08-10] MEDS: NovoLOG Insulin SQ SCH ×3 (07:51→17:51)
[2017-08-10] MEDS: MORPHINE SULFATE 2 MG INJ IV PRN ×4 (08:11→21:07)
[2017-08-10] MEDS: NORVASC 5 MG PO SCH (08:28)
[2017-08-10] MEDS: NEURONTIN 300 MG PO SCH ×3 (08:28→21:08)
[2017-08-10] MEDS: Levofloxacin 500MG/100ML D5W 500 MG/100 ML BAG IV SCH (08:28)
[2017-08-10] MEDS: Apresoline 25 MG TABLET PO SCH ×3 (08:29→21:08)
[2017-08-10] MEDS: KEPPRA 500 MG PO SCH ×3 (08:29→21:08)
--- NOTE | 2017-08-10 16:59 | PCM.NOTE ---
Date and Time: 08/10/17 1655 Subjective Assessment: he is sad today he is worried about his friend annia. he is eating well today. he states his headache is better and he slept well no new symptoms. Objective Exam General Appearance: no apparent distress, alert, obese Neurologic Exam: alert, oriented x 3, cooperative, depressed mood/affect Skin Exam: warm, dry, pale Eye Exam: PERRL, EOMI, eyes nml inspection, pale conjunctivae, No scleral icterus Ears, Nose, Throat Exam: normal ENT inspection, pharynx normal, moist mucous membranes Neck Exam: normal inspection, non-tender, supple, full range of motion Respiratory Exam: normal breath sounds, lungs clear, No respiratory distress Cardiovascular Exam: regular rate/rhythm, normal heart sounds Gastrointestinal/Abdomen Exam: soft, No tenderness, No mass Extremity Exam: pedal edema Back Exam: normal inspection, normal range of motion, No CVA tenderness, No vertebral tenderness Male Genitalia Exam: deferred Rectal Exam: deferred OBJECTIVE DATA Vital Signs: Vital Signs - 24 hr Temp Pulse Resp BP Pulse Ox 08/10/17 15:13 97.4 F 68 18 179/80 96 08/10/17 14:00 18 08/10/17 11:24 97.6 F 66 18 188/91 96 08/10/17 07:27 97.0 F 61 18 137/70 93 L 08/10/17 04:00 97.6 F 63 12 134/72 95 08/10/17 00:00 98.3 F 67 16 148/73 96 08/09/17 20:00 98.2 F 70 16 163/83 95 08/09/17 18:00 16 Pain Assessment - Last Documented Pain Intensity 9 Pain Scale Used 0-10 Pain Scale Intake and Output: Intake & Output 08/08/17 08/09/17 08/10/17 08/11/17 11:59 11:59 11:59 11:59 Intake Total 1676 2020 1640 480 Output Total 425 2150 1400 100 Balance 1251 -130 240 380 Weight 89.1 kg 89.403 kg 90.775 kg Lab Results: Accuchecks Date 08/10/17 Date 08/10/17 Date 08/10/17 Time 11:07 Time 07:36 Time 22:00 Accucheck Value: 99 Accucheck Value: 133 Accucheck Value: 123 Multi-Disciplinary Progress Notes: Multi-Disciplinary Progress Notes 08/10/17 11:00 (created 08/10/17 11:27) Case Management Note by Carlee Walker DR. COMPLETED PHYSICIAN REPORT FOR [employer]. VETERINARY MEDICAL OFFICER COMPLETED PROSPECT CHECKLIST. ALL INFORMATION FAXED TO YANICK BRANCH @ [phone], [facility] @ [phone], AND [facility] @[phone]. CALL TO ALL OF THE ABOVE TO NOTIFY THAT INFORMATION WAS BEING FAXED - SPOKE WITH YANICK BRANCH UPHOLSTERY AUTO TRIMMER, DOMO @ [facility] , AND JOEL @ [facility] [place]. JOEL REPORTS THAT WITH THE INITIATION OF GUARDIANSHIP THEY WILL BE ABLE TO ACCEPT PT BACK TO FACILITY ON 08/13/17. PLAN FOR TRANSITION TO [facility] ON SUNDAY. PT IS UNSAFE TO GO HOME, CAN NOT CARE FOR HIMSELF, AND THE FRIEND THAT LIVES WITH HIM (DON) IS ELDERLY, IN POOR HEALTH , AND UNABLE TO PROVIDE CARE. PLAN TO KEEP PT IN HOSPITAL UNTIL FACILITY CAN ACCEPT HIM ON SUNDAY. CALL TO DR. KRAMER'S OFFICE TO REPORT. SPOKE WITH DR. NIA MONTGOMERY'S NURSE. Initialized on 08/10/17 11:27 - END OF NOTE 08/10/17 10:55 (created 08/10/17 11:37) Case Management Note by Carlee Walker DISCUSSED DISCHARGE PLAN WITH PT. HE IS AGREEABLE TO DISCHARGE PLAN. PLAN FOR TRANSITION TO [facility] ON 08/13/17. PT REPORTS THAT HE WILL CALL DON AND LET HIM KNOW. Initialized on 08/10/17 11:37 - END OF NOTE Assessment/Plan (1) History of stroke Current Visit: Yes Status: Chronic Assessment & Plan: Per [facility] with his petition for guardianship they will be able to accept him for transfer to the [facility] on Sunday in his current state he is unable to care for himself at home safely. His sugars have been well controlled his bp is better in the mornings high in the afternoons. will increase his hydralazine. Code(s): Z86.73 - PRSNL HX OF TIA (TIA), AND CEREB INFRC W/O RESID DEFICITS (2) Uncontrolled hypertension Current Visit: Yes Status: Acute Code(s): I10 - ESSENTIAL (PRIMARY) HYPERTENSION (3) Anemia Current Visit: Yes Status: Acute Code(s): D64.9 - ANEMIA, UNSPECIFIED (4) Altered mental status Current Visit: Yes Status: Resolved Code(s): R41.82 - ALTERED MENTAL STATUS , UNSPECIFIED (5) Bilateral lower extremity edema Current Visit: Yes Status: Acute Code(s): R60.0 - LOCALIZED EDEMA (6) Coronary artery disease Current Visit: Yes Status: Chronic Code(s): I25.10 - ATHSCL HEART DISEASE OF [place] CORONARY ARTERY W/O ANG PCTRS (7) Neurogenic bladder Current Visit: Yes Status: Chronic Code(s): N31.9 - NEUROMUSCULAR DYSFUNCTION OF BLADDER, UNSPECIFIED (8) Diabetic neuropathy associated with type 1 diabetes mellitus Current Visit: Yes Status: Chronic Code(s): E10.40 - TYPE 1 DIABETES MELLITUS WITH DIABETIC NEUROPATHY, UNSP (9) UTI (urinary tract infection) Current Visit: Yes Status: Ruled-out Assessment & Plan: culture negative was on levoquin had dose today will d/c levoquin Code(s): N39.0 - URINARY TRACT INFECTION, SITE NOT SPECIFIED
[2017-08-10] MEDS: Seroquel 100 MG PO SCH (21:08)
[2017-08-10] MEDS: ZOCOR 20MG PO SCH (21:08)
[2017-08-10] MEDS: Lantus Insulin SQ SCH (23:15)
[2017-08-11] MEDS: MORPHINE SULFATE 2 MG INJ IV PRN ×5 (04:44→21:04)
--- NOTE | 2017-08-11 08:05 | PCM.NOTE ---
Date and Time: 08/11/17 0803 Subjective Assessment: patient with no new complaints, eating breakfast. neck feels stiff from sleeping wrong on it. Objective Exam General Appearance: no apparent distress, alert Respiratory Exam: normal breath sounds, lungs clear, No respiratory distress Cardiovascular Exam: regular rate/rhythm, normal heart sounds Gastrointestinal/Abdomen Exam: soft, No tenderness, No mass OBJECTIVE DATA Vital Signs: Vital Signs - 24 hr Temp Pulse Resp BP Pulse Ox 08/11/17 07:13 97.9 F 76 20 128/70 95 08/11/17 04:00 97.6 F 64 12 101/56 93 L 08/11/17 00:00 98.3 F 65 16 138/65 96 08/10/17 19:58 98.0 F 68 17 139/79 94 L 08/10/17 15:13 97.4 F 68 18 179/80 96 08/10/17 14:00 18 08/10/17 11:24 97.6 F 66 18 188/91 96 Pain Assessment - Last Documented Pain Intensity 0 Pain Scale Used [facility] Intake and Output: Intake & Output 08/08/17 08/09/17 08/10/17 08/11/17 11:59 11:59 11:59 11:59 Intake Total 1676 2020 1640 1020 Output Total 425 2150 1400 500 Balance 1251 -130 240 520 Weight 89.1 kg 89.403 kg 90.775 kg 90.265 kg Lab Results: Accuchecks Date 08/10/17 Date 08/10/17 Date 08/10/17 Time 22:00 Time 16:30 Time 11:07 Accucheck Value: 109 Accucheck Value: 127 Accucheck Value: 99 Multi-Disciplinary Progress Notes: Multi-Disciplinary Progress Notes 08/10/17 11:00 (created 08/10/17 11:27) Case Management Note by Carlee Walker DR. COMPLETED PHYSICIAN REPORT FOR [employer]. DRIVER SERVICE TECHNICIAN COMPLETED PROSPECT CHECKLIST. ALL INFORMATION FAXED TO YANICK BRANCH @ [phone], [facility] @ [phone], AND [facility] @[phone]. CALL TO ALL OF THE ABOVE TO NOTIFY THAT INFORMATION WAS BEING FAXED - SPOKE WITH YANICK BRANCH BANKING TEACHER, DOMO @ [facility] , AND JOEL @ [facility] [place]. JOEL REPORTS THAT WITH THE INITIATION OF GUARDIANSHIP THEY WILL BE ABLE TO ACCEPT PT BACK TO FACILITY ON 08/13/17. PLAN FOR TRANSITION TO [facility] ON SUNDAY. PT IS UNSAFE TO GO HOME, CAN NOT CARE FOR HIMSELF, AND THE FRIEND THAT LIVES WITH HIM (DON) IS ELDERLY, IN POOR HEALTH , AND UNABLE TO PROVIDE CARE. PLAN TO KEEP PT IN HOSPITAL UNTIL FACILITY CAN ACCEPT HIM ON SUNDAY. CALL TO DR. KRAMER'S OFFICE TO REPORT. SPOKE WITH DR. NIA MONTGOMERY'S NURSE. Initialized on 08/10/17 11:27 - END OF NOTE 08/10/17 10:55 (created 08/10/17 11:37) Case Management Note by Carlee Walker DISCUSSED DISCHARGE PLAN WITH PT. HE IS AGREEABLE TO DISCHARGE PLAN. PLAN FOR TRANSITION TO [facility] ON 08/13/17. PT REPORTS THAT HE WILL CALL DON AND LET HIM KNOW. Initialized on 08/10/17 11:37 - END OF NOTE Assessment/Plan (1) History of stroke Current Visit: Yes Status: Chronic Assessment & Plan: plan to transfer to rehab on Sunday Code(s): Z86.73 - PRSNL HX OF TIA (TIA), AND CEREB INFRC W/O RESID DEFICITS (2) Anemia Current Visit: Yes Status: Acute Code(s): D64.9 - ANEMIA, UNSPECIFIED (3) Uncontrolled diabetes mellitus Current Visit: Yes Status: Acute Code(s): E11.65 - TYPE 2 DIABETES MELLITUS WITH HYPERGLYCEMIA (4) Uncontrolled hypertension Current Visit: Yes Status: Acute Code(s): I10 - ESSENTIAL (PRIMARY) HYPERTENSION
[2017-08-11] MEDS: Apresoline 25 MG TABLET PO SCH ×3 (08:47→21:10)
[2017-08-11] MEDS: NORVASC 5 MG PO SCH (08:47)
[2017-08-11] MEDS: NEURONTIN 300 MG PO SCH ×3 (08:48→21:09)
[2017-08-11] MEDS: KEPPRA 500 MG PO SCH ×3 (08:48→21:09)
[2017-08-11] MEDS: NovoLOG Insulin SQ SCH ×3 (08:48→16:53)
[2017-08-11] MEDS: Lantus Insulin SQ SCH (21:05)
[2017-08-11] MEDS: ZOCOR 20MG PO SCH (21:09)
[2017-08-11] MEDS: Seroquel 100 MG PO SCH (21:09)
[2017-08-12] MEDS: MORPHINE SULFATE 2 MG INJ IV PRN ×2 (01:11→05:18)
--- NOTE | 2017-08-12 07:56 | PCM.NOTE ---
Date and Time: 08/12/17 0754 Subjective Assessment: patient continues to request IV pain med every 4 hours, often requesting early. he is requesting pain med for neck pain which has been present since his TIA in May. nursing concerned with respiratory rate and giving narcotic Objective Exam General Appearance: no apparent distress, alert Neurologic Exam: alert, cooperative Skin Exam: normal color, warm, dry Respiratory Exam: normal breath sounds, lungs clear, No respiratory distress Cardiovascular Exam: regular rate/rhythm, normal heart sounds Gastrointestinal/Abdomen Exam: soft, No tenderness, No mass OBJECTIVE DATA Vital Signs: Vital Signs - 24 hr Temp Pulse Resp BP Pulse Ox 08/12/17 04:00 97.8 F 75 12 139/70 92 L 08/12/17 00:00 97.5 F 73 20 176/84 94 L 08/11/17 20:00 97.6 F 70 18 152/77 95 08/11/17 16:00 98.2 F 74 16 133/74 95 08/11/17 11:08 97.8 F 71 20 127/85 98 Pain Assessment - Last Documented Pain Intensity 9 Pain Scale Used 0-10 Pain Scale Intake and Output: Intake & Output 08/09/17 08/10/17 08/11/17 08/12/17 11:59 11:59 11:59 11:59 Intake Total 2020 1640 1560 1560 Output Total 2150 1400 1350 500 Balance -130 399 215 3174 Weight 89.403 kg 90.775 kg 90.265 kg 96.434 kg Lab Results: Accuchecks Date 08/11/17 Date 08/11/17 Date 08/11/17 Time 21:08 Time 16:30 Time 11:30 Accucheck Value: 195 Accucheck Value: 188 Accucheck Value: 156 Assessment/Plan (1) History of stroke Current Visit: Yes Status: Chronic Assessment & Plan: discussed need to switch to po pain med, unable to continue IV and looking to discharge tomorrow. will d/c morphine and try po norco Code(s): Z86.73 - PRSNL HX OF TIA (TIA), AND CEREB INFRC W/O RESID DEFICITS (2) Anemia Current Visit: Yes Status: Acute Code(s): D64.9 - ANEMIA, UNSPECIFIED (3) Uncontrolled diabetes mellitus Current Visit: Yes Status: Acute Code(s): E11.65 - TYPE 2 DIABETES MELLITUS WITH HYPERGLYCEMIA (4) Uncontrolled hypertension Current Visit: Yes Status: Acute Code(s): I10 - ESSENTIAL (PRIMARY) HYPERTENSION
[2017-08-12] MEDS: NovoLOG Insulin SQ PRN ×3 (08:40→17:32)
[2017-08-12] MEDS: NovoLOG Insulin SQ SCH ×3 (08:40→17:32)
[2017-08-12] MEDS: NEURONTIN 300 MG PO SCH ×3 (08:43→21:11)
[2017-08-12] MEDS: KEPPRA 500 MG PO SCH ×3 (08:43→21:11)
[2017-08-12] MEDS: NORVASC 5 MG PO SCH (08:44)
[2017-08-12] MEDS: Apresoline 25 MG TABLET PO SCH ×3 (08:44→21:11)
[2017-08-12] MEDS: NORCO 5/325 MG PO PRN ×3 (12:17→23:55)
[2017-08-12] MEDS: Seroquel 100 MG PO SCH (21:12)
[2017-08-12] MEDS: Lantus Insulin SQ SCH (21:12)
[2017-08-12] MEDS: ZOCOR 20MG PO SCH (21:12)
[2017-08-13] MEDS: NORCO 5/325 MG PO PRN ×2 (05:04→21:04)
[2017-08-13 05:42] LABS: Mean Cell Volume 90.2 fl (78-100); Mean Corpuscular Hemoglobin 28.4 pg (26-32); Mean Platelet Volume 10.7 fl (6-9.5); Platelet Count 170 K/mm3 (150-450); Red Blood Count 3.66 M/mm3 (4.1-5.6); Red Cell Distribution Width 14.3 % (11.5-14.0); White Blood Count 5.6 K/mm3 (4.0-10.5)
[2017-08-13 05:59] LABS: ALBUMIN 1.7 g/dL (3.4-5.0); ANION GAP 11.5 MEQ/L (5-15); BILIRUBIN,TOTAL 0.1 mg/dL (0.2-1.0); Carbon Dioxide 24.3 mEq/L (21-32); Total Protein 5.4 gm/dL (6.4-8.2)
[2017-08-13 06:14] LABS: BAND 1 % (0.0-2.0); Eosinophil 5 % (0.00-3.0); Platelet Estimate NORMAL (NORMAL); Total Cells Counted 100
[2017-08-13 06:15] LABS: ANISOCYTOSIS 1+
--- NOTE | 2017-08-13 08:07 | PCM.DS ---
Discharge Summary Date of Admission: 08/07/17 18:15 Date of Discharge: 08/13/2017 Admitting Physician: ASA HAWTHORNE Primary Care Provider: LISHA KRAMER Allergies Allergies Penicillins Allergy (Severe, Verified 08/07/17 18:32) Shortness of Breath staes anaphylactic shock bee venom protein (honey bee) Allergy (Verified 08/07/17 18:32) erythromycin lactobionate [From Erythrocin] Allergy (Verified 08/07/17 18:32) ketorolac [From Toradol] Allergy (Verified 08/07/17 18:32) methocarbamol Allergy (Verified 08/07/17 18:32) egg Adverse Reaction (Verified 08/07/17 18:32) Hospital Summary - Hospital Course Hospital Course: He presented to the ED because of inability to care for himself at home and increased edema. He has chronic urinary retention and had a Suprapubic cath in the past that he refuses to have replaced. He refused a Khan. He has multiple recurrent hospital admissions because he lives at his own home with a friend who is in his 80's and in poor health as his only source of assistance and his is unable to dress himself or bath. He was felt to possibly have a UTI but culture just showed mixed radha. He was on levoquin for 3 days and it was stopped with lack of edema. On the day of presentation he was given iv hydralazine for systolic blood pressure at 220 and it dropped to the 80's systolic and he was symptomatic resulting in CT of head and transfer to ICU. He was bolused fluids and subsequently his Hgb dropped to 7.0 with the dilution and ckd and he was transfused 2 Units and stable since without bleeding. He has had previous egd and colonoscopy. His sugars are much better controlled back on his insulin and he is eating well. He does want iv pain medicine for his chronic neck but this was stopped. His blood pressure was better controlled as his po hydralazine was increased. He continues to have the edema but refuses a Khan and with his neurogenic bladder and ckd. - Vitals & Intake/Output Vital Signs: Vital Signs Temperature 97.7 F 08/13/17 07:00 Pulse Rate 63 08/13/17 07:00 Respiratory Rate 12 08/13/17 07:00 Blood Pressure 108/59 08/13/17 07:00 O2 Sat by Pulse Oximetry 92 L 08/13/17 07:00 Intake & Output: Intake & Output 08/10/17 08/11/17 08/12/17 08/13/17 11:59 11:59 11:59 11:59 Intake Total 1640 1560 1560 720 Output Total 1400 1350 500 100 Balance 435 253 1407 620 Weight 90.775 kg 90.265 kg 94.886 kg 93.758 kg - Lab Result Diagrams: 08/13/17 05:25 08/13/17 05:25 Lab Results-Last 24 Hrs: Accuchecks Date 08/13/17 Date 08/12/17 Date 08/12/17 Date 08/12/17 Time 07:30 Time 20:16 Time 16:43 Time 11:39 Accucheck Value: 174 Accucheck Value: 255 Accucheck Value: 257 Lab Results-Last 24 Hours 08/13/17 08/13/17 Range/Units 05:25 05:25 WBC 5.6 (4.0-10.5) K/mm3 RBC 3.66 L (4.1-5.6) M/mm3 Hgb 10.4 L (12.5-18.0) gm/dl Hct 33.0 L (42-50) % MCV 90.2 (78-100) fl MCH 28.4 (26-32) pg MCHC 31.5 L (32-36) g/dl RDW 14.3 H (11.5-14.0) % Plt Count 170 (150-450) K/mm3 MPV 10.7 H (6-9.5) fl Segmented Neutrophils 48 (36.-66.) % Band Neutrophils 1 (0.0-2.0) % Lymphocytes (Manual) 40 (24-44) % Monocytes (Manual) 6 (0.0-12.0) % Eosinophils (Manual) 5 H (0.00-3.0) % Differential Comment ABNORMAL Platelet Estimate NORMAL (NORMAL) Anisocytosis 1+ Sodium 136 (136-145) mEq/L Potassium 5.0 (3.5-5.1) mEq/L Chloride 105 (98-107) mEq/L Carbon Dioxide 24.3 (21-32) mEq/L Anion Gap 11.5 (5-15) MEQ/L BUN 42 H (9-20) mg/dL Creatinine 1.93 H (0.55-1.30) mg/dl Estimated GFR 39 ML/MIN Glucose 111 H (70-110) MG/DL Calcium 8.3 L (8.5-10.1) mg/dL Total Bilirubin 0.10 L (0.2-1.0) mg/dL AST 18 (15-37) U/L ALT 20 (12-78) U/L Alkaline Phosphatase 119 H (46-116) U/L Serum Total Protein 5.4 L (6.4-8.2) gm/dL Albumin 1.7 L (3.4-5.0) g/dL Micro Results-Entire Visit: Accuchecks Date 08/13/17 Date 08/12/17 Date 08/12/17 Date 08/12/17 Time 07:30 Time 20:16 Time 16:43 Time 11:39 Accucheck Value: 174 Accucheck Value: 255 Accucheck Value: 257 - Procedures and Test Procedures and Tests throughout Hospitalization: Therapy Orders & Screens 08/08/17 00:38 EKG STAT Comment: Diagnosis: uti Discharge Exam General Appearance: no apparent distress, alert Neurologic Exam: alert, oriented x 3, cooperative, normal mood/affect, nml cerebellar function, sensation nml, No motor deficits Skin Exam: warm, dry, pale Eye Exam: PERRL, EOMI, eyes nml inspection, pale conjunctivae, No scleral icterus Ears, Nose, Throat Exam: normal ENT inspection, pharynx normal, moist mucous membranes Neck Exam: normal inspection, non-tender, supple, full range of motion Respiratory Exam: normal breath sounds, lungs clear, No respiratory distress Cardiovascular Exam: regular rate/rhythm, normal heart sounds Gastrointestinal/Abdomen Exam: soft, No tenderness, No mass Extremity Exam: normal inspection, normal range of motion, pedal edema ( bilateral upper and lower extremity edema 1+ pitting) Back Exam: normal inspection, normal range of motion, No CVA tenderness, No vertebral tenderness Male Genitalia Exam: deferred Rectal Exam: deferred Final Diagnosis/Problem List - Final Discharge Diagnosis/Problem (1) History of stroke Current Visit: Yes Status: Chronic (2) Uncontrolled hypertension Current Visit: Yes Status: Chronic (3) Anemia Current Visit: Yes Status: Chronic (4) Altered mental status Current Visit: Yes Status: Resolved (5) Bilateral lower extremity edema Current Visit: Yes Status: Acute (6) Coronary artery disease Current Visit: Yes Status: Chronic (7) Neurogenic bladder Current Visit: Yes Status: Chronic (8) Diabetic neuropathy associated with type 1 diabetes mellitus Current Visit: Yes Status: Chronic (9) UTI (urinary tract infection) Current Visit: Yes Status: Ruled-out (10) CKD (chronic kidney disease) Current Visit: Yes Status: Chronic (11) Protein-calorie malnutrition, mild Current Visit: Yes Status: Acute Assessment & Plan: low albumin and resuling edema - Discharge Discharge Date: 08/13/17 Disposition: DC TO ANY "OTHER" LONG-TERM Condition: Fair Prescriptions: New Heparin Flush 500 units/5 ml [Heparin Lock Flush 100 Units/ml 5ml Syringe ] 500 units PORT FLUSH PRN PRN disp.syrin PRN Reason: Iv Port Flush Hydralazine HCl 100 mg PO TID #90 tablet Hydrocodone Bit/Acetaminophen [Pepin 5-325 Tablet] 1 each PO Q6H PRN #120 tablet PRN Reason: Pain Acetaminophen 325 mg [Tylenol 325 mg] 650 mg PO Q6H PRN PRN tablet PRN Reason: Pain And/Or Fever Continue Insulin Glargine [Lantus Insulin] 30 unit SQ HS Gabapentin [Neurontin] 600 mg PO TID #90 tablet Atorvastatin Calcium 20 mg PO HS Quetiapine Fumarate [Seroquel] 200 mg PO HS Levetiracetam [Keppra 500 mg ] 500 mg PO TID Amlodipine Besylate 10 mg [Norvasc 10 MG] 10 mg PO DAILY #30 tablet Insulin Aspart [NovoLOG Insulin] 4 unit SQ TID #0 Discontinued HydrALAzine HCL 25 MG TAB [Apresoline 25 MG TABLET] 25 mg PO TID #90 tablet
[2017-08-13] MEDS: NovoLOG Insulin SQ SCH ×3 (08:39→16:52)
[2017-08-13] MEDS: KEPPRA 500 MG PO SCH ×2 (08:40→14:54)
[2017-08-13] MEDS: Apresoline 25 MG TABLET PO SCH ×2 (08:40→14:54)
[2017-08-13] MEDS: NORVASC 5 MG PO SCH (08:40)
[2017-08-13] MEDS: NEURONTIN 300 MG PO SCH ×2 (08:40→14:55)
[2017-08-14] MEDS: NORCO 5/325 MG PO PRN ×3 (01:14→20:48)
[2017-08-14] MEDS: Apresoline 25 MG TABLET PO SCH ×4 (01:28→21:36)
[2017-08-14] MEDS: KEPPRA 500 MG PO SCH ×4 (01:28→21:36)
[2017-08-14] MEDS: Lantus Insulin SQ SCH ×2 (01:28→21:36)
[2017-08-14] MEDS: ZOCOR 20MG PO SCH ×2 (01:29→21:36)
[2017-08-14] MEDS: NEURONTIN 300 MG PO SCH ×4 (01:29→21:36)
[2017-08-14] MEDS: Seroquel 100 MG PO SCH ×2 (01:29→21:36)
[2017-08-14] MEDS: NovoLOG Insulin SQ SCH ×3 (08:17→17:52)
--- NOTE | 2017-08-14 08:26 | PCM.DCORD ---
- Discharge Discharge Date: 08/14/17 Disposition: DC TO ANY "OTHER" SKILLED NURSING Condition: Fair Prescriptions: New Heparin Flush 500 units/5 ml [Heparin Lock Flush 100 Units/ml 5ml Syringe ] 500 units PORT FLUSH PRN PRN disp.syrin PRN Reason: Iv Port Flush Hydralazine HCl 100 mg PO TID #90 tablet Hydrocodone Bit/Acetaminophen [[place] 5-325 Tablet] 1 each PO Q6H PRN #120 tablet PRN Reason: Pain Acetaminophen 325 mg [Tylenol 325 mg] 650 mg PO Q6H PRN PRN tablet PRN Reason: Pain And/Or Fever Continue Insulin Glargine [Lantus Insulin] 30 unit SQ HS Gabapentin [Neurontin] 600 mg PO TID #90 tablet Atorvastatin Calcium 20 mg PO HS Quetiapine Fumarate [Seroquel] 200 mg PO HS Levetiracetam [Keppra 500 mg ] 500 mg PO TID Insulin Aspart [NovoLOG Insulin] 4 unit SQ TID #0 Discontinued HydrALAzine HCL 25 MG TAB [Apresoline 25 MG TABLET] 25 mg PO TID #90 tablet Amlodipine Besylate 10 mg [Norvasc 10 MG] 10 mg PO DAILY #30 tablet
--- NOTE | 2017-08-14 20:10 | PCM.NOTE ---
Date and Time: 08/14/172003 Subjective Assessment: Late entry note discussed with patient at 08:00 today he reported he was not taking his medications because he wanted vicodin or something like that not the norco we gave him and wants iv dilaudid for his pain that is "all over" specifically he says "in my head all over" and in "in my neck". he was eating breakfast peacefully in no distress when i entered the room. He says his swelling is better today. He refused his medicines yesterday because he said he didn't want to keep taking them he wanted to go home. He says he is tired of dealing with all this and just wants to go home. When [place] [facility] [place] can give him something to "knock me out for the trip so I don't have to be awake ". He admits the seroquel was helping his mood but didn't take it last night. Objective Exam General Appearance: no apparent distress, alert Neurologic Exam: alert, oriented x 3, cooperative, normal mood/affect, nml cerebellar function, sensation nml, No motor deficits Skin Exam: normal color, warm, dry Eye Exam: PERRL, EOMI, eyes nml inspection Ears, Nose, Throat Exam: normal ENT inspection, pharynx normal, moist mucous membranes Neck Exam: normal inspection, non-tender, supple, full range of motion Respiratory Exam: normal breath sounds, lungs clear, No respiratory distress Cardiovascular Exam: regular rate/rhythm, normal heart sounds, edema (trace juanita LE and UE) Gastrointestinal/Abdomen Exam: soft, No tenderness, No mass Extremity Exam: normal inspection, normal range of motion Back Exam: normal inspection, normal range of motion, No CVA tenderness, No vertebral tenderness Male Genitalia Exam: deferred Rectal Exam: deferred OBJECTIVE DATA Vital Signs: Vital Signs - 24 hr Temp Pulse Resp BP Pulse Ox 08/14/17 16:00 98.0 F 72 18 173/76 97 08/14/17 12:00 98.0 F 72 18 173/76 97 08/14/17 07:29 98.3 F 72 18 148/74 94 L 08/14/17 04:00 98.4 F 88 19 151/66 94 L 08/14/17 00:00 98.1 F 77 17 138/66 94 L Pain Assessment - Last Documented Pain Intensity 9 Pain Scale Used 0-10 Pain Scale Intake and Output: Intake & Output 08/12/17 08/13/17 08/14/17 08/15/17 11:59 11:59 11:59 11:59 Intake Total 1560 1080 1020 Output Total 921 525 4859 475 Balance 1060 730 -80 -475 Weight 94.886 kg 93.758 kg 94.892 kg Lab Results: Accuchecks Date 08/14/17 Date 08/13/17 Time 16:30 Time 21:30 Accucheck Value: 203 Multi-Disciplinary Progress Notes: Multi-Disciplinary Progress Notes 08/14/17 13:04 Case Management Note by Sun Rosas S/W DOMO STAHL, , WITH [facility] AND PRICING COORDINATOR FOR GUARDIANSHIP, GAVE STATUS OF PATIENT. UNABLE TO GET AMADEO. Initialized on 08/14/17 13:04 - END OF NOTE 08/14/17 11:34 Case Management Note by Kati Smith SPOKE WITH PT TODAY WANTING TO KNOW WHEN HE IS LEAVING. MAYA VALDEZ STILL WAITING ON LEVEL 2. WILL CONT TO MONITOR PT AND DC NEEDS. Initialized on 08/14/17 11:34 - END OF NOTE Assessment/Plan (1) Depression Current Visit: Yes Status: Acute Assessment & Plan: he has been medically stable for discharge for 1 week now but we are apparently waiting on 1 additional signiture for a level 2 despite him just being discharged from the [facility] he is going back to about 1 month ago. We thought he was going yesterday, when he didn't it seemed to worsen his depression and he was upset that we will not give him iv dilaudid so he has started refusing his medication yesterday. The prolonged period he remains in this limbo state seems to be seriously worsening his depression and increasing his feelings of worthlessness and hopelessness. After our discussion this am at 08:00 he indicated he would be taking his bp med and lantus. We talked about setting him up with therapy as well on discharge and he felt that would be a good idea. I d/c his amlodipine as his edema was better off it and his bp is still relatively controlled. However on chart review at time of this late entry note it appears he has continued to refuse his medications and demand IV pain medicine despite no obvious indications of pain. Code(s): F32.9 - MAJOR DEPRESSIVE DISORDER, SINGLE EPISODE, UNSPECIFIED (2) History of stroke Current Visit: Yes Status: Chronic Code(s): Z86.73 - PRSNL HX OF TIA (TIA), AND CEREB INFRC W/O RESID DEFICITS (3) Uncontrolled hypertension Current Visit: Yes Status: Chronic Code(s): I10 - ESSENTIAL (PRIMARY) HYPERTENSION (4) Anemia Current Visit: Yes Status: Chronic Code(s): D64.9 - ANEMIA, UNSPECIFIED (5) Altered mental status Current Visit: Yes Status: Resolved Code(s): R41.82 - ALTERED MENTAL STATUS , UNSPECIFIED (6) Bilateral lower extremity edema Current Visit: Yes Status: Acute Code(s): R60.0 - LOCALIZED EDEMA (7) Coronary artery disease Current Visit: Yes Status: Chronic Code(s): I25.10 - ATHSCL HEART DISEASE OF [place] CORONARY ARTERY W/O ANG PCTRS (8) Neurogenic bladder Current Visit: Yes Status: Chronic Code(s): N31.9 - NEUROMUSCULAR DYSFUNCTION OF [place]AD[place], UNSPECIFIED (9) Diabetic neuropathy associated with type 1 diabetes mellitus Current Visit: Yes Status: Chronic Code(s): E10.40 - TYPE 1 DIABETES MELLITUS WITH DIABETIC NEUROPATHY, UNSP (10) UTI (urinary tract infection) Current Visit: Yes Status: Ruled-out Code(s): N39.0 - URINARY TRACT INFECTION, SITE NOT SPECIFIED (11) CKD (chronic kidney disease) Current Visit: Yes Status: Chronic Code(s): N18.9 - CHRONIC KIDNEY DISEASE, UNSPECIFIED (12) Protein-calorie malnutrition, mild Current Visit: Yes Status: Acute Code(s): E44.1 - MILD PROTEIN-CALORIE MALNUTRITION
--- NOTE | 2017-08-15 08:14 | PCM.NOTE ---
Date and Time: 08/15/17804 Subjective Assessment: He has refused all meds except pain medicine since Sunday he started refusing accucheck yesterday and swung at the assistant in nursing yesterday He then tried to get up to the bedside commode on his own and fell hitting his knee. he is only able to bear weight and pivot we have not seen him able to walk. He is eating. Yesterday he kept saying he just wanted to . Today he is crying and saying he just wants to go home. When asked how he will do this at home he says he just will. He has no additional resoucrces and the reason he presented in to the hospital again is no outpatient services will see him any longer as they do not feel he is appropriate for outpatient care. We tried hospice but he is not actively dying and thus was no longer a candidate. He was sent home with Geovanny lift from but has no one really to help him operate this at home. When asked if he is not taking his medicine and because he is trying to he just cries and says he doesn't know. He doesn't provide much additional history today other then crying and saying he wants to go home. Objective Exam Neurologic Exam: oriented x 3, agitation, depressed mood/affect, No normal mood/ affect, No slurred speech Skin Exam: pale OBJECTIVE DATA Vital Signs: Vital Signs - 24 hr Temp Pulse Resp BP Pulse Ox 08/15/17 07:17 97.8 F 86 20 182/90 96 08/15/17 05:17 98.2 F 77 20 220/103 96 08/15/17 02:15 177/81 08/15/17 00:00 98.2 F 77 16 204/100 95 08/14/17 21:00 181/88 08/14/17 20:00 98.2 F 85 20 190/104 95 08/14/17 16:00 98.0 F 72 18 173/76 97 08/14/17 12:00 98.0 F 72 18 173/76 97 Pain Assessment - Last Documented Pain Intensity 9 Pain Scale Used 0-10 Pain Scale Intake and Output: Intake & Output 08/12/17 08/13/17 08/14/17 08/15/17 11:59 11:59 11:59 11:59 Intake Total 1560 1080 1020 510 Output Total 084 063 6675 1950 Balance 1060 730 80 -1440 Weight 94.886 kg 93.758 kg 94.892 kg Lab Results: Accuchecks Date 08/14/17 Date 08/14/17 Time 21:30 Time 16:30 Multi-Disciplinary Progress Notes: Multi-Disciplinary Progress Notes 08/14/17 13:04 Case Management Note by Sun Rosas S/W DOMO STAHL, , WITH [facility] AND [employer] STATION OPERATOR FOR [facility], GAVE STATUS OF PATIENT. UNABLE TO GET AMADEO. Initialized on 08/14/17 13:04 - END OF NOTE 08/14/17 11:34 Case Management Note by Kati Smith SPOKE WITH PT TODAY WANTING TO KNOW WHEN HE IS LEAVING. PER SUN STILL WAITING ON LEVEL 2. WILL CONT TO MONITOR PT AND DC NEEDS. Initialized on 08/14/17 11:34 - END OF NOTE Assessment/Plan (1) Depression Current Visit: Yes Status: Acute Assessment & Plan: The Level 2 is still pending. He was stable for discharge 1 week ago and have been waiting on disposition problems since. his bp and blood sugar were controlled until he stopped taking his medications and now they have spiked. With his depression and mood disorder and desire to and refusing all our treatments and swing at the staff. We have called [facility] they are considering a consult and we are awaiting call back. If this is not available will set up [facility] consult for options but I'm not sure he will talk with them at this point. Code(s): F32.9 - MAJOR DEPRESSIVE DISORDER, SINGLE EPISODE, UNSPECIFIED (2) History of stroke Current Visit: Yes Status: Chronic Code(s): Z86.73 - PRSNL HX OF TIA (TIA), AND CEREB INFRC W/O RESID DEFICITS (3) Uncontrolled hypertension Current Visit: Yes Status: Chronic Code(s): I10 - ESSENTIAL (PRIMARY) HYPERTENSION (4) Anemia Current Visit: Yes Status: Chronic Code(s): D64.9 - ANEMIA, UNSPECIFIED (5) Altered mental status Current Visit: Yes Status: Resolved Code(s): R41.82 - ALTERED MENTAL STATUS , UNSPECIFIED (6) Bilateral lower extremity edema Current Visit: Yes Status: Acute Code(s): R60.0 - LOCALIZED EDEMA (7) Coronary artery disease Current Visit: Yes Status: Chronic Code(s): I25.10 - ATHSCL HEART DISEASE OF [place] CORONARY ARTERY W/O ANG PCTRS (8) Neurogenic bladder Current Visit: Yes Status: Chronic Code(s): N31.9 - NEUROMUSCULAR DYSFUNCTION OF BLADDER, UNSPECIFIED (9) Diabetic neuropathy associated with type 1 diabetes mellitus Current Visit: Yes Status: Chronic Code(s): E10.40 - TYPE 1 DIABETES MELLITUS WITH DIABETIC NEUROPATHY, UNSP (10) UTI (urinary tract infection) Current Visit: Yes Status: Ruled-out Code(s): N39.0 - URINARY TRACT INFECTION, SITE NOT SPECIFIED (11) CKD (chronic kidney disease) Current Visit: Yes Status: Chronic Code(s): N18.9 - CHRONIC KIDNEY DISEASE, UNSPECIFIED (12) Protein-calorie malnutrition, mild Current Visit: Yes Status: Acute Code(s): E44.1 - MILD PROTEIN-CALORIE MALNUTRITION
[2017-08-15] MEDS: NovoLOG Insulin SQ SCH ×3 (09:36→16:13)
[2017-08-15] MEDS: NEURONTIN 300 MG PO SCH ×3 (11:03→22:30)
[2017-08-15] MEDS: KEPPRA 500 MG PO SCH ×3 (11:03→22:30)
[2017-08-15] MEDS: Apresoline 25 MG TABLET PO SCH ×3 (11:03→22:30)
[2017-08-15] MEDS: Lantus Insulin SQ SCH (22:30)
[2017-08-15] MEDS: ZOCOR 20MG PO SCH (22:30)
[2017-08-15] MEDS: NORCO 5/325 MG PO PRN (23:25)
[2017-08-15] MEDS: Seroquel 100 MG PO SCH (23:25)
[2017-08-16] MEDS: NEURONTIN 300 MG PO SCH ×2 (10:16→14:37)
[2017-08-16] MEDS: KEPPRA 500 MG PO SCH ×2 (10:16→14:36)
[2017-08-16] MEDS: NovoLOG Insulin SQ SCH ×2 (10:16→11:22)
[2017-08-16] MEDS: Apresoline 25 MG TABLET PO SCH ×2 (10:16→14:36)
[2017-08-16 11:24] VITALS: BP 208/99; PULSE 69; O2SAT 94
--- NOTE | 2017-08-16 12:27 | PCM.NOTE ---
Date and Time: 08/16/17 1217 Subjective Assessment: he tried to get up yesterday on his own but is unable to stand was trying to get out of bed but not able to. He refused his meals yesterday as well as his medications. He refused to do the tele mental health consult yesterday as well. Attempted to further discuss this today and he has his hat pulled over his eyes. Asked if he wants to talk about anything he says "no" Asked if he still just wanted to go home he says "yes" he also replied he will not be taking his medicines now Objective Exam General Appearance: other (laying in dark room with his hat pulled over his eyes. Moving all extremities in bed) OBJECTIVE DATA Vital Signs: Vital Signs - 24 hr Temp Pulse Resp BP Pulse Ox 08/16/17 11:00 98.2 F 69 18 208/99 94 L 08/16/17 07:00 98 F 65 18 188/91 95 08/16/17 03:00 97.5 F 64 16 158/84 93 L 08/15/17 19:00 98.5 F 75 20 225/109 95 Pain Assessment - Last Documented Pain Intensity 9 Pain Scale Used 0-10 Pain Scale Intake and Output: Intake & Output 08/14/17 08/15/17 08/16/17 08/17/17 11:59 11:59 11:59 11:59 Intake Total 1020 510 840 Output Total 1100 2150 1405 Balance -80 -1640 -565 Weight 94.892 kg 94.937 kg Lab Results: Accuchecks Date 08/16/17 Time 11:24 Multi-Disciplinary Progress Notes: Multi-Disciplinary Progress Notes 08/15/17 15:10 (created 08/15/17 16:13) Case Management Note by Carlee Walker CALL TO [facility] FOR FOLLOWUP OF LEVEL II. ALBERTO REPORTS THAT LEVEL II PAPERWORK HAS BEEN SENT TO PSYCHIATRIST FOR REVIEW/SIGNATURE. REPORTS THAT SHE WILL FAX APPROVAL WHEN SHE RECEIVES IT. REPORTS THAT SHE IS HOPING TO HAVE IT RETURNED TO HER SOON. AWAIT LEVEL II COMPLETION FOR TRANSITION TO [facility]. Initialized on 08/15/17 16:13 - END OF NOTE 08/15/17 12:30 (created 08/15/17 14:34) Case Management Note by Carlee Walker FAXED WAIVER OF NOTICE OF HEARING AND CONSENT TO [employer] TO DAREN TROTTER , FAX# [phone]. SPOKE WITH DAREN TROTTER, ROOM SERVICE ASSOCIATE HANDLING [employer]. REPORTS THAT SHE WILL BE TAKING TO [employer] F[employer]RICATOR LAURO TODAY. Initialized on 08/15/17 14:34 - END OF NOTE Assessment/Plan (1) Depression Current Visit: Yes Status: Acute Assessment & Plan: Since Sunday the planned day of transfer to [facility] that got pushed back he has had progressively worsening symptoms he has been crying, wants to go home but has no way to care for himself, transfer, or walk. He has been refusing medications and vital signs all and previously told me he just wanted it all to end. He did earlier admit the seroquel helped his depression but he refuses this now as well. He has now started refusing to eat as well. We are awaiting a face to face [facility] psychiatric consultation as he refuses to use the tele mental health to help with options in this very complicated case. The level 2 we have been waiting on was signed today; however in his current state with his significant decline in hi depression since Sunday he needs psychiatric consultation before a discharge to [facility] would be appropriate. He was stable medically for discharge 8 days ago. when he was on his medications here his bp and glucose was controlled now off them they were uncontrolled when he allowed us to take them but started swinging at the nursing aids and refusing these. As we are not a psychiatric facility and he is cognitively intact we have not started injectable medications yet at this time and will await psychiatric considerations for possible inpatient placement for this severely depressed person who refuses all of our care. Code(s): F32.9 - MAJOR DEPRESSIVE DISORDER, SINGLE EPISODE, UNSPECIFIED (2) History of stroke Current Visit: Yes Status: Chronic Code(s): Z86.73 - PRSNL HX OF TIA (TIA), AND CEREB INFRC W/O RESID DEFICITS (3) Uncontrolled hypertension Current Visit: Yes Status: Chronic Code(s): I10 - ESSENTIAL (PRIMARY) HYPERTENSION (4) Anemia Current Visit: Yes Status: Chronic Code(s): D64.9 - ANEMIA, UNSPECIFIED (5) Altered mental status Current Visit: Yes Status: Resolved Code(s): R41.82 - ALTERED MENTAL STATUS , UNSPECIFIED (6) Bilateral lower extremity edema Current Visit: Yes Status: Acute Code(s): R60.0 - LOCALIZED EDEMA (7) Coronary artery disease Current Visit: Yes Status: Chronic Code(s): I25.10 - ATHSCL HEART DISEASE OF [place] CORONARY ARTERY W/O ANG PCTRS (8) Neurogenic bladder Current Visit: Yes Status: Chronic Code(s): N31.9 - NEUROMUSCULAR DYSFUNCTION OF BLADDER, UNSPECIFIED (9) Diabetic neuropathy associated with type 1 diabetes mellitus Current Visit: Yes Status: Chronic Code(s): E10.40 - TYPE 1 DIABETES MELLITUS WITH DIABETIC NEUROPATHY, UNSP (10) UTI (urinary tract infection) Current Visit: Yes Status: Ruled-out Code(s): N39.0 - URINARY TRACT INFECTION, SITE NOT SPECIFIED (11) CKD (chronic kidney disease) Current Visit: Yes Status: Chronic Code(s): N18.9 - CHRONIC KIDNEY DISEASE, UNSPECIFIED (12) Protein-calorie malnutrition, mild Current Visit: Yes Status: Acute Code(s): E44.1 - MILD PROTEIN-CALORIE MALNUTRITION
[2017-08-16] MEDS: NORCO 5/325 MG PO PRN ×2 (13:14→16:14)
== END 2017-08-16 16:55 ==
LOC: ED 15:04 → MED SURG 18:15 → ICU 08-08 01:13 → MED SURG 08-08 13:16
PROVIDERS: ADMIT Family Medicine; ATTEND Family Medicine
DX: Z86.73 Personal history of transient ischemic attack (TIA), and cerebral infarction without residual deficits (principal); N39.0 Urinary tract infection, site not specified; E44.1 Mild protein-calorie malnutrition; I12.9 Hypertensive chronic kidney disease with stage 1 through stage 4 chronic kidney disease, or unspecified chronic kidney disease; N18.9 Chronic kidney disease, unspecified; D64.9 Anemia, unspecified; R41.82 Altered mental status, unspecified; R60.0 Localized edema; I25.10 Atherosclerotic heart disease of native coronary artery without angina pectoris; N31.9 Neuromuscular dysfunction of bladder, unspecified; E10.40 Type 1 diabetes mellitus with diabetic neuropathy, unspecified; F32.9 Major depressive disorder, single episode, unspecified
CPT/HCPCS: 36000; 36415; 36430; 36591; 36600; 70450; 71010; 74022; 80048; 80053; 81000; 82375; 82803; 82962; 83036; 83605; 83880; 84134; 84484; 85014; 85018; 85025; 85027; 86850; 86900; 86901; 86922; 87040; 87086; 90791; 93005; 93268; 96365; 96372; 96374; 99285; G0378; J1642; J1940; J1956; J2270; P9016; Q3014; A9270-GY